=== PATIENT | female | born 1950 | race Caucasian/White ===

== ENCOUNTER 2022-02-01 03:10 | Inpatient (IN) | payer MEDICARE, MEDICAID, SELFPAY ==
[2022-02-01] VITALS (89 sets, daily range): BP systolic 65–174; BP diastolic 29–86; PULSE 77–185; RESP 16–41; TEMP 33.6–37.1; O2SAT 68–100; BMI 16.7
--- NOTE | ~2022-02-01 | XR_ITS ---
EXAMINATION: XR abdomen NG/feed tube insert DATE: 02/01/2022 08:38 INDICATION: Nasogastric tube placement. TECHNIQUE: A semiupright view of the abdomen was obtained. COMPARISON: None. FINDINGS: The lower abdomen is excluded. There are no dilated loops of bowel. The nasogastric tube ti p is in the stomach. IMPRESSION: 1. Nasogastric tube tip in the stomach. Reviewed, dictated and finalized at location A.
--- NOTE | ~2022-02-01 | CT_ITS ---
EXAMINATION: CT brain wo con DATE: 02/20/2022 10:25 INDICATION: Anisocoria with relatively dilated left pupil TECHNIQUE: Computed tomography (CT) of the head was performed without intravenous contrast. Sagittal and coronal reconstructions were performed. The mA was adjusted according to patient size. Iterative reconstruction technique was employed. The dose-length product was 605.33 mGy-cm. COMPARISON: None FINDINGS: No acute intracranial hemorrhage, acute infarction or abnormal extra axial fluid collection. There is mild scattered white matter hypoattenuation consistent with chronic small vessel ischemic disease. V entricles are normal and symmetric. Suprasellar cistern in the remaining basal cisterns appear patent . No mass/mass effect. The orbits, paranasal sinuses and mastoid air cells are normal. IMPRESSION: 1. Mild scattered white matter hypoattenuation consistent with chronic small vessel ischemic disease. Otherwise normal head CT. Reviewed, dictated and finalized at location A. IMPRESSION: 1. Mild scattered white matter hypoattenuation consistent with chronic small ve ssel ischemic disease. Otherwise normal head CT.
--- NOTE | ~2022-02-01 | US_ITS ---
US renal BI DATE: 02/17/2022 17:42 INDICATION: Hematuria TECHNIQUE: Real-time imaging of kidneys and urinary bladder COMPARISON: None FINDINGS: No renal mass lesion or hydronephrosis is evident. The right kidney measures approximately 10.9 cm length, the left 10.5 cm. No significant abnormality of the bowel is evident. IMPRESSION: No significant abnormalities demonstrated Reviewed, dictated and finalized at [facility]. Reviewed, dictated and finalized at location A.
--- NOTE | ~2022-02-01 | XR_ITS ---
XR chest 1V portable 02/11/2022 05:36 Indication: Respiratory failure Procedure: AP portable chest Comparison: Comparison to multiple prior studies sequentially, with oldest reviewed study dated 02/07. Findings: There is improving bilateral airspace disease with superimposed emphysema and chronic bilat eral scarring of the upper and lower lungs. There is chronic apical pleural thickening/scarring. No p neumothorax. Endotracheal tube tip 3.6 cm above the tate. NG tube in the stomach. Right IJ central line tip in the SVC. Impression: 1: Improving bilateral airspace disease which may represent resolving pneumonia or edema. Reviewed, dictated and finalized at location A. Impression: 1: Improving bilateral airspace disease which may represent resolving pneumonia or edema.
--- NOTE | ~2022-02-01 | US_ITS ---
EXAMINATION: US transvaginal DATE: 02/19/2022 14:50 INDICATION: Endometrial thickening suspicious for endometrial cancer. TECHNIQUE: Multiple transvaginal sonographic images of the pelvis were obtained. COMPARISON: CT cervical spine 02/18/2022. FINDINGS: TRANSABDOMINAL ULTRASOUND: The uterus measures 5.1 x 4.7 x 3.1 cm. There is no free fluid in the pelvis. TRANSVAGINAL ULTRASOUND: There is fluid in the endometrial complex with maximum thickness of 1.6 cm. The soft tissue of the en dometrial complex demonstrates a thickness of 4 mm. The ovaries are not visualized. IMPRESSION: 1. Fluid in the endometrial complex, which may be seen with cervical stenosis or cervical cancer. Reviewed, dictated and finalized at location A. IMPRESSION: 1. Fluid in the endometrial complex, which may be seen with cervical stenosis o r cervical cancer.
--- NOTE | ~2022-02-01 | US_ITS ---
EXAMINATION: US venous doppler [facility] DATE: 02/03/2022 10:11 INDICATION: Lower limb edema. TECHNIQUE: Grayscale ultrasound images without and with compression and Doppler ultrasound images of the bilateral lower extremity veins were obtained. COMPARISON: None. FINDINGS: The visualized portions of right common femoral vein, profunda (deep) femoral vein, femoral vein, pop liteal vein, peroneal veins, posterior tibial veins, and greater saphenous vein outflow are patent. The visualized portions of left common femoral vein, profunda femoral vein, femoral vein, popliteal v ein, peroneal veins, posterior tibial veins, and greater saphenous vein outflow are patent. IMPRESSION: 1. No deep venous thrombosis. Reviewed, dictated and finalized at location A.
--- NOTE | ~2022-02-01 | XR_ITS ---
EXAMINATION: XR chest ET placement DATE: 02/01/2022 08:37 INDICATION: Intubation. TECHNIQUE: A single frontal view of the chest was obtained. COMPARISON: Chest single view at 5:56 AM FINDINGS: The lungs are hyperexpanded. There are airspace opacities in all lung zones bilaterally wit h an upper lung predominance, worst in right upper lobe. No pleural effusion or pneumothorax. The hea rt size is normal. The endotracheal tube tip is 2.2 cm above the tate. The nasogastric tube tip is in the stomach. A right internal jugular central venous catheter is seen with tip in the superior castillo a cava. IMPRESSION: 1. Diffuse lung disease, consistent with multifocal pneumonia superimposed on chronic lung disease. T he chronic lung disease is likely a combination of severe emphysema and upper lung predominant diseas e such as tuberculosis, histoplasmosis, or sarcoid. Reviewed, dictated and finalized at location A. IMPRESSION: 1. Diffuse lung disease, consistent with multifocal pneumonia superimposed on c hronic lung disease. The chronic lung disease is likely a combination of severe emphysema and upper lung predominant disease such as tuberculosis, histoplasmo sis, or sarcoid.
--- NOTE | ~2022-02-01 | XR_ITS ---
XR chest 1V portable 02/07/2022 05:53 Indication: Respiratory failure Procedure: AP portable chest Comparison: Comparison to multiple prior studies sequentially, with oldest reviewed study dated 02/03. Findings: Endotracheal tube tip approximately 2 cm above the tate. Right IJ central line tip in the CC. NG tube in the stomach. Extensive mixed interstitial and airspace disease bilaterally. Small rig ht pleural effusion. No pneumothorax. The lungs are hyperinflated which is consistent with, but not d iagnostic of chronic obstructive pulmonary disease. Impression: 1: Extensive bilateral airspace disease, consistent with pneumonia. Reviewed, dictated and finalized at location A. Impression: 1: Extensive bilateral airspace disease, consistent with pneumonia.
--- NOTE | ~2022-02-01 | XR_ITS ---
EXAMINATION: XR chest port-a-cath/central DATE: 02/01/2022 06:00 INDICATION: Central line placement. TECHNIQUE: A single frontal view of the chest was obtained. COMPARISON: Chest single view at 3:43 AM FINDINGS: The lungs are hyperexpanded. There are patchy airspace opacities in all lung zones bilatera lly with architectural distortion with an upper lung predominance, right worse than left. No pleural effusion or pneumothorax. The heart size is normal. A right internal jugular central venous catheter is seen with tip in the superior vena cava. IMPRESSION: 1. Central line tip in superior vena cava. 2. Diffuse lung disease, likely multifocal pneumonia superimposed on chronic lung disease. The chroni c lung disease is likely a combination of severe emphysema and upper lung predominant disease such as tuberculosis, histoplasmosis, or sarcoid. Reviewed, dictated and finalized at location A. IMPRESSION: 1. Central line tip in superior vena cava. 2. Diffuse lung disease, likely multifocal pneumonia superimposed on chronic connor ng disease. The chronic lung disease is likely a combination of severe emphysem a and upper lung predominant disease such as tuberculosis, histoplasmosis, or s arcoid.
--- NOTE | ~2022-02-01 | XR_ITS ---
EXAMINATION: XR chest 1V portable DATE: 02/06/2022 10:06 INDICATION: Respiratory failure. TECHNIQUE: A single frontal view of the chest was obtained. COMPARISON: Chest single view 02/05/2022, chest CT 02/01/2022 FINDINGS: There are lucencies in the lungs, consistent with emphysema. There are airspace opacities i n all lung zones bilaterally with architectural distortion. There is a small right pleural effusion v ersus pleural thickening. No pneumothorax. The heart size is normal. The endotracheal tube tip is 3.3 cm above the tate. The nasogastric tube tip is in the stomach. A right internal jugular central ve nous catheter is seen with tip in the superior vena cava. IMPRESSION: 1. Stable diffuse lung disease, consistent with acute on chronic pneumonia superimposed on emphysema. 2. Stable blunting of right lateral costophrenic angle, consistent with small pleural effusion versus pleural thickening. Reviewed, dictated and finalized at location A. IMPRESSION: 1. Stable diffuse lung disease, consistent with acute on chronic pneumonia supe rimposed on emphysema. 2. Stable blunting of right lateral costophrenic angle, consistent with small p leural effusion versus pleural thickening.
--- NOTE | ~2022-02-01 | CT_ITS ---
EXAMINATION: CT abdomen pelvis wo/w con EXAM DATE: 02/18/2022 14:47 INDICATION: Gross hematuria. TECHNIQUE: Spiral CT of the abdomen and pelvis was performed without contrast. The patient was then injected with small bolus intravenous Omnipaque 350, followed by delay of approximately 10 minutes to allow collecting system to opacify. A post contrast scan abdomen and pelvis was performed during inj ection of remaining contrast. A total of 130 cc intravenous contrast was administered. The dose-jenny th product (DLP) for this examination was 466.80 mGy-cm. The exposure was tailored according to adán ent size (auto mA exposure control), and iterative reconstruction (ASIR) was used as additional dose reduction technique. There is no prior study for comparison. FINDINGS: There are 2 small foci of right epicardial gas of uncertain source. Frond-like nodular mass along the superior wall of the bladder measuring 1.2 cm in maximal thickness, most likely transition al cell cancer. There is no hydroureter or suspicious renal mass. Punctate left nephrolithiasis. Ther e is endometrial thickening up to 1.6 cm which may endometrial carcinoma. The liver, spleen, adrenal glands and pancreas are unremarkable. Gallbladder is unremarkable. No bi liary obstruction. There is no retroperitoneal or pelvic lymphadenopathy. The appendix is normal. The stomach and small bowel are unremarkable. There is expected amount of c olonic stool. No free intraperitoneal gas. The heart is normal in size. There are no pericardial or pleural effusions. Moderate amount of bilateral posterior dependent airspace disease consistent with pneumonia. Hyperinflation and severe emphysema. There are no osteoblastic or osteolytic lesions identified. IMPRESSION: 1. Superior bladder wall mass, probably transitional cell cancer. 2. Endometrial thickening suspicious for endometrial cancer. 3. Subsegmental bibasilar pneumonia. 4. Emphysema and hyperinflation. 5. Punctate left nephrolithiasis. 6. Several tiny foci of right epicardial gas of uncertain origin. No free intraperitoneal gas. Reviewed, dictated and finalized at location B. IMPRESSION: 1. Superior bladder wall mass, probably transitional cell cancer. 2. Endometrial thickening suspicious for endometrial cancer. 3. Subsegmental bibasilar pneumonia. 4. Emphysema and hyperinflation. 5. Punctate left nephrolithiasis. 6. Several tiny foci of right epicardial gas of uncertain origin. No free intr aperitoneal gas.
--- NOTE | ~2022-02-01 | XR_ITS ---
EXAMINATION: XR chest 1V portable DATE: 02/04/2022 05:52 INDICATION: Intubated TECHNIQUE: frontal view of the chest was obtained. COMPARISON: Chest radiograph dated 02/03/2022 FINDINGS: Endotracheal tube tip 1.2 cm above the tate. Right internal jugular central venous catheter with di stal tip at the midsuperior vena cava. Nasogastric tube in the stomach. No significant change in diffuse airspace opacities throughout both lungs. No pneumothorax or definit iris pleural effusion. Heart size is normal. IMPRESSION: 1. No significant change in diffuse bilateral lung disease consistent with likely acute on chronic pn eumonia superimposed over emphysema. Reviewed, dictated and finalized at location A. IMPRESSION: 1. No significant change in diffuse bilateral lung disease consistent with like ly acute on chronic pneumonia superimposed over emphysema.
--- NOTE | ~2022-02-01 | XR_ITS ---
EXAMINATION: XR abdomen obstructive series DATE: 02/11/2022 08:15 INDICATION: Abdominal pain and diarrhea TECHNIQUE: Upright and supine views of the abdomen were obtained. COMPARISON: 02/01/2022 FINDINGS: The nasogastric tube is in the stomach. No free intraperitoneal gas is identified. There ar e no definitely dilated loops of bowel. IMPRESSION: 1. Nonobstructive bowel gas pattern. Reviewed, dictated and finalized at location B.
--- NOTE | ~2022-02-01 | XR_ITS ---
EXAMINATION: XR chest 1V portable DATE: 02/01/2022 03:52 INDICATION: Cough. TECHNIQUE: A single frontal view of the chest was obtained. COMPARISON: Chest CT 02/01/2022, chest 2 views 01/31/2019 FINDINGS: The lungs are hyperexpanded. There are patchy airspace opacities in all lung zones bilatera lly with architectural distortion with an upper lung predominance, worst in right upper lobe. No pleu ral effusion or pneumothorax. The heart size is normal. IMPRESSION: 1. Diffuse lung disease, likely multifocal pneumonia superimposed on chronic lung disease. The chroni c lung disease is likely a combination of severe emphysema and upper lung predominant disease such as tuberculosis, histoplasmosis, or sarcoid. Reviewed, dictated and finalized at location A. IMPRESSION: 1. Diffuse lung disease, likely multifocal pneumonia superimposed on chronic connor ng disease. The chronic lung disease is likely a combination of severe emphysem a and upper lung predominant disease such as tuberculosis, histoplasmosis, or s arcoid.
--- NOTE | ~2022-02-01 | CT_ITS ---
EXAMINATION:CT diagnostic chest wo con DATE: 02/01/2022 04:56 INDICATION: Right lung mass. Shortness of breath. TECHNIQUE: Computed tomography (CT) of the chest was performed without intravenous contrast. Automate d exposure control and iterative reconstruction technique were employed. The dose-length product (DLP ) was 121.11 mGy-cm. COMPARISON: Chest single view 01/31/2019 FINDINGS: There is severe emphysema. There are patchy airspace opacities and septal thickening in all lobes with architectural distortion and upper lung volume loss. There are airspace opacities with ca vitation in superior segment right lower lobe and left upper and lower lobes. There are scattered sma ll nodules in the lungs. No pleural effusion. The heart size is normal. There are coronary artery josé miguel cifications. No pericardial effusion. There are no pathologically enlarged lymph nodes. There is mild thoracic spondylosis. IMPRESSION: 1. Multifocal pneumonia superimposed on chronic lung disease. The chronic lung disease in a combinati on of severe emphysema and upper lung predominant disease such as tuberculosis or histoplasmosis or s arcoid. Reviewed, dictated and finalized at location A. IMPRESSION: 1. Multifocal pneumonia superimposed on chronic lung disease. The chronic lung disease in a combination of severe emphysema and upper lung predominant disease such as tuberculosis or histoplasmosis or sarcoid.
--- NOTE | ~2022-02-01 | XR_ITS ---
EXAMINATION: XR chest 1V portable DATE: 02/03/2022 05:48 INDICATION: Pneumonia. Acute respiratory failure. TECHNIQUE: frontal view of the chest was obtained. COMPARISON: Chest radiograph dated 02/02/2022 FINDINGS: Endotracheal tube tip 2.4 cm above the tate. Nasogastric tube extends below the left hemidiaphragm with distal tip collimated off the study. Right internal jugular central venous catheter with distal tip at the midsuperior vena cava. Upper expansion of lungs suggesting emphysema better appreciated on prior CT . Airspace opacities thr oughout both lungs. This remains greatest in the right upper lobe but whether this appeared to be bright e interval improvement. No pneumothorax or definitive pleural effusion. Heart size is normal. Enlarge ment of the central pulmonary arteries consistent with pulmonary arterial hypertension. IMPRESSION: 1. Diffuse bilateral lung disease which is most severe but where there has also been interval improve ment in the right upper lung zone consistent with multifocal likely acute on chronic pneumonia superi mposed over emphysema. 2. Enlargement of the central pulmonary arteries consistent with pulmonary arterial hypertension. Reviewed, dictated and finalized at location A. IMPRESSION: 1. Diffuse bilateral lung disease which is most severe but where there has also been interval improvement in the right upper lung zone consistent with multifo josé miguel likely acute on chronic pneumonia superimposed over emphysema. 2. Enlargement of the central pulmonary arteries consistent with pulmonary sarah rial hypertension.
--- NOTE | ~2022-02-01 | XR_ITS ---
EXAMINATION: XR chest 1V portable DATE: 02/02/2022 05:25 INDICATION: Acute respiratory failure and pneumonia TECHNIQUE: frontal and lateral views of the chest were obtained. COMPARISON: Chest radiograph dated 02/01/2022 FINDINGS: Endotracheal tube tip 2.1 cm above the tate. Nasogastric tube extends below the left hemidiaphragm with distal tip collimated off the study. Right internal jugular central venous catheter with distal tip at the midsuperior vena cava. Hyperexpansion of lungs with flattening of the diaphragm consistent with severe emphysema better appr eciated on prior CT. No significant change in opacities with associated architectural distortion and pleural parenchymal scarring scattered throughout both lungs most prominent in the right upper lung z one. The cardiomediastinal silhouette is normal. Visualized bones and soft tissues are unremarkable. IMPRESSION: 1. Stable appearance of diffuse bilateral lung disease consistent with multifocal likely acute on chr onic pneumonia superimposed on emphysema. Reviewed, dictated and finalized at location A. IMPRESSION: 1. Stable appearance of diffuse bilateral lung disease consistent with multifoc al likely acute on chronic pneumonia superimposed on emphysema.
--- NOTE | ~2022-02-01 | XR_ITS ---
XR chest 1V portable 02/10/2022 05:46 Indication: Respiratory failure Procedure: AP portable chest Comparison: Comparison to multiple prior studies sequentially, with oldest reviewed study dated 02/06. Findings: Tubes and lines are stable. There is improving bilateral patchy airspace disease. There is emphysema. No pneumothorax identified. No acute osseous abnormality. Impression: 1: Improving patchy bilateral airspace disease, consistent with pneumonia. Reviewed, dictated and finalized at location A. Impression: 1: Improving patchy bilateral airspace disease, consistent with pneumonia.
--- NOTE | ~2022-02-01 | XR_ITS ---
EXAMINATION: XR chest 1V portable DATE: 02/05/2022 05:26 INDICATION: Intubation TECHNIQUE: frontal view of the chest was obtained. COMPARISON: Chest radiograph dated 02/04/2022 FINDINGS: Endotracheal tube tip 2.2 cm above the tate. Right internal jugular central venous catheter tip at the midsuperior vena cava. Nasogastric tube extends below the left hemidiaphragm with distal tip col limated off the study. No significant change in diffuse airspace opacities throughout both lungs. No pneumothorax or definit iris pleural effusion. Heart size within normal limits for AP technique. Enlargement of the central pu lmonary arteries consistent with pulmonary hypertension. IMPRESSION: 1. No significant change in diffuse bilateral lung disease consistent with acute on chronic pneumonia superimposed over emphysema. Reviewed, dictated and finalized at location A. IMPRESSION: 1. No significant change in diffuse bilateral lung disease consistent with acut e on chronic pneumonia superimposed over emphysema.
--- NOTE | ~2022-02-01 | XR_ITS ---
XR chest 1V portable 02/09/2022 05:30 Indication: Respiratory failure Procedure: AP portable chest Comparison: Comparison to multiple prior studies sequentially, with oldest reviewed study dated 02/05. Findings: Endotracheal tube tip 3.4 cm above the tate. NG tube in the stomach. Stable extensive demetrius ateral airspace disease, compatible with pneumonia. No significant effusion or pneumothorax. No acute osseous abnormality. Impression: 1: Stable extensive bilateral airspace disease, compatible with pneumonia. Reviewed, dictated and finalized at location A. Impression: 1: Stable extensive bilateral airspace disease, compatible with pneumonia.
--- NOTE | ~2022-02-01 | XR_ITS ---
XR chest 1V portable 02/08/2022 05:14 Indication: AP portable chest Procedure: Comparison to multiple prior studies sequentially, with oldest reviewed study dated 2021. Comparison: Comparison to multiple prior studies sequentially, with oldest reviewed study dated 02/04. Findings: Endotracheal tube tip 3.8 cm above the tate. NG tube in the stomach. There is extensive p atchy bilateral airspace disease, compatible with pneumonia. Small right pleural effusion. No pneumot horax identified. No acute osseous abnormality. Impression: 1: No significant change to extensive bilateral airspace disease, compatible with pneumonia. Reviewed, dictated and finalized at location A. Impression: 1: No significant change to extensive bilateral airspace disease, compatible wi th pneumonia.
--- NOTE | ~2022-02-01 | XR_ITS ---
EXAMINATION: XR abdomen/kub 1V DATE: 02/18/2022 13:08 INDICATION: Gross hematuria TECHNIQUE: A supine view of the abdomen on 2 radiographs was obtained. COMPARISON: None. FINDINGS: Multiple 2 mm or smaller calcifications in the left upper quadrant projecting over the left kidney bu t also the pancreas amount the majority representing a combination of atherosclerotic calcification a long the splenic artery or in parenchyma calcific a cyst at the tail the pancreas likely related to c hronic pancreatitis. One of the calcifications appear to represent a 2 mm stone seen on subsequent CT . Unchanged 7 mm likely phlebolith in the right hemipelvis. No evident right sided urolithiasis. Sma ll amount of high attenuation retained barium at the rectum from a modified swallow study performed 6 days prior. Mild opacities at the bilateral lung bases consistent with very small bilateral pleural effusions and associated bibasilar atelectasis and/or pneumonia. Mild lumbar levocurvature with moder ate spondylosis. IMPRESSION: 1. Multiple small ossifications in the left upper quadrant 1 representing a 2 mm left renal stone and remainder represent atherosclerotic splenic artery calcifications and pancreatic parenchymal calcifi cation related to chronic pancreatitis. Reviewed, dictated and finalized at location A. IMPRESSION: 1. Multiple small ossifications in the left upper quadrant 1 representing a 2 m m left renal stone and remainder represent atherosclerotic splenic artery calci fications and pancreatic parenchymal calcification related to chronic pancreati tis.
--- NOTE | ~2022-02-01 | XR_ITS ---
MODIFIED ESOPHAGRAM HISTORY: Recent extubation. Dysphagia. TECHNIQUE: Modified barium esophagram was performed by speech pathologist under radiologist fluorosco pic guidance. This was recorded on tape. The exam was reviewed on 02/12/2022 12:29 CDT. The DAP for this procedure was XXXXDAP#.#[id number] Gycm2. Fluoroscopy time is 1.9 minutes. One fluoroscopic image. FINDINGS: Lateral projection of the cervical spine demonstrates degenerative anterolisthesis at C4- 5.. There is normal swallowing function without evidence for penetration or aspiration. Note is made of follicular residue.. IMPRESSION: 1: Normal swallowing function without penetration or aspiration. 2: Please refer to speech pathologist report for additional detail. Reviewed, dictated and finalized at location A.
--- NOTE | 2022-02-01 03:13 | ECG_ITS ---
Measurements Intervals [place] Rate: 191 P: VT: 0 QRS: 83 QRSD: 110 T: -12 QT: 225 QTc: 402 Interpretive Statements ATRIAL FIBRILLATION WITH RAPID VENTRICULAR RESPONSE INCOMPLETE RIGHT BUNDLE BRANCH BLOCK [90+ ms QRS DURATION, TERMINAL R IN V1/V2, 40+ ms S IN I/aVL/V4/V5/V6] NONSPECIFIC ST AND T-WAVE CHANGES NO PREVIOUS ECG AVAILABLE FOR COMPARISON Electronically Signed On 02-01-2022 16:43:37 CDT by Cortney Baeza M.D.
--- NOTE | 2022-02-01 03:20 | ED.GENADULT ---
HPI - General Adult General Chief complaint: Shortness of Breath/Dyspnea Stated complaint: respiratory distress Source: RN notes reviewed History of Present Illness HPI narrative: Patient presents emergency department from home via EMS for shortness of breath. Patient states she has a history of COPD and atrial fibrillation she is normally on 2 to 3 L at home and all time states she has had progressively worsening shortness of breath over the past 1 week states is worse with any exertion patient states that several people at home have been sick with bronchitis she states she has had a cough this been nonproductive. Patient states she had a fever 2 days ago but none since she denies any chest pain abdominal pain nausea or vomiting. The patient states he was on amiodarone and a blood thinner at one point for her atrial fibrillation she is no longer on the is according to her her PCP Dr. Kirk had a left and she was not able to get these refilled however she states that she did see inspector automatic typewriter last week at [place] but cannot tell me his name who told her that she did not need the medications any longer Related Data Allergies Allergy/AdvReac Type Severity Reaction Status Date / Time No Known Allergies Allergy Verified 02/19/21 15:07 Review of Systems Review of Systems: Gen.: Reports fever ENT: Denies congestion Respir reports heart racing GI: Denies abdominal pain nausea, emesis or diarrhea Musculoskeletal: Denies back pain or muscle pain Neuro: Denies numbness, tingling, weakness or focal weakness Skin: Denies rash Except as documented, all other systems reviewed and negative [facility] Past Medical History Medical History (Updated 02/01/22 @ 06:35 by Irma Delgado MD) Anemia of chronic disease Chronic atrial fibrillation Diastolic CHF Emphysema/COPD History of atrial fibrillation History of pneumothorax Mass of lower lobe of left lung 2019 Pulmonary hypertension PVD (peripheral vascular disease) Severe protein-calorie malnutrition Surgical History Surgical History (Updated 02/01/22 @ 05:24 by Irma Delgado MD) H/O chest tube placement Family History Family History (Updated 02/01/22 @ 05:25 by Irma Delgado MD) Other Asthma Family history of chronic obstructive pulmonary disease Lung cancer Social History Social History Smoking status: Former smoker Exam Narrative: APPEARANCE: No acute distress, nontoxic, resting in bed EYES: EOMI HEENT: Normocephalic, atraumatic, OMM RESPIRATORY: Mild respiratory distress sitting upright wheezing throughout the bilateral lung skinner no rhonchi CARDIOVASCULAR: Tachycardic and irregular without murmurs rubs or gallops. ABDOMINAL: Soft, nontender, nondistended, no rebound or guarding MUSCULOSKELETAl: Moves all extremities. No clubbing, cyanosis 2+ edema the bilateral lower extremities NEURO: Awake and alert x 3. Following commands, speech normal, no focal deficits SKIN:: Warm, dry. No rashes lesions or abrasions PSYCHIATRIC: Normal affect/mood, Course Course Emergency Course: Once patient was registered I was able to review her pharmacy list. Patient had a 90-day supply of Xarelto filled in December I discussed with the patient now she does states that she is on Xarelto Discussed with Dr. Delgado accepts admission request patient started on cefepime and vancomycin as well as Tamiflu Called and discussed with Dr. Light agrees with admit to ICU he request patient started on phenylephrine secondary to heart rate agrees with current antibiotic choice of cefepime and vancomycin Discussed with Dr. Baeza agrees with consult agrees with plan for continued amiodarone Discussed with patient and family results of workup and diagnosis. Discussed need for admission. Patient and family understand and agree to current treatment plan Vital Signs Vital signs: Vital Signs Pulse Rate 185 H 02/01/22 03
[2022-02-01 03:27] LABS: Alveolar/Arterial O2 Gradient 131.2 mmHg; Fractional Inspired Oxygen 36 %; HCO3 ABG 17.5 mEq/l (22.0-26.0); Oxygen Content ABG 15.2 %vol (16.0-22.0); Oxygen Saturation ABG 94.1 % (95.0-100.0); Oxyhemoglobin 91.4 % THb (90.0-100.0); PCO2 ABG 39.7 mmHg (35.0-45.0); PO2 ABG 79.4 mmHg (80.0-100.0); PO2 FiO2 Ratio Arterial Blood 2.21 %; Total Hemoglobin 11.8 g/dL (12.0-18.0)
[2022-02-01 03:29] LABS: Device NASAL CANNULA; Modified Allen's Test Pass; Site Drawn RIGHT RADIAL; pH ABG 7.261 (7.350-7.450)
[2022-02-01] MEDS: methylPREDNISolone SOD SUCC 125 MG VIAL IV PUSH (03:44)
[2022-02-01] MEDS: AMIODARONE 150 MG/D5W 100 ML 150 MG/100 ML BAG 600 MG IV CONT ×2 (03:44→07:44)
[2022-02-01 03:51] LABS: Basophils Percent Auto 0.1 % (0.2-1.2); Hematocrit 40.6 % (37.0-47.0); Hemoglobin 11.9 g/dL (12.0-15.0); Immature Granulocyte Absolute 0.28 K/mm3 (0.00-0.031); Lymphocytes Absolute Auto 1.29 K/mm3 (0.9-3.2); Lymphocytes Percent Auto 4.4 % (18.3-44.2); Mean Corpuscular HGB Conc 29.3 g/dl (32-36); Mean Corpuscular Hemoglobin 26.3 pg (26-34); Mean Corpuscular Volume 89.8 fl (80-100); Mean Platelet Volume 10.6 fl (7.4-10.4); Monocytes Percent Auto 6.8 % (2.6-8.5); Neutrophils Absolute Auto 25.6 K/mm3 (1.3-6.7); Neutrophils Percent Auto 87.7 % (45.5-73.1); Nucleated Red Blood Cells Perc 0.1 % (0.0-0.2); Platelet Count Result 606 k/mm3 (150-375); Red Blood Count 4.52 M/mm3 (4.2-5.4); Red Cell Distribution Width 16.3 % (11.5-14.5); White Blood Count 29.2 K/mm3 (4.5-10.0)
[2022-02-01] MEDS: AMIODARONE 360 MG/D5W 200 ML 360 MG/200 ML BAG 33.33 MG IV CONT (03:59)
[2022-02-01 04:01] LABS: Prothrombin Time 21.7 Seconds (11.1-14.7)
[2022-02-01] MEDS: SODIUM CHLORIDE 0.9% IV 500 ML 999 ML IV CONT (04:05)
[2022-02-01 04:24] LABS: Influenza A QL RT-PCR Positive (Negative); Influenza B QL RT-PCR Negative (Negative); SARS-CoV-2 RNA PCR Negative
[2022-02-01 04:34] LABS: Alanine Aminotransferase 24 U/L (4-35); Albumin Level 3.2 g/dL (3.5-5.1); Alkaline Phosphatase 186 U/L (38-126); Anion Gap 14 mmol/L (8-16); Aspartate Amino Transferase 48 U/L (14-36); Bilirubin,Total 0.6 mg/dL (0.2-1.3); Blood Urea Nitrogen 43 mg/dL (7-17); Calcium 8.4 mg/dL (8.4-10.2); Carbon Dioxide 19 mmol/L (22-30); Chloride 103 mmol/L (98-107); Estimated CRCL calculation 27 ml/min; Estimated Glomerular Filt Rate 40; Glucose 149 mg/dL (65-110); Potassium 4.3 mmol/L (3.4-5.0); Sodium 136 mmol/L (137-145)
[2022-02-01] MEDS: SODIUM CHLORIDE 0.9% IV 1,000 ML 999 ML IV CONT ×2 (04:38→07:44)
[2022-02-01 04:55] LABS: Lactic Acid Reflex 4.3 mmol/L (0.7-2.1)
[2022-02-01 05:05] LABS: Thyroid Stimulating Hormone 0.079 uIU/mL (0.465-4.680)
[2022-02-01 05:05] LABS: NT Pro B Type Natriuretic Pept 27200 pg/mL (5-100); Troponin I 0.756 ng/mL (0.000-0.034)
--- NOTE | 2022-02-01 05:15 | PM.IMHP ---
H&P: HPI History of Present Illness Date/Time: 02/01/22 05:15 71 yo F hyperthyroidism, PVD, Diastolic CHF, h/o tobacco abuse quit in 2019, COPD, PVD, afib on xarelto, hyperthyroidism, h/o noncompliance, and recently stopped taking one of her medications because she felt it was making her feel worse. (presumed to be xarelto or amiodarone) , brought to the hospital by EMS for worsening shortness of breath over the last week. Her granddaughter states that Meme lives with her and her son was sick at the same time but he got better and her grandmother did not. Fever. SOB. Patient found to be influenza A positive with acute on chronic respiratory failure home O2 (3 L) dependent in septic shock w Afib RVR. She is admitted to the ICU for further care and intubated emergently. History is obtaied from chart and her granddaughter. Chief Complaint: shortness of breath Review of Systems Review of Systems: ROS unobtainable: Yes unobtainable due to endotracheal tube, unobtainable due to medical condition and unobtainable due to mental status PMFSH Past Medical History Medical History Anemia of chronic disease Chronic atrial fibrillation Chronic hypoxemic respiratory failure Diastolic CHF Emphysema/COPD History of atrial fibrillation History of pneumothorax Hyperthyroidism Mass of lower lobe of left lung 2019 Noncompliance Paroxysmal atrial fibrillation Pulmonary hypertension PVD (peripheral vascular disease) Severe protein-calorie malnutrition Surgical History Surgical History H/O chest tube placement Family History Family History Mother Cancer Some type of your nose and throat cancer Other Asthma Family history of chronic obstructive pulmonary disease Lung cancer Social History Social History Social History: Patient lives with her granddaughter Smoking packs per day: 1 Smoking cigarettes per day: 20.0 Smoking status: Former smoker Substance use: never Spiritual care concerns: No Meds Home Medications and Allergies Home Medications Medication Instructions Recorded Confirmed Type albuterol sulfate 2.5 mg INHALATION Q4-6H PRN 30 03/27/21 02/01/22 Rx Days #180 ml metoprolol succinate 50 mg 50 mg PO QPM 30 Days #30 tablet 03/27/21 02/01/22 Rx tablet,extended release 24 hr budesonide-formoterol [Symbicort] 2 puff INHALATION DAILY 02/01/22 02/01/22 History cholecalciferol (vitamin D3) 25 mcg PO DAILY 02/01/22 02/01/22 History rosuvastatin 10 mg PO DAILY 02/01/22 02/01/22 History tiotropium bromide [Spiriva with 18 mcg INHALATION DAILY 02/01/22 02/01/22 History HandiHaler] Allergies Allergy/AdvReac Type Severity Reaction Status Date / Time No Known Allergies Allergy Verified 02/19/21 15:07 Vital Signs Vital Signs - 24 hr 02/01/22 03:13 02/01/22 03:15 02/01/22 03:17 Pulse Rate 185 H 185 H 174 H Respiratory Rate 36 H 23 H Blood Pressure Pulse Oximetry 90 90 02/01/22 03:30 02/01/22 03:45 02/01/22 03:54 Pulse Rate 174 H 179 H Respiratory Rate 35 H 34 H Blood Pressure 75/62 L Pulse Oximetry 02/01/22 03:55 02/01/22 03:59 02/01/22 04:00 Pulse Rate 168 H 146 H 146 H Respiratory Rate 41 H 37 H Blood Pressure 75/62 L 75/62 L 68/56 L Pulse Oximetry 93 90 02/01/22 04:01 02/01/22 04:05 02/01/22 04:15 Pulse Rate 149 H 137 H 142 H Respiratory Rate 35 H 39 H 37 H Blood Pressure 65/48 L Pulse Oximetry 92 02/01/22 04:17 02/01/22 04:18 02/01/22 04:30 Pulse Rate 153 H 148 H 144 H Respiratory Rate 37 H 17 33 H Blood Pressure 72/51 L 76/36 L Pulse Oximetry 85 L 02/01/22 04:31 02/01/22 04:58 Pulse Rate 156 H 147 H Respiratory Rate 36 H 36 H Blood Pressure 81/60 L Pulse Oximetry 93 Exam Const: General: no acute distre
[2022-02-01 05:28] LABS: Add Urine Microscopic? YES; Appearance Urine Cloudy (Clear); Bacteria Urine Trace /hpf; Bilirubin Urine Negative (Negative); Blood Urine Negative (Negative); Color Urine Yellow (Yellow); Glucose Urine UA Negative (Negative); Hyaline Casts Urine 50+ /lpf; Ketones Urine Trace mg/dL (Negative); Leukocyte Esterase Ur Negative LEU/UL (Negative); Mucus Urine Few /lpf; Nitrate Urine Negative (Negative); Protein Urine 2+ mg/dL (Negative); Specific Grav Ur 1.018 (1.001-1.035); Squamous Epithelial Cell Urine Rare /hpf (Few); Urobilinogen Urine Negative mg/dL (<2.0)
[2022-02-01] MEDS: OSELTAMIVIR PHOSPHATE 75 MG CAPSULE PO (05:29)
--- NOTE | 2022-02-01 06:40 | ADMGEN ---
This patient, Meme Almanzar, was admitted to Intensive Care Unit-3. Patient/family oriented to hospital policies and general routines including ID bracelet, bed and alarms, visiting hours, pain management, procedures, bathroom and other care routines, personal items, smoking policy, room service/diet, and visiting hours. Information on how to activate the Rapid Response Team has been discussed. Patient/Family are encouraged to report perceived risks to care and to ask questions if they do not understand what they are told or what they should do.
[2022-02-01 06:49] LABS: Reflex Lactic Acid Yes or No Add Lactic
[2022-02-01] MEDS: CENTRAL LINE FLUSH 10 ML IV PUSH ×3 (06:55→20:29)
[2022-02-01] MEDS: SODIUM CHLORIDE 0.9% IV 1,000 ML 70 ML IV CONT (06:55)
[2022-02-01 07:25] LABS: Lactic Acid 9.6 mmol/L (0.7-2.1)
[2022-02-01 07:31] LABS: Troponin I 0.663 ng/mL (0.000-0.034)
[2022-02-01] MEDS: MIDAZOLAM 100MG/NS 100ML(*CRX) 100 MG/100 ML BAG IV CONT (08:45)
[2022-02-01] MEDS: FENTANYL 2,500MCG/NS250ML(*CRX 2,500 MCG/250 ML BAG IV CONT (08:45)
[2022-02-01] MEDS: IPRATROPIUM BR 0.02% INH SOLN 0.5 MG/2.5 ML VIAL INHALATION ×3 (09:01→20:54)
[2022-02-01] MEDS: LEVALBUTEROL NEB 1.25 MG/3 ML 0.63 MG INHALATION ×3 (09:03→20:54)
[2022-02-01] MEDS: AMIODARONE 360 MG/D5W 200 ML 360 MG/200 ML BAG 16.67 MG IV CONT ×2 (09:06→20:58)
[2022-02-01 09:13] LABS: Glucose Point of Care 107 mg/dl (65-105)
--- NOTE | 2022-02-01 09:28 | WPDCNINT ---
Assessment and Plan Assessment and plan (1) Acute and chronic respiratory failure ([id number]): Code(s): J96.20 - Acute and chronic respiratory failure, unspecified whether with hypoxia or hypercapnia Status: Acute Assessment and Plan: Acute respiratory failure likely related to pneumonia, COPD exacerbation -patient with severe lactic acidosis, mottling noted from the feet to the chest, hypoxia, AFib RVR. Decision was made to intubate the patient. -patient was intubated successfully on 02/01/2021 -currently on CMV mode of ventilation, peep of 5, 100% FiO2 -sedated with fentanyl and Versed infusion -started on bronchodilators and Pulmicort -chest x-ray: ETT in place, There are airspace opacities with cavitation in superior segment right lower lobe and left upper and lower lobes. -will obtain ABGs post intubation Chest CT 02/01/2022: Multifocal pneumonia superimposed on chronic lung disease. The chronic lung disease in a combination of severe emphysema and upper lung predominant disease such as tuberculosis or histoplasmosis or sarcoid. (2) Septic shock: Code(s): A41.9 - Sepsis, unspecified organism; R65.21 - Severe sepsis with septic shock Status: Acute Assessment and Plan: Patient in septic shock likely related to pneumonia, hypovolemia. Presented with worsening shortness breath which has been ongoing for 1 week along with fevers -patient here is hypothermic -lactic levels of 9.6 (initial lactic acid was 4.3) -patient was given 1.5 L of IV fluid bolus in the ER -I gave her 1 L of IV fluid bolus and 500 cc of Hespan -patient on Levophed and Chauncey-Synephrine, will maintain MAP > 70 mmHg for adequate end organ perfusion -blood and urine cultures have been ordered, will order sputum culture -continue cefepime and vancomycin (initiated on 02/01) -started on stress dose steroids -continue trend lactic level (3) PNA (pneumonia): Code(s): J18.9 - Pneumonia, unspecified organism Status: Acute Assessment and Plan: Treatment is above (4) Emphysema/COPD: Code(s): J43.9 - Emphysema, unspecified Status: Acute Assessment and Plan: Continue mechanical ventilation, steroids and bronchodilators (5) LUCINDA (acute kidney injury): Code(s): N17.9 - Acute kidney failure, unspecified Status: Acute Assessment and Plan: Patient with acute kidney injury likely related to hypoxia and hypotension/hypovolemia. Patient in septic shock. -will obtain urine lytes, CK levels and urine eosinophils -she has received adequate amount of IV fluids, continue vasopressors and maintain mean arterial pressures greater than 70 for adequate renal perfusion (6) Atrial fibrillation with rapid ventricular response: Code(s): I48.91 - Unspecified atrial fibrillation Status: Acute Assessment and Plan: Patient has a history of chronic atrial fibrillation but presented to the ED with atrial fibrillation RVR with heart rates been in the 120s to 160s. This could be related to septic shock, hypoxia, hypovolemia -with patient was intubated and her oxygen levels improved, patient converted to sinus rhythm, rate controlled -has received an amiodarone bolus in the ER and currently on an amiodarone infusion, -continue to monitor -patient has been on Xarelto at home, according to the granddaughter she may have not taken it for a while as it was probably making as sick -patient has been started on therapeutic Lovenox q.day which was renally dosed (7) Elevated troponin: Code(s): R77.8 - Other specified abnormalities of plasma proteins Status: Acute Assessment and Plan: Elevated troponins, trending down, likely secondary to ischemic demand due to hypoxia, metabolic acidosis and septic shock -cardiology was consulted and appreciate the evaluation and recommendations -patient has been started (8) DVT prophylaxis: Code(s): Z29.9 - Encounter for prophylactic measure
[2022-02-01] MEDS: SODIUM BICARBONATE 8.4% 50 MEQ/50 ML SYRINGE 100 MEQ IV PUSH ×2 (09:33→12:16)
[2022-02-01] MEDS: methylPREDNISolone SOD SUCC 40 MG VIAL IV PUSH (09:37)
[2022-02-01] MEDS: PANTOPRAZOLE SODIUM IV 40 MG VIAL IV PUSH ×2 (09:37→20:29)
[2022-02-01 09:56] LABS: Basophils Absolute Auto 0.2 K/mm3 (0.0-0.1); Basophils Percent Auto 0.6 % (0.2-1.2); Hematocrit 31.1 % (37.0-47.0); Hemoglobin 8.8 g/dL (12.0-15.0); Immature Granulocyte Absolute 0.47 K/mm3 (0.00-0.031); Lymphocytes Absolute Auto 0.49 K/mm3 (0.9-3.2); Mean Corpuscular HGB Conc 28.3 g/dl (32-36); Mean Corpuscular Hemoglobin 26.7 pg (26-34); Mean Corpuscular Volume 94.5 fl (80-100); Mean Platelet Volume 10.4 fl (7.4-10.4); Monocytes Absolute Auto 1.2 K/mm3 (0.1-0.6); Monocytes Percent Auto 4.8 % (2.6-8.5); Neutrophils Absolute Auto 21.8 K/mm3 (1.3-6.7); Neutrophils Percent Auto 90.6 % (45.5-73.1); Nucleated Red Blood Cells Absolute Auto 0.1 K/mm3 (0.0-0.012); Nucleated Red Blood Cells Perc 0.3 % (0.0-0.2); Platelet Count Result 486 k/mm3 (150-375); Red Blood Count 3.29 M/mm3 (4.2-5.4); Red Cell Distribution Width 16.5 % (11.5-14.5); White Blood Count 24.1 K/mm3 (4.5-10.0)
--- NOTE | 2022-02-01 09:58 | PM.CNCAR ---
Assessment and Plan Assessment and plan (1) Paroxysmal atrial fibrillation: Code(s): I48.0 - Paroxysmal atrial fibrillation Status: Acute Assessment and Plan: Apparent history of paroxysmal atrial fibrillation, previously on amiodarone, previously on some type of anticoagulant. AFib RVR on admission, converted to sinus rhythm after intubation. Continue amiodarone drip Currently anticoagulated with Lovenox (2) Influenza A: Code(s): J10.1 - Influenza due to other identified influenza virus with other respiratory manifestations Status: Acute Assessment and Plan: Admitted with influenza A pneumonia, hypoxia and respiratory failure requiring intubation. (3) Septic shock: Code(s): A41.9 - Sepsis, unspecified organism; R65.21 - Severe sepsis with septic shock Status: Acute Assessment and Plan: Has septic shock, on Chauncey-Synephrine and Levophed. Remains very ill, mottled, very sick lady. Continue supportive care, vent, pressors etc. per product lister Some degree of renal failure present; will be followed. (4) Elevated troponin: Code(s): R77.8 - Other specified abnormalities of plasma proteins Status: Acute Assessment and Plan: Elevated troponin, secondary to AFib RVR and critical illness. Doubt ACS. Will check at follow-up EKG for a baseline, in NSR. History of Present Illness History of Present Illness Consult date/time: 02/01/22 09:58 Requesting physician: Tenzin Acosta DO Consult reason: atrial fibrillation Reason For Visit: Influenza A, Afib with RVR, Severe Sepsis- comm aq Narrative: Meme Almanzar is a 71-year-old female who was admitted with respiratory failure and septic shock due to influenza A. I was asked to see her at the request of Dr. Acosta for my advice and opinion regarding her AFib RVR. The patient is followed by [facility] in [place] for her paroxysmal? Atrial fibrillation. There is no history of any heart attacks or heart failure. She saw her shot core drill operator recently and had an echo; apparently it was normal. She does have COPD and is on 3 L of O2 at home. She started getting sick with cough and increased shortness of breath 1 week ago and developed fevers. She came to the emergency room last night with hypoxia, AFib RVR, and hypotension. She was given some IV amiodarone, 2 L of IV fluids, started on Chauncey-Synephrine (currently at 48 mics per kilos), and later Levophed (currently at 26 mics per kilo). She was intubated when she was brought to the ICU. She is on 100% O2. After intubation she converted to sinus rhythm. Review of Systems Review of Systems: Review of systems and history was obtained from the [facility], speaking with Dr. Light and the patient's granddaughter who is at the bedside. ROS unobtainable: Yes unobtainable due to endotracheal tube, unobtainable due to medical condition and unobtainable due to mental status Constitutional: Constitutional: Reports weakness Comments: Weight loss, fevers ENT: Denies epistaxis Cardiovascular: Cardiovascular: Denies chest pain, Denies pedal edema and Denies leg edema Respiratory: Respiratory: Reports chest congestion, Reports cough, Reports dyspnea and Reports dyspnea on exertion Gastrointestinal: Gastrointestinal: Denies abdominal pain and Denies hematochezia Genitourinary: Genitourinary: Denies hematuria Musculoskeletal: Musculoskeletal: Reports no additional musculoskeletal complaints Comments: Often use a walker or wheelchair at home Integumentary/Breasts: Skin/Breast: Denies rash Neurologic: Denies confusion Comments: No history of any stroke Psychiatric: Psychiatric: Reports no additional psychiatric complaints [facility] Past Medical History Medical History (Updated 02/01/22 @ 10:27 by Cortney Baeza MD) Anemia of chronic disease Chronic atrial fibrillation Chronic hypoxemic respiratory failure Diastolic CHF Emphysema/COPD Histo
[2022-02-01 10:08] LABS: INR 4.9; Partial Thromboplastin Time 47.1 SECONDS (22.3-36.8); Prothrombin Time 44.3 Seconds (11.1-14.7)
[2022-02-01 10:30] LABS: Platelet Estimate Adequate (Adequate); Troponin I 0.798 ng/mL (0.000-0.034)
[2022-02-01 10:31] LABS: Anisocytosis 2+ (NORMAL)
--- NOTE | 2022-02-01 10:32 | ECG_ITS ---
Measurements Intervals [place] Rate: 97 P: 42 NH: 211 QRS: 129 QRSD: 117 T: 34 QT: 399 QTc: 509 Interpretive Statements PROBABLE SINUS RHYTHM WITH BORDERLINE FIRST DEGREE AV BLOCK RIGHT AXIS DEVIATION [QRS AXIS > 100] LOW QRS VOLTAGE IN PRECORDIAL LEADS INCOMPLETE RIGHT BUNDLE-BRANCH BLOCK BASELINE ARTIFACT PRESENT SINUS RHYTHM NOW PRESENT Electronically Signed On 02-01-2022 16:53:52 CDT by Cortney Baeza M.D.
[2022-02-01 10:36] LABS: Ovalocytes 1+ (NORMAL)
[2022-02-01 10:48] LABS: Creatine Kinase 123 U/L (30-135)
[2022-02-01] MEDS: hetaSTARCH 6%/NACL 500 ML 250 ML IV CONT (10:58)
[2022-02-01] MEDS: NOREPINEPHRINE 8 MG/D5W 250 ML 8 MG/250 ML BAG 18.75 MG IV CONT (11:01)
[2022-02-01] MEDS: SODIUM BICARBONATE 8.4% 150 MEQ in WATER, STERILE FOR INJECTION 950 ML 100 MEQ IV CONT (11:03)
[2022-02-01 11:46] LABS: Alveolar/Arterial O2 Gradient 330.5 mmHg; Fractional Inspired Oxygen 100 %; HCO3 ABG 9.4 mEq/l (22.0-26.0); Oxygen Content ABG 14.5 %vol (16.0-22.0); Oxygen Saturation ABG 99.5 % (95.0-100.0); Oxyhemoglobin 98.5 % THb (90.0-100.0); PCO2 ABG 39.8 mmHg (35.0-45.0); PO2 ABG 342.7 mmHg (80.0-100.0); PO2 FiO2 Ratio Arterial Blood 3.43 %; Total Hemoglobin 9.8 g/dL (12.0-18.0)
[2022-02-01 11:49] LABS: pH ABG 6.989 (7.350-7.450)
[2022-02-01 11:50] LABS: Arterial Blood Gas PEEP 5 cmH2O; Arterial Blood Gas Tidal Volume 350 ml; Arterial Blood Gas Vent Mode CMV; Arterial Blood Gas Ventilator rate 22 /MIN; Device VENTILATOR; Site Drawn ARTLINE
[2022-02-01] MEDS: BUDESONIDE RESPULE NEB 0.5 MG/2 ML AMP INHALATION ×2 (12:00→20:54)
[2022-02-01 12:09] LABS: Lactic Acid Reflex 13.9 mmol/L (0.7-2.1)
[2022-02-01 13:17] LABS: Glucose Point of Care 98 mg/dl (65-105)
[2022-02-01] MEDS: ENOXAPARIN 60 MG/0.6 ML SYRINGE 45 MG SUB-Q (13:32)
[2022-02-01] MEDS: HYDROCORTISONE SODIUM SUCCINATE 100 MG/2 ML VIAL IV PUSH ×2 (13:34→20:35)
[2022-02-01 13:36] LABS: Base Excess ABG -12.6 mEq/l (+/-2.0); Carboxyhemoglobin 0.3 % THb (0-2.0); Fractional Inspired Oxygen 70 %; Methemoglobin ABG 0.2 %THb (0-1.5); Oxygen Content ABG 12.5 %vol (16.0-22.0); Oxygen Saturation ABG 99.2 % (95.0-100.0); Oxyhemoglobin 98.4 % THb (90.0-100.0); PCO2 ABG 28.9 mmHg (35.0-45.0); PO2 FiO2 Ratio Arterial Blood 2.84 %; Reduced Hemoglobin 1.1 %THb (0-5.0); Total Hemoglobin 8.7 g/dL (12.0-18.0)
[2022-02-01 13:37] LABS: pH ABG 7.271 (7.350-7.450)
[2022-02-01 13:38] LABS: Arterial Blood Gas Vent Mode CMV; Arterial Blood Gas Ventilator rate 26 /MIN; Device VENTILATOR; Site Drawn ARTLINE
[2022-02-01 13:39] LABS: Arterial Blood Gas PEEP 5 cmH2O; Arterial Blood Gas Tidal Volume 400 ml
[2022-02-01] MEDS: MINERAL OIL/WHITE PETROLATUM OINTMENT 1 APPLIC EACH EYE ×2 (14:29→20:53)
--- NOTE | 2022-02-01 14:38 | WPDPROCEDUR ---
Procedures Intubation Intubation Date: 02/01/22 Intubation Time: 08:07 A pre-procedural Time-Out was completed immediately before starting the procedure and confirmed: Patient Identification, Site, Procedure, Patient Position and the Availability of Requisite Equipment: Yes Sedative: etomidate Paralytic: rocuronium Laryngoscope: fiber optic video scope Assist device used: fiber optic device ET tube size: 7.5 Tube secured depth (cm): 23 Tube placement confirmation: visualized tube passing through cords, equal breath sounds bilaterally, no breath sounds over epigastrium and confirmation by capnometry Patient tolerated procedure: well and no complications Intubation complications: none
--- NOTE | 2022-02-01 14:39 | WPDPROCEDUR ---
Procedures Arterial Line Arterial Line Date: 02/01/22 Arterial Line Time: 10:40 Discussed with the patient/family/POA, the placement of an arterial catheter, including its clinical necessity/indication and associated potential risks, benefits and alternatives.: Yes Patient/family/POA and/or understands and acknowledges the need to proceed with the arterial catheter insertion as an important element of the patient's clinical management.: Yes Time Out Performed: Yes Patient Position: supine Tribunal Member Prep: sterile gown, sterile gloves, mask and hat Site: right and femoral Site Prep: chlorhexidine and sterile drape Technique used: ultrasound-guided Size (Gauge): 14 Length: 12 cm Closure/Dressing: suture, transparent dressing, hemostatic product, antimicrobial product and securement product Patient tolerated procedure: well and no complications Complications: none
--- NOTE | 2022-02-01 14:46 | PM.CNGS ---
Assessment and Plan Assessment and plan (1) Septic shock: Code(s): A41.9 - Sepsis, unspecified organism; R65.21 - Severe sepsis with septic shock Status: Acute Assessment and Plan: patient is severely ill with septic shock requiring mechanical ventilation and high-dose vasopressor support. Etiology could well be due to pneumonia or to embolic infarction. Extremities do not appear to have acute arterial occlusion but mesenteric ischemia is certainly possible. I discussed this with Dr. Light, broodmare foreman. Patient is currently too unstable be considered a viable surgical candidate. If she does have bowel infarction, she would not survive the surgery making that a futile option. We discussed a CT scan of the abdomen pelvis but since surgery is really not an option, we will forego that at the present time. It is questionable whether she is even stable enough for a CT scan. Recommend continued antibiotic therapy with critical care support. Agree with starting anticoagulation. Patient has been made do not resuscitate status. if she would improve with medical therapy, could consider exploration if suspicion of bowel ischemia persists. I would need to discuss with the family, the outcome of surgical resection should we operate and bowel infarction be found. Often the lifestyle changes involved with bowel resection for ischemia are not compatible with patient wishes, especially as patient is already DNR status. (2) Lactic acidosis: Code(s): E87.2 - Acidosis Status: Acute Assessment and Plan: Rising lactic acid levels as noted above. Bowel infarction is a possibility although exam is unimpressive. Too unstable for surgery as discussed above. (3) PNA (pneumonia): Code(s): J18.9 - Pneumonia, unspecified organism Status: Acute (4) Acute and chronic respiratory failure ([id number]): Code(s): J96.20 - Acute and chronic respiratory failure, unspecified whether with hypoxia or hypercapnia Status: Acute (5) Paroxysmal atrial fibrillation: Code(s): I48.0 - Paroxysmal atrial fibrillation Status: Acute Assessment and Plan: Agree with anticoagulation. If surgery should become necessary, we will either stop the anticoagulation or proceed while anticoagulated to some degree. (6) Emphysema/COPD: Code(s): J43.9 - Emphysema, unspecified Status: Acute (7) Influenza A: Code(s): J10.1 - Influenza due to other identified influenza virus with other respiratory manifestations Status: Acute History of Present Illness Consult details Consult date: 02/01/22 Reason for consult: other ( Septic shock, severe lactic acidosis, possible bowel) Requesting physician: Terrence Light MD Narrative: the patient is a 71-year-old woman who with COPD on home oxygen who also has a history of atrial fibrillation and is on Xarelto. She came to the emergency room early this morning with increasing shortness of breath. In the emergency room she was found to have atrial fibrillation with rapid ventricular response and was hypotensive. Chest imaging showed multifocal pneumonia superimposed on chronic upper lobe lung disease right worse than left. She was started on phenylephrine vasopressor support in the emergency room and transferred to the intensive care unit. Almost on arrival to the intensive care unit, her respiratory status deteriorated and she developed acute respiratory failure. She was intubated by Dr. Light, broodmare foreman. Her rapid ventricular response improved and she became in sinus rhythm. While records show she did get Xarelto back in December, it is unclear if she was compliant with taking it. The patient's initial lactate was 4.3. However, her septic shock has worsened. She is now on high doses of Levophed and phenylephrine. Her white blood cell count was [id number] initially at 3:00 a.m.. It was [id number] six hours later. Lactate has risen stead
[2022-02-01 17:14] LABS: Creatinine Urine 82.2 mg/dL; Potassium Urine Random 57.6 meq/L; Sodium Urine Random 25 meq/L
[2022-02-01 17:22] LABS: Eosinophil Urine None Seen % (None Seen)
[2022-02-01 17:33] LABS: Lactic Acid Reflex 13.3 mmol/L (0.7-2.1)
[2022-02-01] MEDS: NOREPINEPHRINE 8 MG/D5W 250 ML 8 MG/250 ML BAG 28.13 MG IV CONT (17:35)
[2022-02-01 17:49] LABS: Free T4 Free Thyroxine 4.12 ng/mL (0.78-2.19)
[2022-02-01 18:18] LABS: Glucose Point of Care 180 mg/dl (65-105)
[2022-02-01 19:59] LABS: Reflex Lactic Acid Yes or No Add Lactic
[2022-02-01 21:32] LABS: Lactic Acid 4.9 mmol/L (0.7-2.1)
[2022-02-02] VITALS (53 sets, daily range): BP systolic 88–152; BP diastolic 47–72; PULSE 72–108; RESP 22–26; TEMP 36.4–37.2; O2SAT 96–100
--- NOTE | 2022-02-02 | ECHO_ITS ---
Patient Info Name: Meme Almanzar Age: 71 years : 1950 Gender: Female Ht: 64 in Wt: 104 lbs BSA: 1.45 m2 HR: 77 bpm BP: 118 / 58 mmHg Heart Rhythm: Sinus Rhythm Technical Quality: Fair Exam Date: 02/02/2022 6:39 AM Exam Location: [facility] Patient Status: Inpatient Admit Date: 02/01/2022 Staff Ordering Physician: Irma Delgado MD Relay Motorman: Zulma Sarmiento RDCS Attending Provider: Irma Delgado MD Referring Physician: Sandy CLEMENS; Exam Type: CA echo doppler color flow Study Info Indications - CHF Complete two-dimensional, color flow and Doppler transthoracic echocardiogram is performed. Summary 1. Complete two-dimensional, color flow and Doppler transthoracic echocardiogram is performed. 2. Mild left ventricular hypertrophy with mild global systolic dysfunction. 3. Right ventricular enlargement with relatively severe systolic dysfunction. 4. Mild left atrial enlargement. 5. Mild lynn valvular regurgitation. Left Ventricle Left ventricular chamber dimension is mildly enlarged. Left ventricular systolic function is mildly reduced, estimated at 40-45%. The left ventricular diastolic function is grade I diastolic dysfunction. Right Ventricle Right ventricular chamber dimension is moderately enlarged. Right ventricular systolic function is reduced. Left Atria Left atrial chamber dimension is mildly enlarged. Right Atria Right atrial chamber dimension is normal. Aortic Valve The aortic valve is trileaflet. There is mild aortic valve sclerosis. There is mild aortic valve regurgitation. Pulmonic Valve The pulmonic valve is not well visualized. There is mild pulmonic regurgitation. Mitral Valve The mitral valve has normal leaflets. There is mild mitral valve regurgitation. Tricuspid Valve The tricuspid valve leaflets are not well visualized. There is mild tricuspid valve regurgitation. Pericardium/Pleural The pericardium appears normal. Aorta The aortic root size at the sinus of Valsalva is normal. Left Ventricular Outflow Tract Name Value Normal LVOT 2D LVOT Diameter 2.0 cm LVOT Doppler LVOT Peak Gradient 2 mmHg LVOT Mean Gradient 1 mmHg LVOT VTI 12 cm LVOT Stroke Volume 38 ml LVOT CO 2.8 l/min LVOT CI 2.0 l/min/m2 Pulmonic Valve Name Value Normal RVOT Doppler RVOT Peak Gradient 1 mmHg PV Doppler PV Peak Gradient 3 mmHg Mitral Valve Name Value Normal
[2022-02-02] MEDS: INSULIN ASPART (*BKC) 100 UNITS/ML SUB-Q (00:20)
[2022-02-02] MEDS: SODIUM BICARBONATE 8.4% 150 MEQ in WATER, STERILE FOR INJECTION 950 ML 75 MEQ IV CONT (00:25)
[2022-02-02 00:48] LABS: Glucose Point of Care 232 mg/dl (65-105)
[2022-02-02] MEDS: IPRATROPIUM BR 0.02% INH SOLN 0.5 MG/2.5 ML VIAL INHALATION ×4 (02:47→20:10)
[2022-02-02] MEDS: NOREPINEPHRINE 8 MG/D5W 250 ML 8 MG/250 ML BAG 16.88 MG IV CONT ×2 (03:46→18:05)
[2022-02-02 04:46] LABS: Basophils Absolute Auto 0.1 K/mm3 (0.0-0.1); Basophils Percent Auto 0.4 % (0.2-1.2); Hematocrit 27.4 % (37.0-47.0); Hemoglobin 8.7 g/dL (12.0-15.0); Immature Granulocyte Absolute 0.23 K/mm3 (0.00-0.031); Immature Granulocyte Percent A 1.2 % (0-0.5); Lymphocytes Absolute Auto 0.34 K/mm3 (0.9-3.2); Lymphocytes Percent Auto 1.8 % (18.3-44.2); Mean Corpuscular HGB Conc 31.8 g/dl (32-36); Mean Corpuscular Hemoglobin 26.4 pg (26-34); Mean Platelet Volume 10.1 fl (7.4-10.4); Monocytes Absolute Auto 0.5 K/mm3 (0.1-0.6); Monocytes Percent Auto 2.7 % (2.6-8.5); Neutrophils Absolute Auto 17.9 K/mm3 (1.3-6.7); Neutrophils Percent Auto 93.9 % (45.5-73.1); Nucleated Red Blood Cells Perc 0.2 % (0.0-0.2); Platelet Count Result 433 k/mm3 (150-375); Red Cell Distribution Width 16.1 % (11.5-14.5); White Blood Count 19.1 K/mm3 (4.5-10.0)
[2022-02-02] MEDS: CENTRAL LINE FLUSH 10 ML IV PUSH ×3 (04:47→20:54)
[2022-02-02] MEDS: HYDROCORTISONE SODIUM SUCCINATE 100 MG/2 ML VIAL IV PUSH ×3 (04:47→20:53)
[2022-02-02 04:56] LABS: Chloride 96 mmol/L (98-107)
[2022-02-02 04:58] LABS: INR 3.4; Prothrombin Time 33.4 Seconds (11.1-14.7)
[2022-02-02 04:59] LABS: Lactic Acid Reflex 1.7 mmol/L (0.7-2.1)
[2022-02-02 05:04] LABS: Alanine Aminotransferase 230 U/L (4-35); Albumin Level 2.2 g/dL (3.5-5.1); Alkaline Phosphatase 197 U/L (38-126); Anion Gap 3 mmol/L (8-16); Bilirubin,Total 0.6 mg/dL (0.2-1.3); Blood Urea Nitrogen 40 mg/dL (7-17); Calcium 6.4 mg/dL (8.4-10.2); Carbon Dioxide 38 mmol/L (22-30); Estimated CRCL calculation 43 ml/min; Estimated Glomerular Filt Rate > 60; Glucose 180 mg/dL (65-110); Magnesium 2.1 mg/dL (1.6-2.3); Potassium 2.5 mmol/L (3.4-5.0); Sodium 137 mmol/L (137-145)
[2022-02-02 05:13] LABS: Hypochromasia 1+ (NORMAL); Ovalocytes 1+ (NORMAL); Platelet Estimate Increased (Adequate)
[2022-02-02 05:47] LABS: Aspartate Amino Transferase 808 U/L (14-36)
[2022-02-02] MEDS: POTASSIUM CHLORIDE 20 MEQ PACKET (FOR LIQUID) 40 MEQ FEED TUBE (05:55)
[2022-02-02] MEDS: KCL 40 MEQ/WATER 100 ML 100 ML 25 ML IVPB (05:55)
[2022-02-02 05:56] LABS: Alveolar/Arterial O2 Gradient 169.7 mmHg; Base Excess ABG 12.1 mEq/l (+/-2.0); Carboxyhemoglobin 0.3 % THb (0-2.0); Fractional Inspired Oxygen 50 %; HCO3 ABG 35.6 mEq/l (22.0-26.0); Methemoglobin ABG 0.1 %THb (0-1.5); Oxygen Content ABG 15.8 %vol (16.0-22.0); Oxygen Saturation ABG 99.1 % (95.0-100.0); Oxyhemoglobin 97.9 % THb (90.0-100.0); PCO2 ABG 41.4 mmHg (35.0-45.0); PO2 ABG 140.2 mmHg (80.0-100.0); Reduced Hemoglobin 1.7 %THb (0-5.0); Total Hemoglobin 11.3 g/dL (12.0-18.0)
[2022-02-02 06:01] LABS: pH ABG 7.552 (7.350-7.450)
[2022-02-02 06:02] LABS: Arterial Blood Gas PEEP 5 cmH2O; Arterial Blood Gas Tidal Volume 400 ml; Arterial Blood Gas Vent Mode CMV; Arterial Blood Gas Ventilator rate 26 /MIN; Device VENTILATOR; Modified Allen's Test Pass; Site Drawn RIGHT RADIAL
[2022-02-02] MEDS: AMIODARONE 360 MG/D5W 200 ML 360 MG/200 ML BAG 16.67 MG IV CONT ×2 (06:03→18:04)
--- NOTE | 2022-02-02 08:01 | PM.IMPN ---
Progress Note: A&P Assessment and Plan (1) PNA (pneumonia): Code(s): J18.9 - Pneumonia, unspecified organism Status: Acute (2) Sepsis: Code(s): A41.9 - Sepsis, unspecified organism Status: Acute (3) Septic shock: Code(s): A41.9 - Sepsis, unspecified organism; R65.21 - Severe sepsis with septic shock Status: Acute (4) Acute and chronic respiratory failure ([id number]-[id number]): Code(s): J96.20 - Acute and chronic respiratory failure, unspecified whether with hypoxia or hypercapnia Status: Acute (5) Emphysema/COPD: Code(s): J43.9 - Emphysema, unspecified Status: Acute (6) Influenza A: Code(s): J10.1 - Influenza due to other identified influenza virus with other respiratory manifestations Status: Acute (7) LUCINDA (acute kidney injury): Code(s): N17.9 - Acute kidney failure, unspecified Status: Acute (8) Atrial fibrillation with rapid ventricular response: Code(s): I48.91 - Unspecified atrial fibrillation Status: Acute (9) Hyperthyroidism: Code(s): E05.90 - Thyrotoxicosis, unspecified without thyrotoxic crisis or storm Status: Acute (10) Low TSH level: Code(s): R79.89 - Other specified abnormal findings of blood chemistry Status: Acute (11) Lactic acidosis: Code(s): E87.2 - Acidosis Status: Acute (12) Metabolic acidosis: Code(s): E87.2 - Acidosis Status: Acute (13) Elevated troponin: Code(s): R77.8 - Other specified abnormalities of plasma proteins Status: Acute (14) Elevated brain natriuretic peptide (BNP) level: Code(s): R79.89 - Other specified abnormal findings of blood chemistry Status: Acute (15) Pulmonary hypertension: Code(s): I27.20 - Pulmonary hypertension, unspecified Status: Acute (16) Diastolic CHF: Code(s): I50.30 - Unspecified diastolic (congestive) heart failure Status: Acute (17) Multiple lung nodules on CT: Code(s): R91.8 - Other nonspecific abnormal finding of lung field Status: Acute Additional Plan Patient critically ill Admit to the ICU Emergent intubation per plant sciences professor Vaso Pressor per plant sciences professor Consult cardiology AFib RVR Amiodarone drip Stress dose steroid Vanc cefepime DuoNebs IV steroids Continue Tamiflu Consul general surgery possible ischemic bowel T3-T4 ordered patient with known history of hyperthyroidism Severe metabolic lactic acidosis Patient on bicarb drip Prognosis guarded patient emergently intubated plant sciences professor spoke with family and they now request Meme to be DNR 02/02/22 pt down to one pressor labs normalizing renal function improving vent management per plant sciences professor pt is critically ill and requires ongoing care in ICU Subjective Date/time seen: 02/02/22 08:01 intubated and sedated case reviewed w plant sciences professor, pt is doing better , optimistic for extubation soon Exam Const: General: no acute distress Other: sedated HENMT: General nose exam: Normal nares present Mouth: Yes moist mucous membranes Neck: Neck: no JVD Resp: Auscultation: crackles and diminished lung sounds Other: intubated connected to Vent Cardio: Rate: regular rate Rhythm: regular rhythm GI: Inspection: non-distended Urinary Catheter: Urinary Catheter: urine clear and urine dark Skin: General skin exam: normal color and no erythema Lesions: no lesions noted Rashes: no rashes noted Extrem: General: normal exam except as noted (above ) Psych: Other: unable to evaluate Objective Data Vital Signs Vital Signs: Vital Signs - 24 hr 02/01/22 08:15 02/01/22 08:30 02/01/22 08:43 Temperature 92.4 F L 93.7 F L Pulse Rate 87 79 80 Respiratory Rate Blood Pressure 79/58 L 66/44 L Pulse Oximetry 98 02/01/22 08:45 02/01/22 09:00 02/01/22 09:03 Temperature 93.9 F L 93.6 F L Pulse Rate 77 80 Respiratory Rate 22 H 22 H Blood Pressure 134/52
[2022-02-02] MEDS: LACTATED RINGERS 1,000 ML 75 ML IV CONT ×2 (08:21→23:24)
[2022-02-02] MEDS: MINERAL OIL/WHITE PETROLATUM OINTMENT 1 APPLIC EACH EYE ×2 (08:22→20:55)
[2022-02-02] MEDS: OSELTAMIVIR PHOSPHATE ORAL SUSP 30 MG/5 ML SYRINGE FEED TUBE ×2 (08:25→21:32)
[2022-02-02] MEDS: ENOXAPARIN 60 MG/0.6 ML SYRINGE 45 MG SUB-Q ×2 (08:25→20:53)
[2022-02-02] MEDS: PANTOPRAZOLE SODIUM IV 40 MG VIAL IV PUSH ×2 (08:27→20:54)
--- NOTE | 2022-02-02 08:37 | WPDINTPN ---
Progress Note: A&P Assessment and Plan (1) Acute and chronic respiratory failure ([id number]-[id number]-pdwhpno): Code(s): J96.20 - Acute and chronic respiratory failure, unspecified whether with hypoxia or hypercapnia Status: Acute Assessment and Plan: Acute respiratory failure likely related to pneumonia, COPD exacerbation -patient with severe lactic acidosis, mottling noted from the feet to the chest, hypoxia, AFib RVR. Decision was made to intubate the patient. -patient was intubated successfully on 02/01/2021 -currently on CMV mode of ventilation, peep of 5, 50% FiO2 -chest x-ray and ABGs reviewed, ventilator adjusted, decreased respiratory rate and FiO2 -sedated with fentanyl and Versed infusion, have asked the bedside RN to come down on her sedation to evaluate patient's mental status -continue bronchodilators and Pulmicort -chest x-ray 02/02: Stable appearance of diffuse bilateral lung disease consistent with multifocal likely acute on chronic pneumonia superimposed on emphysema. Chest CT 02/01/2022: Multifocal pneumonia superimposed on chronic lung disease. The chronic lung disease in a combination of severe emphysema and upper lung predominant disease such as tuberculosis or histoplasmosis or sarcoid. (2) Septic shock: Code(s): A41.9 - Sepsis, unspecified organism; R65.21 - Severe sepsis with septic shock Status: Acute Assessment and Plan: Patient in septic shock likely related to pneumonia, hypovolemia. Presented with worsening shortness breath which has been ongoing for 1 week along with fevers -patient here is hypothermic -lactic levels have normalized to 1.7 ( peaked at 13.9) -patient was adequately fluid-resuscitated in the ER and ICU -OFF Chauncey-Synephrine -Levophed also being weaned, will maintain MAP > 70 mmHg for adequate end organ perfusion -02/01: blood cultures are negative so far blood -02/01: Urine and sputum cultures have been obtained and pending -continue cefepime and vancomycin (initiated on 02/01), now that her creatinine clearance has improved, will increase cefepime does -continue stress dose steroids (3) PNA (pneumonia): Code(s): J18.9 - Pneumonia, unspecified organism Status: Acute Assessment and Plan: Could be related to bacterial and/or superimposed bacterial infection secondary to influenza A -continue antibiotics as above -continue oseltamivir (4) Emphysema/COPD: Code(s): J43.9 - Emphysema, unspecified Status: Acute Assessment and Plan: Continue mechanical ventilation, steroids and bronchodilators (5) LUCINDA (acute kidney injury): Code(s): N17.9 - Acute kidney failure, unspecified Status: Acute Assessment and Plan: Patient with acute kidney injury likely related to hypoxia and hypotension/hypovolemia. Patient in septic shock. -she has received adequate amount of IV fluids, continue vasopressors and maintain mean arterial pressures greater than 70 for adequate renal perfusion -urine output has improved and so has the renal function, creatinine is 0.8 this morning (1.3 on admission -continue to monitor renal function, electrolytes and urine output -will switch bicarb infusion to lactated Ringer's, once patient's tube feedings at goal will discontinue IV fluids (6) Atrial fibrillation with rapid ventricular response: Code(s): I48.91 - Unspecified atrial fibrillation Status: Acute Assessment and Plan: Patient has a history of chronic atrial fibrillation but presented to the ED with atrial fibrillation RVR with heart rates been in the 120s to 160s. This could be related to septic shock, hypoxia, hypovolemia -with patient was intubated and her oxygen levels improved, patient converted to sinus rhythm, rate controlled -has received an amiodarone bolus in the ER and currently on an amiodarone infusion, -continue to monitor -patient has been on Xarelto at home, according to the granddaughter she may have not taken it f
[2022-02-02] MEDS: BUDESONIDE RESPULE NEB 0.5 MG/2 ML AMP INHALATION ×2 (08:49→20:10)
[2022-02-02] MEDS: LEVALBUTEROL NEB 1.25 MG/3 ML 0.63 MG INHALATION ×3 (08:49→20:09)
[2022-02-02 08:52] LABS: Glucose Point of Care 173 mg/dl (65-105)
--- NOTE | 2022-02-02 09:47 | PM.PNCARD ---
Progress Note: A&P Assessment and Plan (1) Paroxysmal atrial fibrillation: Code(s): I48.0 - Paroxysmal atrial fibrillation Status: Acute Assessment and Plan: Apparent history of paroxysmal atrial fibrillation, previously on amiodarone, previously on some type of anticoagulant. AFib RVR on admission, converted to sinus rhythm after intubation. Remains in sinus rhythm with frequent PAC's Continue amiodarone drip Currently anticoagulated with Lovenox (2) Influenza A: Code(s): J10.1 - Influenza due to other identified influenza virus with other respiratory manifestations Status: Acute Assessment and Plan: Admitted with influenza A pneumonia, hypoxia and respiratory failure requiring intubation. (3) Septic shock: Code(s): A41.9 - Sepsis, unspecified organism; R65.21 - Severe sepsis with septic shock Status: Acute Assessment and Plan: Has septic shock, on Chauncey-Synephrine and Levophed. Remains very ill, mottled, very sick lady. Continue supportive care, vent, pressors etc. per painter and decorator apprentice Some degree of renal failure present; will be followed. (4) Elevated troponin: Code(s): R77.8 - Other specified abnormalities of plasma proteins Status: Acute Assessment and Plan: Elevated troponin, secondary to AFib RVR and critical illness. Doubt ACS. Subjective Date/time seen: 02/02/22 09:47 Cardiology follow up for Afib Patient remains critically ill. Intubated and sedated. Requiring less pressor support today, only on levo. Lactate has normalized. She remains in sinus rhythm on amiodarone. Review of Systems Review of Systems: ROS unobtainable: Yes unobtainable due to endotracheal tube, unobtainable due to medical condition and unobtainable due to mental status Exam Narrative: Older lady of slight build intubated and sedated Const: General: comfortable and no acute distress; No confusion Orientation/consciousness: No confusion HENMT: General nose exam: no epistaxis Mouth: Yes dry mucous membranes Eyes: Pupils: Equal, round and reactive pupils present Neck: Neck: supple and no JVD Thyroid: thyroid normal Resp: Auscultation: crackles, rhonchi and wheezes Cardio: Rate: regular rate Rhythm: regular rhythm Heart sounds: Murmur heart sound present Other: 1/6 SUSIE midsternal border. Femoral pulses are intact. pedal pulses not palpable GI: Inspection: non-distended Skin: General skin exam: No normal color Other: Feet are mottled Neuro: General: No confusion Cranial nerves: Yes Equal, round and reactive pupils present Cognition (Neuro): abnormal cognition Other: Sedated Extrem: General: no edema and no pedal edema Psych: Mental Status: mental status grossly abnormal Objective Data Vital Signs Vital Signs: Vital Signs - 24 hr 02/01/22 10:00 02/01/22 10:30 02/01/22 11:00 Temperature 34.6 C L 34.6 C L 35.4 C L Pulse Rate 91 88 Respiratory Rate 22 H Blood Pressure 110/34 L 157/48 H Pulse Oximetry 91 02/01/22 11:01 02/01/22 11:15 02/01/22 11:30 Temperature 35.8 C L Pulse Rate 96 Respiratory Rate Blood Pressure 105/44 L 118/45 L 114/49 L Pulse Oximetry 02/01/22 11:49 02/01/22 12:00 02/01/22 14:00 Temperature 36.6 C 36.2 C L Pulse Rate 99 93 Respiratory Rate 26 H 26 H Blood Pressure 152/48 H 135/48 L Pulse Oximetry 100 94 02/01/22 14:37 02/01/22 14:42 02/01/22 14:45 Temperature Pulse Rate 90 90 93 Respiratory Rate 26 H 26 H Blood Pressure 113/46 L Pulse Oximetry 94 02/01/22 16:00 02/01/22 17:10 02/01/22 17:14 Temperature 36.8 C Pulse Rate 87 85 90 Respiratory Rate 26 H Blood Pressure 145/55 H 139/58 L Pulse Oximetry 95 95 02/01/22 17:30 02/01/22 18:00 02/01/22 18:32 Temperature Pulse Rate 88 83 Respiratory Rate 26 H Blood Pressure 150/63 H 139/86 157/66 H Pulse Oximetry 95 02/01/22 18:56 02/01/22 19:34 02/01/22 19:36 Temperature Pu
--- NOTE | 2022-02-02 10:35 | PCFNICU ---
ICU Rounding Note: Pt current nutrition is Vital AF 1.2 at 20 ml/hr over 22 hours. Last recorded weight is 48.7 kg, up from 44.4 kg on admit. Bowel Motility:No BM reported Labs Reviewed:Glu 180, BUN 40, K 2.5,Hct 27.4,Hgb 8.7 Meds Noted:Vancomycin, Protonix, Levophed, Versed, LR, Nexterone,Lovenox, Fentanyl, Solu Cortef, Atrovent. Skin: WNL Additional Notes: Patient remains on mechanical vent. Tube feedings started today of Vital AF 1.2 at 20 ml/hr over 22 hours advancing by 10 ml q 4hours to goal rate of 50 ml/hr. Free water flush 30 ml q 4 hours. Following daily in ICU rounds. Will reassess every Wednesday and Wednesday.
[2022-02-02 12:13] LABS: Glucose Point of Care 178 mg/dl (65-105)
[2022-02-02 12:23] LABS: Potassium 3.5 mmol/L (3.4-5.0)
--- NOTE | 2022-02-02 12:43 | PM.PNGS ---
Progress Note: A&P Assessment and Plan (1) Septic shock: Code(s): A41.9 - Sepsis, unspecified organism; R65.21 - Severe sepsis with septic shock Status: Acute Assessment and Plan: Patient responding well to current treatment. Lactic acidosis resolving. Vasopressors weaning down and now only requiring Levophed. Abdominal exam benign. Tube feedings started today. No indication for surgical intervention at this time. Will sign off and please let us know if there are any surgical needs in the future. (2) Lactic acidosis: Code(s): E87.2 - Acidosis Status: Acute Assessment and Plan: Lactic acidosis resolving, 1.7 this morning. Continue medical management. See plan above. (3) PNA (pneumonia): Code(s): J18.9 - Pneumonia, unspecified organism Status: Acute Assessment and Plan: Continue IV abx and management per primary service/Reel Slitter. (4) Acute and chronic respiratory failure ([id number]-wg-jvonavb): Code(s): J96.20 - Acute and chronic respiratory failure, unspecified whether with hypoxia or hypercapnia Status: Acute Assessment and Plan: Wean vent as tolerated per Reel Slitter. (5) Paroxysmal atrial fibrillation: Code(s): I48.0 - Paroxysmal atrial fibrillation Status: Acute Assessment and Plan: On therapeutic-dosed Lovenox. Cardiology following. (6) Emphysema/COPD: Code(s): J43.9 - Emphysema, unspecified Status: Acute (7) Influenza A: Code(s): J10.1 - Influenza due to other identified influenza virus with other respiratory manifestations Status: Acute Additional Plan I have discussed the patient's case and plan of care with Dr. Pond. Subjective Subjective Date/Time Seen: 02/02/22 12:43 Interval history: This is a 71 yo F with multiple medical problems, who presented with septic shock, pneumonia, lactic acidosis, and afib RVR. She was intubated and remains in the ICU on the mechanical ventilator sedated. Chart reviewed. She is now seen in the ICU with her daughter at the bedside. Vasopressors continue to be weaned down and was able to be weaned off one of the two vasopressors. Tube feedings have also been started today at 20 cc an hour. Review of Systems Review of Systems: ROS unobtainable: Yes unobtainable due to endotracheal tube Exam Const: General: patient obtunded Nutritional Appearance: thin Resp: Effort & Inspection: respiratory distress ( on mechanical ventilator) Auscultation: rhonchi ( coarse breath sounds throughout) Cardio: Rate: regular rate Rhythm: regular rhythm GI: Inspection: other (mildly distended) GI Palp: Yes Soft to palpation, No Tenderness to palpation present (GI) (no fascial cues or signs of tenderness with palpation, limited d/t sedation) and No Rigid due to palpation Auscultation: Hypoactive bowel sounds present Other: exam limited due to sedation Urinary Catheter: Urinary Catheter: patent and draining Objective Data Vital Signs Vital Signs: Vital Signs - 24 hr 02/01/22 14:00 02/01/22 14:37 02/01/22 14:42 Temperature Pulse Rate 93 90 90 Respiratory Rate 26 H 26 H Blood Pressure 135/48 L Pulse Oximetry 94 94 02/01/22 14:45 02/01/22 16:00 02/01/22 17:10 Temperature 98.3 F Pulse Rate 93 87 85 Respiratory Rate 26 H 26 H Blood Pressure 113/46 L 145/55 H Pulse Oximetry 95 95 02/01/22 17:14 02/01/22 17:30 02/01/22 18:00 Temperature Pulse Rate 90 88 83 Respiratory Rate 26 H Blood Pressure 139/58 L 150/63 H 139/86 Pulse Oximetry 95 02/01/22 18:32 02/01/22 18:56 02/01/22 19:34 Temperature Pulse Rate 86 88 Respiratory Rate Blood Pressure 157/66 H 155/64 H 165/74 H Pulse Oximetry 02/01/22 19:36 02/01/22 19:39 02/01/22 19:40 Temperature Pulse Rate 104 H 92 Respiratory Rate 26 H 26 H Blood Pressure 174/76 H Pulse Oximetry 02/01/22 19:58 02/01/22 20:00 02/01/22 20:26 Temperature 98.8 F Pulse Rate 98 80
[2022-02-02] MEDS: DORNASE ALFA INH SOLN 1 MG/ML 2.5 ML AMP 2.5 MG INHALATION ×2 (14:27→20:10)
[2022-02-02 18:19] LABS: Glucose Point of Care 168 mg/dl (65-105)
[2022-02-03] VITALS (43 sets, daily range): BP systolic 97–119; BP diastolic 49–62; PULSE 67–85; RESP 16–26; TEMP 36.6–37.1; O2SAT 93–96
[2022-02-03] LABS: Glucose Point of Care 175 mg/dl (65-105)
[2022-02-03] MEDS: IPRATROPIUM BR 0.02% INH SOLN 0.5 MG/2.5 ML VIAL INHALATION ×4 (01:52→20:25)
[2022-02-03] MEDS: LEVALBUTEROL NEB 1.25 MG/3 ML 0.63 MG INHALATION ×4 (01:53→20:25)
[2022-02-03] MEDS: MIDAZOLAM 100MG/NS 100ML(*CRX) 100 MG/100 ML BAG IV CONT (03:11)
[2022-02-03 04:39] LABS: Alveolar/Arterial O2 Gradient 114.9 mmHg; Base Excess ABG 7.8 mEq/l (+/-2.0); Carboxyhemoglobin 0.3 % THb (0-2.0); Fractional Inspired Oxygen 35 %; HCO3 ABG 31.5 mEq/l (22.0-26.0); Methemoglobin ABG 0.3 %THb (0-1.5); Oxygen Content ABG 13.2 %vol (16.0-22.0); Oxygen Saturation ABG 97.3 % (95.0-100.0); Oxyhemoglobin 95.1 % THb (90.0-100.0); PCO2 ABG 40.7 mmHg (35.0-45.0); PO2 ABG 87.3 mmHg (80.0-100.0); PO2 FiO2 Ratio Arterial Blood 2.49 %; Reduced Hemoglobin 4.3 %THb (0-5.0); Total Hemoglobin 9.8 g/dL (12.0-18.0)
[2022-02-03 04:41] LABS: Site Drawn ARTLINE; pH ABG 7.507 (7.350-7.450)
[2022-02-03 04:42] LABS: Arterial Blood Gas PEEP 5 cmH2O; Arterial Blood Gas Vent Mode CMV; Arterial Blood Gas Ventilator rate 22 /MIN; Device VENTILATOR
[2022-02-03 04:43] LABS: Arterial Blood Gas Tidal Volume 400 ml
[2022-02-03] MEDS: CENTRAL LINE FLUSH 10 ML IV PUSH ×3 (05:22→21:53)
[2022-02-03] MEDS: HYDROCORTISONE SODIUM SUCCINATE 100 MG/2 ML VIAL IV PUSH ×3 (05:22→21:53)
[2022-02-03 05:35] LABS: Basophils Absolute Auto 0.1 K/mm3 (0.0-0.1); Basophils Percent Auto 0.4 % (0.2-1.2); Hematocrit 27.2 % (37.0-47.0); Hemoglobin 8.5 g/dL (12.0-15.0); Immature Granulocyte Absolute 0.83 K/mm3 (0.00-0.031); Lymphocytes Absolute Auto 0.54 K/mm3 (0.9-3.2); Mean Corpuscular HGB Conc 31.3 g/dl (32-36); Mean Corpuscular Hemoglobin 26.4 pg (26-34); Mean Corpuscular Volume 84.5 fl (80-100); Mean Platelet Volume 10.9 fl (7.4-10.4); Monocytes Absolute Auto 1.1 K/mm3 (0.1-0.6); Monocytes Percent Auto 4.1 % (2.6-8.5); Neutrophils Absolute Auto 24.9 K/mm3 (1.3-6.7); Neutrophils Percent Auto 90.5 % (45.5-73.1); Nucleated Red Blood Cells Absolute Auto 0.1 K/mm3 (0.0-0.012); Nucleated Red Blood Cells Perc 0.3 % (0.0-0.2); Platelet Count Result 410 k/mm3 (150-375); Red Blood Count 3.22 M/mm3 (4.2-5.4); Red Cell Distribution Width 16.4 % (11.5-14.5); White Blood Count 27.5 K/mm3 (4.5-10.0)
[2022-02-03 05:49] LABS: Lactic Acid Reflex 2.1 mmol/L (0.7-2.1)
[2022-02-03 05:50] LABS: Alanine Aminotransferase 191 U/L (4-35); Albumin Level 2.1 g/dL (3.5-5.1); Alkaline Phosphatase 211 U/L (38-126); Anion Gap 1 mmol/L (8-16); Aspartate Amino Transferase 312 U/L (14-36); Bilirubin,Total 0.3 mg/dL (0.2-1.3); Blood Urea Nitrogen 29 mg/dL (7-17); Calcium 6.9 mg/dL (8.4-10.2); Carbon Dioxide 34 mmol/L (22-30); Chloride 98 mmol/L (98-107); Estimated CRCL calculation 66 ml/min; Estimated Glomerular Filt Rate > 60; Glucose 162 mg/dL (65-110); Magnesium 2.2 mg/dL (1.6-2.3); Phosphorus 2.1 mg/dL (2.5-4.5); Potassium 3.2 mmol/L (3.4-5.0); Sodium 133 mmol/L (137-145)
[2022-02-03 06:05] LABS: Glucose Point of Care 168 mg/dl (65-105)
[2022-02-03] MEDS: AMIODARONE 360 MG/D5W 200 ML 360 MG/200 ML BAG 16.67 MG IV CONT (06:08)
[2022-02-03] MEDS: BUDESONIDE RESPULE NEB 0.5 MG/2 ML AMP INHALATION ×2 (08:00→20:25)
[2022-02-03] MEDS: DORNASE ALFA INH SOLN 1 MG/ML 2.5 ML AMP 2.5 MG INHALATION ×2 (08:15→20:25)
[2022-02-03] MEDS: ALBUMIN HUMAN 25% 25 GM/100 ML 100 ML IVPB ×4 (08:23→23:49)
--- NOTE | 2022-02-03 08:26 | WPDINTPN ---
Progress Note: A&P Assessment and Plan (1) Acute and chronic respiratory failure (gjapg-bs-bqopcic): Code(s): J96.20 - Acute and chronic respiratory failure, unspecified whether with hypoxia or hypercapnia Status: Acute Assessment and Plan: Acute respiratory failure likely related to bacterial pneumonia, COPD exacerbation, influenza -patient with severe lactic acidosis, mottling noted from the feet to the chest, hypoxia, AFib RVR. Decision was made to intubate the patient. -patient was intubated successfully on 02/01/2021 -currently on CMV mode of ventilation, peep of 5, 50% FiO2 -chest x-ray reviewed-ETT in acceptable position - ABGs reviewed-decrease respiratory rate to 18 and tidal volume 350. Repeat ABG ordered -sedated with fentanyl and Versed infusion. Daily sedation holiday -continue bronchodilators and Pulmicort Chest CT 02/01/2022: Multifocal pneumonia superimposed on chronic lung disease. The chronic lung disease in a combination of severe emphysema and upper lung predominant disease such as tuberculosis or histoplasmosis or sarcoid. (2) Septic shock: Code(s): A41.9 - Sepsis, unspecified organism; R65.21 - Severe sepsis with septic shock Status: Acute Assessment and Plan: Patient in septic shock likely related to pneumonia, hypovolemia. Presented with worsening shortness breath which has been ongoing for 1 week along with fevers Improved -lactic levels have normalized to 1.7 ( peaked at 13.9) -patient was adequately fluid-resuscitated in the ER and ICU -OFF Chauncey-Synephrine -continue Levophed al titration to maintain organ perfusion -02/01: blood cultures are negative so far blood -02/01: Urine and sputum cultures have been obtained and pending -continue cefepime and vancomycin (initiated on 02/01) -continue stress dose steroids -add 25% albumin (3) PNA (pneumonia): Code(s): J18.9 - Pneumonia, unspecified organism Status: Acute Assessment and Plan: Could be related to bacterial and/or superimposed bacterial infection secondary to influenza A -continue antibiotics as above -continue oseltamivir (4) Emphysema/COPD: Code(s): J43.9 - Emphysema, unspecified Status: Acute Assessment and Plan: Continue mechanical ventilation, steroids and bronchodilators (5) LUCINDA (acute kidney injury): Code(s): N17.9 - Acute kidney failure, unspecified Status: Acute Assessment and Plan: Patient with acute kidney injury likely related to hypoxia and hypotension/hypovolemia. Patient in septic shock. -she has received adequate amount of IV fluids, continue vasopressors and maintain mean arterial pressures greater than 70 for adequate renal perfusion -urine output has improved and so has the renal function -continue to monitor renal function, electrolytes and urine output -continue LR at current rate (6) Atrial fibrillation with rapid ventricular response: Code(s): I48.91 - Unspecified atrial fibrillation Status: Acute Assessment and Plan: Patient has a history of chronic atrial fibrillation but presented to the ED with atrial fibrillation RVR with heart rates been in the 120s to 160s. This could be related to septic shock, hypoxia, hypovolemia -with patient was intubated and her oxygen levels improved, patient converted to sinus rhythm, rate controlled -currently on amiodarone infusion, -will discuss with cardiology regarding transition to p.o. amiodarone -patient has been on Xarelto at home, according to the granddaughter she may have not taken it for a while as it was probably making as sick -patient has been started on therapeutic Lovenox -appreciate cardiology evaluation and recommendations -echocardiogram shows severe right-sided heart failure (7) Elevated troponin: Code(s): R77.8 - Other specified abnormalities of plasma proteins Status: Acute Assessment and Plan: Elevated troponins, trending down, likely second
[2022-02-03 08:33] LABS: Reflex Lactic Acid Yes or No Add Lactic
[2022-02-03] MEDS: POTASSIUM CHLORIDE 20 MEQ PACKET (FOR LIQUID) 40 MEQ FEED TUBE (08:33)
[2022-02-03] MEDS: OSELTAMIVIR PHOSPHATE ORAL SUSP 30 MG/5 ML SYRINGE FEED TUBE ×2 (08:36→19:36)
[2022-02-03] MEDS: ENOXAPARIN 60 MG/0.6 ML SYRINGE 45 MG SUB-Q ×2 (08:37→19:36)
[2022-02-03] MEDS: PANTOPRAZOLE SODIUM IV 40 MG VIAL IV PUSH ×2 (08:37→19:37)
[2022-02-03] MEDS: MINERAL OIL/WHITE PETROLATUM OINTMENT 1 APPLIC EACH EYE ×2 (08:37→19:36)
[2022-02-03 09:16] LABS: Lactic Acid 1.5 mmol/L (0.7-2.1)
--- NOTE | 2022-02-03 09:47 | PM.PNCARD ---
Progress Note: A&P Assessment and Plan (1) Paroxysmal atrial fibrillation: Code(s): I48.0 - Paroxysmal atrial fibrillation Status: Acute Assessment and Plan: Apparent history of paroxysmal atrial fibrillation, previously on amiodarone, previously on some type of anticoagulant. AFib RVR on admission, converted to sinus rhythm after intubation. Remains in sinus rhythm Discontinue amiodarone drip, shift to oral amio 400mg daily Currently anticoagulated with Lovenox (2) Influenza A: Code(s): J10.1 - Influenza due to other identified influenza virus with other respiratory manifestations Status: Acute Assessment and Plan: Admitted with influenza A pneumonia, hypoxia and respiratory failure requiring intubation. (3) Septic shock: Code(s): A41.9 - Sepsis, unspecified organism; R65.21 - Severe sepsis with septic shock Status: Acute Assessment and Plan: Has septic shock, on Chauncey-Synephrine and Levophed. Remains very ill, mottled, very sick lady. Continue supportive care, vent, pressors etc. per medical billing and coding specialist (4) Elevated troponin: Code(s): R77.8 - Other specified abnormalities of plasma proteins Status: Acute Assessment and Plan: Elevated troponin, secondary to AFib RVR and critical illness. Doubt ACS. Subjective Date/time seen: 02/03/22 09:47 Cardiology follow up for Afib Remains critically ill, intubated and sedated. Her mottling has improved. Still on norepinephrine. Review of Systems Review of Systems: ROS unobtainable: Yes unobtainable due to endotracheal tube, unobtainable due to medical condition and unobtainable due to mental status Constitutional: Constitutional: Reports weakness ENT: Denies epistaxis Cardiovascular: Cardiovascular: Denies chest pain, Denies pedal edema, Denies leg edema, Reports dyspnea and Reports dyspnea on exertion Respiratory: Respiratory: Reports chest congestion, Reports cough, Reports dyspnea and Reports dyspnea on exertion Gastrointestinal: Gastrointestinal: Denies abdominal pain and Denies hematochezia Genitourinary: Genitourinary: Denies hematuria Musculoskeletal: Musculoskeletal: Reports no additional musculoskeletal complaints Integumentary/Breasts: Skin/Breast: Denies rash Neurologic: Denies confusion and Reports weakness Psychiatric: Psychiatric: Reports no additional psychiatric complaints and Denies confusion Exam Const: General: comfortable and no acute distress; No confusion Orientation/consciousness: No confusion HENMT: General nose exam: no epistaxis Mouth: Yes dry mucous membranes Eyes: Pupils: Equal, round and reactive pupils present Neck: Neck: supple and no JVD Thyroid: thyroid normal Resp: Auscultation: crackles, rhonchi and wheezes Cardio: Rate: regular rate Rhythm: regular rhythm Heart sounds: Murmur heart sound present Other: Femoral pulses are intact. pedal pulses not palpable GI: Inspection: non-distended Skin: General skin exam: No normal color Other: Feet are mildly mottled Neuro: General: No confusion Cranial nerves: Yes Equal, round and reactive pupils present Cognition (Neuro): abnormal cognition Other: Sedated Extrem: General: no edema and no pedal edema Psych: Mental Status: mental status grossly abnormal Objective Data Vital Signs Vital Signs: Vital Signs - 24 hr 02/02/22 10:00 02/02/22 11:35 02/02/22 12:00 Temperature 36.9 C Pulse Rate 89 86 86 Respiratory Rate 22 H 22 H Blood Pressure 120/63 130/61 Pulse Oximetry 100 98 99 02/02/22 12:09 02/02/22 14:00 02/02/22 14:25 Temperature Pulse Rate 86 85 84 Respiratory Rate 22 H Blood Pressure 107/52 L 126/66 Pulse Oximetry 98 97 02/02/22 14:27 02/02/22 14:52 02/02/22 16:00 Temperature 36.9 C Pulse Rate 84 88 85 Respiratory Rate 22 H 22 H 22 H Blood Pressure 136/68 Pulse Oximetry 97 02/02/22 17:32 02/02/22 18:00 02/02/22 18:03 Temperature P
[2022-02-03] MEDS: POTASSIUM PHOS,M-BASIC-D-BASIC 20 MMOL in SODIUM CHLORIDE 0.9% IV 250 ML 64.17 MMOL IVPB (10:01)
[2022-02-03 10:12] LABS: Base Excess ABG 5.5 mEq/l (+/-2.0); Carboxyhemoglobin 0.3 % THb (0-2.0); Device VENTILATOR; Fractional Inspired Oxygen 35 %; HCO3 ABG 30.2 mEq/l (22.0-26.0); Modified Allen's Test Pass; Oxygen Content ABG 11.4 %vol (16.0-22.0); Oxygen Saturation ABG 97.1 % (95.0-100.0); PO2 ABG 89.2 mmHg (80.0-100.0); PO2 FiO2 Ratio Arterial Blood 2.55 %; Reduced Hemoglobin 4.7 %THb (0-5.0); Site Drawn ARTLINE; Total Hemoglobin 8.4 g/dL (12.0-18.0); pH ABG 7.444 (7.350-7.450)
[2022-02-03 10:13] LABS: Arterial Blood Gas PEEP 5 cmH2O; Arterial Blood Gas Tidal Volume 350 ml; Arterial Blood Gas Vent Mode CMV; Arterial Blood Gas Ventilator rate 18 /MIN
[2022-02-03] MEDS: AMIODARONE HCL 200 MG TABLET 400 MG PO (10:26)
[2022-02-03 12:43] LABS: Glucose Point of Care 149 mg/dl (65-105)
--- NOTE | 2022-02-03 15:08 | PCNFU ---
Nutrition Follow-Up Complete: Inadequate Oral Intake as related to mechanical ventilation as evidenced by NPO. Goal: Meet estimanted nutritional needs Pt is progressing towards goal Pt current nutrition is Tube feeding diet of Vital 1.2 @50mL/hr over 22 hours Last recorded weight is 53.8 kg, up 5.1kg from last reported weight on 02/03/22. Bowel Motility: No new BM reported Labs Reviewed: Hgb 8.5, Hct 27.2, Alb 2.1, Na 133, K 3.2, CO2 34, BUN 29, Cr 0.50, Glu 149, Ca 6.9, PO4 2.1, ALP 211, AST 312, ALT 191 Meds Noted: Albutein, Pacerone, Budesonide, Cefepime Hcl, Pulmozyme, Lovenox, Fentanyl, Solu-Cortef, Atrovent, Xopenex, Versed, Levophed, Protonix, Vancomycin Skin: No new skin breakdown at this time, WNL Additional Notes: Patient remains on mechanical vent. Tube feedings of Vital AF 1.2 running at goal rate of 50mL/hr over 22 hours providing 1320kcal, 83g of protein, and 892mL of water, meeting 73% of estimated kcal needs and 96% of estimated protein needs. Free water flush 30mL Q 4 hours. Pt is tolerating tube feeding diet and rate. Agree with diet order at this time. Will continue to follow. Following daily in ICU rounds. Will reassess every Wednesday and Wednesday.
--- NOTE | 2022-02-03 16:33 | P.PNIM_ITS ---
Progress Note: A&P Assessment and Plan (1) Acute and chronic respiratory failure ([id number]): Code(s): J96.20 - Acute and chronic respiratory failure, unspecified whether with hypoxia or hypercapnia Status: Acute Assessment and Plan: Acute respiratory failure likely related to bacterial pneumonia, COPD exacerbation, influenza -patient with severe lactic acidosis, mottling noted from the feet to the chest, hypoxia, AFib RVR. Decision was made to intubate the patient. -patient was intubated successfully on 02/01/2021 -currently on CMV mode of ventilation, peep of 5, 50% FiO2 -chest x-ray reviewed-ETT in acceptable position - ABGs reviewed-decrease respiratory rate to 18 and tidal volume 350. Repeat ABG ordered -sedated with fentanyl and Versed infusion. Daily sedation holiday -continue bronchodilators and Pulmicort Chest CT 02/01/2022: Multifocal pneumonia superimposed on chronic lung disease. The chronic lung disease in a combination of severe emphysema and upper lung predominant disease such as tuberculosis or histoplasmosis or sarcoid. (2) Septic shock: Code(s): A41.9 - Sepsis, unspecified organism; R65.21 - Severe sepsis with septic shock Status: Acute Assessment and Plan: Patient in septic shock likely related to pneumonia, hypovolemia. Presented with worsening shortness breath which has been ongoing for 1 week along with fevers Improved -lactic levels have normalized to 1.7 ( peaked at 13.9) -patient was adequately fluid-resuscitated in the ER and ICU -OFF Chauncey-Synephrine -continue Levophed al titration to maintain organ perfusion -02/01: blood cultures are negative so far blood -02/01: Urine and sputum cultures have been obtained and pending -continue cefepime and vancomycin (initiated on 02/01) -continue stress dose steroids -add 25% albumin (3) PNA (pneumonia): Code(s): J18.9 - Pneumonia, unspecified organism Status: Acute Assessment and Plan: Could be related to bacterial and/or superimposed bacterial infection secondary to influenza A -continue antibiotics as above -continue oseltamivir (4) Emphysema/COPD: Code(s): J43.9 - Emphysema, unspecified Status: Acute Assessment and Plan: Continue mechanical ventilation, steroids and bronchodilators (5) LUCINDA (acute kidney injury): Code(s): N17.9 - Acute kidney failure, unspecified Status: Acute Assessment and Plan: Patient with acute kidney injury likely related to hypoxia and hypotension/hypovolemia. Patient in septic shock. -she has received adequate amount of IV fluids, continue vasopressors and maintain mean arterial pressures greater than 70 for adequate renal perfusion -urine output has improved and so has the renal function -continue to monitor renal function, electrolytes and urine output -continue LR at current rate (6) Atrial fibrillation with rapid ventricular response: Code(s): I48.91 - Unspecified atrial fibrillation Status: Acute Assessment and Plan: Patient has a history of chronic atrial fibrillation but presented to the ED with atrial fibrillation RVR with heart rates been in the 120s to 160s. This could be related to septic shock, hypoxia, hypovolemia -with patient was intubated and her oxygen levels improved, patient converted to sinus rhythm, rate controlled -currently on amiodarone infusion, -will discuss with cardiology regarding transition to p.o. amiodarone -patient has been on Xarelto at home, according to the granddaughter she may have not taken it for a while as it was probably making as sick -patient has been started on
[2022-02-03 17:47] LABS: Glucose Point of Care 167 mg/dl (65-105)
[2022-02-03] MEDS: LACTATED RINGERS 1,000 ML 75 ML IV CONT (17:57)
[2022-02-03 23:58] LABS: Glucose Point of Care 136 mg/dl (65-105)
[2022-02-04] VITALS (35 sets, daily range): BP systolic 105–167; BP diastolic 48–76; PULSE 71–97; RESP 16–34; TEMP 36.2–37.3; O2SAT 91–97
[2022-02-04] MEDS: IPRATROPIUM BR 0.02% INH SOLN 0.5 MG/2.5 ML VIAL INHALATION ×4 (02:46→20:34)
[2022-02-04] MEDS: LEVALBUTEROL NEB 1.25 MG/3 ML 0.63 MG INHALATION ×4 (02:46→20:34)
[2022-02-04] MEDS: ALBUMIN HUMAN 25% 25 GM/100 ML 100 ML IVPB ×3 (04:43→17:43)
[2022-02-04] MEDS: CENTRAL LINE FLUSH 10 ML IV PUSH ×3 (04:45→21:03)
[2022-02-04 04:47] LABS: Hematocrit 23.6 % (37.0-47.0); Mean Corpuscular HGB Conc 29.2 g/dl (32-36); Mean Corpuscular Hemoglobin 26.3 pg (26-34); Mean Corpuscular Volume 90.1 fl (80-100); Mean Platelet Volume 10.4 fl (7.4-10.4); Platelet Count Result 249 k/mm3 (150-375); Red Blood Count 2.62 M/mm3 (4.2-5.4); Red Cell Distribution Width 16.7 % (11.5-14.5); White Blood Count 17.6 K/mm3 (4.5-10.0)
[2022-02-04 04:52] LABS: Hemoglobin 6.9 g/dL (12.0-15.0)
[2022-02-04] MEDS: HYDROCORTISONE SODIUM SUCCINATE 100 MG/2 ML VIAL IV PUSH ×3 (04:58→21:03)
[2022-02-04 05:02] LABS: Alanine Aminotransferase 95 U/L (4-35); Alkaline Phosphatase 136 U/L (38-126); Anion Gap 2 mmol/L (8-16); Aspartate Amino Transferase 79 U/L (14-36); Bilirubin,Total 0.4 mg/dL (0.2-1.3); Blood Urea Nitrogen 28 mg/dL (7-17); Calcium 7.5 mg/dL (8.4-10.2); Carbon Dioxide 35 mmol/L (22-30); Chloride 100 mmol/L (98-107); Estimated CRCL calculation 73 ml/min; Estimated Glomerular Filt Rate > 60; Glucose 155 mg/dL (65-110); Magnesium 2.3 mg/dL (1.6-2.3); Potassium 4.1 mmol/L (3.4-5.0); Sodium 137 mmol/L (137-145)
[2022-02-04 05:41] LABS: Alveolar/Arterial O2 Gradient 89.4 mmHg; Base Excess ABG 4.8 mEq/l (+/-2.0); Carboxyhemoglobin 0.3 % THb (0-2.0); Fractional Inspired Oxygen 35 %; HCO3 ABG 30.7 mEq/l (22.0-26.0); Methemoglobin ABG 0.1 %THb (0-1.5); Oxygen Content ABG 10.7 %vol (16.0-22.0); Oxygen Saturation ABG 97.1 % (95.0-100.0); Oxyhemoglobin 95.5 % THb (90.0-100.0); PO2 ABG 97.4 mmHg (80.0-100.0); PO2 FiO2 Ratio Arterial Blood 2.78 %; Reduced Hemoglobin 4.1 %THb (0-5.0); pH ABG 7.373 (7.350-7.450)
[2022-02-04 05:43] LABS: Device VENTILATOR; Site Drawn ARTLINE; Total Hemoglobin 7.8 g/dL (12.0-18.0)
[2022-02-04 05:44] LABS: Arterial Blood Gas PEEP 5 cmH2O; Arterial Blood Gas Tidal Volume 350 ml; Arterial Blood Gas Vent Mode CMV; Arterial Blood Gas Ventilator rate 16 /MIN
[2022-02-04 06:19] LABS: Hematocrit 22.6 % (37.0-47.0); Mean Corpuscular HGB Conc 30.1 g/dl (32-36); Mean Corpuscular Volume 89.7 fl (80-100); Mean Platelet Volume 10.8 fl (7.4-10.4); Platelet Count Result 237 k/mm3 (150-375); Red Blood Count 2.52 M/mm3 (4.2-5.4); Red Cell Distribution Width 16.6 % (11.5-14.5); White Blood Count 16.8 K/mm3 (4.5-10.0)
[2022-02-04 06:32] LABS: Hemoglobin 6.8 g/dL (12.0-15.0)
--- NOTE | 2022-02-04 07:23 | WPDINTPN ---
Progress Note: A&P Assessment and Plan (1) Acute and chronic respiratory failure ([id number]): Code(s): J96.20 - Acute and chronic respiratory failure, unspecified whether with hypoxia or hypercapnia Status: Acute Assessment and Plan: Acute respiratory failure likely related to bacterial pneumonia, COPD exacerbation, influenza -patient with severe lactic acidosis, mottling noted from the feet to the chest, hypoxia, AFib RVR. Decision was made to intubate the patient. -patient was intubated successfully on 02/01/2021 -currently on CMV mode of ventilation, peep of 5, 50% FiO2 -chest x-ray reviewed-withdraw ET tube by 1 cm - ABGs reviewed-decrease respiratory rate to 18 and tidal volume 350. -sedated with fentanyl and Versed infusion. Daily sedation holiday in will evaluate for weaning trial today -continue bronchodilators and Pulmicort -Lasix IV today was transfusion Chest CT 02/01/2022: Multifocal pneumonia superimposed on chronic lung disease. The chronic lung disease in a combination of severe emphysema and upper lung predominant disease such as tuberculosis or histoplasmosis or sarcoid. (2) Septic shock: Code(s): A41.9 - Sepsis, unspecified organism; R65.21 - Severe sepsis with septic shock Status: Acute Assessment and Plan: Patient in septic shock likely related to pneumonia, hypovolemia. Presented with worsening shortness breath which has been ongoing for 1 week along with fevers Improved -lactic levels have normalized to 1.7 ( peaked at 13.9) -patient was adequately fluid-resuscitated in the ER and ICU -OFF Chauncey-Synephrine and Levophed now -02/01: blood cultures are negative so far blood -02/01: Urine and sputum cultures have been obtained and pending -continue cefepime and vancomycin (initiated on 02/01) -continue stress dose steroids -continue 25% albumin (3) PNA (pneumonia): Code(s): J18.9 - Pneumonia, unspecified organism Status: Acute Assessment and Plan: Could be related to bacterial and/or superimposed bacterial infection secondary to influenza A -continue antibiotics as above -continue oseltamivir (4) Emphysema/COPD: Code(s): J43.9 - Emphysema, unspecified Status: Acute Assessment and Plan: Continue mechanical ventilation, steroids and bronchodilators (5) Influenza A: Code(s): J10.1 - Influenza due to other identified influenza virus with other respiratory manifestations Status: Acute Assessment and Plan: Patient was positive for influenza A in the ER, and is on oseltamivir (02/01) -SARS-CoV-2 PCR was negative (6) Anemia: Code(s): D64.9 - Anemia, unspecified Status: Acute Assessment and Plan: Patient had a drop in her hemoglobin from 8.5 to 6.9 this morning. Patient had bowel movements with no blood in it and her residuals also did not show any evidence of blood. No hematoma seen on exam. Transfuse 1 unit PRBC Hold Lovenox Continue PPI IV q.12 hours Check hemoglobin every 6 hours post transfusion Check coag panel and fibrinogen level (7) LUCINDA (acute kidney injury): Code(s): N17.9 - Acute kidney failure, unspecified Status: Acute Assessment and Plan: Patient with acute kidney injury likely related to hypoxia and hypotension/hypovolemia. Patient in septic shock. -she has received adequate amount of IV fluids, continue vasopressors and maintain mean arterial pressures greater than 70 for adequate renal perfusion -urine output has improved and so has the renal function -continue to monitor renal function, electrolytes and urine output -hold further IV fluids (8) Atrial fibrillation with rapid ventricular response: Code(s): I48.91 - Unspecified atrial fibrillation Status: Acute Assessment and Plan: Patient has a history of chronic atrial fibrillation but presented to the ED with atrial fibrillation RVR with heart rates been in the 120s to 160s. This could be relat
[2022-02-04] MEDS: BUDESONIDE RESPULE NEB 0.5 MG/2 ML AMP INHALATION ×2 (07:35→20:40)
[2022-02-04] MEDS: DORNASE ALFA INH SOLN 1 MG/ML 2.5 ML AMP 2.5 MG INHALATION (07:36)
[2022-02-04 07:48] LABS: INR 1.3; Prothrombin Time 15.5 Seconds (11.1-14.7)
[2022-02-04 07:49] LABS: Fibrinogen 285 mg/dl (215-510); Partial Thromboplastin Time 30.9 SECONDS (22.3-36.8)
[2022-02-04 08:39] LABS: Vancomycin Trough < 5.0 ug/mL (10.0-20.0)
--- NOTE | 2022-02-04 08:52 | PCFNICU ---
ICU Rounding Note: Pt current nutrition is Vital AF 1.2 @ 50mL/hr over 22 hours Last recorded weight is 57.2 kg, up 3.4kg from last reported weight on 02/03/22. Bowel Motility: +BM reported 02/04/22 Labs Reviewed: Hgb 6.8, Hct 22.6, Alb 3.0, CO2 32, ALP 136, BUN 28, Cr 0.50, Glu 155, Ca 7.5, AST 79, ALT 95 Meds Noted: Albutein, Budesonide, Cefepime Hcl, Pulmozyme, Fentanyl, Solu-Cortef, Atrovent, Xopenex, Versed Skin: No new skin break down at this time. WNL Additional Notes: Current nutrition is a tube feeding diet of vital AF 1.2 running at a goal rate of 50mL/hr over 22 hours. Pt is tolerating tube feeding diet and rate. 30mL free water flushes Q 4 hours. Pt remains sedated. Per physician notes, pt to be evaluated for weaning trial today (02/04/22). Agree with diet orders at this time. Will continue to follow. Following daily in ICU rounds. Will reassess every T/F.
[2022-02-04] MEDS: PANTOPRAZOLE SODIUM IV 40 MG VIAL IV PUSH ×2 (09:26→20:04)
[2022-02-04] MEDS: AMIODARONE HCL 200 MG TABLET 400 MG PO (09:26)
[2022-02-04] MEDS: MINERAL OIL/WHITE PETROLATUM OINTMENT 1 APPLIC EACH EYE ×2 (09:27→20:05)
[2022-02-04] MEDS: CALCIUM GLUC 2,000 MG/NS 100ML 2,000 MG/100 ML BAG 100 MG IVPB (09:27)
[2022-02-04] MEDS: SODIUM CHLORIDE 0.9% IV 250 ML 30 ML IV CONT (09:30)
[2022-02-04] MEDS: OSELTAMIVIR PHOSPHATE ORAL SUSP 75 MG/12.5 ML SYRINGE FEED TUBE ×2 (10:12→20:04)
[2022-02-04] MEDS: FUROSEMIDE INJ 40 MG/4 ML VIAL IV PUSH (10:25)
[2022-02-04] MEDS: dexmedeTOMIDine 400 MCG/100 ML 400 MCG/100 ML BAG IV CONT (10:56)
[2022-02-04 12:13] LABS: Glucose Point of Care 161 mg/dl (65-105)
[2022-02-04 12:25] LABS: Hematocrit 28.9 % (37.0-47.0); Hemoglobin 8.8 g/dL (12.0-15.0); Mean Corpuscular HGB Conc 30.4 g/dl (32-36); Mean Corpuscular Hemoglobin 27.2 pg (26-34); Mean Corpuscular Volume 89.2 fl (80-100); Platelet Count Result 273 k/mm3 (150-375); Red Blood Count 3.24 M/mm3 (4.2-5.4); Red Cell Distribution Width 16.1 % (11.5-14.5); White Blood Count 17.5 K/mm3 (4.5-10.0)
--- NOTE | 2022-02-04 14:28 | P.PNIM_ITS ---
Progress Note: A&P Assessment and Plan (1) Acute and chronic respiratory failure ([id number]): Code(s): J96.20 - Acute and chronic respiratory failure, unspecified whether with hypoxia or hypercapnia Status: Acute Assessment and Plan: Acute respiratory failure likely related to bacterial pneumonia, COPD exacerbation, influenza -patient with severe lactic acidosis, mottling noted from the feet to the chest, hypoxia, AFib RVR. Decision was made to intubate the patient. -patient was intubated successfully on 02/01/2021 -currently on CMV mode of ventilation, peep of 5, 50% FiO2 -chest x-ray reviewed-withdraw ET tube by 1 cm - ABGs reviewed-decrease respiratory rate to 18 and tidal volume 350. -sedated with fentanyl and Versed infusion. Daily sedation holiday in will jerry byrne for weaning trial today -continue bronchodilators and Pulmicort -Lasix IV today was transfusion Chest CT 02/01/2022: Multifocal pneumonia superimposed on chronic lung disease. The chronic lung disease in a combination of severe emphysema and upper lung predominant disease such as tuberculosis or histoplasmosis or sarcoid. (2) Septic shock: Code(s): A41.9 - Sepsis, unspecified organism; R65.21 - Severe sepsis with septic shock Status: Acute Assessment and Plan: Patient in septic shock likely related to pneumonia, hypovolemia. Presented with worsening shortness breath which has been ongoing for 1 week along with fevers Improved -lactic levels have normalized to 1.7 ( peaked at 13.9) -patient was adequately fluid-resuscitated in the ER and ICU -OFF Chauncey-Synephrine and Levophed now -02/01: blood cultures are negative so far blood -02/01: Urine and sputum cultures have been obtained and pending -continue cefepime and vancomycin (initiated on 02/01) -continue stress dose steroids -continue 25% albumin (3) PNA (pneumonia): Code(s): J18.9 - Pneumonia, unspecified organism Status: Acute Assessment and Plan: Could be related to bacterial and/or superimposed bacterial infection secondary to influenza A -continue antibiotics as above -continue oseltamivir (4) Emphysema/COPD: Code(s): J43.9 - Emphysema, unspecified Status: Acute Assessment and Plan: Continue mechanical ventilation, steroids and bronchodilators (5) Influenza A: Code(s): J10.1 - Influenza due to other identified influenza virus with other respiratory manifestations Status: Acute Assessment and Plan: Patient was positive for influenza A in the ER, and is on oseltamivir (02/01) -SARS-CoV-2 PCR was negative (6) Anemia: Code(s): D64.9 - Anemia, unspecified Status: Acute Assessment and Plan: Patient had a drop in her hemoglobin from 8.5 to 6.9 this morning. Patient had bowel movements with no blood in it and her residuals also did not show any evidence of blood. No hematoma seen on exam. Transfuse 1 unit PRBC Hold Lovenox Continue PPI IV q.12 hours Check hemoglobin every 6 hours post transfusion Check coag panel and fibrinogen level (7) LUCINDA (acute kidney injury): Code(s): N17.9 - Acute kidney failure, unspecified Status: Acute Assessment and Plan: Patient with acute kidney injury likely related to hypoxia and hypotension/hypovolemia. Patient in septic shock. -she has received adequate amount of IV fluids, continue vasopressors and maintain mean arterial pressures greater than 70 for adequate renal perfusion -urine output has improved and so has the renal function -continue to monitor renal function, electrolytes and urine output -hol
[2022-02-04 18:13] LABS: Hematocrit 27.2 % (37.0-47.0); Hemoglobin 8.2 g/dL (12.0-15.0); Mean Corpuscular HGB Conc 30.1 g/dl (32-36); Mean Corpuscular Volume 89.5 fl (80-100); Mean Platelet Volume 10.7 fl (7.4-10.4); Platelet Count Result 258 k/mm3 (150-375); Red Blood Count 3.04 M/mm3 (4.2-5.4); Red Cell Distribution Width 16.3 % (11.5-14.5); White Blood Count 15.7 K/mm3 (4.5-10.0)
[2022-02-04 18:16] LABS: Glucose Point of Care 156 mg/dl (65-105)
[2022-02-05] VITALS (35 sets, daily range): BP systolic 115–158; BP diastolic 47–62; PULSE 68–97; RESP 16–39; TEMP 36.6–37.2; O2SAT 93–98
[2022-02-05] MEDS: ALBUMIN HUMAN 25% 25 GM/100 ML 100 ML IVPB (00:22)
[2022-02-05 00:47] LABS: Glucose Point of Care 143 mg/dl (65-105)
[2022-02-05] MEDS: IPRATROPIUM BR 0.02% INH SOLN 0.5 MG/2.5 ML VIAL INHALATION ×4 (02:47→20:32)
[2022-02-05] MEDS: LEVALBUTEROL NEB 1.25 MG/3 ML 0.63 MG INHALATION ×4 (02:47→20:32)
[2022-02-05 04:48] LABS: Hematocrit 27.2 % (37.0-47.0); Hemoglobin 8.4 g/dL (12.0-15.0); Mean Corpuscular HGB Conc 30.9 g/dl (32-36); Mean Corpuscular Hemoglobin 26.7 pg (26-34); Mean Corpuscular Volume 86.3 fl (80-100); Mean Platelet Volume 11.2 fl (7.4-10.4); Platelet Count Result 249 k/mm3 (150-375); Red Blood Count 3.15 M/mm3 (4.2-5.4); Red Cell Distribution Width 16.3 % (11.5-14.5); White Blood Count 14.6 K/mm3 (4.5-10.0)
[2022-02-05 04:57] LABS: Alanine Aminotransferase 63 U/L (4-35); Albumin Level 3.9 g/dL (3.5-5.1); Alkaline Phosphatase 120 U/L (38-126); Anion Gap 7 mmol/L (8-16); Aspartate Amino Transferase 43 U/L (14-36); Bilirubin,Total 0.5 mg/dL (0.2-1.3); Blood Urea Nitrogen 33 mg/dL (7-17); Calcium 8.2 mg/dL (8.4-10.2); Carbon Dioxide 37 mmol/L (22-30); Chloride 98 mmol/L (98-107); Estimated CRCL calculation 74 ml/min; Estimated Glomerular Filt Rate > 60; Glucose 174 mg/dL (65-110); Magnesium 2.2 mg/dL (1.6-2.3); Potassium 3.4 mmol/L (3.4-5.0); Sodium 142 mmol/L (137-145)
[2022-02-05] MEDS: HYDROCORTISONE SODIUM SUCCINATE 100 MG/2 ML VIAL IV PUSH (05:36)
[2022-02-05] MEDS: CENTRAL LINE FLUSH 10 ML IV PUSH ×3 (05:36→21:31)
[2022-02-05 05:46] LABS: Alveolar/Arterial O2 Gradient 82.5 mmHg; Base Excess ABG 8.1 mEq/l (+/-2.0); Carboxyhemoglobin 0.4 % THb (0-2.0); Fractional Inspired Oxygen 35 %; HCO3 ABG 33.7 mEq/l (22.0-26.0); Methemoglobin ABG 0.1 %THb (0-1.5); Oxygen Content ABG 12.4 %vol (16.0-22.0); Oxygen Saturation ABG 97.8 % (95.0-100.0); Oxyhemoglobin 96.6 % THb (90.0-100.0); PCO2 ABG 53.8 mmHg (35.0-45.0); PO2 ABG 104.5 mmHg (80.0-100.0); PO2 FiO2 Ratio Arterial Blood 2.99 %; Reduced Hemoglobin 2.9 %THb (0-5.0); pH ABG 7.415 (7.350-7.450)
[2022-02-05 05:46] LABS: Triiodothyronine T3 Free 2.3 pg/mL (2.3-4.2)
[2022-02-05 05:47] LABS: Device VENTILATOR; Site Drawn ARTLINE
[2022-02-05 05:49] LABS: Arterial Blood Gas PEEP 5 cmH2O; Arterial Blood Gas Tidal Volume 350 ml; Arterial Blood Gas Vent Mode CMV; Arterial Blood Gas Ventilator rate 16 /MIN
[2022-02-05] MEDS: POTASSIUM CHLORIDE 20 MEQ PACKET (FOR LIQUID) 40 MEQ FEED TUBE (08:00)
[2022-02-05] MEDS: OSELTAMIVIR PHOSPHATE ORAL SUSP 75 MG/12.5 ML SYRINGE FEED TUBE ×2 (08:00→21:31)
[2022-02-05] MEDS: FUROSEMIDE INJ 40 MG/4 ML VIAL IV PUSH (08:00)
[2022-02-05] MEDS: AMIODARONE HCL 200 MG TABLET 400 MG PO (08:01)
[2022-02-05] MEDS: PANTOPRAZOLE SODIUM IV 40 MG VIAL IV PUSH ×2 (08:01→21:31)
[2022-02-05] MEDS: MINERAL OIL/WHITE PETROLATUM OINTMENT 1 APPLIC EACH EYE ×2 (08:01→21:31)
[2022-02-05] MEDS: dexmedeTOMIDine 400 MCG/100 ML 400 MCG/100 ML BAG IV CONT (08:04)
[2022-02-05] MEDS: BUDESONIDE RESPULE NEB 0.5 MG/2 ML AMP INHALATION ×2 (08:44→20:33)
--- NOTE | 2022-02-05 09:23 | WPDINTPN ---
Progress Note: A&P Assessment and Plan (1) Acute and chronic respiratory failure ([id number]): Code(s): J96.20 - Acute and chronic respiratory failure, unspecified whether with hypoxia or hypercapnia Status: Acute Assessment and Plan: Acute respiratory failure likely related to bacterial pneumonia, COPD exacerbation, influenza -patient with severe lactic acidosis, mottling noted from the feet to the chest, hypoxia, AFib RVR. Decision was made to intubate the patient. -patient was intubated successfully on 02/01/2021 -currently on CMV mode of ventilation, peep of 5, 35% FiO2 -chest x-ray reviewed - ABGs reviewed -patient failed a PSV trial yesterday with administered to high RSBI. I will try again today. Currently she is on Precedex infusion which will be continued Discontinued fentanyl and Versed infusion 02/04. Daily sedation holiday in will evaluate for weaning trial today -continue bronchodilators and Pulmicort -continue Lasix Chest CT 02/01/2022: Multifocal pneumonia superimposed on chronic lung disease. The chronic lung disease in a combination of severe emphysema and upper lung predominant disease such as tuberculosis or histoplasmosis or sarcoid. (2) Septic shock: Code(s): A41.9 - Sepsis, unspecified organism; R65.21 - Severe sepsis with septic shock Status: Acute Assessment and Plan: Patient in septic shock likely related to pneumonia, hypovolemia. Presented with worsening shortness breath which has been ongoing for 1 week along with fevers Improved -lactic levels have normalized to 1.7 ( peaked at 13.9) -patient was adequately fluid-resuscitated in the ER and ICU -OFF Chauncey-Synephrine and Levophed now -02/01: blood cultures are negative so far blood -02/01: Urine culture negative - 02/01: Sputum cultures are growing Moraxella catarrhalis and strep pneumonia - cefepime and vancomycin (initiated on 02/01) -> 02/05 switched to daily Rocephin -wean stress dose steroids -off 25% albumin (3) PNA (pneumonia): Code(s): J18.9 - Pneumonia, unspecified organism Status: Acute Assessment and Plan: Could be related to bacterial and/or superimposed bacterial infection secondary to influenza A -continue antibiotics as above -continue oseltamivir (4) Emphysema/COPD: Code(s): J43.9 - Emphysema, unspecified Status: Acute Assessment and Plan: Continue mechanical ventilation, steroids and bronchodilators (5) Influenza A: Code(s): J10.1 - Influenza due to other identified influenza virus with other respiratory manifestations Status: Acute Assessment and Plan: Patient was positive for influenza A in the ER, and is on oseltamivir (02/01) -SARS-CoV-2 PCR was negative (6) Anemia: Code(s): D64.9 - Anemia, unspecified Status: Acute Assessment and Plan: Patient had a drop in her hemoglobin from 8.5 to 6.9 this morning. Patient had bowel movements with no blood in it and her residuals also did not show any evidence of blood. No hematoma seen on exam. Lovenox was held and patient was transfused 1 unit PRBC Hemoglobin has been stable since transfusion Will continue to hold Lovenox for another 24 hours Continue PPI IV q.12 hours Coag panel reviewed (7) LUCINDA (acute kidney injury): Code(s): N17.9 - Acute kidney failure, unspecified Status: Acute Assessment and Plan: Patient with acute kidney injury likely related to hypoxia and hypotension/hypovolemia. Patient in septic shock. -she has received adequate amount of IV fluids, continue vasopressors and maintain mean arterial pressures greater than 70 for adequate renal perfusion -urine output has improved and so has the renal function -continue to monitor renal function, electrolytes and urine output -off IV fluids now (8) Atrial fibrillation with rapid ventricular response: Code(s): I48.91 - Unspecified atrial fibrillation Status: Acute Assessment and
[2022-02-05] MEDS: cefTRIAXone 2 GM in SODIUM CHLORIDE 0.9% IV 100 ML 200 ML IVPB (09:54)
[2022-02-05 12:03] LABS: Glucose Point of Care 121 mg/dl (65-105)
--- NOTE | 2022-02-05 14:11 | P.PNIM_ITS ---
Progress Note: A&P Assessment and Plan (1) Acute and chronic respiratory failure ([id number]): Code(s): J96.20 - Acute and chronic respiratory failure, unspecified whether with hypoxia or hypercapnia Status: Acute Assessment and Plan: Acute respiratory failure likely related to bacterial pneumonia, COPD exacerbation, influenza -patient with severe lactic acidosis, mottling noted from the feet to the chest, hypoxia, AFib RVR. Decision was made to intubate the patient. -patient was intubated successfully on 02/01/2021 -currently on CMV mode of ventilation, peep of 5, 35% FiO2 -chest x-ray reviewed - ABGs reviewed -patient failed a PSV trial yesterday with administered to high RSBI. I will try again today. Currently she is on Precedex infusion which will be continued Discontinued fentanyl and Versed infusion 02/04. Daily sedation holiday in will evaluate for weaning trial today -continue bronchodilators and Pulmicort -continue Lasix Chest CT 02/01/2022: Multifocal pneumonia superimposed on chronic lung disease. The chronic lung disease in a combination of severe emphysema and upper lung predominant disease such as tuberculosis or histoplasmosis or sarcoid. (2) Septic shock: Code(s): A41.9 - Sepsis, unspecified organism; R65.21 - Severe sepsis with septic shock Status: Acute Assessment and Plan: Patient in septic shock likely related to pneumonia, hypovolemia. Presented with worsening shortness breath which has been ongoing for 1 week along with fevers Improved -lactic levels have normalized to 1.7 ( peaked at 13.9) -patient was adequately fluid-resuscitated in the ER and ICU -OFF Chauncey-Synephrine and Levophed now -02/01: blood cultures are negative so far blood -02/01: Urine culture negative - 02/01: Sputum cultures are growing Moraxella catarrhalis and strep pneumonia - cefepime and vancomycin (initiated on 02/01) -> 02/05 switched to daily Rocephin -wean stress dose steroids -off 25% albumin (3) PNA (pneumonia): Code(s): J18.9 - Pneumonia, unspecified organism Status: Acute Assessment and Plan: Could be related to bacterial and/or superimposed bacterial infection secondary to influenza A -continue antibiotics as above -continue oseltamivir (4) Emphysema/COPD: Code(s): J43.9 - Emphysema, unspecified Status: Acute Assessment and Plan: Continue mechanical ventilation, steroids and bronchodilators (5) Influenza A: Code(s): J10.1 - Influenza due to other identified influenza virus with other respiratory manifestations Status: Acute Assessment and Plan: Patient was positive for influenza A in the ER, and is on oseltamivir (02/01) -SARS-CoV-2 PCR was negative (6) Anemia: Code(s): D64.9 - Anemia, unspecified Status: Acute Assessment and Plan: Patient had a drop in her hemoglobin from 8.5 to 6.9 this morning. Patient had bowel movements with no blood in it and her residuals also did not show any evidence of blood. No hematoma seen on exam. Lovenox was held and patient was transfused 1 unit PRBC Hemoglobin has been stable since transfusion Will continue to hold Lovenox for another 24 hours Continue PPI IV q.12 hours Coag panel reviewed (7) LUCINDA (acute kidney injury): Code(s): N17.9 - Acute kidney failure, unspecified Status: Acute Assessment and Plan: Patient with acute kidney injury likely related to hypoxia and hypotension/hypovolemia. Patient in septic shock. -she has received adequate amount of IV fluids, continue vasopressors and maintain mean arterial
--- NOTE | 2022-02-05 14:48 | PCFNICU ---
ICU Rounding Note: Pt current nutrition is Vital 1.2 running at 50mL/hr over 22 hours Last recorded weight is 57.5 kg, up 0.3kg from last reported weight on 02/04/22. Bowel Motility: LBM reported 02/04/22 Labs Reviewed: Hgb 8.4, Hct 27.2, CO2 37, AST 43, ALT 63, BUN 33, Cr 0.50, Glu 174, Ca 8.1 Meds Noted: Pacerone, Budeosnide, Ceftriaxone Sodium, Precedex, Atrovent Neb, Xopenex, Tamiflu, Protonix Skin: No new skin breakdown, WNL Additional Notes: Pt failed PSV trail yesterday (02/04/22). Fentanyl and Versed infusion discontinued yesterday (02/04/22). Tube feeding held today (02/05/22) for possible extubation. Tube feeding has since been resumed and running at goal rate of 50mL/hr over 22 hours. Agree with diet orders at this time. Will continue to follow. Following daily in ICU rounds. Will reassess every T/F.
[2022-02-05 15:56] LABS: Chloride Rand Ur <20 mmol/L (32-290); Creatinine Random Urine 70 mg/dL (20-275)
[2022-02-05 17:52] LABS: Glucose Point of Care 142 mg/dl (65-105)
[2022-02-06] VITALS (38 sets, daily range): BP systolic 115–177; BP diastolic 47–72; PULSE 66–95; RESP 18–33; TEMP 36.9–38.2; O2SAT 90–100
[2022-02-06 00:24] LABS: Glucose Point of Care 123 mg/dl (65-105)
[2022-02-06] MEDS: IPRATROPIUM BR 0.02% INH SOLN 0.5 MG/2.5 ML VIAL INHALATION ×4 (02:30→20:25)
[2022-02-06] MEDS: LEVALBUTEROL NEB 1.25 MG/3 ML 0.63 MG INHALATION ×4 (02:30→20:25)
[2022-02-06 05:19] LABS: Glucose Point of Care 126 mg/dl (65-105)
[2022-02-06 05:33] LABS: Hematocrit 31.3 % (37.0-47.0); Hemoglobin 9.4 g/dL (12.0-15.0); Mean Corpuscular Hemoglobin 26.8 pg (26-34); Mean Corpuscular Volume 89.2 fl (80-100); Mean Platelet Volume 10.9 fl (7.4-10.4); Platelet Count Result 331 k/mm3 (150-375); Red Blood Count 3.51 M/mm3 (4.2-5.4); Red Cell Distribution Width 16.4 % (11.5-14.5); White Blood Count 18.6 K/mm3 (4.5-10.0)
[2022-02-06 05:40] LABS: Alanine Aminotransferase 53 U/L (4-35); Albumin Level 3.5 g/dL (3.5-5.1); Alkaline Phosphatase 134 U/L (38-126); Aspartate Amino Transferase 41 U/L (14-36); Bilirubin,Total 0.4 mg/dL (0.2-1.3); Blood Urea Nitrogen 38 mg/dL (7-17); Calcium 8.6 mg/dL (8.4-10.2); Carbon Dioxide > 40 mmol/L (22-30); Chloride 98 mmol/L (98-107); Estimated CRCL calculation 90 ml/min; Estimated Glomerular Filt Rate > 60; Glucose 106 mg/dL (65-110); Magnesium 2.2 mg/dL (1.6-2.3); Potassium 2.9 mmol/L (3.4-5.0); Sodium 144 mmol/L (137-145)
[2022-02-06] MEDS: CENTRAL LINE FLUSH 10 ML IV PUSH ×3 (06:12→20:39)
--- NOTE | 2022-02-06 06:23 | PCRCNOTE ---
Addendum entered by Judith Machado RRT 02/06/22 06:55: [employer] problem resolved and ABG results entered manually at approximately 06:55. Lay Streeter RN notified. Original Note: Morning ABG was not crossing over from [employer] to [employer]. Also unable to print a label from [employer]. The problems are believed to be a result of the [employer] outage earlier this AM. ABG was obtained and run. Also likely due to earlier [employer] outage, unable to manually enter ABG results in pt's [employer] chart. Paper copy of results provided to Lay Streeter RN. IT contacted by Neisha Paige RRT. Problem will be reported to [facility]. ABG results are as follows: pH = 7.495 pCO2 = 40.2 pO2 = 68.7 HCO3 = 30.3 BE = 6.5 tHb = 10.5 FO2Hb = 92.2 FCOHb = 0.2 FMetHb = 0.1 FHHb = 7.5 O2SAT(est) = 95.0 pO2/FiO2 = 2.29 ctO2(a) = 13.7 pO2(A-a) = 13.7
[2022-02-06 06:48] LABS: HCO3 ABG 30.3 mEq/l (22.0-26.0); PCO2 ABG 40.2 mmHg (35.0-45.0); PO2 ABG 68.7 mmHg (80.0-100.0); pH ABG 7.495 (7.350-7.450)
[2022-02-06 06:49] LABS: Base Excess ABG 6.5 mEq/l (+/-2.0); Total Hemoglobin 10.5 g/dL (12.0-18.0)
[2022-02-06 06:50] LABS: Carboxyhemoglobin 0.2 % THb (0-2.0); Oxygen Content ABG 13.7 %vol (16.0-22.0); Oxyhemoglobin 92.2 % THb (90.0-100.0)
[2022-02-06 06:51] LABS: Methemoglobin ABG 0.1 %THb (0-1.5); Reduced Hemoglobin 7.5 %THb (0-5.0)
[2022-02-06 06:52] LABS: Fractional Inspired Oxygen 30 %; PO2 FiO2 Ratio Arterial Blood 2.29 %; Site Drawn ARTLINE
[2022-02-06 06:53] LABS: Device VENTILATOR
[2022-02-06 06:55] LABS: Arterial Blood Gas PEEP 5 cmH2O; Arterial Blood Gas Tidal Volume 350 ml; Arterial Blood Gas Vent Mode CMV; Arterial Blood Gas Ventilator rate 16 /MIN
[2022-02-06] MEDS: POTASSIUM CHLORIDE 20 MEQ PACKET (FOR LIQUID) 40 MEQ FEED TUBE (08:04)
[2022-02-06] MEDS: KCL 40 MEQ/WATER 100 ML 100 ML 25 ML IVPB (08:04)
[2022-02-06] MEDS: ENOXAPARIN 40 MG/0.4 ML SYRINGE SUB-Q (08:04)
[2022-02-06] MEDS: predniSONE 20 MG TABLET 60 MG FEED TUBE (08:05)
[2022-02-06] MEDS: PANTOPRAZOLE SODIUM IV 40 MG VIAL IV PUSH ×2 (08:05→20:38)
[2022-02-06] MEDS: AMIODARONE HCL 200 MG TABLET 400 MG PO (08:05)
[2022-02-06] MEDS: MINERAL OIL/WHITE PETROLATUM OINTMENT 1 APPLIC EACH EYE ×2 (08:05→20:39)
[2022-02-06] MEDS: OSELTAMIVIR PHOSPHATE ORAL SUSP 75 MG/12.5 ML SYRINGE FEED TUBE (08:08)
[2022-02-06] MEDS: cefTRIAXone 2 GM in SODIUM CHLORIDE 0.9% IV 100 ML 200 ML IVPB (08:08)
[2022-02-06] MEDS: BUDESONIDE RESPULE NEB 0.5 MG/2 ML AMP INHALATION ×2 (08:13→20:25)
--- NOTE | 2022-02-06 08:22 | WPDINTPN ---
Progress Note: A&P Assessment and Plan (1) Acute and chronic respiratory failure ([id number]): Code(s): J96.20 - Acute and chronic respiratory failure, unspecified whether with hypoxia or hypercapnia Status: Acute Assessment and Plan: Acute respiratory failure likely related to bacterial pneumonia, COPD exacerbation, influenza -patient with severe lactic acidosis, mottling noted from the feet to the chest, hypoxia, AFib RVR. Decision was made to intubate the patient. -patient was intubated successfully on 02/01/2021 -currently on CMV mode of ventilation, peep of 5, 35% FiO2 -chest x-ray pending - ABGs reviewed -02/06 patient failed a PSV trial due to high RSBI. I will try again today. Currently she is on Precedex infusion which will be continued Discontinued fentanyl and Versed infusion 02/04. -continue bronchodilators and Pulmicort -will review chest x-ray it and need more Lasix Chest CT 02/01/2022: Multifocal pneumonia superimposed on chronic lung disease. The chronic lung disease in a combination of severe emphysema and upper lung predominant disease such as tuberculosis or histoplasmosis or sarcoid. (2) Septic shock: Code(s): A41.9 - Sepsis, unspecified organism; R65.21 - Severe sepsis with septic shock Status: Acute Assessment and Plan: Patient in septic shock likely related to pneumonia, hypovolemia. Presented with worsening shortness breath which has been ongoing for 1 week along with fevers Improved -lactic levels have normalized to 1.7 ( peaked at 13.9) -patient was adequately fluid-resuscitated in the ER and ICU -OFF Chauncey-Synephrine and Levophed now -02/01: blood cultures are negative so far blood -02/01: Urine culture negative - 02/01: Sputum cultures are growing Moraxella catarrhalis and strep pneumonia - cefepime and vancomycin (initiated on 02/01) -> 02/05 switched to daily Rocephin -stress dose steroids weaned off -off 25% albumin (3) PNA (pneumonia): Code(s): J18.9 - Pneumonia, unspecified organism Status: Acute Assessment and Plan: Could be related to bacterial and/or superimposed bacterial infection secondary to influenza A -continue antibiotics as above -continue oseltamivir (4) Emphysema/COPD: Code(s): J43.9 - Emphysema, unspecified Status: Acute Assessment and Plan: Continue mechanical ventilation, steroids and bronchodilators -change hydrocortisone to prednisone and continue through 02/10 (5) Influenza A: Code(s): J10.1 - Influenza due to other identified influenza virus with other respiratory manifestations Status: Acute Assessment and Plan: Patient was positive for influenza A in the ER, and is on oseltamivir (02/01) -SARS-CoV-2 PCR was negative (6) Anemia: Code(s): D64.9 - Anemia, unspecified Status: Acute Assessment and Plan: Patient had a drop in her hemoglobin from 8.5 to 6.9 this morning. Patient had bowel movements with no blood in it and her residuals also did not show any evidence of blood. No hematoma seen on exam. Lovenox was held and patient was transfused 1 unit PRBC Hemoglobin has been stable since transfusion Start Lovenox DVT prophylaxis dose and monitor Continue PPI IV q.12 hours Coag panel reviewed (7) LUCINDA (acute kidney injury): Code(s): N17.9 - Acute kidney failure, unspecified Status: Acute Assessment and Plan: Patient with acute kidney injury likely related to hypoxia and hypotension/hypovolemia. Patient in septic shock. -she has received adequate amount of IV fluids, continue vasopressors and maintain mean arterial pressures greater than 70 for adequate renal perfusion -urine output has improved and so has the renal function -continue to monitor renal function, electrolytes and urine output -off IV fluids now (8) Atrial fibrillation with rapid ventricular response: Code(s): I48.91 - Unspecified atrial fibrillation Status: Acute
[2022-02-06] MEDS: LORazepam INJ (*CRX) 2 MG/ML VIAL IV PUSH (09:22)
[2022-02-06] MEDS: dexmedeTOMIDine 400 MCG/100 ML 400 MCG/100 ML BAG 8.58 MCG IV CONT (11:12)
[2022-02-06 12:17] LABS: Glucose Point of Care 141 mg/dl (65-105)
--- NOTE | 2022-02-06 15:40 | PCNFU ---
Nutrition Follow-Up Complete: Inadequate Oral Intake as related to mechanical ventilation as evidenced by NPO. Goal: Meet estimanted nutritional needs Pt is progressing towards goal. Continue with current goal. Pt current nutrition is Vital 1.2 running at 50mL/hr over 22 hours Last recorded weight is 57.4 kg, stable. Recommend re-weighing prior to discharge. Bowel Motility: LBM reported 02/04/22 Labs Reviewed: Hgb 9.3, Hct 31.3, CO2 >40, K 2.9, BUN 38, Cr 0.40, ALP 134, AST 41, ALT 53 Meds Noted: Pacerone, Budesonide, Precedex, Lovenox, Atrovent, Xopenex, Ativan, Protonix, Prednisone, Sodium Chloride Skin: No new skin break down at this time. WNL Additional Notes: Tube feeding diet help for PSV trail today (02/06/22), pt failed. Pt remains on mechanical vent. Tube feeding of Vital 1.2 has been resumed and running at a rate of 50mL/hr over 22 hours providing 1320kcal, 83g of protein, and 892mL of water, meeting 73% of estimated kcal needs and 96% of estimated protein needs. Free water flush 30mL Q 4 hours. Pt is tolerating tube feeding diet and rate. Agree with diet orders at this time. Will continue to follow. Following daily in ICU rounds. Will reassess every T/F.
[2022-02-06 17:45] LABS: Glucose Point of Care 139 mg/dl (65-105)
[2022-02-07] VITALS (35 sets, daily range): BP systolic 103–188; BP diastolic 44–81; PULSE 54–94; RESP 17–33; TEMP 36.5–37.2; O2SAT 93–100
[2022-02-07 00:34] LABS: Glucose Point of Care 135 mg/dl (65-105)
[2022-02-07] MEDS: LEVALBUTEROL NEB 1.25 MG/3 ML 0.63 MG INHALATION ×4 (02:44→19:35)
[2022-02-07] MEDS: IPRATROPIUM BR 0.02% INH SOLN 0.5 MG/2.5 ML VIAL INHALATION ×4 (02:44→19:35)
[2022-02-07] MEDS: dexmedeTOMIDine 400 MCG/100 ML 400 MCG/100 ML BAG 5.72 MCG IV CONT (04:33)
[2022-02-07] MEDS: CENTRAL LINE FLUSH 10 ML IV PUSH ×3 (04:52→20:12)
[2022-02-07 05:11] LABS: Hematocrit 28.4 % (37.0-47.0); Hemoglobin 8.6 g/dL (12.0-15.0); Mean Corpuscular HGB Conc 30.3 g/dl (32-36); Mean Corpuscular Hemoglobin 26.5 pg (26-34); Mean Corpuscular Volume 87.4 fl (80-100); Mean Platelet Volume 10.6 fl (7.4-10.4); Platelet Count Result 273 k/mm3 (150-375); Red Blood Count 3.25 M/mm3 (4.2-5.4); Red Cell Distribution Width 16.7 % (11.5-14.5); White Blood Count 15.2 K/mm3 (4.5-10.0)
[2022-02-07 05:31] LABS: Alanine Aminotransferase 42 U/L (4-35); Alkaline Phosphatase 119 U/L (38-126); Anion Gap 2 mmol/L (8-16); Aspartate Amino Transferase 26 U/L (14-36); Bilirubin,Total 0.4 mg/dL (0.2-1.3); Blood Urea Nitrogen 34 mg/dL (7-17); Calcium 8.3 mg/dL (8.4-10.2); Carbon Dioxide 38 mmol/L (22-30); Chloride 105 mmol/L (98-107); Estimated CRCL calculation 90 ml/min; Estimated Glomerular Filt Rate > 60; Glucose 141 mg/dL (65-110); Magnesium 2.1 mg/dL (1.6-2.3); Potassium 3.6 mmol/L (3.4-5.0); Sodium 145 mmol/L (137-145)
[2022-02-07 05:33] LABS: Alveolar/Arterial O2 Gradient 84.2 mmHg; Carboxyhemoglobin 0.1 % THb (0-2.0); Device VENTILATOR; Fractional Inspired Oxygen 30 %; HCO3 ABG 34.8 mEq/l (22.0-26.0); Oxygen Content ABG 12.9 %vol (16.0-22.0); Oxygen Saturation ABG 95.4 % (95.0-100.0); Oxyhemoglobin 93.2 % THb (90.0-100.0); PCO2 ABG 48.4 mmHg (35.0-45.0); PO2 ABG 72.8 mmHg (80.0-100.0); PO2 FiO2 Ratio Arterial Blood 2.43 %; Reduced Hemoglobin 6.7 %THb (0-5.0); Site Drawn ARTLINE; Total Hemoglobin 9.8 g/dL (12.0-18.0); pH ABG 7.474 (7.350-7.450)
[2022-02-07 05:34] LABS: Arterial Blood Gas PEEP 5 cmH2O; Arterial Blood Gas Tidal Volume 350 ml; Arterial Blood Gas Vent Mode CMV; Arterial Blood Gas Ventilator rate 16 /MIN
[2022-02-07] MEDS: POTASSIUM CHLORIDE 20 MEQ PACKET (FOR LIQUID) 40 MEQ FEED TUBE ×2 (07:47→15:37)
[2022-02-07] MEDS: FUROSEMIDE INJ 40 MG/4 ML VIAL IV PUSH (07:48)
--- NOTE | 2022-02-07 07:52 | WPDINTPN ---
Progress Note: A&P Assessment and Plan (1) Acute and chronic respiratory failure ([id number]): Code(s): J96.20 - Acute and chronic respiratory failure, unspecified whether with hypoxia or hypercapnia Status: Acute Assessment and Plan: Acute respiratory failure likely related to bacterial pneumonia, COPD exacerbation, influenza -patient with severe lactic acidosis, mottling noted from the feet to the chest, hypoxia, AFib RVR. Decision was made to intubate the patient. -patient was intubated successfully on 02/01/2021 -currently on CMV mode of ventilation, peep of 5, 35% FiO2 -chest x-ray reviewed - withdraw ET tube by 2 cm - ABGs reviewed -02/06 patient failed a PSV trial due to high RSBI. I will try again today. Currently she is on Precedex infusion which will be continued and does slightly increase to rule out any anxiety component Discontinued fentanyl and Versed infusion 02/04. -continue bronchodilators and Pulmicort - repeat Lasix dose today Chest CT 02/01/2022: Multifocal pneumonia superimposed on chronic lung disease. The chronic lung disease in a combination of severe emphysema and upper lung predominant disease such as tuberculosis or histoplasmosis or sarcoid. (2) Septic shock: Code(s): A41.9 - Sepsis, unspecified organism; R65.21 - Severe sepsis with septic shock Status: Acute Assessment and Plan: Patient in septic shock secondary to bacterial pneumonia, hypovolemia. - shock has resolved -lactic levels have normalized to 1.7 ( peaked at 13.9) -patient was adequately fluid-resuscitated in the ER and ICU -OFF Chauncey-Synephrine and Levophed now -02/01: blood cultures are negative so far blood -02/01: Urine culture negative - 02/01: Sputum cultures are growing Moraxella catarrhalis and strep pneumonia - cefepime and vancomycin (initiated on 02/01) -> 02/05 switched to daily Rocephin -stress dose steroids have been weaned off -off 25% albumin (3) PNA (pneumonia): Code(s): J18.9 - Pneumonia, unspecified organism Status: Acute Assessment and Plan: Could be related to bacterial and/or superimposed bacterial infection secondary to influenza A -continue antibiotics as above -continue oseltamivir (4) Emphysema/COPD: Code(s): J43.9 - Emphysema, unspecified Status: Acute Assessment and Plan: Continue mechanical ventilation, steroids and bronchodilators -change hydrocortisone to prednisone and continue through 02/10 (5) Influenza A: Code(s): J10.1 - Influenza due to other identified influenza virus with other respiratory manifestations Status: Acute Assessment and Plan: Patient was positive for influenza A in the ER, and is on oseltamivir (02/01) -SARS-CoV-2 PCR was negative (6) Anemia: Code(s): D64.9 - Anemia, unspecified Status: Acute Assessment and Plan: Patient had a drop in her hemoglobin from 8.5 to 6.9 this morning. Patient had bowel movements with no blood in it and her residuals also did not show any evidence of blood. No hematoma seen on exam. Lovenox was held and patient was transfused 1 unit PRBC Hemoglobin has been stable since transfusion 02/06 started Lovenox DVT prophylaxis dose and monitor Continue PPI IV q.12 hours Coag panel reviewed (7) LUCINDA (acute kidney injury): Code(s): N17.9 - Acute kidney failure, unspecified Status: Acute Assessment and Plan: Patient with acute kidney injury likely related to hypoxia and hypotension/hypovolemia. Patient in septic shock. -she has received adequate amount of IV fluids, continue vasopressors and maintain mean arterial pressures greater than 70 for adequate renal perfusion -urine output has improved and so has the renal function -continue to monitor renal function, electrolytes and urine output -off IV fluids now (8) Atrial fibrillation with rapid ventricular response: Code(s): I48.91 - Unspecified atrial fibrillation Status:
[2022-02-07] MEDS: AMIODARONE HCL 200 MG TABLET 400 MG PO (08:11)
[2022-02-07] MEDS: predniSONE 20 MG TABLET 60 MG FEED TUBE (08:12)
[2022-02-07] MEDS: ENOXAPARIN 40 MG/0.4 ML SYRINGE SUB-Q (08:12)
[2022-02-07] MEDS: PANTOPRAZOLE SODIUM IV 40 MG VIAL IV PUSH ×2 (08:14→20:00)
[2022-02-07] MEDS: MINERAL OIL/WHITE PETROLATUM OINTMENT 1 APPLIC EACH EYE ×2 (08:14→20:01)
[2022-02-07] MEDS: cefTRIAXone 2 GM in SODIUM CHLORIDE 0.9% IV 100 ML 200 ML IVPB (08:27)
[2022-02-07] MEDS: BUDESONIDE RESPULE NEB 0.5 MG/2 ML AMP INHALATION ×2 (08:30→19:35)
[2022-02-07 13:04] LABS: Glucose Point of Care 155 mg/dl (65-105)
[2022-02-07] MEDS: dexmedeTOMIDine 400 MCG/100 ML 400 MCG/100 ML BAG 11.44 MCG IV CONT (15:35)
[2022-02-07] MEDS: LORazepam INJ (*CRX) 2 MG/ML VIAL IV PUSH (16:08)
[2022-02-07 18:21] LABS: Glucose Point of Care 159 mg/dl (65-105)
[2022-02-08] VITALS (33 sets, daily range): BP systolic 103–185; BP diastolic 49–67; PULSE 52–87; RESP 11–32; TEMP 36.6–37.3; O2SAT 90–100
[2022-02-08] MEDS: dexmedeTOMIDine 400 MCG/100 ML 400 MCG/100 ML BAG 11.44 MCG IV CONT ×2 (00:30→09:02)
[2022-02-08 00:46] LABS: Glucose Point of Care 109 mg/dl (65-105)
[2022-02-08] MEDS: IPRATROPIUM BR 0.02% INH SOLN 0.5 MG/2.5 ML VIAL INHALATION ×4 (01:51→20:03)
[2022-02-08] MEDS: LEVALBUTEROL NEB 1.25 MG/3 ML 0.63 MG INHALATION ×4 (01:51→20:03)
[2022-02-08 04:32] LABS: Alveolar/Arterial O2 Gradient 72.3 mmHg; Base Excess ABG 9.5 mEq/l (+/-2.0); Carboxyhemoglobin 0.3 % THb (0-2.0); Fractional Inspired Oxygen 28 %; Oxygen Content ABG 12.8 %vol (16.0-22.0); Oxygen Saturation ABG 95.4 % (95.0-100.0); Oxyhemoglobin 93.1 % THb (90.0-100.0); PCO2 ABG 46.5 mmHg (35.0-45.0); PO2 ABG 72.5 mmHg (80.0-100.0); PO2 FiO2 Ratio Arterial Blood 2.59 %; Reduced Hemoglobin 6.6 %THb (0-5.0); Total Hemoglobin 9.7 g/dL (12.0-18.0); pH ABG 7.482 (7.350-7.450)
[2022-02-08 04:34] LABS: Arterial Blood Gas PEEP 5 cmH2O; Arterial Blood Gas Vent Mode CMV; Arterial Blood Gas Ventilator rate 16 /MIN; Device VENTILATOR; Site Drawn ARTLINE
[2022-02-08 04:35] LABS: Arterial Blood Gas Tidal Volume 350 ml
[2022-02-08] MEDS: CENTRAL LINE FLUSH 10 ML IV PUSH ×3 (04:57→20:28)
[2022-02-08 05:08] LABS: Hematocrit 30.4 % (37.0-47.0); Hemoglobin 8.9 g/dL (12.0-15.0); Mean Corpuscular HGB Conc 29.3 g/dl (32-36); Mean Corpuscular Hemoglobin 26.7 pg (26-34); Mean Corpuscular Volume 91.3 fl (80-100); Mean Platelet Volume 11.1 fl (7.4-10.4); Platelet Count Result 310 k/mm3 (150-375); Red Blood Count 3.33 M/mm3 (4.2-5.4); Red Cell Distribution Width 16.6 % (11.5-14.5); White Blood Count 13.7 K/mm3 (4.5-10.0)
[2022-02-08 05:26] LABS: Alanine Aminotransferase 36 U/L (4-35); Albumin Level 3.1 g/dL (3.5-5.1); Alkaline Phosphatase 118 U/L (38-126); Anion Gap 2 mmol/L (8-16); Aspartate Amino Transferase 29 U/L (14-36); Bilirubin,Total 0.2 mg/dL (0.2-1.3); Blood Urea Nitrogen 36 mg/dL (7-17); Calcium 8.6 mg/dL (8.4-10.2); Carbon Dioxide 38 mmol/L (22-30); Chloride 105 mmol/L (98-107); Estimated CRCL calculation 112 ml/min; Estimated Glomerular Filt Rate > 60; Glucose 147 mg/dL (65-110); Magnesium 2.1 mg/dL (1.6-2.3); Potassium 4.1 mmol/L (3.4-5.0); Sodium 145 mmol/L (137-145)
--- NOTE | 2022-02-08 07:43 | P.PNINT_ITS ---
Progress Note: A&P Assessment and Plan (1) Acute and chronic respiratory failure ([id number]): Code(s): J96.20 - Acute and chronic respiratory failure, unspecified whether with hypoxia or hypercapnia Status: Acute Assessment and Plan: Acute respiratory failure likely related to bacterial pneumonia, COPD exacerbation, influenza -patient with severe lactic acidosis, mottling noted from the feet to the chest, hypoxia, AFib RVR. Decision was made to intubate the patient. -patient was intubated successfully on 02/01/2021 -currently on CMV mode of ventilation, peep of 5, 35% FiO2 -chest x-ray reviewed - advance ET tube by 2 cm - ABGs reviewed -02/06, 02/07 patient failed a PSV trial within minutes due to high RSBI. I will try again today. Currently she is on Precedex infusion which will be continued and does slightly increase to rule out any anxiety component - Discontinued fentanyl and Versed infusion 02/04. -continue bronchodilators and Pulmicort - good response to Lasix Chest CT 02/01/2022: Multifocal pneumonia superimposed on chronic lung disease. The chronic lung disease in a combination of severe emphysema and upper lung predominant disease such as tuberculosis or histoplasmosis or sarcoid. (2) Septic shock: Code(s): A41.9 - Sepsis, unspecified organism; R65.21 - Severe sepsis with septic shock Status: Acute Assessment and Plan: Patient in septic shock secondary to bacterial pneumonia, hypovolemia. - shock has resolved -lactic levels have normalized to 1.7 ( peaked at 13.9) -patient was adequately fluid-resuscitated in the ER and ICU -OFF Chauncey-Synephrine and Levophed now -02/01: blood cultures are negative so far blood -02/01: Urine culture negative - 02/01: Sputum cultures are growing Moraxella catarrhalis and strep pneumonia - cefepime and vancomycin (initiated on 02/01) -> 02/05 switched to daily Rocephin -stress dose steroids have been weaned off -off 25% albumin (3) PNA (pneumonia): Code(s): J18.9 - Pneumonia, unspecified organism Status: Acute Assessment and Plan: Could be related to bacterial and/or superimposed bacterial infection secondary to influenza A -continue antibiotics as above -continue oseltamivir (4) Emphysema/COPD: Code(s): J43.9 - Emphysema, unspecified Status: Acute Assessment and Plan: Continue mechanical ventilation, steroids and bronchodilators -change hydrocortisone to prednisone and continue through 02/10 (5) Influenza A: Code(s): J10.1 - Influenza due to other identified influenza virus with other respiratory manifestations Status: Acute Assessment and Plan: Patient was positive for influenza A in the ER, and is on oseltamivir (02/01) -SARS-CoV-2 PCR was negative (6) Anemia: Code(s): D64.9 - Anemia, unspecified Status: Acute Assessment and Plan: Patient had a drop in her hemoglobin from 8.5 to 6.9 this morning. Patient had bowel movements with no blood in it and her residuals also did not show any evidence of blood. No hematoma seen on exam. Lovenox was held and patient was transfused 1 unit PRBC Hemoglobin has been stable since transfusion 02/06 started Lovenox DVT prophylaxis dose and monitor 02/08 increased to therapeutic dose Continue PPI IV q.12 hours Coag panel reviewed (7) LUCINDA (acute kidney injury): Code(s): N17.9 - Acute kidney failure, unspecified Status: Acute Assessment and Plan: Patient with acute kidney injury likely related to hypoxia and hypotension/hypovolemia. Patient in septic shock. -she has recei
[2022-02-08] MEDS: predniSONE 20 MG TABLET 60 MG FEED TUBE (08:12)
[2022-02-08] MEDS: AMIODARONE HCL 200 MG TABLET 400 MG PO (08:13)
[2022-02-08] MEDS: MINERAL OIL/WHITE PETROLATUM OINTMENT 1 APPLIC EACH EYE ×2 (08:14→20:27)
[2022-02-08] MEDS: PANTOPRAZOLE SODIUM IV 40 MG VIAL IV PUSH ×2 (08:14→20:27)
[2022-02-08] MEDS: ENOXAPARIN 60 MG/0.6 ML SYRINGE SUB-Q ×2 (08:14→20:27)
[2022-02-08] MEDS: BUDESONIDE RESPULE NEB 0.5 MG/2 ML AMP INHALATION ×2 (08:49→20:03)
[2022-02-08] MEDS: cefTRIAXone 2 GM in SODIUM CHLORIDE 0.9% IV 100 ML 200 ML IVPB (09:23)
[2022-02-08] MEDS: LORazepam INJ (*CRX) 2 MG/ML VIAL IV PUSH (11:45)
[2022-02-08 11:53] LABS: Glucose Point of Care 130 mg/dl (65-105)
[2022-02-08] MEDS: dexmedeTOMIDine 400 MCG/100 ML 400 MCG/100 ML BAG 8.58 MCG IV CONT (18:30)
[2022-02-08 18:49] LABS: Glucose Point of Care 138 mg/dl (65-105)
[2022-02-08 23:54] LABS: Glucose Point of Care 110 mg/dl (65-105)
[2022-02-09] VITALS (41 sets, daily range): BP systolic 101–166; BP diastolic 45–74; PULSE 56–106; RESP 12–41; TEMP 36.7–38.3; O2SAT 88–100
[2022-02-09] MEDS: LORazepam INJ (*CRX) 2 MG/ML VIAL IV PUSH ×2 (00:01→11:01)
[2022-02-09] MEDS: LEVALBUTEROL NEB 1.25 MG/3 ML 0.63 MG INHALATION ×4 (02:18→20:54)
[2022-02-09] MEDS: IPRATROPIUM BR 0.02% INH SOLN 0.5 MG/2.5 ML VIAL INHALATION ×4 (02:19→20:54)
[2022-02-09] MEDS: dexmedeTOMIDine 400 MCG/100 ML 400 MCG/100 ML BAG 8.58 MCG IV CONT (03:53)
[2022-02-09 04:45] LABS: PCO2 ABG 42.9 mmHg (35.0-45.0); PO2 ABG 66.9 mmHg (80.0-100.0); pH ABG 7.458 (7.350-7.450)
[2022-02-09 04:46] LABS: Alveolar/Arterial O2 Gradient 96.6 mmHg; Base Excess ABG 5.3 mEq/l (+/-2.0); HCO3 ABG 29.7 mEq/l (22.0-26.0); Methemoglobin ABG 0.1 %THb (0-1.5); Oxygen Content ABG 13.4 %vol (16.0-22.0); Oxygen Saturation ABG 94.1 % (95.0-100.0); Oxyhemoglobin 91.3 % THb (90.0-100.0); Reduced Hemoglobin 8.6 %THb (0-5.0); Total Hemoglobin 10.4 g/dL (12.0-18.0)
[2022-02-09 04:47] LABS: Arterial Blood Gas Vent Mode ASV; Device VENTILATOR; Fractional Inspired Oxygen 30 %; Modified Allen's Test Pass; PO2 FiO2 Ratio Arterial Blood 2.23 %; Site Drawn LEFT RADIAL
[2022-02-09 04:48] LABS: Arterial Blood Gas PEEP 5 cmH2O
[2022-02-09 05:02] LABS: Hematocrit 28.9 % (37.0-47.0); Hemoglobin 8.5 g/dL (12.0-15.0); Mean Corpuscular HGB Conc 29.4 g/dl (32-36); Mean Corpuscular Hemoglobin 26.8 pg (26-34); Mean Corpuscular Volume 91.2 fl (80-100); Mean Platelet Volume 10.9 fl (7.4-10.4); Platelet Count Result 324 k/mm3 (150-375); Red Blood Count 3.17 M/mm3 (4.2-5.4); Red Cell Distribution Width 16.4 % (11.5-14.5); White Blood Count 12.3 K/mm3 (4.5-10.0)
[2022-02-09 05:14] LABS: Alanine Aminotransferase 31 U/L (4-35); Alkaline Phosphatase 107 U/L (38-126); Anion Gap 1 mmol/L (8-16); Aspartate Amino Transferase 23 U/L (14-36); Bilirubin,Total 0.4 mg/dL (0.2-1.3); Blood Urea Nitrogen 33 mg/dL (7-17); Calcium 8.5 mg/dL (8.4-10.2); Carbon Dioxide 36 mmol/L (22-30); Chloride 104 mmol/L (98-107); Estimated CRCL calculation 115 ml/min; Estimated Glomerular Filt Rate > 60; Glucose 114 mg/dL (65-110); Potassium 3.6 mmol/L (3.4-5.0); Sodium 141 mmol/L (137-145)
[2022-02-09] MEDS: CENTRAL LINE FLUSH 10 ML IV PUSH ×3 (05:24→19:58)
--- NOTE | 2022-02-09 07:59 | WPDINTPN ---
Progress Note: A&P Assessment and Plan (1) Acute and chronic respiratory failure ([id number]): Code(s): J96.20 - Acute and chronic respiratory failure, unspecified whether with hypoxia or hypercapnia Status: Acute Assessment and Plan: Acute respiratory failure likely related to bacterial pneumonia, COPD exacerbation, influenza -patient with severe lactic acidosis, mottling noted from the feet to the chest, hypoxia, AFib RVR. Decision was made to intubate the patient. -patient was intubated successfully on 02/01/2021 -currently on ASV mode of ventilation, peep of 5 and 30% FiO2 -chest x-ray this morning shows stable extensive bilateral airspace disease, compatible with pneumonia - ABGs reviewed -02/06, 02/07 patient failed a PSV trial within minutes due to high RSBI. -02/09: Patient placed on pressure support ventilation this morning, patient was tachypneic, I increase the pressure support ventilation all the way up to 08/04, patient remained tachypneic, with decreased tidal volumes and tachycardia, switched her back to ASV mode. Will discuss with family regarding possibility of a tracheostomy if patient is not extubated soon -patient currently on Precedex infusion -continue bronchodilators and Pulmicort -patient is positive 9 L since admission, will give albumin followed by a dose of Bumex Chest CT 02/01/2022: Multifocal pneumonia superimposed on chronic lung disease. The chronic lung disease in a combination of severe emphysema and upper lung predominant disease such as tuberculosis or histoplasmosis or sarcoid. (2) Septic shock: Code(s): A41.9 - Sepsis, unspecified organism; R65.21 - Severe sepsis with septic shock Status: Acute Assessment and Plan: RESOLVED Patient septic shock ON ADMISSION secondary to bacterial pneumonia, hypovolemia. -lactic levels have normalized to 1.7 ( peaked at 13.9 on admission) -OFF Chauncey-Synephrine and Levophed now -02/01: blood cultures are negative so far blood -02/01: Urine culture negative - 02/01: Sputum cultures are growing Moraxella catarrhalis and strep pneumonia - cefepime and vancomycin (initiated on 02/01) -> 02/05 switched to daily Rocephin -stress dose steroids have been weaned off -off 25% albumin (3) PNA (pneumonia): Code(s): J18.9 - Pneumonia, unspecified organism Status: Acute Assessment and Plan: Could be related to bacterial and/or superimposed bacterial infection secondary to influenza A -sputum cultures as above, -continue antibiotics as above -patient received a full course of oseltamivir (4) Emphysema/COPD: Code(s): J43.9 - Emphysema, unspecified Status: Acute Assessment and Plan: Continue mechanical ventilation, steroids and bronchodilators -change hydrocortisone to prednisone and continue through 02/10 (5) Influenza A: Code(s): J10.1 - Influenza due to other identified influenza virus with other respiratory manifestations Status: Acute Assessment and Plan: Patient was positive for influenza A in the ER on 02/01, status post oseltamivir -SARS-CoV-2 PCR was negative (6) Anemia: Code(s): D64.9 - Anemia, unspecified Status: Acute Assessment and Plan: Patient had a drop in her hemoglobin from 8.5 to 6.9 on 02/04. Patient had bowel movements with no blood in it and her residuals also did not show any evidence of blood. No hematoma seen on exam. Lovenox was held and patient was transfused 1 unit PRBC on 02/04 Hemoglobin has been stable since transfusion 02/06 started Lovenox DVT prophylaxis dose and monitor 02/08 increased to therapeutic dose for history of AFib Continue PPI IV q.12 hours Coag panel reviewed (7) LUCINDA (acute kidney injury): Code(s): N17.9 - Acute kidney failure, unspecified Status: Acute Assessment and Plan: Patient with acute kidney injury likely related to hypoxia and hypotension/hypovolemia. Patient in septic shock. -she has rece
[2022-02-09] MEDS: ALBUMIN HUMAN 25% 25 GM/100 ML 100 ML IVPB (08:18)
[2022-02-09] MEDS: predniSONE 20 MG TABLET 60 MG FEED TUBE (08:19)
[2022-02-09] MEDS: AMIODARONE HCL 200 MG TABLET 400 MG PO (08:19)
[2022-02-09] MEDS: ENOXAPARIN 60 MG/0.6 ML SYRINGE SUB-Q ×2 (08:20→19:58)
[2022-02-09] MEDS: cefTRIAXone 2 GM in SODIUM CHLORIDE 0.9% IV 100 ML 200 ML IVPB (08:20)
[2022-02-09] MEDS: PANTOPRAZOLE SODIUM IV 40 MG VIAL IV PUSH ×2 (08:21→19:58)
[2022-02-09] MEDS: MINERAL OIL/WHITE PETROLATUM OINTMENT 1 APPLIC EACH EYE ×2 (08:21→19:58)
[2022-02-09] MEDS: BUDESONIDE RESPULE NEB 0.5 MG/2 ML AMP INHALATION ×2 (08:23→20:55)
[2022-02-09] MEDS: POTASSIUM CHLORIDE 20 MEQ PACKET (FOR LIQUID) 40 MEQ FEED TUBE (08:51)
[2022-02-09] MEDS: BUMETANIDE INJ 1 MG/4 ML VIAL IV PUSH (10:18)
--- NOTE | 2022-02-09 11:15 | PCFNICU ---
ICU Rounding Note: Pt current nutrition is Vital AF 1.2 at 50 ml/hr over 22 hours. Last recorded weight is 55.5 kg, up from 447.4 kg on admit. Bowel Motility:+BM reported Labs Reviewed:Glu 114, Cr 0.3,BUN 33, Alb 3.0 Meds Noted:Precedex, Ativan, Prednisone, Protonix, Atrovent, Lovenox Skin:WNL Additional Notes: Patient remains on mechanical vent. Tube feedings remain of Vital AF 1.2 at 50 ml/hr over 22 hours and tolerating per nursing. Free water flush 100 ml q 4 hours. Agree with diet orders. Following daily in ICU rounds and reassessing every Wednesday and Wednesday.
[2022-02-09] MEDS: ACETAMINOPHEN 325 MG TABLET 650 MG PO (11:23)
[2022-02-09 12:32] LABS: Glucose Point of Care 136 mg/dl (65-105)
[2022-02-09] MEDS: dexmedeTOMIDine 400 MCG/100 ML 400 MCG/100 ML BAG 7.15 MCG IV CONT (15:39)
[2022-02-09 18:03] LABS: Glucose Point of Care 161 mg/dl (65-105)
[2022-02-09 23:54] LABS: Glucose Point of Care 102 mg/dl (65-105)
[2022-02-10] VITALS (35 sets, daily range): BP systolic 99–146; BP diastolic 42–65; PULSE 57–92; RESP 11–25; TEMP 36.9–37.4; O2SAT 94–98
[2022-02-10] MEDS: LEVALBUTEROL NEB 1.25 MG/3 ML 0.63 MG INHALATION ×4 (02:41→20:12)
[2022-02-10] MEDS: IPRATROPIUM BR 0.02% INH SOLN 0.5 MG/2.5 ML VIAL INHALATION ×4 (02:41→20:12)
[2022-02-10 04:56] LABS: Basophils Percent Auto 0.1 % (0.2-1.2); Eosinophils Absolute Auto 0.1 K/mm3 (0-0.3); Eosinophils Percent Auto 0.6 % (0-4.4); Hematocrit 27.3 % (37.0-47.0); Immature Granulocyte Absolute 0.42 K/mm3 (0.00-0.031); Immature Granulocyte Percent A 3.9 % (0-0.5); Lymphocytes Absolute Auto 0.75 K/mm3 (0.9-3.2); Lymphocytes Percent Auto 6.9 % (18.3-44.2); Mean Corpuscular HGB Conc 29.3 g/dl (32-36); Mean Corpuscular Hemoglobin 26.6 pg (26-34); Mean Corpuscular Volume 90.7 fl (80-100); Mean Platelet Volume 10.6 fl (7.4-10.4); Monocytes Percent Auto 8.8 % (2.6-8.5); Neutrophils Absolute Auto 8.7 K/mm3 (1.3-6.7); Neutrophils Percent Auto 79.7 % (45.5-73.1); Platelet Count Result 342 k/mm3 (150-375); Red Blood Count 3.01 M/mm3 (4.2-5.4); Red Cell Distribution Width 16.4 % (11.5-14.5); White Blood Count 10.9 K/mm3 (4.5-10.0)
[2022-02-10 05:01] LABS: Alveolar/Arterial O2 Gradient 87.7 mmHg; Fractional Inspired Oxygen 30 %; HCO3 ABG 32.3 mEq/l (22.0-26.0); Methemoglobin ABG 0.2 %THb (0-1.5); Oxygen Content ABG 12.1 %vol (16.0-22.0); Oxygen Saturation ABG 95.8 % (95.0-100.0); Oxyhemoglobin 93.6 % THb (90.0-100.0); PO2 ABG 74.5 mmHg (80.0-100.0); PO2 FiO2 Ratio Arterial Blood 2.48 %; Reduced Hemoglobin 6.2 %THb (0-5.0); Total Hemoglobin 9.1 g/dL (12.0-18.0); pH ABG 7.483 (7.350-7.450)
[2022-02-10] MEDS: dexmedeTOMIDine 400 MCG/100 ML 400 MCG/100 ML BAG 5.72 MCG IV CONT ×2 (05:01→22:07)
[2022-02-10 05:02] LABS: Device VENTILATOR; Modified Allen's Test Pass; Site Drawn RIGHT RADIAL
[2022-02-10] MEDS: CENTRAL LINE FLUSH 10 ML IV PUSH ×3 (05:02→22:18)
[2022-02-10 05:03] LABS: Arterial Blood Gas PEEP 5 cmH2O; Arterial Blood Gas Vent Mode ASV
[2022-02-10 05:16] LABS: INR 1.3; Prothrombin Time 15.5 Seconds (11.1-14.7)
[2022-02-10 05:17] LABS: Partial Thromboplastin Time 33.1 SECONDS (22.3-36.8)
[2022-02-10 05:21] LABS: Alanine Aminotransferase 26 U/L (4-35); Albumin Level 3.2 g/dL (3.5-5.1); Alkaline Phosphatase 93 U/L (38-126); Anion Gap 3 mmol/L (8-16); Aspartate Amino Transferase 27 U/L (14-36); Bilirubin,Total 0.4 mg/dL (0.2-1.3); Blood Urea Nitrogen 31 mg/dL (7-17); Calcium 8.4 mg/dL (8.4-10.2); Carbon Dioxide 35 mmol/L (22-30); Chloride 102 mmol/L (98-107); Estimated CRCL calculation 90 ml/min; Estimated Glomerular Filt Rate > 60; Glucose 105 mg/dL (65-110); Magnesium 1.9 mg/dL (1.6-2.3); Phosphorus 2.9 mg/dL (2.5-4.5); Potassium 3.5 mmol/L (3.4-5.0); Sodium 140 mmol/L (137-145)
--- NOTE | 2022-02-10 08:00 | WPDINTPN ---
Progress Note: A&P Assessment and Plan (1) Acute and chronic respiratory failure ([id number]): Code(s): J96.20 - Acute and chronic respiratory failure, unspecified whether with hypoxia or hypercapnia Status: Acute Assessment and Plan: Acute respiratory failure likely related to bacterial pneumonia, COPD exacerbation, influenza -on admission she had severe lactic acidosis, mottling noted from the feet to the chest, hypoxia, AFib RVR. Decision was made to intubate the patient. -patient was intubated successfully on 02/01/2021 -currently on ASV mode of ventilation, peep of 5 and 30% FiO2 -chest x-ray this morning: Improving patchy bilateral airspace disease, consistent with pneumonia. - ABGs reviewed -02/06, 02/07 patient failed a PSV trial within minutes due to high RSBI. -02/09: Patient placed on PSV, , last about 35-40 minutes and then was tachypneic with low tidal volume so patient was placed back on ASV mode. -will try again today on pressure support ventilation since the chest x-ray looks better. Will also discuss with family regarding possibility of a tracheostomy if patient is not extubated soon -patient currently on Precedex infusion -continue bronchodilators and Pulmicort -patient responded well to Bumex on 02/09. Blood pressures are borderline, will hold diuretics for now and of blood pressures permit later today we will gently diurese Chest CT 02/01/2022: Multifocal pneumonia superimposed on chronic lung disease. The chronic lung disease in a combination of severe emphysema and upper lung predominant disease such as tuberculosis or histoplasmosis or sarcoid. (2) Septic shock: Code(s): A41.9 - Sepsis, unspecified organism; R65.21 - Severe sepsis with septic shock Status: Acute Assessment and Plan: RESOLVED Patient septic shock ON ADMISSION secondary to bacterial pneumonia, hypovolemia. -lactic levels have normalized to 1.7 ( peaked at 13.9 on admission) -OFF Chauncey-Synephrine and Levophed now -02/01: blood cultures are negative so far blood -02/01: Urine culture negative - 02/01: Sputum cultures are growing Moraxella catarrhalis and strep pneumonia - cefepime and vancomycin (initiated on 02/01) -> 02/05 switched to daily Rocephin - OFF stress dose steroids -off 25% albumin (3) PNA (pneumonia): Code(s): J18.9 - Pneumonia, unspecified organism Status: Acute Assessment and Plan: Could be related to bacterial and/or superimposed bacterial infection secondary to influenza A -sputum cultures as above, -continue antibiotics as above -patient received a full course of oseltamivir (4) Emphysema/COPD: Code(s): J43.9 - Emphysema, unspecified Status: Acute Assessment and Plan: Continue mechanical ventilation, steroids and bronchodilators - continue prednisone (5) Influenza A: Code(s): J10.1 - Influenza due to other identified influenza virus with other respiratory manifestations Status: Acute Assessment and Plan: Patient was positive for influenza A in the ER on 02/01, status post oseltamivir -SARS-CoV-2 PCR was negative (6) Anemia: Code(s): D64.9 - Anemia, unspecified Status: Acute Assessment and Plan: Patient had a drop in her hemoglobin from 8.5 to 6.9 on 02/04. Patient had bowel movements with no blood in it and her residuals also did not show any evidence of blood. No hematoma seen on exam. Lovenox was held and patient was transfused 1 unit PRBC on 02/04 02/06 started Lovenox DVT prophylaxis dose and monitor 02/08 increased to therapeutic dose for history of AFib Continue PPI IV q.12 hours Coag panel reviewed Continue to monitor Hb (7) LUCINDA (acute kidney injury): Code(s): N17.9 - Acute kidney failure, unspecified Status: Acute Assessment and Plan: Patient with acute kidney injury likely related to hypoxia and hypotension/hypovolemia. Patient in septic shock. -she has received adequate cathleen
[2022-02-10] MEDS: BUDESONIDE RESPULE NEB 0.5 MG/2 ML AMP INHALATION ×2 (08:01→20:12)
[2022-02-10] MEDS: ENOXAPARIN 60 MG/0.6 ML SYRINGE SUB-Q ×2 (08:06→21:45)
[2022-02-10] MEDS: PANTOPRAZOLE SODIUM IV 40 MG VIAL IV PUSH ×2 (08:06→21:46)
[2022-02-10] MEDS: AMIODARONE HCL 200 MG TABLET 400 MG PO (08:07)
[2022-02-10] MEDS: predniSONE 20 MG TABLET 60 MG FEED TUBE (08:07)
[2022-02-10] MEDS: cefTRIAXone 2 GM in SODIUM CHLORIDE 0.9% IV 100 ML 200 ML IVPB (08:07)
[2022-02-10] MEDS: MINERAL OIL/WHITE PETROLATUM OINTMENT 1 APPLIC EACH EYE ×2 (08:08→21:45)
[2022-02-10 09:19] LABS: Add Urine Microscopic? YES; Appearance Urine Cloudy (Clear); Bilirubin Urine Negative (Negative); Color Urine Yellow (Yellow); Glucose Urine UA Negative (Negative); Ketones Urine Negative (Negative); Leukocyte Esterase Ur Negative LEU/UL (Negative); Mucus Urine Rare /lpf; Nitrate Urine Negative (Negative); Protein Urine Negative (Negative); Specific Grav Ur 1.019 (1.001-1.035); Urobilinogen Urine Negative mg/dL (<2.0)
[2022-02-10 09:44] LABS: IFOB Positive Control Positive; Immunochemical Fecal Occult Bl Negative (N)
[2022-02-10 09:48] LABS: Blood Urine Negative (Negative)
[2022-02-10] MEDS: BUMETANIDE INJ 1 MG/4 ML VIAL 0.5 MG IV PUSH ×2 (11:13→22:16)
--- NOTE | 2022-02-10 11:40 | PCNFU ---
Nutrition Follow-Up Complete: Inadequate Oral Intake as related to mechanical ventilation as evidenced by NPO. Goal: Meet estimated nutritional needs Patient is progressing towards goal. We will continue current goal. Pt current nutrition is Vital AF 1.2 at 50 ml/hr over 22 hours. Last recorded weight is 55 kg-stable Bowel Motility:+BM reported 02/09-liquid stools. Labs Reviewed: Hgb 8.0, Hct 27.3,BUN 31, Cr 0.4 Meds Noted:Precedex, Vancomycin,Bumex, Pacerone, Lovenox, Atrovent, Protonix,Prednisone Skin: WNL Additional Notes: Patient remains mechanical vent, currently on Cpap settings. Tube feedings remain of Vital AF 1.2 at 50 ml/hr over 22 hours. Current tube feeding is providing 1320 kcals/83 gms protein/892 ml water. Meeting 98% of caloric needs based on mechanical vent needs and 100% of protein needs. Free water flush 100 ml q 4 hours. Spoke with MD today in regards to liquid stools. MD orders for Banatrol Plus q 6 hours for stool bulking. Agree with diet orders. Monitoring: Following daily in ICU rounds and reassess every Wednesday and Wednesday.
[2022-02-10 12:09] LABS: Glucose Point of Care 118 mg/dl (65-105)
--- NOTE | 2022-02-10 12:11 | PM.IMPN ---
Progress Note: A&P Assessment and Plan (1) Acute and chronic respiratory failure ([id number]): Code(s): J96.20 - Acute and chronic respiratory failure, unspecified whether with hypoxia or hypercapnia Status: Acute Assessment and Plan: Acute respiratory failure likely related to bacterial pneumonia, COPD exacerbation, influenza -patient with severe lactic acidosis, mottling noted from the feet to the chest, hypoxia, AFib RVR. Decision was made to intubate the patient. -patient was intubated successfully on 02/01/2021 -currently on CMV mode of ventilation, peep of 5, 35% FiO2 -chest x-ray reviewed - advance ET tube by 2 cm - ABGs reviewed -02/06, 02/07 patient failed a PSV trial within minutes due to high RSBI. I will try again today. Currently she is on Precedex infusion which will be continued and does slightly increase to rule out any anxiety component - Discontinued fentanyl and Versed infusion 02/04. -continue bronchodilators and Pulmicort - good response to Lasix : Multifocal pneumonia superimposed on chronic lung disease. The chronic lung disease in a combination of severe emphysema and upper lung predominant disease such as tuberculosis or histoplasmosis or sarcoid. (2) Septic shock: Code(s): A41.9 - Sepsis, unspecified organism; R65.21 - Severe sepsis with septic shock Status: Acute Assessment and Plan: Patient in septic shock secondary to bacterial pneumonia, hypovolemia. - shock has resolved -lactic levels have normalized to 1.7 ( peaked at 13.9) -patient was adequately fluid-resuscitated in the ER and ICU -OFF Chauncey-Synephrine and Levophed now -02/01: blood cultures are negative so far blood -02/01: Urine culture negative - 02/01: Sputum cultures are growing Moraxella catarrhalis and strep pneumonia - cefepime and vancomycin (initiated on 02/01) -> 02/05 switched to daily Rocephin -stress dose steroids have been weaned off -off 25% albumin (3) PNA (pneumonia): Code(s): J18.9 - Pneumonia, unspecified organism Status: Acute Assessment and Plan: Could be related to bacterial and/or superimposed bacterial infection secondary to influenza A -continue antibiotics as above -continue oseltamivir (4) Emphysema/COPD: Code(s): J43.9 - Emphysema, unspecified Status: Acute Assessment and Plan: Continue mechanical ventilation, steroids and bronchodilators -change hydrocortisone to prednisone and continue through 02/10 (5) Influenza A: Code(s): J10.1 - Influenza due to other identified influenza virus with other respiratory manifestations Status: Acute Assessment and Plan: Patient was positive for influenza A in the ER, and is on oseltamivir (02/01) -SARS-CoV-2 PCR was negative (6) Anemia: Code(s): D64.9 - Anemia, unspecified Status: Acute Assessment and Plan: Patient had a drop in her hemoglobin from 8.5 to 6.9 this morning. Patient had bowel movements with no blood in it and her residuals also did not show any evidence of blood. No hematoma seen on exam. Lovenox was held and patient was transfused 1 unit PRBC Hemoglobin has been stable since transfusion 02/06 started Lovenox DVT prophylaxis dose and monitor 02/08 increased to therapeutic dose Continue PPI IV q.12 hours Coag panel reviewed (7) LUCINDA (acute kidney injury): Code(s): N17.9 - Acute kidney failure, unspecified Status: Acute Assessment and Plan: Patient with acute kidney injury likely related to hypoxia and hypotension/hypovolemia. Patient in septic shock. -she has received adequate amount of IV fluids, continue vasopressors and maintain mean arterial pressures greater than 70 for adequate renal perfusion -urine output has improved and so has the renal function -continue to monitor renal function, electrolytes and urine output -off IV fluids now (8) Atrial fibrillation with rapid ventricular response: Code(s): I48.91 - Unspecifi
[2022-02-10] MEDS: POTASSIUM CHLORIDE 20 MEQ PACKET (FOR LIQUID) 40 MEQ FEED TUBE (15:19)
[2022-02-10 18:16] LABS: Glucose Point of Care 121 mg/dl (65-105)
[2022-02-10] MEDS: TOLNAFTATE 1% POWDER 45 GM BTL 1 APPLIC TOPICAL (21:47)
[2022-02-11] VITALS (28 sets, daily range): BP systolic 72–150; BP diastolic 39–77; PULSE 61–85; RESP 15–24; TEMP 36.9–37.5; O2SAT 94–98
[2022-02-11 00:11] LABS: Glucose Point of Care 121 mg/dl (65-105)
[2022-02-11] MEDS: LEVALBUTEROL NEB 1.25 MG/3 ML 0.63 MG INHALATION ×4 (01:44→20:46)
[2022-02-11] MEDS: IPRATROPIUM BR 0.02% INH SOLN 0.5 MG/2.5 ML VIAL INHALATION ×4 (01:45→20:46)
[2022-02-11 04:58] LABS: Alveolar/Arterial O2 Gradient 69.5 mmHg; Base Excess ABG 4.2 mEq/l (+/-2.0); Carboxyhemoglobin 0.4 % THb (0-2.0); Fractional Inspired Oxygen 25 %; HCO3 ABG 27.8 mEq/l (22.0-26.0); Oxygen Content ABG 12.1 %vol (16.0-22.0); Oxyhemoglobin 90.8 % THb (90.0-100.0); PCO2 ABG 37.6 mmHg (35.0-45.0); PO2 ABG 64.1 mmHg (80.0-100.0); PO2 FiO2 Ratio Arterial Blood 2.56 %; Reduced Hemoglobin 8.8 %THb (0-5.0); Total Hemoglobin 9.4 g/dL (12.0-18.0); pH ABG 7.487 (7.350-7.450)
[2022-02-11 04:59] LABS: Arterial Blood Gas PEEP 5 cmH2O; Arterial Blood Gas Vent Mode ASV; Device VENTILATOR; Site Drawn RIGHT BRACHIAL
[2022-02-11] MEDS: CENTRAL LINE FLUSH 10 ML IV PUSH ×3 (05:13→21:41)
[2022-02-11 05:28] LABS: Hematocrit 29.2 % (37.0-47.0); Hemoglobin 8.7 g/dL (12.0-15.0); Mean Corpuscular HGB Conc 29.8 g/dl (32-36); Mean Corpuscular Hemoglobin 26.9 pg (26-34); Mean Corpuscular Volume 90.1 fl (80-100); Mean Platelet Volume 10.3 fl (7.4-10.4); Platelet Count Result 429 k/mm3 (150-375); Red Blood Count 3.24 M/mm3 (4.2-5.4); Red Cell Distribution Width 16.6 % (11.5-14.5); White Blood Count 14.2 K/mm3 (4.5-10.0)
[2022-02-11 05:38] LABS: Alanine Aminotransferase 38 U/L (4-35); Albumin Level 3.3 g/dL (3.5-5.1); Alkaline Phosphatase 112 U/L (38-126); Anion Gap 4 mmol/L (8-16); Aspartate Amino Transferase 36 U/L (14-36); Bilirubin,Total 0.3 mg/dL (0.2-1.3); Blood Urea Nitrogen 28 mg/dL (7-17); Calcium 8.5 mg/dL (8.4-10.2); Carbon Dioxide 33 mmol/L (22-30); Chloride 100 mmol/L (98-107); Estimated CRCL calculation 90 ml/min; Estimated Glomerular Filt Rate > 60; Glucose 96 mg/dL (65-110); Magnesium 1.8 mg/dL (1.6-2.3); Potassium 3.8 mmol/L (3.4-5.0); Sodium 137 mmol/L (137-145)
--- NOTE | 2022-02-11 07:27 | WPDINTPN ---
Progress Note: A&P Assessment and Plan (1) Acute and chronic respiratory failure ([id number]): Code(s): J96.20 - Acute and chronic respiratory failure, unspecified whether with hypoxia or hypercapnia Status: Acute Assessment and Plan: Acute respiratory failure likely related to bacterial pneumonia, COPD exacerbation, influenza -on admission she had severe lactic acidosis, mottling noted from the feet to the chest, hypoxia, AFib RVR. Decision was made to intubate the patient. -patient was intubated successfully on 02/01/2021 -currently on ASV mode of ventilation, peep of 5 and 30% FiO2 -chest x-ray this morning: Improving patchy bilateral airspace disease, consistent with pneumonia. - ABGs reviewed -02/06, 02/07, 02/09 patient failed a PSV trial within minutes due to high RSBI. -02/10: Patient placed on PSV, 07/07, almost all day long -will place patient again on PSV mode with less support -patient currently on Precedex infusion -continue bronchodilators and Pulmicort -patient responded well to Bumex on 02/09 and 02/10. Patient is in negative fluid balance -will gently diurese today Chest CT 02/01/2022: Multifocal pneumonia superimposed on chronic lung disease. The chronic lung disease in a combination of severe emphysema and upper lung predominant disease such as tuberculosis or histoplasmosis or sarcoid. (2) Septic shock: Code(s): A41.9 - Sepsis, unspecified organism; R65.21 - Severe sepsis with septic shock Status: Acute Assessment and Plan: RESOLVED Patient septic shock ON ADMISSION secondary to bacterial pneumonia, hypovolemia. -lactic levels have normalized to 1.7 ( peaked at 13.9 on admission) -OFF Chauncey-Synephrine and Levophed now -02/01: blood cultures are negative so far blood -02/01: Urine culture negative - 02/01: Sputum cultures are growing Moraxella catarrhalis and strep pneumonia - cefepime and vancomycin (initiated on 02/01) -> 02/05 switched to daily Rocephin for a total of 10 days - OFF stress dose steroids -off 25% albumin (3) PNA (pneumonia): Code(s): J18.9 - Pneumonia, unspecified organism Status: Acute Assessment and Plan: Could be related to bacterial and/or superimposed bacterial infection secondary to influenza A -sputum cultures as above, -continue antibiotics as above -patient received a full course of oseltamivir (4) Emphysema/COPD: Code(s): J43.9 - Emphysema, unspecified Status: Acute Assessment and Plan: Continue mechanical ventilation, steroids and bronchodilators - continue prednisone (5) Influenza A: Code(s): J10.1 - Influenza due to other identified influenza virus with other respiratory manifestations Status: Acute Assessment and Plan: Patient was positive for influenza A in the ER on 02/01, status post oseltamivir -SARS-CoV-2 PCR was negative (6) Anemia: Code(s): D64.9 - Anemia, unspecified Status: Acute Assessment and Plan: Patient had a drop in her hemoglobin from 8.5 to 6.9 on 02/04. Patient had bowel movements with no blood in it and her residuals also did not show any evidence of blood. No hematoma seen on exam. Lovenox was held and patient was transfused 1 unit PRBC on 02/04 02/06 started Lovenox DVT prophylaxis dose and monitor 02/08 increased to therapeutic dose for history of AFib Continue PPI IV q.12 hours Coag panel reviewed Continue to monitor Hb (7) LUCINDA (acute kidney injury): Code(s): N17.9 - Acute kidney failure, unspecified Status: Acute Assessment and Plan: Patient with acute kidney injury likely related to hypoxia and hypotension/hypovolemia. Patient in septic shock. -she has received adequate amount of IV fluids, continue vasopressors and maintain mean arterial pressures greater than 70 for adequate renal perfusion -urine output has improved and so has the renal function -continue to monitor renal function, electrolytes and urine output -o
[2022-02-11] MEDS: POTASSIUM CHLORIDE 20 MEQ PACKET (FOR LIQUID) 40 MEQ FEED TUBE (07:53)
[2022-02-11] MEDS: BUMETANIDE INJ 1 MG/4 ML VIAL 0.5 MG IV PUSH (07:53)
[2022-02-11] MEDS: MAGNESIUM SULF 2 GM/WATER 50ML 2 GM/50 ML BAG IVPB (07:54)
[2022-02-11] MEDS: MINERAL OIL/WHITE PETROLATUM OINTMENT 1 APPLIC EACH EYE (07:55)
[2022-02-11] MEDS: ENOXAPARIN 60 MG/0.6 ML SYRINGE SUB-Q ×2 (07:55→21:40)
[2022-02-11] MEDS: AMIODARONE HCL 200 MG TABLET 400 MG PO (07:56)
[2022-02-11] MEDS: PANTOPRAZOLE SODIUM IV 40 MG VIAL IV PUSH ×2 (07:56→21:40)
[2022-02-11] MEDS: cefTRIAXone 2 GM in SODIUM CHLORIDE 0.9% IV 100 ML 200 ML IVPB (07:56)
[2022-02-11] MEDS: ALPRAZolam (*CRX) 0.5 MG TABLET PO (07:56)
[2022-02-11] MEDS: TOLNAFTATE 1% POWDER 45 GM BTL 1 APPLIC TOPICAL ×2 (08:21→21:41)
[2022-02-11] MEDS: predniSONE 20 MG TABLET 40 MG PO (08:21)
[2022-02-11] MEDS: BUDESONIDE RESPULE NEB 0.5 MG/2 ML AMP INHALATION ×2 (08:33→20:47)
[2022-02-11] MEDS: hetaSTARCH 6%/NACL 500 ML 250 ML IV CONT (09:17)
--- NOTE | 2022-02-11 11:41 | PCFNICU ---
ICU Rounding Note: Pt current nutrition is Vital AF 1.2 at 50 ml/hr over 22 hours. Last recorded weight is 50.2 kg, up from 44.4 kg on admit. Bowel Motility:+BM reported 02/11-reporting loose stools. Labs Reviewed:Cr 0.4, BUN 28, Hct 29.2, Hgb 8.7 Meds Noted: Precedex, Pacerone, Xanax, Atrovent, Lovenox Skin: WNL Additional Notes: Patient remains on mechanical vent, Cpap settings. Tube feedings of Vital AF 1.2 at 50 ml/hr over 22 hours-tolerating per nursing. Free water flush decreased from 100 ml to 50 ml q 4 hours. Banatrol Plus administered q 6 hours for stool bulking. Agree with diet orders. Following daily in ICU rounds. Will reassess every Wednesday and Wednesday.
[2022-02-11 11:57] LABS: Glucose Point of Care 170 mg/dl (65-105)
[2022-02-11 12:45] LABS: Alveolar/Arterial O2 Gradient 82.6 mmHg; Base Excess ABG 2.2 mEq/l (+/-2.0); Fractional Inspired Oxygen 30 %; HCO3 ABG 27.1 mEq/l (22.0-26.0); Oxygen Content ABG 12.5 %vol (16.0-22.0); Oxygen Saturation ABG 95.8 % (95.0-100.0); Oxyhemoglobin 93.6 % THb (90.0-100.0); PO2 ABG 79.6 mmHg (80.0-100.0); PO2 FiO2 Ratio Arterial Blood 2.65 %; Total Hemoglobin 9.4 g/dL (12.0-18.0); pH ABG 7.408 (7.350-7.450)
[2022-02-11 12:46] LABS: Arterial Blood Gas PEEP 5 cmH2O; Arterial Blood Gas Vent Mode SPONTANEOUS; Device VENTILATOR; Modified Allen's Test Pass; Site Drawn RIGHT RADIAL
[2022-02-11 12:47] LABS: Arterial Blood Gas Pressure Support 8 cmH2O
[2022-02-11] MEDS: dexmedeTOMIDine 400 MCG/100 ML 400 MCG/100 ML BAG IV CONT (15:39)
--- NOTE | 2022-02-11 16:46 | PM.IMPN ---
Progress Note: A&P Additional Plan 71 yo F hyperthyroidism, PVD, Diastolic CHF, h/o tobacco abuse quit in 2019, COPD, PVD, afib on xarelto, recently stopped taking one of her medications because she felt it was making her feel worse. (presumed to be xarelto or amiodarone) , brought to the hospital by EMS for worsening shortness of breath over the last week. (1) Acute and chronic respiratory failure ([id number]): Acute respiratory failure likely related to bacterial pneumonia, COPD exacerbation, influenza -on admission she had severe lactic acidosis, mottling noted from the feet to the chest, hypoxia, AFib RVR. Decision was made to intubate the patient. -patient was intubated successfully on 02/01/2021 -currently on ASV mode of ventilation, peep of 5 and 30% FiO2 -chest x-ray this morning: Improving patchy bilateral airspace disease, consistent with pneumonia. - ABGs reviewed -02/06, 02/07, 02/09 patient failed a PSV trial within minutes due to high RSBI. -02/10: Patient placed on PSV, 07/07, almost all day long -patient currently on Precedex infusion -continue bronchodilators and Pulmicort -patient responded well to Bumex on 02/09 and 02/10. Patient is in negative fluid balance -c/w gently diurese today (2) Septic shock: RESOLVED Patient septic shock ON ADMISSION secondary to bacterial pneumonia, hypovolemia. -lactic levels have normalized to 1.7 ( peaked at 13.9 on admission) -OFF pressor support blood cultures are negative so far blood Urine culture negative Sputum cultures are growing Moraxella catarrhalis and strep pneumonia -cefepime and vancomycin (initiated on 02/01) -> 02/05 switched to daily Rocephin for a total of 10 days s/p full course of Tamiflu for influenza A negative for COVID 19 (3) Anemia: Patient had a drop in her hemoglobin from 8.5 to 6.9 on 02/04. Patient had bowel movements with no blood in it and her residuals also did not show any evidence of blood. No hematoma seen on exam. Lovenox was held and patient was transfused 1 unit PRBC on 02/04 02/06 started Lovenox DVT prophylaxis dose and monitor 02/08 increased to therapeutic dose for history of AFib Continue PPI IV q.12 hours Coag panel reviewed Continue to monitor Hb 4) LUCINDA (acute kidney injury): resolved (5) Atrial fibrillation with rapid ventricular response: Patient has a history of chronic atrial fibrillation but presented to the ED with atrial fibrillation RVR with heart rates been in the 120s to 160s. -with patient was intubated and her oxygen levels improved, patient converted to sinus rhythm, rate controlled -patient was treated started on amiodarone infusion 02/01, 02/03 transitioned to PO amiodarone, -patient has been on Xarelto at home, according to the granddaughter she may have not taken it for a while as it was probably making her sick -patient has been started on therapeutic Lovenox which was held 02/04 due to drop in hemoglobin. Resumed at DVT prophylactic dose on 02/06. -therapeutic Lovenox was re-started on 02/08 -appreciate cardiology evaluation and recommendations -echocardiogram shows severe right-sided heart failure (6) Elevated troponin: Elevated troponins, trending down, likely secondary to ischemic demand due to hypoxia, metabolic acidosis and septic shock -cardiology was consulted and appreciate the evaluation and recommendations -currently on therapeutic Lovenox for atrial fibrillation (7) Cor pulmonale: Echocardiogram shows right heart failure likely secondary to pulmonary hypertension from chronic COPD (8) DVT prophylaxis:lovenox 9)Code status: DNR 10)Dispo:continues to be in ICU Time Spent With Patient Time with patient: 25 - 35 minutes Subjective Date/time seen: 02/11/22 16:46 patient was seen in ICU/intubated Review of Systems Review of Systems: ROS unobtainable: Yes unobtainable due to endotracheal tube Exam Const: General: uncomfortable HENMT: Other: unable to visualize oral mucosa clearly Eyes:
[2022-02-11 18:30] LABS: Glucose Point of Care 91 mg/dl (65-105)
[2022-02-12] VITALS (20 sets, daily range): BP systolic 114–154; BP diastolic 56–80; PULSE 71–87; RESP 16–28; TEMP 36.8–37.7; O2SAT 91–99
[2022-02-12 00:14] LABS: Glucose Point of Care 77 mg/dl (65-105)
[2022-02-12] MEDS: LEVALBUTEROL NEB 1.25 MG/3 ML 0.63 MG INHALATION ×4 (02:57→20:07)
[2022-02-12] MEDS: IPRATROPIUM BR 0.02% INH SOLN 0.5 MG/2.5 ML VIAL INHALATION ×4 (02:57→20:07)
[2022-02-12 05:05] LABS: Basophils Percent Auto 0.2 % (0.2-1.2); Eosinophils Percent Auto 0.2 % (0-4.4); Hematocrit 31.2 % (37.0-47.0); Hemoglobin 9.2 g/dL (12.0-15.0); Immature Granulocyte Absolute 0.48 K/mm3 (0.00-0.031); Lymphocytes Absolute Auto 0.82 K/mm3 (0.9-3.2); Mean Corpuscular HGB Conc 29.5 g/dl (32-36); Mean Corpuscular Hemoglobin 26.7 pg (26-34); Mean Corpuscular Volume 90.4 fl (80-100); Mean Platelet Volume 9.8 fl (7.4-10.4); Monocytes Absolute Auto 1.3 K/mm3 (0.1-0.6); Monocytes Percent Auto 8.1 % (2.6-8.5); Neutrophils Absolute Auto 13.6 K/mm3 (1.3-6.7); Neutrophils Percent Auto 83.5 % (45.5-73.1); Platelet Count Result 528 k/mm3 (150-375); Red Blood Count 3.45 M/mm3 (4.2-5.4); Red Cell Distribution Width 16.5 % (11.5-14.5); White Blood Count 16.2 K/mm3 (4.5-10.0)
[2022-02-12 05:16] LABS: Alanine Aminotransferase 38 U/L (4-35); Albumin Level 3.2 g/dL (3.5-5.1); Alkaline Phosphatase 99 U/L (38-126); Anion Gap 2 mmol/L (8-16); Aspartate Amino Transferase 37 U/L (14-36); Bilirubin,Total 0.6 mg/dL (0.2-1.3); Blood Urea Nitrogen 23 mg/dL (7-17); Calcium 8.1 mg/dL (8.4-10.2); Carbon Dioxide 33 mmol/L (22-30); Chloride 104 mmol/L (98-107); Estimated CRCL calculation 106 ml/min; Estimated Glomerular Filt Rate > 60; Glucose 71 mg/dL (65-110); Potassium 3.7 mmol/L (3.4-5.0); Sodium 139 mmol/L (137-145)
--- NOTE | 2022-02-12 05:46 | PC.NURSE ---
00:20 Patient's blood sugar in 70s. Given juice. Will continue to monitor. 05:45 Patient's blood sugar in 70s. Given juice. Will continue to monitor.
[2022-02-12] MEDS: CENTRAL LINE FLUSH 10 ML IV PUSH ×2 (07:57→13:15)
[2022-02-12] MEDS: ENOXAPARIN 60 MG/0.6 ML SYRINGE SUB-Q ×2 (08:02→21:19)
[2022-02-12] MEDS: cefTRIAXone 2 GM in SODIUM CHLORIDE 0.9% IV 100 ML 200 ML IVPB (08:03)
[2022-02-12] MEDS: PANTOPRAZOLE SODIUM IV 40 MG VIAL IV PUSH ×2 (08:03→21:19)
[2022-02-12] MEDS: TOLNAFTATE 1% POWDER 45 GM BTL 1 APPLIC TOPICAL (08:11)
[2022-02-12] MEDS: BUDESONIDE RESPULE NEB 0.5 MG/2 ML AMP INHALATION ×2 (08:20→20:08)
--- NOTE | 2022-02-12 08:26 | WPDINTPN ---
Progress Note: A&P Assessment and Plan (1) Acute and chronic respiratory failure ([id number]): Code(s): J96.20 - Acute and chronic respiratory failure, unspecified whether with hypoxia or hypercapnia Status: Acute Assessment and Plan: Acute respiratory failure likely related to bacterial pneumonia, COPD exacerbation, influenza -on admission she had severe lactic acidosis, mottling noted from the feet to the chest, hypoxia, AFib RVR. Decision was made to intubate the patient. -patient was intubated on 02/01/2021 -extubated on 02/11/2021 -currently on 2 L nasal cannula with adequate O2 sats -continue bronchodilators and Pulmicort -patient has decreasing well in response to diuretics -speech sedated P to evaluate for bedside swallow test -have ordered PT/OT, increase activity, up in chair -encourage incentive spirometry Chest CT 02/01/2022: Multifocal pneumonia superimposed on chronic lung disease. The chronic lung disease in a combination of severe emphysema and upper lung predominant disease such as tuberculosis or histoplasmosis or sarcoid. (2) Septic shock: Code(s): A41.9 - Sepsis, unspecified organism; R65.21 - Severe sepsis with septic shock Status: Acute Assessment and Plan: RESOLVED Patient septic shock ON ADMISSION secondary to bacterial pneumonia, hypovolemia. -lactic levels have normalized to 1.7 ( peaked at 13.9 on admission) -OFF Chauncey-Synephrine and Levophed now -02/01: blood cultures are negative so far blood -02/01: Urine culture negative - 02/01: Sputum cultures are growing Moraxella catarrhalis and strep pneumonia - cefepime and vancomycin (initiated on 02/01) -> 02/05 switched to daily Rocephin for a total of 10 days - OFF stress dose steroids -off 25% albumin (3) PNA (pneumonia): Code(s): J18.9 - Pneumonia, unspecified organism Status: Acute Assessment and Plan: Could be related to bacterial and/or superimposed bacterial infection secondary to influenza A -sputum cultures as above, -continue antibiotics as above -patient received a full course of oseltamivir (4) Emphysema/COPD: Code(s): J43.9 - Emphysema, unspecified Status: Acute Assessment and Plan: Weaning prednisone, continue bronchodilators and supplemental oxygen (patient uses 2-3 L of oxygen via nasal cannula at home) (5) Influenza A: Code(s): J10.1 - Influenza due to other identified influenza virus with other respiratory manifestations Status: Acute Assessment and Plan: Patient was positive for influenza A in the ER on 02/01, status post oseltamivir -SARS-CoV-2 PCR was negative (6) Anemia: Code(s): D64.9 - Anemia, unspecified Status: Acute Assessment and Plan: Patient had a drop in her hemoglobin from 8.5 to 6.9 on 02/04. Patient had bowel movements with no blood in it and her residuals also did not show any evidence of blood. No hematoma seen on exam. Lovenox was held and patient was transfused 1 unit PRBC on 02/04 02/06 started Lovenox DVT prophylaxis dose and monitor 02/08 increased to therapeutic dose for history of AFib Continue PPI IV q.12 hours Coag panel reviewed Continue to monitor Hb (7) LUCINDA (acute kidney injury): Code(s): N17.9 - Acute kidney failure, unspecified Status: Acute Assessment and Plan: Patient with acute kidney injury likely related to hypoxia and hypotension/hypovolemia. Patient in septic shock. -she has received adequate amount of IV fluids, continue vasopressors and maintain mean arterial pressures greater than 70 for adequate renal perfusion -urine output has improved and so has the renal function -continue to monitor renal function, electrolytes and urine output -off IV fluids now (8) Atrial fibrillation with rapid ventricular response: Code(s): I48.91 - Unspecified atrial fibrillation Status: Acute Assessment and Plan: Patient has a history of chronic atrial fibr
--- NOTE | 2022-02-12 11:03 | PCSTNOTE ---
Please refer to the Bedside Swallow Evaluation in the EMR. Please note, silent aspiration cannot be ruled out at bedside.
--- NOTE | 2022-02-12 12:12 | PCSTNOTE ---
Please refer to the Modified Barium Swallow Evaluation in the EMR.
[2022-02-12] MEDS: AMIODARONE HCL 200 MG TABLET 400 MG PO (12:51)
[2022-02-12] MEDS: predniSONE 20 MG TABLET PO (12:52)
[2022-02-12] MEDS: guaiFENesin/DEXTROMETHORPHAN 10 ML UDC PO ×2 (13:11→17:54)
--- NOTE | 2022-02-12 13:22 | PCNFU ---
Nutrition Follow-Up Complete: Inadequate Oral Intake as related to mechanical ventilation as evidenced by NPO. Goal: Meet estimated nutritional needs Patient is progressing towards goal. We will continue current goal. Pt current nutrition is Regular with Ensure compact BID. Last recorded weight is 49.9 kg up from 44.4 kg on admit. Bowel Motility: + BM reported 02/12 Labs Reviewed:Cr 0.3,BUN 23, Hgb 9.2,Hct 31.2,Alb 3.2 Meds Noted:Rocephin,Pacerone,Atrovent, Protonix, Prednisone Skin: WNL Additional Notes: Patient extubated on 02/11. MBS today recommending a regular diet. MD orders for Ensure Compact BID and Frozen Nutritional Treat BID for additional kcal needs. Agree with diet orders. Will monitor, weight, BM, meds, skin and oral intake every 3 days.
--- NOTE | 2022-02-12 14:55 | PM.IMPN ---
Progress Note: A&P Assessment and Plan (1) Acute and chronic respiratory failure ([id number]): Code(s): J96.20 - Acute and chronic respiratory failure, unspecified whether with hypoxia or hypercapnia Status: Acute Assessment and Plan: Acute respiratory failure likely related to bacterial pneumonia, COPD exacerbation, influenza a -on admission she had severe lactic acidosis, mottling noted from the feet to the chest, hypoxia, AFib RVR. Decision was made to intubate the patient. -patient was intubated on 02/01/2021 -extubated on 02/11/2021 -currently on 2 L nasal cannula with adequate O2 sats -continue bronchodilators and Pulmicort -patient has diuresing well in response to diuretics -speech sedated P to evaluate for bedside swallow test -have ordered PT/OT, increase activity, up in chair -encourage incentive spirometry Chest CT 02/01/2022: Multifocal pneumonia superimposed on chronic lung disease. The chronic lung disease in a combination of severe emphysema and upper lung predominant disease such as tuberculosis or histoplasmosis or sarcoid. (2) Septic shock: Code(s): A41.9 - Sepsis, unspecified organism; R65.21 - Severe sepsis with septic shock Status: Acute Assessment and Plan: RESOLVED Patient septic shock ON ADMISSION secondary to bacterial pneumonia, hypovolemia. -lactic levels have normalized to 1.7 ( peaked at 13.9 on admission) -OFF Chauncey-Synephrine and Levophed now -02/01: blood cultures are negative so far blood -02/01: Urine culture negative - 02/01: Sputum cultures are growing Moraxella catarrhalis and strep pneumonia - cefepime and vancomycin (initiated on 02/01) -> 02/05 switched to daily Rocephin for a total of 10 days - OFF stress dose steroids -off 25% albumin (3) PNA (pneumonia): Code(s): J18.9 - Pneumonia, unspecified organism Status: Acute Assessment and Plan: Could be related to bacterial and/or superimposed bacterial infection secondary to influenza A -sputum cultures as above, -continue antibiotics as above -patient received a full course of oseltamivir (4) Emphysema/COPD: Code(s): J43.9 - Emphysema, unspecified Status: Acute Assessment and Plan: Weaning prednisone, continue bronchodilators and supplemental oxygen (patient uses 2-3 L of oxygen via nasal cannula at home) (5) Influenza A: Code(s): J10.1 - Influenza due to other identified influenza virus with other respiratory manifestations Status: Acute Assessment and Plan: Patient was positive for influenza A in the ER on 02/01, status post oseltamivir -SARS-CoV-2 PCR was negative (6) Anemia: Code(s): D64.9 - Anemia, unspecified Status: Acute Assessment and Plan: Patient had a drop in her hemoglobin from 8.5 to 6.9 on 02/04. Patient had bowel movements with no blood in it and her residuals also did not show any evidence of blood. No hematoma seen on exam. Lovenox was held and patient was transfused 1 unit PRBC on 02/04 02/06 started Lovenox DVT prophylaxis dose and monitor 02/08 increased to therapeutic dose for history of AFib Continue PPI IV q.12 hours Coag panel reviewed Continue to monitor Hb (7) LUCINDA (acute kidney injury): Code(s): N17.9 - Acute kidney failure, unspecified Status: Acute Assessment and Plan: Patient with acute kidney injury likely related to hypoxia and hypotension/hypovolemia. Patient in septic shock. -she has received adequate amount of IV fluids, continue vasopressors and maintain mean arterial pressures greater than 70 for adequate renal perfusion -urine output has improved and so has the renal function -continue to monitor renal function, electrolytes and urine output -off IV fluids now (8) Atrial fibrillation with rapid ventricular response: Code(s): I48.91 - Unspecified atrial fibrillation Status: Acute Assessment and Plan: Patient has a history of chronic atrial fib
--- NOTE | 2022-02-12 15:14 | PCOTNOTE ---
Attempted to see pt. for occupational therapy. Pt. refused evaluation for today d/t excessive fatigue with agreement from nurse.
--- NOTE | 2022-02-12 15:16 | PCPTNOTE ---
Attempt physical therapy evaluation, patient feeling too weak/tired to participate in therapy at this date. RN aware. Will continue to follow.
[2022-02-12] MEDS: ACETAMINOPHEN 325 MG TABLET 650 MG PO (17:55)
[2022-02-13] VITALS (12 sets, daily range): BP systolic 106–140; BP diastolic 38–59; PULSE 68–91; RESP 16–24; TEMP 36.1–36.7; O2SAT 90–98
[2022-02-13] MEDS: LEVALBUTEROL NEB 1.25 MG/3 ML 0.63 MG INHALATION ×4 (02:26→20:01)
[2022-02-13] MEDS: IPRATROPIUM BR 0.02% INH SOLN 0.5 MG/2.5 ML VIAL INHALATION ×4 (02:26→20:01)
[2022-02-13 04:40] LABS: Basophils Percent Auto 0.3 % (0.2-1.2); Hematocrit 34.9 % (37.0-47.0); Hemoglobin 10.1 g/dL (12.0-15.0); Immature Granulocyte Absolute 0.22 K/mm3 (0.00-0.031); Lymphocytes Absolute Auto 0.59 K/mm3 (0.9-3.2); Lymphocytes Percent Auto 5.5 % (18.3-44.2); Mean Corpuscular HGB Conc 28.9 g/dl (32-36); Mean Corpuscular Hemoglobin 26.9 pg (26-34); Mean Corpuscular Volume 92.8 fl (80-100); Mean Platelet Volume 9.8 fl (7.4-10.4); Monocytes Absolute Auto 0.8 K/mm3 (0.1-0.6); Monocytes Percent Auto 7.5 % (2.6-8.5); Neutrophils Absolute Auto 9.1 K/mm3 (1.3-6.7); Neutrophils Percent Auto 84.7 % (45.5-73.1); Platelet Count Result 499 k/mm3 (150-375); Red Blood Count 3.76 M/mm3 (4.2-5.4); Red Cell Distribution Width 16.2 % (11.5-14.5); White Blood Count 10.8 K/mm3 (4.5-10.0)
[2022-02-13 04:55] LABS: Alanine Aminotransferase 34 U/L (4-35); Albumin Level 3.2 g/dL (3.5-5.1); Alkaline Phosphatase 94 U/L (38-126); Anion Gap 4 mmol/L (8-16); Aspartate Amino Transferase 24 U/L (14-36); Bilirubin,Total 0.5 mg/dL (0.2-1.3); Blood Urea Nitrogen 20 mg/dL (7-17); Calcium 8.4 mg/dL (8.4-10.2); Carbon Dioxide 33 mmol/L (22-30); Chloride 103 mmol/L (98-107); Estimated CRCL calculation 82 ml/min; Estimated Glomerular Filt Rate > 60; Glucose 77 mg/dL (65-110); Magnesium 1.9 mg/dL (1.6-2.3); Potassium 3.6 mmol/L (3.4-5.0); Sodium 140 mmol/L (137-145)
[2022-02-13 05:09] LABS: Hypochromasia 1+ (NORMAL)
[2022-02-13 05:10] LABS: Anisocytosis 1+ (NORMAL)
[2022-02-13] MEDS: BUDESONIDE RESPULE NEB 0.5 MG/2 ML AMP INHALATION ×2 (07:46→20:01)
[2022-02-13] MEDS: ONDANSETRON INJ 4 MG/2 ML VIAL IV PUSH (08:58)
[2022-02-13] MEDS: cefTRIAXone 2 GM in SODIUM CHLORIDE 0.9% IV 100 ML 200 ML IVPB (08:58)
[2022-02-13] MEDS: AMIODARONE HCL 200 MG TABLET 400 MG PO (09:11)
[2022-02-13] MEDS: ENOXAPARIN 60 MG/0.6 ML SYRINGE SUB-Q ×2 (09:11→19:56)
[2022-02-13] MEDS: predniSONE 20 MG TABLET PO (09:12)
[2022-02-13] MEDS: PANTOPRAZOLE SODIUM IV 40 MG VIAL IV PUSH ×2 (09:12→19:56)
--- NOTE | 2022-02-13 11:35 | PCNFU ---
Nutrition Follow-Up Complete: Inadequate Oral Intake as related to mechanical ventilation as evidenced by NPO. goal: Meet estimated nutritional needs Patient is progressing towards goal. We will continue current goal. Pt current nutrition is Regular with Ensure compact BID and Frozen Nutritional Treat BID Last recorded weight is 45.3 kg, up from 44.4 kg on admit. Bowel Motility: +BM reported 02/12 Labs Reviewed:Cr 0.4, BUN 20, Alb 3.2,Hct 34.9,Hgb 10.1 Meds Noted:Nexterone, Versed, Levophed, Protonix, Vancomycin, Atrovent, Fentanyl, Solu Medrol, Pacerone, Xanax, LR Skin: WNL Additional Notes: Patient seen today for nutrition follow up. Oral Intake about 25% on a regular diet. She is eating the ice cream providing an additional 300 kcals and 9 gms protein. Prefers vanilla or chocolate ensure, diet office notified of the preference. PO intake is encouraged. Agree with diet orders. Monitoring: Will reassess every 3 days.
--- NOTE | 2022-02-13 16:08 | P.PNIM_ITS ---
Progress Note: A&P Assessment and Plan (1) Acute and chronic respiratory failure (pwlpa-gq-[id number]): Code(s): J96.20 - Acute and chronic respiratory failure, unspecified whether with hypoxia or hypercapnia Status: Acute Assessment and Plan: Acute respiratory failure likely related to bacterial pneumonia, COPD exacerbation, influenza a -on admission she had severe lactic acidosis, mottling noted from the feet to the chest, hypoxia, AFib RVR. Decision was made to intubate the patient. -patient was intubated on 02/01/2021 -extubated on 02/11/2021 -currently on 2 L nasal cannula with adequate O2 sats -continue bronchodilators and Pulmicort -patient has diuresing well in response to diuretics -speech sedated P to evaluate for bedside swallow test -have ordered PT/OT, increase activity, up in chair -encourage incentive spirometry Chest CT 02/01/2022: Multifocal pneumonia superimposed on chronic lung disease. The chronic lung disease in a combination of severe emphysema and upper lung predominant disease such as tuberculosis or histoplasmosis or sarcoid. (2) Septic shock: Code(s): A41.9 - Sepsis, unspecified organism; R65.21 - Severe sepsis with septic shock Status: Acute Assessment and Plan: RESOLVED Patient septic shock ON ADMISSION secondary to bacterial pneumonia, hypovolemia. -lactic levels have normalized to 1.7 ( peaked at 13.9 on admission) -OFF Chauncey-Synephrine and Levophed now -02/01: blood cultures are negative so far blood -02/01: Urine culture negative - 02/01: Sputum cultures are growing Moraxella catarrhalis and strep pneumonia - cefepime and vancomycin (initiated on 02/01) -> 02/05 switched to daily Rocephin for a total of 10 days - OFF stress dose steroids -off 25% albumin (3) PNA (pneumonia): Code(s): J18.9 - Pneumonia, unspecified organism Status: Acute Assessment and Plan: Could be related to bacterial and/or superimposed bacterial infection secondary to influenza A -sputum cultures as above, -continue antibiotics as above -patient received a full course of oseltamivir (4) Emphysema/COPD: Code(s): J43.9 - Emphysema, unspecified Status: Acute Assessment and Plan: Weaning prednisone, continue bronchodilators and supplemental oxygen (patient uses 2-3 L of oxygen via nasal cannula at home) (5) Influenza A: Code(s): J10.1 - Influenza due to other identified influenza virus with other respiratory manifestations Status: Acute Assessment and Plan: Patient was positive for influenza A in the ER on 02/01, status post oseltamivir -SARS-CoV-2 PCR was negative (6) Anemia: Code(s): D64.9 - Anemia, unspecified Status: Acute Assessment and Plan: Patient had a drop in her hemoglobin from 8.5 to 6.9 on 02/04. Patient had bowel movements with no blood in it and her residuals also did not show any evidence of blood. No hematoma seen on exam. Lovenox was held and patient was transfused 1 unit PRBC on 02/04 02/06 started Lovenox DVT prophylaxis dose and monitor 02/08 increased to therapeutic dose for history of AFib Continue PPI IV q.12 hours Coag panel reviewed Continue to monitor Hb (7) LUCINDA (acute kidney injury): Code(s): N17.9 - Acute kidney failure, unspecified Status: Acute Assessment and Plan: Patient with acute kidney injury likely related to hypoxia and hypotension/hypovolemia. Patient in septic shock. -she has received adequate amount of IV fluids, continue vasopressors and maintain mean arterial pressures greater than 70 for adequate renal perfu
[2022-02-14] VITALS (12 sets, daily range): BP systolic 104–114; BP diastolic 37–46; PULSE 67–93; RESP 18–20; TEMP 36.1–36.9; O2SAT 90–100
[2022-02-14] MEDS: IPRATROPIUM BR 0.02% INH SOLN 0.5 MG/2.5 ML VIAL INHALATION ×4 (02:04→19:53)
[2022-02-14] MEDS: LEVALBUTEROL NEB 1.25 MG/3 ML 0.63 MG INHALATION ×4 (02:05→19:52)
[2022-02-14 07:16] LABS: Basophils Percent Auto 0.2 % (0.2-1.2); Eosinophils Percent Auto 0.1 % (0-4.4); Hematocrit 34.5 % (37.0-47.0); Hemoglobin 9.7 g/dL (12.0-15.0); Immature Granulocyte Absolute 0.15 K/mm3 (0.00-0.031); Lymphocytes Absolute Auto 0.54 K/mm3 (0.9-3.2); Lymphocytes Percent Auto 3.7 % (18.3-44.2); Mean Corpuscular HGB Conc 28.1 g/dl (32-36); Mean Corpuscular Hemoglobin 26.6 pg (26-34); Mean Corpuscular Volume 94.8 fl (80-100); Mean Platelet Volume 11.1 fl (7.4-10.4); Monocytes Absolute Auto 1.1 K/mm3 (0.1-0.6); Monocytes Percent Auto 7.2 % (2.6-8.5); Neutrophils Percent Auto 87.8 % (45.5-73.1); Platelet Count Result 510 k/mm3 (150-375); Red Blood Count 3.64 M/mm3 (4.2-5.4); Red Cell Distribution Width 16.2 % (11.5-14.5); White Blood Count 14.8 K/mm3 (4.5-10.0)
[2022-02-14 07:32] LABS: Alanine Aminotransferase 36 U/L (4-35); Albumin Level 3.5 g/dL (3.5-5.1); Alkaline Phosphatase 95 U/L (38-126); Anion Gap 5 mmol/L (8-16); Aspartate Amino Transferase 27 U/L (14-36); Bilirubin,Total 0.4 mg/dL (0.2-1.3); Blood Urea Nitrogen 22 mg/dL (7-17); Calcium 8.6 mg/dL (8.4-10.2); Carbon Dioxide 36 mmol/L (22-30); Chloride 102 mmol/L (98-107); Estimated CRCL calculation 75 ml/min; Estimated Glomerular Filt Rate > 60; Glucose 80 mg/dL (65-110); Magnesium 1.8 mg/dL (1.6-2.3); Potassium 3.4 mmol/L (3.4-5.0); Sodium 143 mmol/L (137-145)
[2022-02-14] MEDS: BUDESONIDE RESPULE NEB 0.5 MG/2 ML AMP INHALATION ×2 (08:47→19:53)
[2022-02-14] MEDS: ENOXAPARIN 60 MG/0.6 ML SYRINGE SUB-Q (08:51)
[2022-02-14] MEDS: PANTOPRAZOLE SODIUM IV 40 MG VIAL IV PUSH (08:51)
[2022-02-14] MEDS: AMIODARONE HCL 200 MG TABLET 400 MG PO (08:52)
[2022-02-14] MEDS: cefTRIAXone 2 GM in SODIUM CHLORIDE 0.9% IV 100 ML 200 ML IVPB (09:34)
[2022-02-14 09:48] LABS: Hypochromasia 1+ (NORMAL); Platelet Estimate Increased (Adequate)
[2022-02-14] MEDS: TOLNAFTATE 1% POWDER 45 GM BTL 1 APPLIC TOPICAL ×2 (17:31→20:16)
[2022-02-14] MEDS: RIVAROXABAN 20 MG TABLET PO (17:31)
[2022-02-15] VITALS (14 sets, daily range): BP systolic 123–139; BP diastolic 41–56; PULSE 50–89; RESP 18–26; TEMP 36.3–36.4; O2SAT 90–95
[2022-02-15] MEDS: LEVALBUTEROL NEB 1.25 MG/3 ML 0.63 MG INHALATION ×4 (02:26→20:14)
[2022-02-15] MEDS: IPRATROPIUM BR 0.02% INH SOLN 0.5 MG/2.5 ML VIAL INHALATION ×4 (02:27→20:14)
[2022-02-15 06:30] LABS: Basophils Percent Auto 0.1 % (0.2-1.2); Eosinophils Percent Auto 0.3 % (0-4.4); Hematocrit 34.2 % (37.0-47.0); Immature Granulocyte Absolute 0.12 K/mm3 (0.00-0.031); Immature Granulocyte Percent A 0.9 % (0-0.5); Mean Corpuscular HGB Conc 29.2 g/dl (32-36); Mean Corpuscular Hemoglobin 26.5 pg (26-34); Mean Corpuscular Volume 90.5 fl (80-100); Mean Platelet Volume 9.8 fl (7.4-10.4); Monocytes Absolute Auto 0.9 K/mm3 (0.1-0.6); Monocytes Percent Auto 6.6 % (2.6-8.5); Neutrophils Percent Auto 89.1 % (45.5-73.1); Platelet Count Result 545 k/mm3 (150-375); Red Blood Count 3.78 M/mm3 (4.2-5.4); Red Cell Distribution Width 15.9 % (11.5-14.5); White Blood Count 13.5 K/mm3 (4.5-10.0)
[2022-02-15 06:48] LABS: Alanine Aminotransferase 34 U/L (4-35); Albumin Level 3.5 g/dL (3.5-5.1); Alkaline Phosphatase 91 U/L (38-126); Aspartate Amino Transferase 25 U/L (14-36); Bilirubin,Total 0.6 mg/dL (0.2-1.3); Blood Urea Nitrogen 18 mg/dL (7-17); Calcium 8.5 mg/dL (8.4-10.2); Carbon Dioxide > 40 mmol/L (22-30); Chloride 96 mmol/L (98-107); Estimated CRCL calculation 75 ml/min; Estimated Glomerular Filt Rate > 60; Glucose 102 mg/dL (65-110); Magnesium 1.6 mg/dL (1.6-2.3); Potassium 2.8 mmol/L (3.4-5.0); Sodium 141 mmol/L (137-145)
[2022-02-15 07:26] LABS: Hypochromasia 1+ (NORMAL); Platelet Estimate Increased (Adequate)
[2022-02-15] MEDS: BUDESONIDE RESPULE NEB 0.5 MG/2 ML AMP INHALATION ×2 (07:32→20:13)
[2022-02-15] MEDS: POTASSIUM CHLORIDE INJ 40 MEQ in SODIUM CHLORIDE 0.9% IV 500 ML 130 MEQ IVPB (07:49)
[2022-02-15] MEDS: AMIODARONE HCL 200 MG TABLET 400 MG PO (07:50)
[2022-02-15] MEDS: POTASSIUM CHLORIDE 20 MEQ TABLET 40 MEQ PO (07:51)
[2022-02-15] MEDS: predniSONE 10 MG TABLET PO (07:51)
[2022-02-15] MEDS: TOLNAFTATE 1% POWDER 45 GM BTL 1 APPLIC TOPICAL ×2 (08:03→21:00)
[2022-02-15] MEDS: PANTOPRAZOLE 40 MG TABLET PO (08:03)
--- NOTE | 2022-02-15 13:35 | P.PNIM_ITS ---
Progress Note: A&P Assessment and Plan (1) Acute and chronic respiratory failure ([id number]): Code(s): J96.20 - Acute and chronic respiratory failure, unspecified whether with hypoxia or hypercapnia Status: Acute Assessment and Plan: Acute respiratory failure likely related to bacterial pneumonia, COPD exacerbation, influenza a -on admission she had severe lactic acidosis, mottling noted from the feet to the chest, hypoxia, AFib RVR. Decision was made to intubate the patient. -patient was intubated on 02/01/2021 -extubated on 02/11/2021 -currently on 2 L nasal cannula with adequate O2 sats -continue bronchodilators and Pulmicort -patient has diuresing well in response to diuretics -speech sedated P to evaluate for bedside swallow test -have ordered PT/OT, increase activity, up in chair -encourage incentive spirometry Chest CT 02/01/2022: Multifocal pneumonia superimposed on chronic lung disease. The chronic lung disease in a combination of severe emphysema and upper lung predominant disease such as tuberculosis or histoplasmosis or sarcoid. (2) Septic shock: Code(s): A41.9 - Sepsis, unspecified organism; R65.21 - Severe sepsis with septic shock Status: Acute Assessment and Plan: RESOLVED Patient septic shock ON ADMISSION secondary to bacterial pneumonia, hypovolemia. -lactic levels have normalized to 1.7 ( peaked at 13.9 on admission) -OFF Chauncey-Synephrine and Levophed now -02/01: blood cultures are negative so far blood -02/01: Urine culture negative - 02/01: Sputum cultures are growing Moraxella catarrhalis and strep pneumonia - cefepime and vancomycin (initiated on 02/01) -> 02/05 switched to daily Rocephin for a total of 10 days. Finish the course of Rocephin 02/15/2022 - OFF stress dose steroids -off 25% albumin (3) PNA (pneumonia): Code(s): J18.9 - Pneumonia, unspecified organism Status: Acute Assessment and Plan: Could be related to bacterial and/or superimposed bacterial infection secondary to influenza A -sputum cultures as above, -continue antibiotics as above -patient received a full course of oseltamivir (4) Emphysema/COPD: Code(s): J43.9 - Emphysema, unspecified Status: Acute Assessment and Plan: Weaning prednisone, continue bronchodilators and supplemental oxygen (patient uses 2-3 L of oxygen via nasal cannula at home) Needs home oxygen evaluation at discharge (5) Influenza A: Code(s): J10.1 - Influenza due to other identified influenza virus with other respiratory manifestations Status: Acute Assessment and Plan: Patient was positive for influenza A in the ER on 02/01, status post oseltamivir -SARS-CoV-2 PCR was negative (6) Anemia: Code(s): D64.9 - Anemia, unspecified Status: Acute Assessment and Plan: Patient had a drop in her hemoglobin from 8.5 to 6.9 on 02/04. Patient had bowel movements with no blood in it and her residuals also did not show any evidence of blood. No hematoma seen on exam. Lovenox was held and patient was transfused 1 unit PRBC on 02/04 02/06 started Lovenox DVT prophylaxis dose and monitor 02/08 increased to therapeutic dose for history of AFib Continue PPI IV q.12 hours Coag panel reviewed Continue to monitor Hb (7) LUCINDA (acute kidney injury): Code(s): N17.9 - Acute kidney failure, unspecified Status: Acute Assessment and Plan: Patient with acute kidney injury likely related to hypoxia and hypotension/hypovolemia. Patient in septic shock. -she has received adequate amount of IV fluids, continue vaso
[2022-02-15] MEDS: ACETAMINOPHEN 325 MG TABLET 650 MG PO (14:28)
[2022-02-15] MEDS: MAGNESIUM SULF 2 GM/WATER 50ML 2 GM/50 ML BAG IVPB (15:51)
[2022-02-15] MEDS: RIVAROXABAN 20 MG TABLET PO (16:32)
[2022-02-16] VITALS (14 sets, daily range): BP systolic 128–133; BP diastolic 52–60; PULSE 57–87; RESP 18–26; TEMP 36.1–36.8; O2SAT 91–99
[2022-02-16] MEDS: LEVALBUTEROL NEB 1.25 MG/3 ML 0.63 MG INHALATION ×4 (02:52→20:00)
[2022-02-16] MEDS: IPRATROPIUM BR 0.02% INH SOLN 0.5 MG/2.5 ML VIAL INHALATION ×4 (02:52→20:00)
[2022-02-16 06:37] LABS: Basophils Percent Auto 0.2 % (0.2-1.2); Eosinophils Absolute Auto 0.1 K/mm3 (0-0.3); Eosinophils Percent Auto 0.6 % (0-4.4); Hematocrit 34.8 % (37.0-47.0); Hemoglobin 10.3 g/dL (12.0-15.0); Immature Granulocyte Absolute 0.06 K/mm3 (0.00-0.031); Immature Granulocyte Percent A 0.6 % (0-0.5); Lymphocytes Absolute Auto 0.54 K/mm3 (0.9-3.2); Lymphocytes Percent Auto 5.7 % (18.3-44.2); Mean Corpuscular HGB Conc 29.6 g/dl (32-36); Mean Corpuscular Hemoglobin 27.2 pg (26-34); Mean Corpuscular Volume 91.8 fl (80-100); Mean Platelet Volume 9.7 fl (7.4-10.4); Monocytes Absolute Auto 0.6 K/mm3 (0.1-0.6); Monocytes Percent Auto 6.7 % (2.6-8.5); Neutrophils Absolute Auto 8.1 K/mm3 (1.3-6.7); Neutrophils Percent Auto 86.2 % (45.5-73.1); Platelet Count Result 454 k/mm3 (150-375); Red Blood Count 3.79 M/mm3 (4.2-5.4); White Blood Count 9.4 K/mm3 (4.5-10.0)
[2022-02-16 06:50] LABS: Alanine Aminotransferase 31 U/L (4-35); Albumin Level 3.4 g/dL (3.5-5.1); Alkaline Phosphatase 86 U/L (38-126); Anion Gap 3 mmol/L (8-16); Aspartate Amino Transferase 26 U/L (14-36); Bilirubin,Total 0.7 mg/dL (0.2-1.3); Blood Urea Nitrogen 17 mg/dL (7-17); Calcium 8.2 mg/dL (8.4-10.2); Carbon Dioxide 34 mmol/L (22-30); Chloride 102 mmol/L (98-107); Estimated CRCL calculation 97 ml/min; Estimated Glomerular Filt Rate > 60; Glucose 80 mg/dL (65-110); Sodium 139 mmol/L (137-145)
[2022-02-16] MEDS: BUDESONIDE RESPULE NEB 0.5 MG/2 ML AMP INHALATION ×2 (08:29→20:00)
[2022-02-16] MEDS: AMIODARONE HCL 200 MG TABLET 400 MG PO (08:50)
[2022-02-16] MEDS: TOLNAFTATE 1% POWDER 45 GM BTL 1 APPLIC TOPICAL ×2 (08:51→20:44)
[2022-02-16] MEDS: predniSONE 10 MG TABLET PO (08:51)
[2022-02-16] MEDS: PANTOPRAZOLE 40 MG TABLET PO (08:51)
--- NOTE | 2022-02-16 12:24 | PCNFU ---
Nutrition Follow-Up Complete: Inadequate Oral Intake as related to mechanical ventilation as evidenced by NPO. goal: Meet estimated nutritional needs Patient is progressing towards goal. We will continue current goal. Pt current nutrition is Regular with Ensure Compact BID and Frozen Nutritional Treat BID. Last recorded weight is 45.8 kg, up from 44.4 kg on admit. Bowel Motility: +BM reported 02/16 Labs Reviewed:Cr 0.3, Alb 3.4,Hct 34.8,Hgb 10.3 Meds Noted:Prednisone,Pacerone,Xopenex, Protonix, Atrovent Skin: WNL Additional Notes: Patient remains on a regular diet with fair intake, 20-75% of meals. Diet supplements of Ensure compact BID providing an additional 220 kcals and 9 gms protein and Frozen Nutritional Treat providing 300 kcals an 9 gms protein. Agree with diet orders. Monitoring: Will reassess every 5 days.
--- NOTE | 2022-02-16 12:41 | PM.IMPN ---
Progress Note: A&P Assessment and Plan (1) Acute and chronic respiratory failure ([id number]): Code(s): J96.20 - Acute and chronic respiratory failure, unspecified whether with hypoxia or hypercapnia Status: Acute Assessment and Plan: Acute respiratory failure likely related to bacterial pneumonia, COPD exacerbation, influenza a -on admission she had severe lactic acidosis, mottling noted from the feet to the chest, hypoxia, AFib RVR. Decision was made to intubate the patient. -patient was intubated on 02/01/2021 -extubated on 02/11/2021 -currently on 2 L nasal cannula with adequate O2 sats -continue bronchodilators and Pulmicort -patient has diuresing well in response to diuretics -speech sedated P to evaluate for bedside swallow test -have ordered PT/OT, increase activity, up in chair -encourage incentive spirometry Chest CT 02/01/2022: Multifocal pneumonia superimposed on chronic lung disease. The chronic lung disease in a combination of severe emphysema and upper lung predominant disease such as tuberculosis or histoplasmosis or sarcoid. (2) Septic shock: Code(s): A41.9 - Sepsis, unspecified organism; R65.21 - Severe sepsis with septic shock Status: Acute Assessment and Plan: RESOLVED Patient septic shock ON ADMISSION secondary to bacterial pneumonia, hypovolemia. -lactic levels have normalized to 1.7 ( peaked at 13.9 on admission) -OFF Chauncey-Synephrine and Levophed now -02/01: blood cultures are negative so far blood -02/01: Urine culture negative - 02/01: Sputum cultures are growing Moraxella catarrhalis and strep pneumonia - cefepime and vancomycin (initiated on 02/01) -> 02/05 switched to daily Rocephin for a total of 10 days. Finish the course of Rocephin 02/15/2022 - OFF stress dose steroids -off 25% albumin (3) PNA (pneumonia): Code(s): J18.9 - Pneumonia, unspecified organism Status: Acute Assessment and Plan: Could be related to bacterial and/or superimposed bacterial infection secondary to influenza A -sputum cultures as above, She has completed antibiotics course -patient received a full course of oseltamivir (4) Emphysema/COPD: Code(s): J43.9 - Emphysema, unspecified Status: Acute Assessment and Plan: Weaning prednisone, continue bronchodilators and supplemental oxygen (patient uses 2-3 L of oxygen via nasal cannula at home) Needs home oxygen evaluation at discharge (5) Influenza A: Code(s): J10.1 - Influenza due to other identified influenza virus with other respiratory manifestations Status: Acute Assessment and Plan: Patient was positive for influenza A in the ER on 02/01, status post oseltamivir -SARS-CoV-2 PCR was negative (6) Anemia: Code(s): D64.9 - Anemia, unspecified Status: Acute Assessment and Plan: Patient had a drop in her hemoglobin from 8.5 to 6.9 on 02/04. Patient had bowel movements with no blood in it and her residuals also did not show any evidence of blood. No hematoma seen on exam. Lovenox was held and patient was transfused 1 unit PRBC on 02/04 02/06 started Lovenox DVT prophylaxis dose and monitor 02/08 increased to therapeutic dose for history of AFib Continue PPI IV q.12 hours Coag panel reviewed Continue to monitor Hb (7) LUCINDA (acute kidney injury): Code(s): N17.9 - Acute kidney failure, unspecified Status: Acute Assessment and Plan: Patient with acute kidney injury likely related to hypoxia and hypotension/hypovolemia. Patient in septic shock. -she has received adequate amount of IV fluids, continue vasopressors and maintain mean arterial pressures greater than 70 for adequate renal perfusion -urine output has improved and so has the renal function -continue to monitor renal function, electrolytes and urine output -off IV fluids now (8) Atrial fibrillation with rapid ventricular response: Code(s): I48.91 - Unspecified atrial fibrillation
[2022-02-16] MEDS: RIVAROXABAN 20 MG TABLET PO (17:08)
[2022-02-16] MEDS: SALINE 0.65% NAS SOLN 44 ML BTL 1 SPRAY NASAL (20:44)
[2022-02-17] VITALS (14 sets, daily range): BP systolic 109–128; BP diastolic 49–52; PULSE 70–80; RESP 19–24; TEMP 36.3–36.5; O2SAT 95–100
[2022-02-17] MEDS: IPRATROPIUM BR 0.02% INH SOLN 0.5 MG/2.5 ML VIAL INHALATION ×4 (01:58→21:11)
[2022-02-17] MEDS: LEVALBUTEROL NEB 1.25 MG/3 ML 0.63 MG INHALATION ×4 (01:58→21:11)
[2022-02-17 06:31] LABS: Basophils Percent Auto 0.3 % (0.2-1.2); Eosinophils Absolute Auto 0.1 K/mm3 (0-0.3); Eosinophils Percent Auto 1.2 % (0-4.4); Hematocrit 31.2 % (37.0-47.0); Hemoglobin 9.2 g/dL (12.0-15.0); Immature Granulocyte Absolute 0.07 K/mm3 (0.00-0.031); Immature Granulocyte Percent A 0.6 % (0-0.5); Lymphocytes Absolute Auto 0.61 K/mm3 (0.9-3.2); Lymphocytes Percent Auto 5.5 % (18.3-44.2); Mean Corpuscular HGB Conc 29.5 g/dl (32-36); Mean Corpuscular Hemoglobin 26.4 pg (26-34); Mean Corpuscular Volume 89.7 fl (80-100); Mean Platelet Volume 9.6 fl (7.4-10.4); Monocytes Absolute Auto 0.8 K/mm3 (0.1-0.6); Monocytes Percent Auto 7.3 % (2.6-8.5); Neutrophils Absolute Auto 9.4 K/mm3 (1.3-6.7); Neutrophils Percent Auto 85.1 % (45.5-73.1); Platelet Count Result 436 k/mm3 (150-375); Red Blood Count 3.48 M/mm3 (4.2-5.4); Red Cell Distribution Width 15.9 % (11.5-14.5)
[2022-02-17 07:04] LABS: Anion Gap 4 mmol/L (8-16); Blood Urea Nitrogen 17 mg/dL (7-17); Calcium 8.2 mg/dL (8.4-10.2); Carbon Dioxide 34 mmol/L (22-30); Chloride 100 mmol/L (98-107); Estimated CRCL calculation 76 ml/min; Estimated Glomerular Filt Rate > 60; Glucose 95 mg/dL (65-110); Magnesium 1.8 mg/dL (1.6-2.3); Potassium 3.5 mmol/L (3.4-5.0); Sodium 138 mmol/L (137-145)
[2022-02-17 07:25] LABS: Platelet Estimate Adequate (Adequate)
[2022-02-17 07:26] LABS: Anisocytosis 1+ (NORMAL)
[2022-02-17 07:27] LABS: Ovalocytes 1+ (NORMAL)
[2022-02-17 07:28] LABS: Tear Drop Cells 1+ (NORMAL)
[2022-02-17 08:17] LABS: Toxigenic C. Diff NEGATIVE (NEGATIVE)
[2022-02-17] MEDS: AMIODARONE HCL 200 MG TABLET 400 MG PO (08:31)
[2022-02-17] MEDS: predniSONE 10 MG TABLET PO (08:32)
[2022-02-17] MEDS: PANTOPRAZOLE 40 MG TABLET PO (08:32)
[2022-02-17] MEDS: TOLNAFTATE 1% POWDER 45 GM BTL 1 APPLIC TOPICAL ×2 (08:33→21:09)
[2022-02-17] MEDS: BUDESONIDE RESPULE NEB 0.5 MG/2 ML AMP INHALATION ×2 (08:52→21:11)
[2022-02-17] MEDS: ACETAMINOPHEN 325 MG TABLET 650 MG PO (11:00)
[2022-02-17 12:16] LABS: IFOB Positive Control Positive; Immunochemical Fecal Occult Bl Positive (N)
--- NOTE | 2022-02-17 14:45 | PM.IMPN ---
Progress Note: A&P Assessment and Plan (1) Acute and chronic respiratory failure (jqpzz-ln-[id number]): Code(s): J96.20 - Acute and chronic respiratory failure, unspecified whether with hypoxia or hypercapnia Status: Acute Assessment and Plan: Acute respiratory failure likely related to bacterial pneumonia, COPD exacerbation, influenza a -on admission she had severe lactic acidosis, mottling noted from the feet to the chest, hypoxia, AFib RVR. Decision was made to intubate the patient. -patient was intubated on 02/01/2021 -extubated on 02/11/2021 -currently on 2 L nasal cannula with adequate O2 sats -continue bronchodilators and Pulmicort -patient has diuresing well in response to diuretics -speech sedated P to evaluate for bedside swallow test -have ordered PT/OT, increase activity, up in chair -encourage incentive spirometry Chest CT 02/01/2022: Multifocal pneumonia superimposed on chronic lung disease. The chronic lung disease in a combination of severe emphysema and upper lung predominant disease such as tuberculosis or histoplasmosis or sarcoid. (2) Septic shock: Code(s): A41.9 - Sepsis, unspecified organism; R65.21 - Severe sepsis with septic shock Status: Acute Assessment and Plan: RESOLVED Patient septic shock ON ADMISSION secondary to bacterial pneumonia, hypovolemia. -lactic levels have normalized to 1.7 ( peaked at 13.9 on admission) -OFF Chauncey-Synephrine and Levophed now -02/01: blood cultures are negative so far blood -02/01: Urine culture negative - 02/01: Sputum cultures are growing Moraxella catarrhalis and strep pneumonia - cefepime and vancomycin (initiated on 02/01) -> 02/05 switched to daily Rocephin for a total of 10 days. Finish the course of Rocephin 02/15/2022 - OFF stress dose steroids -off 25% albumin (3) PNA (pneumonia): Code(s): J18.9 - Pneumonia, unspecified organism Status: Acute Assessment and Plan: Could be related to bacterial and/or superimposed bacterial infection secondary to influenza A -sputum cultures as above, She has completed antibiotics course -patient received a full course of oseltamivir (4) Emphysema/COPD: Code(s): J43.9 - Emphysema, unspecified Status: Acute Assessment and Plan: Weaning prednisone, continue bronchodilators and supplemental oxygen (patient uses 2-3 L of oxygen via nasal cannula at home) Needs home oxygen evaluation at discharge (5) Influenza A: Code(s): J10.1 - Influenza due to other identified influenza virus with other respiratory manifestations Status: Acute Assessment and Plan: Patient was positive for influenza A in the ER on 02/01, status post oseltamivir -SARS-CoV-2 PCR was negative (6) Anemia: Code(s): D64.9 - Anemia, unspecified Status: Acute Assessment and Plan: Patient had a drop in her hemoglobin from 8.5 to 6.9 on 02/04. Patient had bowel movements with no blood in it and her residuals also did not show any evidence of blood. No hematoma seen on exam. Lovenox was held and patient was transfused 1 unit PRBC on 02/04 02/06 started Lovenox DVT prophylaxis dose and monitor 02/08 increased to therapeutic dose for history of AFib Continue PPI IV q.12 hours Coag panel reviewed Continue to monitor Hb Blood in stool noted 02/17/2022 will hold off Xarelto now. H&H is stable will continue to monitor. Suspect sinus rhythm but does have a history of atrial fibrillation in the past intermittently. Will help to evaluate with gastroenterology for risk stratification for ongoing need for anticoagulation. Will consult GI and continue PPI. (7) LUCINDA (acute kidney injury): Code(s): N17.9 - Acute kidney failure, unspecified Status: Acute Assessment and Plan: Patient with acute kidney injury likely related to hypoxia and hypotension/hypovolemia. Patient in septic shock. -she has received adequate amount of IV fluids, continue vasopressors and m
[2022-02-17 16:33] LABS: Add Urine Microscopic? YES; Appearance Urine Turbid (Clear); Bilirubin Urine Negative (Negative); Blood Urine 3+ (Negative); Color Urine Red (Yellow); Glucose Urine UA Negative (Negative); Ketones Urine Trace mg/dL (Negative); Leukocyte Esterase Ur 1+ LEU/UL (Negative); Nitrate Urine Negative (Negative); Protein Urine 3+ mg/dL (Negative); Specific Grav Ur 1.025 (1.001-1.035); Urobilinogen Urine 0.2 mg/dL (<2.0); pH Urine 8.5 (5.0-9.0)
--- NOTE | 2022-02-17 16:46 | PC.NURSE ---
Notified Dr. Warner about patients positive urine cultures for blood, protein, and leukocytes. Left message on his phone updating him of the lab values at 1645. Will continue to monitor.
[2022-02-17 17:34] LABS: RBC Urine >75 /hpf (0-2)
[2022-02-17 17:36] LABS: Bacteria Urine 1+ /hpf
[2022-02-18] VITALS (16 sets, daily range): BP systolic 102–115; BP diastolic 32–46; PULSE 66–93; RESP 16–30; TEMP 36.3–36.6; O2SAT 95–100
[2022-02-18] MEDS: IPRATROPIUM BR 0.02% INH SOLN 0.5 MG/2.5 ML VIAL INHALATION ×4 (01:15→20:57)
[2022-02-18] MEDS: LEVALBUTEROL NEB 1.25 MG/3 ML 0.63 MG INHALATION ×4 (01:15→20:57)
[2022-02-18 06:35] LABS: Basophils Percent Auto 0.4 % (0.2-1.2); Eosinophils Absolute Auto 0.1 K/mm3 (0-0.3); Eosinophils Percent Auto 1.1 % (0-4.4); Hematocrit 30.8 % (37.0-47.0); Hemoglobin 8.8 g/dL (12.0-15.0); Immature Granulocyte Absolute 0.06 K/mm3 (0.00-0.031); Immature Granulocyte Percent A 0.6 % (0-0.5); Lymphocytes Absolute Auto 0.42 K/mm3 (0.9-3.2); Lymphocytes Percent Auto 4.1 % (18.3-44.2); Mean Corpuscular HGB Conc 28.6 g/dl (32-36); Mean Corpuscular Hemoglobin 26.3 pg (26-34); Mean Corpuscular Volume 91.9 fl (80-100); Mean Platelet Volume 9.6 fl (7.4-10.4); Monocytes Absolute Auto 0.7 K/mm3 (0.1-0.6); Neutrophils Absolute Auto 8.9 K/mm3 (1.3-6.7); Neutrophils Percent Auto 86.8 % (45.5-73.1); Platelet Count Result 345 k/mm3 (150-375); Red Blood Count 3.35 M/mm3 (4.2-5.4); Red Cell Distribution Width 15.7 % (11.5-14.5); White Blood Count 10.3 K/mm3 (4.5-10.0)
[2022-02-18 06:51] LABS: Alanine Aminotransferase 26 U/L (4-35); Albumin Level 3.2 g/dL (3.5-5.1); Alkaline Phosphatase 80 U/L (38-126); Anion Gap 4 mmol/L (8-16); Aspartate Amino Transferase 16 U/L (14-36); Bilirubin,Total 0.4 mg/dL (0.2-1.3); Blood Urea Nitrogen 16 mg/dL (7-17); Calcium 8.1 mg/dL (8.4-10.2); Carbon Dioxide 32 mmol/L (22-30); Chloride 100 mmol/L (98-107); Estimated CRCL calculation 75 ml/min; Estimated Glomerular Filt Rate > 60; Glucose 85 mg/dL (65-110); Magnesium 1.6 mg/dL (1.6-2.3); Potassium 3.5 mmol/L (3.4-5.0); Sodium 136 mmol/L (137-145)
--- NOTE | 2022-02-18 07:31 | WPDGICN ---
Assessment and Plan Assessment and plan (1) Rectal bleeding: Code(s): K62.5 - Hemorrhage of anus and rectum Status: Acute Assessment and Plan: Patient with episode of rectal bleeding yesterday while anticoagulated. Her hemoglobin has not declined significantly suggesting small to modest amount of bleeding. Hemorrhoids potentially could contribute to bleeding such as this. Also need to consider that this may have been bleeding in the urine as she urinated the same time is having bowel movement. Because of her significant respiratory difficulties invasive investigation is not feasible at this time would recommend conservative therapy. Anticoagulation should be held. Hemoglobin should be monitored closely and transfuse if necessary. Elective colonoscopy when her pulmonary status is more stable can be considered at a date. (2) Paroxysmal atrial fibrillation: Code(s): I48.0 - Paroxysmal atrial fibrillation Status: Acute (3) Anticoagulation adequate: Code(s): Z79.01 - termite renewal inspector (current) use of anticoagulants Status: Acute Assessment and Plan: Given patient's bleeding an unknown origin would hold anticoagulation because of risk of additional bleeding at this time. (4) Emphysema/COPD: Code(s): J43.9 - Emphysema, unspecified Status: Acute (5) PNA (pneumonia): Code(s): J18.9 - Pneumonia, unspecified organism Status: Acute GI Consult Note Consult date/time: 02/18/22 07:31 HPI: Meme Almanzar is a 71 year old female I am asked to see because blood was noted in bowel movement. Patient admitted the hospital on 02/01/2022. Suffered respiratory failure and was require ventilation in the ICU. She was felt to have pneumonia. Additionally identified as having atrial fibrillation she was maintained on Xarelto felt to be septic as well. She was extubated on 02/11/2022 but remains quite short of breath and supplemental oxygen. She has limited reserves in his quite short of breath even on talking with me giving her history at bedrest this morning. Yesterday patient for the 1st time notice some blood outside of her stool after a bowel movement yesterday. She also had some urination at this time. She denies any abdominal pain. She has had no significant bleeding prior to this. Patient has been maintained on Xarelto and this was held after bleeding episode was identified. Review of Systems Review of Systems: All systems reviewed & are unremarkable except as noted in HPI and below PMFSH Past Medical History Medical History Anemia of chronic disease Chronic atrial fibrillation Chronic hypoxemic respiratory failure Diastolic CHF Emphysema/COPD History of atrial fibrillation History of pneumothorax Hyperthyroidism Mass of lower lobe of left lung 2019 Noncompliance Paroxysmal atrial fibrillation Pulmonary hypertension PVD (peripheral vascular disease) Severe protein-calorie malnutrition Surgical History Surgical History H/O chest tube placement Family History Family History Mother Cancer Some type of your nose and throat cancer Other Asthma Family history of chronic obstructive pulmonary disease Lung cancer Social History Social History Social History: Patient lives with her granddaughter Smoking packs per day: 1 Smoking cigarettes per day: 20.0 Smoking status: Former smoker Substance use: never Spiritual care concerns: No Meds Home Medications and Allergies Home Medications Medication Instructions Recorded Confirmed Type albuterol sulfate 2.5 mg INHALATION Q4-6H PRN 30 03/27/21 02/01/22 Rx Days #180 ml metoprolol succinate 50 mg 50 mg PO QPM 30 Days #30 tablet 03/27/21 02/01/22 Rx tablet,extended
[2022-02-18] MEDS: TOLNAFTATE 1% POWDER 45 GM BTL 1 APPLIC TOPICAL ×2 (08:23→20:19)
[2022-02-18] MEDS: AMIODARONE HCL 200 MG TABLET 400 MG PO (08:23)
[2022-02-18] MEDS: PANTOPRAZOLE 40 MG TABLET PO (08:23)
[2022-02-18] MEDS: BUDESONIDE RESPULE NEB 0.5 MG/2 ML AMP INHALATION ×2 (08:42→20:57)
--- NOTE | 2022-02-18 12:49 | WPDURCON ---
Assessment and Plan Assessment and plan (1) Gross hematuria: Code(s): R31.0 - Gross hematuria Status: Acute Assessment and Plan: We will get a CT with and without contrast to further evaluate. I suggest that she f/u outpatient to have a cystoscope. Culture is pending, continue IV antibiotics. Tailor antibiotics to culture results. Urology Consult Note HPI Date Seen: 02/18/22 Requesting Physician: Truman Warner MD Primary Care Provider: Ruddy Reynoso, PA Consult Narrative Narrative: Meme Almanzar is a 71 year old female who presented to the ER initially on 02/01/22 for SOB. She is on home O2 normally. She was initially in the ICU for treatment of pneumonia and sepsis. She had a rader catheter at that time to monitor I&Os. It was removed when she was transferred to the floor. The patient states she has had urgency, frequency and dysuria since the catheter was removed and then gross hematuria developed yesterday. She is afebrile and denies a history of retention, hematuria, chronic UTI's or OAB. She feels that she is emptying her bladder well and has no history of kidney stones. Her WBC is 10.3, creatinine of 0.40, urine culture on 02/10/22 was negative. A new urine culture was sent yesterday and Rocephin was started. A KRYSTAL was negative from yesterday as well. She was on Lovenox for prevention of DVT's, but it is being held currently d/t a simultaneous GI bleed. Review of Systems Cardiovascular: Cardiovascular: Denies chest pain Respiratory: Respiratory: Reports no additional respiratory complaints Gastrointestinal: Gastrointestinal: Denies abdominal pain, Denies nausea and Denies vomiting Genitourinary: Genitourinary: Reports hematuria, Reports nocturia, Reports dysuria, Denies pelvic pain, Denies flank pain and Reports urinary urgency PMFSH Past Medical History Medical History Anemia of chronic disease Chronic atrial fibrillation Chronic hypoxemic respiratory failure Diastolic CHF Emphysema/COPD History of atrial fibrillation History of pneumothorax Hyperthyroidism Mass of lower lobe of left lung 2019 Noncompliance Paroxysmal atrial fibrillation Pulmonary hypertension PVD (peripheral vascular disease) Severe protein-calorie malnutrition Surgical History Surgical History H/O chest tube placement Family History Family History Mother Cancer Some type of your nose and throat cancer Other Asthma Family history of chronic obstructive pulmonary disease Lung cancer Social History Social History Social History: Patient lives with her granddaughter Smoking packs per day: 1 Smoking cigarettes per day: 20.0 Smoking status: Former smoker Substance use: never Spiritual care concerns: No Meds Home Medications and Allergies Home Medications Medication Instructions Recorded Confirmed Type albuterol sulfate 2.5 mg INHALATION Q4-6H PRN 30 03/27/21 02/01/22 Rx Days #180 ml metoprolol succinate 50 mg 50 mg PO QPM 30 Days #30 tablet 03/27/21 02/01/22 Rx tablet,extended release 24 hr budesonide-formoterol [Symbicort] 2 puff INHALATION DAILY 02/01/22 02/01/22 History cholecalciferol (vitamin D3) 25 mcg PO DAILY 02/01/22 02/01/22 History rosuvastatin 10 mg PO DAILY 02/01/22 02/01/22 History tiotropium bromide [Spiriva with 18 mcg INHALATION DAILY 02/01/22 02/01/22 History HandiHaler] Allergies Allergy/AdvReac Type Severity Reaction Status Date / Time No Known Allergies Allergy Verified 02/19/21 15:07 Vital Signs Vital Signs - 24 hr 02/17/22 13:57 02/17/22 14:27 02/17/22 21:10 Temperature 97.4 F L Pulse Rate 73 75 70 Respiratory Rate 20 20 19 Blood Pressure 109/51 L Pulse Oximetry 99 02/17/22 21:16 03
[2022-02-18] MEDS: POTASSIUM CHLORIDE 20 MEQ TABLET 40 MEQ PO (16:03)
--- NOTE | 2022-02-18 17:18 | P.PNIM_ITS ---
Progress Note: A&P Assessment and Plan (1) Acute and chronic respiratory failure ([id number]): Code(s): J96.20 - Acute and chronic respiratory failure, unspecified whether with hypoxia or hypercapnia Status: Acute Assessment and Plan: Acute respiratory failure likely related to bacterial pneumonia, COPD exacerbation, influenza a -on admission she had severe lactic acidosis, mottling noted from the feet to the chest, hypoxia, AFib RVR. Decision was made to intubate the patient. -patient was intubated on 02/01/2021 -extubated on 02/11/2021 -currently on 2 L nasal cannula with adequate O2 sats -continue bronchodilators and Pulmicort -patient has diuresing well in response to diuretics -speech sedated P to evaluate for bedside swallow test -have ordered PT/OT, increase activity, up in chair -encourage incentive spirometry Chest CT 02/01/2022: Multifocal pneumonia superimposed on chronic lung disease. The chronic lung disease in a combination of severe emphysema and upper lung predominant disease such as tuberculosis or histoplasmosis or sarcoid. (2) Septic shock: Code(s): A41.9 - Sepsis, unspecified organism; R65.21 - Severe sepsis with septic shock Status: Acute Assessment and Plan: RESOLVED Patient septic shock ON ADMISSION secondary to bacterial pneumonia, hypovolemia. -lactic levels have normalized to 1.7 ( peaked at 13.9 on admission) -OFF Chauncey-Synephrine and Levophed now -02/01: blood cultures are negative so far blood -02/01: Urine culture negative - 02/01: Sputum cultures are growing Moraxella catarrhalis and strep pneumonia - cefepime and vancomycin (initiated on 02/01) -> 02/05 switched to daily Rocephin for a total of 10 days. Finish the course of Rocephin 02/15/2022 - OFF stress dose steroids -off 25% albumin (3) PNA (pneumonia): Code(s): J18.9 - Pneumonia, unspecified organism Status: Acute Assessment and Plan: Could be related to bacterial and/or superimposed bacterial infection secondary to influenza A -sputum cultures as above, She has completed antibiotics course -patient received a full course of oseltamivir (4) Emphysema/COPD: Code(s): J43.9 - Emphysema, unspecified Status: Acute Assessment and Plan: Weaning prednisone, continue bronchodilators and supplemental oxygen (patient uses 2-3 L of oxygen via nasal cannula at home) Needs home oxygen evaluation at discharge (5) Influenza A: Code(s): J10.1 - Influenza due to other identified influenza virus with other respiratory manifestations Status: Acute Assessment and Plan: Patient was positive for influenza A in the ER on 02/01, status post oseltamivir -SARS-CoV-2 PCR was negative (6) Anemia: Code(s): D64.9 - Anemia, unspecified Status: Acute Assessment and Plan: Patient had a drop in her hemoglobin from 8.5 to 6.9 on 02/04. Patient had bowel movements with no blood in it and her residuals also did not show any evidence of blood. No hematoma seen on exam. Lovenox was held and patient was transfused 1 unit PRBC on 02/04 02/06 started Lovenox DVT prophylaxis dose and monitor 02/08 increased to therapeutic dose for history of AFib Continue PPI IV q.12 hours Coag panel reviewed Continue to monitor Hb Blood in stool noted 02/17/2022 will hold off Xarelto now. H&H is stable will continue to monitor. Suspect sinus rhythm but does have a history of atrial fibrillation in the past intermittently. Will help to evaluate with gastroenterology for risk stratification for ongoing need for anticoagulation. Will consult GI and
[2022-02-19] VITALS (15 sets, daily range): BP systolic 96–112; BP diastolic 32–48; PULSE 71–86; RESP 16–26; TEMP 36.3–37.4; O2SAT 96–100
[2022-02-19] MEDS: IPRATROPIUM BR 0.02% INH SOLN 0.5 MG/2.5 ML VIAL INHALATION ×4 (02:07→21:10)
[2022-02-19] MEDS: LEVALBUTEROL NEB 1.25 MG/3 ML 0.63 MG INHALATION ×4 (02:07→21:10)
[2022-02-19 06:09] LABS: Hematocrit 30.1 % (37.0-47.0); Hemoglobin 8.7 g/dL (12.0-15.0); Mean Corpuscular HGB Conc 28.9 g/dl (32-36); Mean Corpuscular Hemoglobin 26.7 pg (26-34); Mean Corpuscular Volume 92.3 fl (80-100); Mean Platelet Volume 9.7 fl (7.4-10.4); Platelet Count Result 271 k/mm3 (150-375); Red Blood Count 3.26 M/mm3 (4.2-5.4); Red Cell Distribution Width 15.6 % (11.5-14.5); White Blood Count 7.6 K/mm3 (4.5-10.0)
[2022-02-19 06:21] LABS: Anion Gap 3 mmol/L (8-16); Blood Urea Nitrogen 12 mg/dL (7-17); Calcium 7.9 mg/dL (8.4-10.2); Carbon Dioxide 34 mmol/L (22-30); Chloride 99 mmol/L (98-107); Estimated CRCL calculation 75 ml/min; Estimated Glomerular Filt Rate > 60; Glucose 94 mg/dL (65-110); Potassium 3.8 mmol/L (3.4-5.0); Sodium 136 mmol/L (137-145)
[2022-02-19] MEDS: BUDESONIDE RESPULE NEB 0.5 MG/2 ML AMP INHALATION ×2 (09:18→21:10)
[2022-02-19] MEDS: AMIODARONE HCL 200 MG TABLET 400 MG PO (09:44)
[2022-02-19] MEDS: PANTOPRAZOLE 40 MG TABLET PO (09:45)
[2022-02-19] MEDS: TOLNAFTATE 1% POWDER 45 GM BTL 1 APPLIC TOPICAL ×2 (09:45→20:08)
--- NOTE | 2022-02-19 11:49 | PCNFU ---
Nutrition Follow-Up Complete: Suboptimal po intake related to appetite as evidenced by pt report, low body weight, and charted intake - noted was previously ventilated, NPO, then Tube feed. Goal:Meet estimated nutritional needs Pt is progressing towards goal, via PO intake Pt current nutrition is Regular. Supplemented with Ensure compact BID and frozen nutritional treat BID Nutrition recommendation: Continue with current plan of care Last recorded weight is 41.1 kg - noted a 3kg loss Bowel Motility:+BM 02/18 Labs Reviewed: Meds Noted: Skin: bruising noted Additional Notes: Pt reports improved appetite the past 2 days with increased intake of meals. Meal intake charted at 40,80,20,80%. Pt stated she did drink the Ensure compact yesterday, encouraged her to continue to consume, plus to try the nutritional frozen treat. RD to monitor and follow up in 5 days. Monitor intake, wt, labs.
--- NOTE | 2022-02-19 12:21 | WPDGIPROGNO ---
Progress Note: A&P Assessment and Plan (1) Rectal bleeding: Code(s): K62.5 - Hemorrhage of anus and rectum Status: Acute Assessment and Plan: Rectal bleeding does not appear to persists. Is possible the bleeding potentially could have been from urine admixed with stool. Given stable hemoglobin would monitor conservatively at this point. Patient is not stable enough for any invasive procedures. Continue to monitor hemoglobin. Will follow with you. (2) Gross hematuria: Code(s): R31.0 - Gross hematuria Status: Acute (3) Anticoagulation adequate: Code(s): Z79.01 - long-term (current) use of anticoagulants Status: Acute Assessment and Plan: Given recent bleeding. Anticoagulation should be held. (4) Paroxysmal atrial fibrillation: Code(s): I48.0 - Paroxysmal atrial fibrillation Status: Acute (5) Emphysema/COPD: Code(s): J43.9 - Emphysema, unspecified Status: Acute (6) Acute and chronic respiratory failure ([id number]): Code(s): J96.20 - Acute and chronic respiratory failure, unspecified whether with hypoxia or hypercapnia Status: Acute Subjective Date/time seen: 02/19/22 12:22 Patient alert. Remain short of breath at rest. Denies any significant additional bleeding. Denies abdominal pain. Also noted to have blood in urine recently. Review of Systems Review of Systems: All systems reviewed & are unremarkable except as noted in HPI and below Exam Narrative: Physical exam reveals patient to be stable. Vital signs stable. HEENT exam patient remains on supplemental oxygen. Short of breath at rest. Lungs reveal bilateral rhonchi. Heart without murmur. Abdomen bowel sounds present soft and nontender. No organomegaly evident. Objective Data Vital Signs Vital Signs: Vital Signs - 24 hr 02/18/22 13:26 02/18/22 13:34 02/18/22 14:00 Temperature 97.7 F Pulse Rate 66 69 93 Respiratory Rate 18 18 18 Blood Pressure 115/46 L Pulse Oximetry 95 02/18/22 20:00 02/18/22 21:01 02/18/22 21:02 Temperature Pulse Rate 79 Respiratory Rate 16 Blood Pressure Pulse Oximetry 95 100 02/18/22 21:10 02/18/22 22:00 02/19/22 02:09 Temperature 97.8 F Pulse Rate 81 74 77 Respiratory Rate 16 30 H 16 Blood Pressure 102/32 L Pulse Oximetry 100 02/19/22 02:16 02/19/22 06:00 02/19/22 08:45 Temperature 97.6 F Pulse Rate 75 78 80 Respiratory Rate 16 26 H Blood Pressure 103/32 L 112/41 L Pulse Oximetry 97 99 02/19/22 09:18 02/19/22 09:22 02/19/22 09:26 Temperature Pulse Rate 80 79 Respiratory Rate 16 16 Blood Pressure Pulse Oximetry 96 02/19/22 09:44 Temperature Pulse Rate 80 Respiratory Rate Blood Pressure Pulse Oximetry Intake/Output Intake/Output: Intake & Output 02/16/22 02/17/22 02/18/22 02/19/22 23:59 23:59 23:59 23:59 Intake Total 766 999 0223 236 Output Total 1 Balance 069 383 2069 236 Meds/Results Medications: Active Medications Generic Name Dose Route Start Last Admin Trade Name Freq PRN Reason Stop Dose Admin Acetaminophen 650 mg 02/09/22 10:07 02/17/22 11:00 Acetaminophen 325 Mg Tablet PO 650 mg Q6H PRN Administration Mild Pain (1-3) or Fever Alprazolam 0.5 mg 02/12/22 08:29 Alprazolam (*Crx) 0.5 Mg Tablet PO TID PRN Anxiety Amiodarone HCl 400 mg 02/03/22 10:00 02/19/22 09:44 Amiodarone Hcl 200 Mg Tablet PO 400 mg DAILY@0800 DAREK Administration Budesonide 0.5 mg 02/01/22 10:05 02/19/22 09:18 Budesonide Respule Neb 0.5 Mg/2 Ml Amp INHALATION 0.5 mg Q12HRT DAREK Administration Dextrose 12.5 gm 02/01/22 08:54 Dextrose 50% 25 Gm/50 Ml Syringe IV PUSH PRN PRN Hypoglycemia Protocol Glucagon 1 mg 02/01/22 08:54 Glucagon For Inj 1 Mg Vial IM PRN PRN Hypoglycemia Protocol Glucose 15 gm 02/01/22 08:54 Glucose Oral Gel 15 Gm Of Glucse
[2022-02-19] MEDS: PHENAZOPYRIDINE HCL 100 MG TABLET 200 MG PO (21:28)
[2022-02-20] VITALS (15 sets, daily range): BP systolic 94–110; BP diastolic 36–46; PULSE 71–87; RESP 14–26; TEMP 36.5–37.5; O2SAT 94–100
[2022-02-20] MEDS: LEVALBUTEROL NEB 1.25 MG/3 ML 0.63 MG INHALATION ×4 (02:28→20:05)
[2022-02-20] MEDS: IPRATROPIUM BR 0.02% INH SOLN 0.5 MG/2.5 ML VIAL INHALATION ×4 (02:29→20:05)
[2022-02-20 06:02] LABS: Hematocrit 29.6 % (37.0-47.0); Hemoglobin 8.5 g/dL (12.0-15.0); Mean Corpuscular HGB Conc 28.7 g/dl (32-36); Mean Corpuscular Hemoglobin 26.4 pg (26-34); Mean Corpuscular Volume 91.9 fl (80-100); Platelet Count Result 228 k/mm3 (150-375); Red Blood Count 3.22 M/mm3 (4.2-5.4); Red Cell Distribution Width 15.3 % (11.5-14.5); White Blood Count 8.4 K/mm3 (4.5-10.0)
[2022-02-20 06:16] LABS: Anion Gap 1 mmol/L (8-16); Blood Urea Nitrogen 11 mg/dL (7-17); Calcium 7.9 mg/dL (8.4-10.2); Carbon Dioxide 37 mmol/L (22-30); Chloride 97 mmol/L (98-107); Estimated CRCL calculation 87 ml/min; Estimated Glomerular Filt Rate > 60; Glucose 100 mg/dL (65-110); Potassium 3.9 mmol/L (3.4-5.0); Sodium 135 mmol/L (137-145)
[2022-02-20] MEDS: BUDESONIDE RESPULE NEB 0.5 MG/2 ML AMP INHALATION ×2 (07:47→20:05)
--- NOTE | 2022-02-20 07:52 | WPDCN ---
Assessment and Plan Assessment and plan (1) Abnormal endometrial ultrasound: Code(s): R93.5 - Abnormal findings on diagnostic imaging of other abdominal regions, including retroperitoneum Status: Acute Assessment and Plan: Have discussed with patient that findings on the CT scan were concerning for an endometrial cancer or other hyperplastic problem. Further delineation of the endometrial cavity by ultrasound reveals a much less concerning picture as the tissue is normal and she does have endometrial fluid. Endometrial fluid is frequently seen in patients with stenotic cervix and in of itself is not a significant concern regarding any type of endometrial abnormality. I have discussed with the patient that she should have follow-up certainly in light of the fact that she has not had any significant gynecologic evaluation in years. But currently in the absence of any significant bleeding endometrial thickness of 4mm very unlikely any significant tissue abnormality is present. HPI Data of Consult Date/Time: 02/20/22 07:52 71-year-old female admitted with multiple medical problems. As part of her workup CT scan was performed of the abdomen and pelvis which showed thickened endometrial cavity concerning for endometrial cancer. Follow-up ultrasound revealed more specifically that she has a normal amount of tissue endometrial cavity with a small amount of endometrial fluid. Patient is not a great historian but does not relate any significant vaginal bleeding or pelvic pain related specifically to a gynecologic source. Also no history of any significant gynecologic problems and she has had 5 normal term vaginal deliveries. Requesting Physician: Truman Warner MD Primary Care Provider: Ruddy Reynoso, PA Consult Narrative Narrative: Meme Almanzar is a 71 year old female [facility] Past Medical History Medical History Anemia of chronic disease Chronic atrial fibrillation Chronic hypoxemic respiratory failure Diastolic CHF Emphysema/COPD History of atrial fibrillation History of pneumothorax Hyperthyroidism Mass of lower lobe of left lung 2019 Noncompliance Paroxysmal atrial fibrillation Pulmonary hypertension PVD (peripheral vascular disease) Severe protein-calorie malnutrition Surgical History Surgical History H/O chest tube placement Family History Family History Mother Cancer Some type of your nose and throat cancer Other Asthma Family history of chronic obstructive pulmonary disease Lung cancer Social History Social History Social History: Patient lives with her granddaughter Smoking packs per day: 1 Smoking cigarettes per day: 20.0 Smoking status: Former smoker Substance use: never Spiritual care concerns: No Meds Home Medications and Allergies Home Medications Medication Instructions Recorded Confirmed Type albuterol sulfate 2.5 mg INHALATION Q4-6H PRN 30 03/27/21 02/01/22 Rx Days #180 ml metoprolol succinate 50 mg 50 mg PO QPM 30 Days #30 tablet 03/27/21 02/01/22 Rx tablet,extended release 24 hr budesonide-formoterol [Symbicort] 2 puff INHALATION DAILY 02/01/22 02/01/22 History cholecalciferol (vitamin D3) 25 mcg PO DAILY 02/01/22 02/01/22 History rosuvastatin 10 mg PO DAILY 02/01/22 02/01/22 History tiotropium bromide [Spiriva with 18 mcg INHALATION DAILY 02/01/22 02/01/22 History HandiHaler] Allergies Allergy/AdvReac Type Severity Reaction Status Date / Time No Known Allergies Allergy Verified 02/19/21 15:07 Vital Signs Vital Signs - 24 hr 02/19/22 08:45 02/19/22 09:18 02/19/22 09:22 Temperature Pulse Rate 80 80 Respiratory Rate 16 Blood Pressure 112/41 L Pulse Oximetry 99 96
[2022-02-20] MEDS: AMIODARONE HCL 200 MG TABLET 400 MG PO (08:12)
[2022-02-20] MEDS: PANTOPRAZOLE 40 MG TABLET PO (08:12)
[2022-02-20] MEDS: TOLNAFTATE 1% POWDER 45 GM BTL 1 APPLIC TOPICAL ×2 (08:13→20:10)
--- NOTE | 2022-02-20 10:16 | PCOTNOTE ---
Attempted to see patient at this time, however patient gone for testing.
--- NOTE | 2022-02-20 12:03 | WPDGIPROGNO ---
Progress Note: A&P Assessment and Plan (1) Rectal bleeding: Code(s): K62.5 - Hemorrhage of anus and rectum Status: Acute Assessment and Plan: Rectal bleeding noted while on anticoagulation has diminished. Hemoglobin has remained stable at this point. Given her profound respiratory difficulties further investigation with endoscopy is not indicated at this time. History is consistent with possible hemorrhoids although other lesions cannot be excluded. Would recommend conservative therapy at this point. Consider colonoscopy only if respiratory status improves in the future this can be performed electively as outpatient. (2) Anemia: Code(s): D64.9 - Anemia, unspecified Status: Acute (3) Paroxysmal atrial fibrillation: Code(s): I48.0 - Paroxysmal atrial fibrillation Status: Acute Assessment and Plan: Given patient's hematuria as well as rectal bleeding anticoagulation should be reconsidered in held if at all possible. (4) Emphysema/COPD: Code(s): J43.9 - Emphysema, unspecified Status: Acute Subjective Date/time seen: 02/20/22 12:03 Patient remains somewhat short of breath. She denies any significant additional rectal bleeding. Tolerating diet. Exam Narrative: Physical exam patient is alert somewhat short of breath at rest. Supplemental oxygen in place. HEENT exam reveals no icterus. Lungs reveal scattered rhonchi. Heart without murmur. Abdomen soft nontender with no organomegaly. Objective Data Vital Signs Vital Signs: Vital Signs - 24 hr 02/19/22 13:26 02/19/22 13:36 02/19/22 14:02 Temperature 97.4 F L Pulse Rate 71 78 78 Respiratory Rate 16 16 16 Blood Pressure 96/37 L Pulse Oximetry 96 02/19/22 19:56 02/19/22 20:59 02/19/22 21:11 Temperature 99.3 F Pulse Rate 81 84 Respiratory Rate 16 18 Blood Pressure 100/48 L Pulse Oximetry 96 96 100 02/19/22 21:23 02/20/22 02:25 02/20/22 02:35 Temperature Pulse Rate 86 82 81 Respiratory Rate 16 16 16 Blood Pressure Pulse Oximetry 02/20/22 05:29 02/20/22 07:45 02/20/22 07:50 Temperature 99.5 F Pulse Rate 87 75 Respiratory Rate 14 17 Blood Pressure 98/45 L Pulse Oximetry 94 99 02/20/22 07:53 02/20/22 08:05 02/20/22 08:12 Temperature Pulse Rate 78 80 Respiratory Rate 16 Blood Pressure Pulse Oximetry 98 Intake/Output Intake/Output: Intake & Output 02/17/22 02/18/22 02/19/22 02/20/22 23:59 23:59 23:59 23:59 Intake Total 950 1468 556 120 Output Total 1 200 Balance 950 1467 556 -80 Meds/Results Medications: Active Medications Generic Name Dose Route Start Last Admin Trade Name Freq PRN Reason Stop Dose Admin Acetaminophen 650 mg 02/09/22 10:07 02/17/22 11:00 Acetaminophen 325 Mg Tablet PO 650 mg Q6H PRN Administration Mild Pain (1-3) or Fever Alprazolam 0.5 mg 02/12/22 08:29 Alprazolam (*Crx) 0.5 Mg Tablet PO TID PRN Anxiety Amiodarone HCl 400 mg 02/03/22 10:00 02/20/22 08:12 Amiodarone Hcl 200 Mg Tablet PO 400 mg DAILY@0800 DAREK Administration Budesonide 0.5 mg 02/01/22 10:05 02/20/22 07:47 Budesonide Respule Neb 0.5 Mg/2 Ml Amp INHALATION 0.5 mg Q12HRT DAREK Administration Dextrose 12.5 gm 02/01/22 08:54 Dextrose 50% 25 Gm/50 Ml Syringe IV PUSH PRN PRN Hypoglycemia Protocol Glucagon 1 mg 02/01/22 08:54 Glucagon For Inj 1 Mg Vial IM PRN PRN Hypoglycemia Protocol Glucose 15 gm 02/01/22 08:54 Glucose Oral Gel 15 Gm Of Glucse In 37.5 Gm Tube PO PRN PRN Hypoglycemia Protocol Guaifenesin/Dextromethorphan 10 ml 02/12/22 13:04 02/12/22 17:54 Guaifenesin/Dextromethorphan 10 Ml Udc PO 10 ml Q4H PRN Administration Cough Hydralazine HCl 20 mg 02/08/22 07:39 Hydralazine Hcl 20 Mg/Ml Vial IV PUSH Q4H PRN SBP > 160 Dextrose 1,000 mls @ 100 mls/hr 02/01/22 08:54 Dextrose 5% 1,000 M
[2022-02-21] VITALS (16 sets, daily range): BP systolic 99–106; BP diastolic 37–39; PULSE 73–91; RESP 16–24; TEMP 36.3–37.9; O2SAT 94–100
[2022-02-21] MEDS: IPRATROPIUM BR 0.02% INH SOLN 0.5 MG/2.5 ML VIAL INHALATION ×4 (02:19→20:02)
[2022-02-21] MEDS: LEVALBUTEROL NEB 1.25 MG/3 ML 0.63 MG INHALATION ×4 (02:19→20:02)
[2022-02-21 06:51] LABS: Hematocrit 29.3 % (37.0-47.0); Hemoglobin 8.4 g/dL (12.0-15.0); Mean Corpuscular HGB Conc 28.7 g/dl (32-36); Mean Corpuscular Hemoglobin 26.3 pg (26-34); Mean Corpuscular Volume 91.6 fl (80-100); Mean Platelet Volume 9.9 fl (7.4-10.4); Platelet Count Result 193 k/mm3 (150-375); Red Cell Distribution Width 15.2 % (11.5-14.5); White Blood Count 7.8 K/mm3 (4.5-10.0)
[2022-02-21 07:08] LABS: Anion Gap 3 mmol/L (8-16); Blood Urea Nitrogen 10 mg/dL (7-17); Calcium 7.8 mg/dL (8.4-10.2); Carbon Dioxide 32 mmol/L (22-30); Chloride 97 mmol/L (98-107); Estimated CRCL calculation 85 ml/min; Estimated Glomerular Filt Rate > 60; Glucose 88 mg/dL (65-110); Potassium 3.6 mmol/L (3.4-5.0); Sodium 132 mmol/L (137-145)
[2022-02-21] MEDS: PANTOPRAZOLE 40 MG TABLET PO (08:24)
[2022-02-21] MEDS: AMIODARONE HCL 200 MG TABLET 400 MG PO (08:24)
[2022-02-21] MEDS: TOLNAFTATE 1% POWDER 45 GM BTL 1 APPLIC TOPICAL ×2 (08:25→20:09)
[2022-02-21] MEDS: BUDESONIDE RESPULE NEB 0.5 MG/2 ML AMP INHALATION ×2 (08:47→20:02)
--- NOTE | 2022-02-21 14:42 | WPDUROPN2 ---
Progress Note: A&P Assessment and Plan (1) Gross hematuria: Code(s): R31.0 - Gross hematuria Status: Acute Assessment and Plan: I spoke to patient that hematuria and bladder mass workups are outpatient, and with her being on blood thinners, taking her this weekend for cystoscopy possible TURBT would not be feasible. She is also very deconditioned, and would adequate pre-operative clearance and evaluation for an elective case. I explained to the patient the importance of Urologic follow up. I explained that without following up, she may have a malignancy that progresses and affects her life quality and quantity. To ensure adequate understanding, I had her repeat back to me why follow up was important, and she appears to have a good grasp on the need to keep outpatient urologic follow up. No further inpatient urologic interventions planned at this time -- outpatient follow up already in motion by our CROZER who performed the initial consultation, but patient also understands the need to ensure this follow up happens. (2) Bladder mass: Code(s): N32.89 - Other specified disorders of bladder Status: Acute Assessment and Plan: See 'R31.0' Hematuria plan Subjective Subjective Date/Time Seen: 02/21/22 14:42 Patient already seen by Urology team for her hematuria. Urology called to assist with dispo planning. Her 02/18/[address] AP shows some anterior bladder thickening, concerning for potential malignancy -- also with some concerning endometrial thickening. Urology asked to assist with dispo planning given the CT findings. Review of Systems Review of Systems: All systems reviewed & are unremarkable except as noted in HPI and below Exam Const: General: cooperative Nutritional Appearance: malnourished Orientation/consciousness: oriented to person, oriented to place and oriented to time HENMT: Head: normal to inspection Eyes: General: appearance normal, both eyes and all related structures Resp: Effort & Inspection: labored Neuro: General: oriented to person, oriented to place and oriented to time Objective Data Vital Signs Vital Signs: Vital Signs - 24 hr 02/20/22 20:00 02/20/22 20:07 02/20/22 20:25 Temperature Pulse Rate 78 76 Respiratory Rate 16 16 Blood Pressure Pulse Oximetry 98 98 02/20/22 22:00 02/21/22 02:18 02/21/22 06:00 Temperature 36.6 C 36.3 C L Pulse Rate 77 73 73 Respiratory Rate 26 H 16 18 Blood Pressure 94/36 L 99/39 L Pulse Oximetry 100 97 02/21/22 08:00 02/21/22 08:24 02/21/22 08:48 Temperature Pulse Rate 79 78 83 Respiratory Rate 16 16 Blood Pressure Pulse Oximetry 94 02/21/22 08:50 02/21/22 08:59 02/21/22 13:59 Temperature Pulse Rate 79 80 Respiratory Rate 16 16 Blood Pressure Pulse Oximetry 94 02/21/22 14:00 02/21/22 14:10 Temperature 36.4 C Pulse Rate 91 82 Respiratory Rate 22 H 16 Blood Pressure 103/39 L Pulse Oximetry 99 Intake/Output Intake/Output: Intake & Output 02/18/22 02/19/22 02/20/22 02/21/22 23:59 23:59 23:59 23:59 Intake Total 2117 909 6153 760 Output Total 1 200 300 Balance 1467 556 910 460 Meds/Results Medications: Active Medications Generic Name Dose Route Start Last Admin Trade Name Freq PRN Reason Stop Dose Admin Acetaminophen 650 mg 02/09/22 10:07 02/17/22 11:00 Acetaminophen 325 Mg Tablet PO 650 mg Q6H PRN Administration Mild Pain (1-3) or Fever Alprazolam 0.5 mg 02/12/22 08:29 Alprazolam (*Crx) 0.5 Mg Tablet PO TID PRN Anxiety Amiodarone HCl 400 mg 02/03/22 10:00 02/21/22 08:24 Amiodarone Hcl 200 Mg Tablet PO 400 mg DAILY@0800 DAREK Administration Budesonide 0.5 mg 02/01/22 10:05 02/21/22 08:47 Budesonide Respule Neb 0.5 Mg/2 Ml Amp INHALATION 0.5 mg Q12HRT DAREK Administration Dextrose 12.5 gm 02/01/22 08:54 Dextrose 50% 25 Gm/50 Ml Syringe IV PUSH PRN PRN Hypoglycemia Prot
[2022-02-21] MEDS: ACETAMINOPHEN 325 MG TABLET 650 MG PO (21:14)
[2022-02-22] VITALS (13 sets, daily range): BP systolic 83–103; BP diastolic 33–41; PULSE 72–100; RESP 16–24; TEMP 36.4–36.6; O2SAT 94–100
[2022-02-22] MEDS: IPRATROPIUM BR 0.02% INH SOLN 0.5 MG/2.5 ML VIAL INHALATION ×4 (02:05→20:07)
[2022-02-22] MEDS: LEVALBUTEROL NEB 1.25 MG/3 ML 0.63 MG INHALATION ×4 (02:05→20:07)
[2022-02-22 05:34] LABS: Hematocrit 26.7 % (37.0-47.0); Hemoglobin 7.9 g/dL (12.0-15.0); Mean Corpuscular HGB Conc 29.6 g/dl (32-36); Mean Corpuscular Hemoglobin 26.4 pg (26-34); Mean Corpuscular Volume 89.3 fl (80-100); Mean Platelet Volume 10.3 fl (7.4-10.4); Platelet Count Result 216 k/mm3 (150-375); Red Blood Count 2.99 M/mm3 (4.2-5.4); Red Cell Distribution Width 15.2 % (11.5-14.5); White Blood Count 7.1 K/mm3 (4.5-10.0)
[2022-02-22 05:46] LABS: Anion Gap 1 mmol/L (8-16); Blood Urea Nitrogen 14 mg/dL (7-17); Carbon Dioxide 35 mmol/L (22-30); Chloride 98 mmol/L (98-107); Estimated CRCL calculation 66 ml/min; Estimated Glomerular Filt Rate > 60; Glucose 96 mg/dL (65-110); Potassium 3.5 mmol/L (3.4-5.0); Sodium 134 mmol/L (137-145)
[2022-02-22] MEDS: BUDESONIDE RESPULE NEB 0.5 MG/2 ML AMP INHALATION ×2 (08:10→20:06)
--- NOTE | 2022-02-22 08:30 | PCPTNOTE ---
Attempted therapy session, Pt eating breakfast. She requested therapy come back in a little bit. Will attempt again.
[2022-02-22] MEDS: TOLNAFTATE 1% POWDER 45 GM BTL 1 APPLIC TOPICAL ×2 (08:50→23:33)
[2022-02-22] MEDS: POTASSIUM CHLORIDE 20 MEQ TABLET 40 MEQ PO (08:50)
[2022-02-22] MEDS: AMIODARONE HCL 200 MG TABLET 400 MG PO (08:50)
[2022-02-22] MEDS: PANTOPRAZOLE 40 MG TABLET PO (08:50)
[2022-02-22] MEDS: NEOMYCIN/POLYMYXIN/BACITRACIN OINTMENT PACKET 1 PACKET (08:51)
[2022-02-22] MEDS: ACETAMINOPHEN 325 MG TABLET 650 MG PO (17:33)
[2022-02-23] VITALS (8 sets, daily range): BP systolic 101–110; BP diastolic 35–44; PULSE 75–90; RESP 16–30; TEMP 36.6–36.7; O2SAT 96–100
[2022-02-23] MEDS: LEVALBUTEROL NEB 1.25 MG/3 ML 0.63 MG INHALATION ×2 (02:00→13:55)
[2022-02-23] MEDS: IPRATROPIUM BR 0.02% INH SOLN 0.5 MG/2.5 ML VIAL INHALATION ×2 (02:00→13:55)
[2022-02-23 06:07] LABS: Anion Gap 2 mmol/L (8-16); Blood Urea Nitrogen 13 mg/dL (7-17); Carbon Dioxide 34 mmol/L (22-30); Chloride 99 mmol/L (98-107); Estimated CRCL calculation 85 ml/min; Estimated Glomerular Filt Rate > 60; Glucose 87 mg/dL (65-110); Magnesium 1.7 mg/dL (1.6-2.3); Potassium 4.4 mmol/L (3.4-5.0); Sodium 135 mmol/L (137-145)
[2022-02-23 06:08] LABS: Hemoglobin 7.8 g/dL (12.0-15.0); Mean Corpuscular Hemoglobin 26.5 pg (26-34); Mean Corpuscular Volume 88.4 fl (80-100); Mean Platelet Volume 10.2 fl (7.4-10.4); Platelet Count Result 246 k/mm3 (150-375); Red Blood Count 2.94 M/mm3 (4.2-5.4); White Blood Count 8.9 K/mm3 (4.5-10.0)
[2022-02-23] MEDS: PANTOPRAZOLE 40 MG TABLET PO (08:15)
[2022-02-23] MEDS: AMIODARONE HCL 200 MG TABLET 400 MG PO (08:15)
[2022-02-23] MEDS: TOLNAFTATE 1% POWDER 45 GM BTL 1 APPLIC TOPICAL (08:16)
--- NOTE | 2022-02-23 15:03 | PM.DS ---
DS: Admitting Diagnosis Discharge Date 02/23/2022 Admitting Diagnosis shortness of breath DS: Discharge Diagnosis Discharge Diagnosis (1) Acute and chronic respiratory failure ([id number]): Code(s): J96.20 - Acute and chronic respiratory failure, unspecified whether with hypoxia or hypercapnia Status: Acute Assessment and Plan: Acute respiratory failure likely related to bacterial pneumonia, COPD exacerbation, influenza a -on admission she had severe lactic acidosis, mottling noted from the feet to the chest, hypoxia, AFib RVR. Decision was made to intubate the patient. -patient was intubated on 02/01/2021 -extubated on 02/11/2021 -currently on 2 L nasal cannula with adequate O2 sats -continue bronchodilators and Pulmicort -patient has diuresing well in response to diuretics -speech sedated P to evaluate for bedside swallow test -have ordered PT/OT, increase activity, up in chair -encourage incentive spirometry Chest CT 02/01/2022: Multifocal pneumonia superimposed on chronic lung disease. The chronic lung disease in a combination of severe emphysema and upper lung predominant disease such as tuberculosis or histoplasmosis or sarcoid. (2) Septic shock: Code(s): A41.9 - Sepsis, unspecified organism; R65.21 - Severe sepsis with septic shock Status: Acute Assessment and Plan: RESOLVED Patient septic shock ON ADMISSION secondary to bacterial pneumonia, hypovolemia. -lactic levels have normalized to 1.7 ( peaked at 13.9 on admission) -OFF Chauncey-Synephrine and Levophed now -02/01: blood cultures are negative so far blood -02/01: Urine culture negative - 02/01: Sputum cultures are growing Moraxella catarrhalis and strep pneumonia - cefepime and vancomycin (initiated on 02/01) -> 02/05 switched to daily Rocephin for a total of 10 days. Finish the course of Rocephin 02/15/2022 - OFF stress dose steroids -off 25% albumin (3) PNA (pneumonia): Code(s): J18.9 - Pneumonia, unspecified organism Status: Acute Assessment and Plan: Could be related to bacterial and/or superimposed bacterial infection secondary to influenza A -sputum cultures as above, She has completed antibiotics course -patient received a full course of oseltamivir (4) Emphysema/COPD: Code(s): J43.9 - Emphysema, unspecified Status: Acute Assessment and Plan: Weaning prednisone, continue bronchodilators and supplemental oxygen (patient uses 2-3 L of oxygen via nasal cannula at home) Needs home oxygen evaluation at discharge (5) Influenza A: Code(s): J10.1 - Influenza due to other identified influenza virus with other respiratory manifestations Status: Acute Assessment and Plan: Patient was positive for influenza A in the ER on 02/01, status post oseltamivir -SARS-CoV-2 PCR was negative (6) Anemia: Code(s): D64.9 - Anemia, unspecified Status: Acute Assessment and Plan: Patient had a drop in her hemoglobin from 8.5 to 6.9 on 02/04. Patient had bowel movements with no blood in it and her residuals also did not show any evidence of blood. No hematoma seen on exam. Lovenox was held and patient was transfused 1 unit PRBC on 02/04 02/06 started Lovenox DVT prophylaxis dose and monitor 02/08 increased to therapeutic dose for history of AFib Continue PPI IV q.12 hours Coag panel reviewed Continue to monitor Hb Blood in stool noted 02/17/2022 will hold off Xarelto now. H&H is stable will continue to monitor. Suspect sinus rhythm but does have a history of atrial fibrillation in the past intermittently. Will help to evaluate with gastroenterology for risk stratification for ongoing need for anticoagulation. Will consult GI and continue PPI. (7) LUCINDA (acute kidney injury): Code(s): N17.9 - Acute kidney failure, unspecified Status: Acute Assessment and Plan: Patient with acute kidney injury likely related to hypoxia and hypotension/hypovolemia.
[2022-02-23 16:13] LABS: EDCOVIDSCREEN Negative (Negative)
== END 2022-02-23 16:45 | DRG 870 ==
LOC: ANHED 06:20 → ANHICU 06:26 → ANH3MEDSUR 02-13 15:49
PROVIDERS: Internal Medicine; Admitting Provider Hospitalist; Emergency Provider Emergency Medicine; PCP Physician Assistant; Visit Provider Family Medicine
DX: A41.9 Sepsis, unspecified organism (principal); R65.21 Severe sepsis with septic shock; J96.01 Acute respiratory failure with hypoxia; E43 Unspecified severe protein-calorie malnutrition; J10.08 Influenza due to other identified influenza virus with other specified pneumonia; J15.9 Unspecified bacterial pneumonia; I48.20 Chronic atrial fibrillation, unspecified; I50.32 Chronic diastolic (congestive) heart failure; J96.10 Chronic respiratory failure, unspecified whether with hypoxia or hypercapnia; Z68.1 Body mass index [BMI] 19.9 or less, adult; E87.2 Acidosis; N17.9 Acute kidney failure, unspecified; I24.8 Other forms of acute ischemic heart disease; K62.5 Hemorrhage of anus and rectum; Z20.822 Contact with and (suspected) exposure to COVID-19; I48.91 Unspecified atrial fibrillation; Z99.81 Dependence on supplemental oxygen; D63.8 Anemia in other chronic diseases classified elsewhere; J43.9 Emphysema, unspecified; I27.20 Pulmonary hypertension, unspecified; Z87.891 Personal history of nicotine dependence; R77.8 Other specified abnormalities of plasma proteins; E05.90 Thyrotoxicosis, unspecified without thyrotoxic crisis or storm; I73.9 Peripheral vascular disease, unspecified; Z79.01 Long term (current) use of anticoagulants; Z91.14 Patient's other noncompliance with medication regimen; Z66 Do not resuscitate; E86.1 Hypovolemia; I27.81 Cor pulmonale (chronic); E87.6 Hypokalemia; R19.7 Diarrhea, unspecified; E87.8 Other disorders of electrolyte and fluid balance, not elsewhere classified; I48.0 Paroxysmal atrial fibrillation; R31.0 Gross hematuria; N32.89 Other specified disorders of bladder
CPT/HCPCS: 36415; 36430; 36556; 36600; 51701; 70450; 71045; 71250; 74018; 74019; 74178; 76775; 76830; 80048; 80053; 80202; 81001; 82274; 82375; 82436; 82550; 82570; 82805; 82948; 83050; 83605; 83735; 83880; 84100; 84132; 84133; 84300; 84439; 84443; 84481; 84484; 85025; 85027; 85384; 85610; 85730; 85999; 86140; 86850; 86900; 86901; 86920; 87040; 87070; 87077; 87086; 87088; 87185; 87186; 87205; 87426; 87493; 87502; 92610; 92611; 93005; 93306; 93970; 94002; 94003; 94640; 96361; 96365; 96366; 96367; 96375; 97110; 97162; 97166; 97530; 97535; 99291; A9270; C1751; C9113; C9803; J0282; J0610; J0692; J0696; J1650; J1720; J1815; J1940; J2060; J2250; J2370; J2405; J2920; J2930; J3010; J3370; J3475; J3480; J7030; J7040; J7050; J7060; J7120; J7512; P9016; P9047; Q9967; U0003; U0005

== ENCOUNTER 2022-08-31 21:25 | Inpatient (IN) | payer MEDICARE, MEDICAID, SELFPAY ==
[2022-08-31] VITALS (7 sets, daily range): PULSE 85–114; RESP 16–30; TEMP 36.9; O2SAT 91–100
--- NOTE | ~2022-08-31 | CT_ITS ---
EXAMINATION: CT diagnostic chest wo con DATE: 09/09/2022 20:19 INDICATION: increasing oxygen requirements TECHNIQUE: Computed tomography (CT) of the chest was performed without intravenous contrast. Automate d exposure control and iterative reconstruction technique were employed. The dose-length product was 123.10 mGy-cm. COMPARISON: 09/01/2022. FINDINGS: CHEST: Thoracic aorta: Mild arch calcification and ectasia. Lung parenchyma and airways: Significantly increased right lower lobe consolidation with air bronchog supriya, without significant volume loss. Mildly increased perihilar reticular and groundglass opacities . Unchanged underlying severe chronic emphysematous change with multiple peripheral bullae, septal th ickening, and architectural distortion. Thoracic inlet, axillae and chest wall: No thyroid or soft tissue mass. No axillary lymphadenopathy. Mediastinum: No mass or lymphadenopathy. Dilated central pulmonary arteries as can be seen with pulmo nary arterial hypertension Heart and pericardium: Dilated right heart. No pericardial effusion. Coronary artery calcifications: Mild. Pleura: Trace bilateral pleural fluid. Upper abdomen: No significant finding. Thoracic bones: No acute osseous finding in the chest. IMPRESSION: Worsening consolidation involving the majority of the right lower lobe, concerning for worsening pneu monia. A component of worsening edema is also likely present. Reviewed, dictated and finalized at location K. IMPRESSION: Worsening consolidation involving the majority of the right lower lobe, concern ing for worsening pneumonia. A component of worsening edema is also likely pres ent.
--- NOTE | ~2022-08-31 | US_ITS ---
EXAMINATION: US abdomen limited DATE: 09/01/2022 12:14 INDICATION: Abnormal liver function tests. TECHNIQUE: Multiple grayscale and Doppler ultrasound images of the abdomen were obtained. COMPARISON: CT abdomen and pelvis 02/18/2022, chest CT 09/01/2022 FINDINGS: The visualized portions of the head and body of the pancreas are normal. The liver is maliha l without focal lesion. There is normal flow in main portal vein. The gallbladder is absent. The comm on duct is normal and measures 2 mm. IMPRESSION: 1. Normal right upper quadrant ultrasound status post cholecystectomy. Reviewed, dictated and finalized at location A.
--- NOTE | ~2022-08-31 | XR_ITS ---
XR chest 1V portable 09/04/2022 09:02 Indication: Hypoxia. Procedure: AP portable chest Comparison: Comparison to multiple prior studies sequentially, with oldest reviewed study dated 02/09. Findings: There is severe emphysema. Small right pleural effusion. There is biapical pleural capping. There are airspace opacities of the right lower lung which are not significantly changed from prior examination dated 08/31/2022 For technique. There is bilateral scarring in the upper lobes. There is improved left basilar airspac e disease. Prominent right peritracheal soft tissue, likely fibrosis/scarring. Impression: 1: Improving left basilar and stable right basilar airspace disease which likely represents pneumonia superimposed on chronic emphysema and interstitial fibrosis. Reviewed, dictated and finalized at location A. Impression: 1: Improving left basilar and stable right basilar airspace disease which likel y represents pneumonia superimposed on chronic emphysema and interstitial fibro sis.
--- NOTE | ~2022-08-31 | XR_ITS ---
EXAMINATION: XR chest 1V portable DATE: 09/07/2022 05:44 INDICATION: Pneumonia TECHNIQUE: frontal view of the chest was obtained. COMPARISON: Chest radiograph dated 09/04/[address] dated 09/01/2022 FINDINGS: No significant change in scattered coarse interstitial and patchy airspace opacities and architectura l distortion throughout both lungs superimposed over severe emphysema. Blunting at the costophrenic a nd cardiophrenic angle suggesting small bilateral pleural effusions. No pneumothorax. Heart size is n ormal. Prominent enlargement of the central pulmonary arteries consistent with pulmonary arterial hyp ertension. Peripheral venous catheter along the left upper arm with distal tip projecting over the ax illa. IMPRESSION: 1. Unchanged diffuse bilateral lung disease which could represent pulmonary edema or pneumonia superi mposed over more chronic emphysema and scarring. 2. Small bilateral pleural effusions. 3. Enlargement of the central pulmonary arteries consistent with pulmonary arterial hypertension. Reviewed, dictated and finalized at location A. IMPRESSION: 1. Unchanged diffuse bilateral lung disease which could represent pulmonary gracia ma or pneumonia superimposed over more chronic emphysema and scarring. 2. Small bilateral pleural effusions. 3. Enlargement of the central pulmonary arteries consistent with pulmonary sarah rial hypertension.
--- NOTE | ~2022-08-31 | CT_ITS ---
EXAMINATION: CT abdomen pelvis w con DATE: 09/07/2022 17:25 INDICATION: Abnormal liver function tests. TECHNIQUE: Computed tomography (CT) of the abdomen and pelvis was performed with 85 mL Omnipaque 350 intravenous contrast. Automated exposure control and iterative reconstruction technique were employed . The dose-length product was 204.48 mGy-cm. COMPARISON: CT abdomen and pelvis 02/18/2022, chest CT 09/01/2022 FINDINGS: The visualized portions of the lung bases demonstrate emphysema. There are airspace opaciti es in the lower lobes, right worse than left. There are airspace opacities in lingula. There are smal l pleural effusions. The heart size is normal. No pericardial effusion. There are coronary artery josé miguel cifications. The liver and spleen are normal. There is contrast in the gallbladder. The pancreas, adr enal glands, and kidneys are normal. There are no dilated loops of bowel. There are surgical changes of the stomach. The appendix is not visualized. There are no pathologically enlarged lymph nodes. The re is a small volume of ascites. The bladder is compressed by a Hendricks catheter. There is severe lumba r spondylosis. IMPRESSION: 1. Bilateral pneumonia, worst in right lower lobe. 2. Severe emphysema. 3. Small pleural effusions. 4. Small volume of ascites. Reviewed, dictated and finalized at location B.
--- NOTE | ~2022-08-31 | CT_ITS ---
EXAMINATION: CTA chest PE protocol DATE: 09/01/2022 10:55 INDICATION: Hypoxia. TECHNIQUE: Computed tomography angiography (CTA) of the chest was performed with 100 mL Omnipaque-350 intravenous contrast timed to evaluate the pulmonary arteries. Coronal maximum intensity projection 3D-reconstructions were created by the technologist. Automated exposure control and iterative reconst ruction technique were employed. The dose-length product was 133.83 mGy-cm. COMPARISON: Chest CT 02/01/2022 FINDINGS: There is severe emphysema. There is widespread septal thickening in the lungs with architec tural distortion. There are chronic peripheral airspace opacities in right upper lobe and right middl e lobe with volume loss. There are airspace opacities in right lower lobe with air bronchograms. Ther e are centrilobular nodules and tree-in-bud opacities in the lower lobes. There are peripheral airspa ce opacities in left lower lobe. These findings are consistent with pneumonia. There are trace pleura l effusions. The heart size is normal. There are coronary artery calcifications. No pericardial effus ion. The central pulmonary arteries are enlarged, consistent with pulmonary arterial hypertension. Th ere is no pulmonary embolus. Tracheomegaly is noted. There is mild thoracic spondylosis. IMPRESSION: 1. No pulmonary embolus. 2. Pneumonia involving the lower lobes. 3. Severe emphysema and chronic lung disease. Reviewed, dictated and finalized at location A.
--- NOTE | ~2022-08-31 | XR_ITS ---
EXAMINATION: XR chest 1V portable Exam Date/Time: 08/31/2022 21:50 CDT HISTORY: Dyspnea, eval for pulmonary edema Comparison: 02/11/2022. RESULT: Lines, tubes, and devices: None. Lungs and pleura: Increased diffuse reticular pattern overlying severe scarring and emphysematous an d interstitial change. Cardiomediastinal silhouette: Stable. Other: No acute osseous or upper abdominal finding. IMPRESSION: Pulmonary opacities likely represent interstitial edema overlying severe emphysematous and/or fibroti c change. Reviewed, dictated and finalized at location K. IMPRESSION: Pulmonary opacities likely represent interstitial edema overlying severe emphys ematous and/or fibrotic change.
--- NOTE | ~2022-08-31 | XR_ITS ---
EXAMINATION: XR chest 1V portable DATE: 09/09/2022 05:09 INDICATION: Dyspnea TECHNIQUE: frontal view of the chest was obtained. COMPARISON: Chest radiograph dated 09/07/2022 FINDINGS: Hyperexpansion of the lungs with regions of increased lucency and architectural distortion consistent with emphysema. Diffuse patchy and bandlike opacities with architectural distortion throughout both lungs. Small bilateral pleural effusions. The heart size is within normal limits for AP technique. En largement of the central pulmonary arteries consistent with pulmonary arterial hypertension. IMPRESSION: 1. Interval progression of diffuse bilateral lung disease which could represent pulmonary edema and/o r pneumonia superimposed over chronic emphysema with pleural parenchymal scarring. 2. Small bilateral pleural effusions. 3. Enlargement of the central pulmonary arteries consistent with pulmonary arterial hypertension. Reviewed, dictated and finalized at location A. IMPRESSION: 1. Interval progression of diffuse bilateral lung disease which could represent pulmonary edema and/or pneumonia superimposed over chronic emphysema with pleu ral parenchymal scarring. 2. Small bilateral pleural effusions. 3. Enlargement of the central pulmonary arteries consistent with pulmonary sarah rial hypertension.
--- NOTE | 2022-08-31 21:45 | ECG_ITS ---
Measurements Intervals [place] Rate: 82 P: 92 ID: [id number] QRS: 90 QRSD: 111 T: 50 QT: 349 QTc: 409 Interpretive Statements SINUS RHYTHM LEFT ATRIAL ENLARGEMENT [-0.15mV P WAVE IN V1/V2] INCOMPLETE RIGHT BUNDLE BRANCH BLOCK [90+ ms QRS DURATION, TERMINAL R IN V1/V2, 40+ ms S IN I/aVL/V4/V5/V6] NONSPECIFIC T-WAVE CHANGES COMPARED TO ECG 02/01/2022 10:52:31 THE T-WAVE CHANGES ARE MORE PRONOUNCED Electronically Signed On 09-01-2022 13:14:38 CDT by Cortney Baeza M.D.
--- NOTE | 2022-08-31 21:46 | ED.SOB ---
HPI - SOB/Dyspnea General Chief Complaint: Shortness of Breath/Dyspnea Stated Complaint: SOB Time Seen by Provider: 08/31/22 21:39 History of Present Illness HPI Narrative: This is a 72-year-old female past medical history of COPD and recent admission with respiratory failure found to have CHF and A. fib, who is brought in by EMS for cough and shortness of breath. Patient states she has had nonproductive, nonbloody course cough for the past week and her home inhalers are not improving. This is accompanied by bilateral lower extremity swelling. She denies chest pain. She denies known sick contacts, upper respiratory congestion or myalgias. Related Data Home Medications Medication Instructions Recorded Confirmed budesonide-formoterol HFA 160 2 puff inhalation DAILY 02/01/22 09/01/22 mcg-4.5 mcg/actuation aerosol inhaler (Symbicort) cholecalciferol (vitamin D3) 25 25 mcg PO DAILY 02/01/22 09/01/22 mcg (1,000 unit) tablet rosuvastatin 10 mg tablet 10 mg PO DAILY 02/01/22 09/01/22 tiotropium bromide 18 mcg capsule 18 mcg inhalation DAILY 02/01/22 09/01/22 with inhalation device (Spiriva with HandiHaler) Allergies Allergy/AdvReac Type Severity Reaction Status Date / Time No Known Allergies Allergy Verified 02/19/21 15:07 Review of Systems Review of Systems: CONSTITUTIONAL: Denies fever, chills, or sweats. EYES: Denies visual changes, redness, or discharge. ENT: Denies rhinorrhea, congestion, sore throat, or otalgia. CARDIOVASCULAR: Lower extremity edema bilaterally denies chest pain, palpitations RESPIRATORY: cough and dyspnea. GASTROINTESTINAL: Denies abdominal pain, nausea, vomiting, or diarrhea. GENITOURINARY: Denies dysuria or hematuria. SKIN: Denies rash or itching. MUSCULOSKELETAL: Denies back pain, joint pain, or myalgia. NEUROLOGIC: Generalized weakness denies headache, numbness, dizziness PSYCHIATRIC: Denies anxiety or depression. [facility] Past Medical History Medical History Anemia of chronic disease Chronic atrial fibrillation Chronic hypoxemic respiratory failure Diastolic CHF Emphysema/COPD History of atrial fibrillation History of pneumothorax Hyperthyroidism Mass of lower lobe of left lung 2019 Noncompliance Paroxysmal atrial fibrillation Pulmonary hypertension PVD (peripheral vascular disease) Severe protein-calorie malnutrition Surgical History Surgical History H/O chest tube placement Family History Family History Mother Cancer Some type of your nose and throat cancer Other Asthma Family history of chronic obstructive pulmonary disease Lung cancer Social History Social History Social History: Patient lives with her granddaughter Smoking packs per day: 1 Smoking cigarettes per day: 20.0 Smoking status: Former smoker Alcohol intake: never Substance use: never Spiritual care concerns: No Exam Narrative: GENERAL: Well-developed, cachectic in moderate distress due to dyspnea HEAD: Normocephalic, atraumatic. EYES: PERRLA and EOMI. ENT: Nares clear, no rhinorrhea or epistaxis. Mucous membranes moist. Oropharynx without tonsillar hypertrophy exudate or other lesions. NECK: Supple. No adenopathy or masses. No carotid bruits or JVD CHEST: Good aeration with rales noted bilaterally in moderate respiratory distress. No wheezes or rhonchi HEART: Regular rate and rhythm. No murmur heard. Normal peripheral pulses. ABDOMEN: Soft, nontender, nondistended, normal active bowel sounds. EXTREMITIES: Normal range of motion. Bilateral lower extremity edema 2+. SKIN: Warm, dry, no rash. NEURO: No focal deficits. Alert and oriented x3. PSYCH: Normal mood and affect. Course Course Emergency Course: 23:57 - Reviewed EKG (concerning
[2022-08-31 22:13] LABS: Base Excess ABG 6.6 mEq/l (+/-2.0); Fractional Inspired Oxygen 32 %; HCO3 ABG 35.4 mEq/l (22.0-26.0); Oxygen Content ABG 12.8 %vol (16.0-22.0); Oxygen Saturation ABG 95.6 % (95.0-100.0); PO2 ABG 92.7 mmHg (80.0-100.0); Total Hemoglobin 9.6 g/dL (12.0-18.0)
[2022-08-31 22:16] LABS: pH ABG 7.264 (7.350-7.450)
[2022-08-31 22:17] LABS: Device NASAL CANNULA; Modified Allen's Test Pass; PCO2 ABG 79.9 mmHg (35.0-45.0); Site Drawn LEFT RADIAL
[2022-08-31] MEDS: IPRATROPIUM BR 0.02% INH SOLN 0.5 MG/2.5 ML VIAL INHALATION (22:44)
[2022-08-31] MEDS: ALBUTEROL SULFATE NEB 2.5 MG/3 ML INH 5 MG INHALATION (22:44)
[2022-08-31 23:27] LABS: Hematocrit 33.5 % (37.0-47.0); Hemoglobin 8.9 g/dL (12.0-15.0); Mean Corpuscular HGB Conc 26.6 g/dl (32-36); Mean Corpuscular Hemoglobin 21.8 pg (26-34); Mean Corpuscular Volume 81.9 fl (80-100); Mean Platelet Volume 9.4 fl (7.4-10.4); Platelet Count Result 509 k/mm3 (150-375); Red Blood Count 4.09 M/mm3 (4.2-5.4); Red Cell Distribution Width 18.1 % (11.5-14.5); White Blood Count 15.3 K/mm3 (4.5-10.0)
[2022-08-31 23:50] LABS: Anisocytosis 2+ (NORMAL); Lymphocytes Absolute Manual 0.61 K/mm3 (1.1-4.5); Microcytosis 1+ (NORMAL); Monocytes Absolute Manual 0.15 K/mm3 (0.1-0.90); Monocytes Percent Manual 1 % (3-9); Myelocytes Percent 1 %; Neutrophils Percent Manual 94 % (46-73); Poikilocytosis 2+ (NORMAL); Total Cells Counted 100
[2022-08-31 23:51] LABS: Hypersegmented Neutrophils Present; Hypochromasia 2+ (NORMAL); Ovalocytes 2+ (NORMAL); Schistocytes 2+ (NORMAL); Stomatocytes 1+ (NORMAL); Tear Drop Cells 1+ (NORMAL)
[2022-08-31 23:52] LABS: Burr Cells 1+ (NORMAL); Crenated RBC 1+ (NORMAL)
[2022-09-01] VITALS (38 sets, daily range): BP systolic 94–135; BP diastolic 35–57; PULSE 69–92; RESP 16–35; TEMP 35.6–36.6; O2SAT 75–100
[2022-09-01 00:06] LABS: Alanine Aminotransferase 37 U/L (6-35); Albumin Level 3.2 g/dL (3.5-5.1); Alkaline Phosphatase 156 U/L (38-126); Anion Gap 12 mmol/L (8-16); Aspartate Amino Transferase 82 U/L (14-36); Bilirubin,Total 0.5 mg/dL (0.2-1.3); Blood Urea Nitrogen 26 mg/dL (7-17); Calcium 8.5 mg/dL (8.4-10.2); Carbon Dioxide 37 mmol/L (22-30); Chloride 91 mmol/L (98-107); Estimated Glomerular Filt Rate > 60; Glucose 123 mg/dL (65-110); Potassium 4.1 mmol/L (3.4-5.0); Sodium 140 mmol/L (137-145)
[2022-09-01 00:12] LABS: Influenza A QL RT-PCR Negative (Negative); Influenza B QL RT-PCR Negative (Negative); SARS-CoV-2 RNA PCR Negative
[2022-09-01 00:18] LABS: NT Pro B Type Natriuretic Pept 6790 pg/mL (5-100); Troponin I < 0.012 ng/mL (0.000-0.034)
--- NOTE | 2022-09-01 02:56 | PC.NURSE ---
THis RN is waiting for respiratory before transport to the floor
[2022-09-01 04:44] LABS: Troponin I < 0.012 ng/mL (0.000-0.034)
[2022-09-01 07:06] LABS: Troponin I < 0.012 ng/mL (0.000-0.034)
--- NOTE | 2022-09-01 07:22 | PM.IMHP ---
H&P: HPI History of Present Illness Date/Time: 09/01/22 07:22 Chief Complaint: Shortness of breath Narrative: Meme Almanzar is a 72 yo female with history of chronic hyper hypoxic respiratory failure on 3 L home oxygen, emphysema, chronic atrial fibrillation, hyperthyroidism, CHF EF 40-45% (echo 02/02/2022), and pulmonary hypertension. She presented to the emergency department for evaluation of progressively worsening shortness of breath over the past 1-2 weeks. She reports cough with increased sputum production. She reports her sputum has been clear, however, her granddaughter reports it has been dark in color. She has had to increase her O2 to 4L most days due to spO2 in the 80s and a few times has had to use a simple mask. Additionally, the granddaughter reports the patient receives ipratropium bromide and levalbuterol nebulizer solutions, however, her levalbuterol is only prescribed a week at a time and the patient often runs out and uses only ipratropium solution. The patient denies complaints of fever, but does endorse alternating chills and hot episodes. She denies chest pain, dizziness, palpitations, abdominal pain, orthopnea, or paroxysmal nocturnal dyspnea. She does endorse previous swelling to bilateral feet, and at 1 point swelling to bilateral lower extremities and pain to her calf over 1 week ago. Patient is very sedentary at baseline and minimally ambulates to the kitchen to make meals and uses a bedside commode at home. She reports taking Symbicort inhaler with short acting bronchodilators 4 times daily. She denies changes in medications, recent travel, or sick contacts. She does endorse decreased appetite with approximate 40 lb weight loss in the past year. She was last hospitalized at this facility from 02/01/22 to 02/23/22 for influenza pneumonia, acute respiratory failure, sepsis and LUCINDA. In the emergency, vitals were temp 98.7? F, HR 114 beats per minute, respirations 30 beats per minute, BP 97/44, and SpO2 91-95% and BiPAP. Lab work was significant for WBC 15.3 with left shift, hemoglobin 8.9, hematocrit 33.5, platelets 509, T CO2 37, BNP 6790, AST 82, ALT 37, alk-phos 156, normal T bili, troponin less than 0.01 x 2. Chemistry is unremarkable otherwise. ABG showed respiratory acidosis pH 7.26, pCO2 79.9, PO2 92.7, and bicarb 35.4 on 3 L. chest x-ray showed pulmonary opacities concerning for edema and severe emphysema with scarring. COVID PCR was negative and influenza a and B was negative. She was treated short-acting bronchodilators and IV azithromycin 500 mg in the ED. She was placed on BiPAP at 12/6 FiO2 32% and admitted to the IMU. Review of Systems Review of Systems: All systems reviewed & are unremarkable except as noted in HPI and below PMFSH Past Medical History Medical History (Updated 09/01/22 @ 14:41 by Vidhya Singer APRN) Anemia of chronic disease Chronic hypoxemic respiratory failure 3L home O2 Diastolic CHF 02/02/22 Echo- mild global LV systolic dysfunction, EF 40-45%, severe RV enlargement Emphysema/COPD History of pneumothorax Hyperthyroidism Mass of lower lobe of left lung 2019 Noncompliance Paroxysmal atrial fibrillation Pulmonary hypertension PVD (peripheral vascular disease) Severe protein-calorie malnutrition Surgical History Surgical History H/O chest tube placement Family History Family History Mother Cancer Some type of your nose and throat cancer Other Asthma Family history of chronic obstructive pulmonary disease Lung cancer Social History Social History (Updated 09/01/22 @ 14:33 by Vidhya Singer APRN) Social History: Patient lives with her granddaughter Smoking packs per day: 1 Smoking cigarettes per day: 20.0 Smoking status: Former smoker Alcohol intake: never Substance use: never Living arrangements: with family Occupa
[2022-09-01] MEDS: IPRATROPIUM BR 0.02% INH SOLN 0.5 MG/2.5 ML VIAL INHALATION ×3 (07:44→20:22)
[2022-09-01] MEDS: ALBUTEROL SULFATE NEB 2.5 MG/3 ML INH 5 MG INHALATION ×2 (07:44→15:01)
[2022-09-01 07:53] LABS: Alveolar/Arterial O2 Gradient 118.3 mmHg; Base Excess ABG 13.5 mEq/l (+/-2.0); Carboxyhemoglobin 1.2 % THb (0-2.0); Fractional Inspired Oxygen 40 %; HCO3 ABG 41.6 mEq/l (22.0-26.0); Methemoglobin ABG 0.3 %THb (0-1.5); Oxygen Content ABG 11.3 %vol (16.0-22.0); Oxygen Saturation ABG 93.2 % (95.0-100.0); Oxyhemoglobin 91.9 % THb (90.0-100.0); PO2 ABG 74.6 mmHg (80.0-100.0); PO2 FiO2 Ratio Arterial Blood 1.87 %; Reduced Hemoglobin 6.6 %THb (0-5.0); Total Hemoglobin 8.7 g/dL (12.0-18.0); pH ABG 7.332 (7.350-7.450)
[2022-09-01 07:55] LABS: CRP 19.1 mg/dL (<1.0)
[2022-09-01 07:56] LABS: Device NON-INVASIVE VENT; Modified Allen's Test Pass; Non-Invasive Expiratory Pressure 6 CMH2O; Non-Invasive Inspiratory Pressure 12 CMH2O; Non-Invasive Vent Rate 14 /MIN; PCO2 ABG 80.3 mmHg (35.0-45.0); Site Drawn LEFT RADIAL
[2022-09-01 07:58] LABS: Procalcitonin 0.2 ng/mL
[2022-09-01] MEDS: methylPREDNISolone SOD SUCC 125 MG VIAL IV PUSH (10:25)
--- NOTE | 2022-09-01 10:35 | ECG_ITS ---
Measurements Intervals [place] Rate: 73 P: 103 [place]: 161 QRS: 102 QRSD: 116 T: 106 QT: 422 QTc: 466 Interpretive Statements SINUS RHYTHM RIGHT ATRIAL ENLARGEMENT LEFT ATRIAL ENLARGEMENT NONSPECIFIC ST & T-WAVE ABNORMALITY COMPARED TO ECG 08/31/2022 23:27:18 NO SIGNIFICANT CHANGES COMPARED TO PRIOR ECG Electronically Signed On 09-02-2022 14:34:14 CDT by Jonny Faulkner M.D.
[2022-09-01] MEDS: BUDESONIDE RESPULE NEB 0.5 MG/2 ML AMP INHALATION (11:07)
[2022-09-01] MEDS: SODIUM CHLOR 3% 15 ML NEB (RESPIRATORY THERAPY) 6 ML INHALATION (11:07)
[2022-09-01] MEDS: AMIODARONE HCL 200 MG TABLET 400 MG PO (12:59)
[2022-09-01] MEDS: PANTOPRAZOLE 40 MG TABLET PO (12:59)
[2022-09-01] MEDS: SODIUM CHLORIDE 0.9% IV 1,000 ML 70 ML IV CONT (12:59)
[2022-09-01] MEDS: CHOLECALCIFEROL 1,000 UNITS TABLET 1000 UNITS PO (12:59)
[2022-09-01] MEDS: methylPREDNISolone SOD SUCC 40 MG VIAL IV PUSH ×2 (14:24→23:45)
[2022-09-01 15:13] LABS: Alveolar/Arterial O2 Gradient 104.1 mmHg; Base Excess ABG 12.8 mEq/l (+/-2.0); Carboxyhemoglobin 1.2 % THb (0-2.0); Fractional Inspired Oxygen 40 %; HCO3 ABG 41.1 mEq/l (22.0-26.0); Methemoglobin ABG 0.3 %THb (0-1.5); Oxygen Content ABG 11.8 %vol (16.0-22.0); Oxygen Saturation ABG 95.2 % (95.0-100.0); PO2 ABG 86.5 mmHg (80.0-100.0); PO2 FiO2 Ratio Arterial Blood 2.16 %; Reduced Hemoglobin 4.5 %THb (0-5.0); Total Hemoglobin 8.8 g/dL (12.0-18.0); pH ABG 7.316 (7.350-7.450)
[2022-09-01 15:15] LABS: Modified Allen's Test Pass; PCO2 ABG 82.3 mmHg (35.0-45.0); Site Drawn LEFT RADIAL
[2022-09-01 15:16] LABS: Device NON-INVASIVE VENT; Non-Invasive Expiratory Pressure 8 CMH2O; Non-Invasive Inspiratory Pressure 14 CMH2O; Non-Invasive Vent Rate 14 /MIN
--- NOTE | 2022-09-01 16:00 | PCRCNOTE ---
Pt was newly scheduled Q4 txs but RT gave recently scheduled 1400 tx, 1600 tx was omitted.
[2022-09-01 16:41] LABS: Hepatitis B Surface Antigen Negative (Negative)
[2022-09-01 16:50] LABS: HAV RESULT Negative (Negative); Hepatitis B Core IgM Result Negative (Negative)
[2022-09-01 16:58] LABS: Hepatitis C Virus Antibody Negative (Negative)
--- NOTE | 2022-09-01 17:06 | PM.CNPUL ---
Assessment and Plan Assessment and plan (1) PNA (pneumonia): Code(s): J18.9 - Pneumonia, unspecified organism Status: Acute Assessment and Plan: Patient presents with leukocytosis, shortness of breath, and a CT scan with new right lower lobe infiltrate. It appears patient has not been hospitalized recently. COVID RT PCR negative influenza negative. One blood pending. Urine Legionella and pneumococcal antigen studies pending. I agree with cefepime and azithromycin for community-acquired pneumonia (both started 09/01). I will repeat a chest x-ray in the morning. (2) Emphysema/COPD: Code(s): J43.9 - Emphysema, unspecified Status: Acute Assessment and Plan: COPD (chart states former smoker) on 3 L home O2, PFTs 03/13/2019 with pre bronchodilator FVC 1.84 L, 63% predicted. Pre bronchodilator FEV1 1.21 L, 54% predicted. Ratio 66% predicted, says post intubation on 02/01/2021 for influenza a pneumonia, CT angiogram of the chest on 09/01/2022 with severe apical predominant panlobular emphysema. patient presents with 1-2 weeks worsening shortness of breath, cough, increased phlegm production and wheezes were noted by the admitting physician. I will treat patient for COPD exacerbation. Solu-Medrol 40 mg IV q.6, albuterol 2.5 mg nebulized q.4 hours, ipratropium 0.5 mg nebulized q.4 hours. Will discontinue inhaled corticosteroids while the patient is on systemic steroids. (3) Respiratory failure with hypoxia and hypercapnia: Code(s): J96.91 - Respiratory failure, unspecified with hypoxia; J96.92 - Respiratory failure, unspecified with hypercapnia Status: Acute Assessment and Plan: The patient has chronic hypercarbic respiratory failure from COPD and would benefit from noninvasive ventilation to prevent further deterioration and subsequent hospitalizations. patient has an admit blood gas of 7.26/80/93 with a serum bicarb of 37. Patient has had a serum bicarb level greater than 01/2022. The patient could not tolerate BiPAP and her blood gas remained 7.32/82/86. I changed the patient to a noninvasive ventilator with the a VATS mode and tighter to her settings to comfort which resulted in a rate of 20, tidal volume 450, EPAP 4, minimal inspiratory pressure 5, maximal inspiratory pressure 25, inspiratory time 1.2, rise of 5 which is are slow [address] and 32% FiO2. I will order an ABG in the morning prior to removal and an overnight oximetry on these settings. The patient tells me she has improved right now and we will attempt to take her off of the noninvasive ventilator but she should wear this tonight when she goes to sleep. History of Present Illness History of Present Illness Consult date: 09/01/22 Chief complaint: CHF exacerbation Narrative: 09/01/2022: This is a new pulmonary consult for COPD, pneumonia and respiratory failure. patient is currently on BiPAP and has difficulty speaking, history obtained mainly from chart. 72-year-old woman with a history of COPD on 3 L home O2, PFTs 03/13/2019 with pre bronchodilator FVC 1.84 L, 63% predicted. Pre bronchodilator FEV1 1.21 L, 54% predicted. Ratio 66% predicted, says post intubation on 02/01/2021 for influenza a pneumonia, CT angiogram of the chest on 09/01/2022 with severe apical predominant panlobular emphysema, atrial fibrillation. Patient presented to the emergency room on 08/31/2022 with shortness of breath, cough, lower extremity swelling and her saturations were 100% on 3 L nasal cannula. Her white blood cell count was 15.3, creatinine was 0.5, her BNP was 6790, her COVID RT PCR test he was negative, her influenza swab was negative and her blood gas on 3 L was 7.26/80/93. Patient had a CT angiogram of the chest that showed no pulmonary emboli, severe apical predominant panlobular emphysema with air bronchograms in the right lower lobe. Patient was treated for pneumonia, COPD exacerbation, acute on chronic h
[2022-09-01] MEDS: RIVAROXABAN 20 MG TABLET PO (17:48)
--- NOTE | 2022-09-01 17:54 | PC.NURSE ---
Solu-Medrol IVP order changed from q8hr to q6hr by Dr. Shanks. This RN had given 40mg IVP Solu-Medrol at 1424; 1800 dose non-administer d/t to close to previous order.
[2022-09-01] MEDS: ALBUTEROL SULFATE NEB 2.5 MG/3 ML INH INHALATION (20:22)
[2022-09-02] VITALS (32 sets, daily range): BP systolic 127–152; BP diastolic 40–70; PULSE 63–91; RESP 18–27; TEMP 36.3–37.2; O2SAT 89–100; BMI 12.4
[2022-09-02] MEDS: ALBUTEROL SULFATE NEB 2.5 MG/3 ML INH INHALATION ×5 (04:12→21:06)
[2022-09-02] MEDS: IPRATROPIUM BR 0.02% INH SOLN 0.5 MG/2.5 ML VIAL INHALATION ×5 (04:12→21:06)
[2022-09-02 04:20] LABS: Alveolar/Arterial O2 Gradient 87.2 mmHg; Base Excess ABG 14.2 mEq/l (+/-2.0); Fractional Inspired Oxygen 32 %; HCO3 ABG 40.9 mEq/l (22.0-26.0); Oxygen Content ABG 10.1 %vol (16.0-22.0); Oxygen Saturation ABG 90.5 % (95.0-100.0); Oxyhemoglobin 88.7 % THb (90.0-100.0); PO2 ABG 61.4 mmHg (80.0-100.0); PO2 FiO2 Ratio Arterial Blood 1.92 %; pH ABG 7.397 (7.350-7.450)
[2022-09-02 04:23] LABS: Device NON-INVASIVE VENT; Modified Allen's Test Pass; Site Drawn RIGHT RADIAL
[2022-09-02 04:25] LABS: Non-Invasive Expiratory Pressure 4 CMH2O; Non-Invasive Vent Rate 20 /MIN
[2022-09-02] MEDS: SODIUM CHLOR 3% 15 ML NEB (RESPIRATORY THERAPY) 6 ML INHALATION (04:39)
[2022-09-02 04:51] LABS: Hematocrit 26.5 % (37.0-47.0); Hemoglobin 7.2 g/dL (12.0-15.0); Immature Granulocyte Absolute 0.08 K/mm3 (0.00-0.031); Immature Granulocyte Percent A 0.7 % (0-0.5); Lymphocytes Absolute Auto 0.18 K/mm3 (0.9-3.2); Lymphocytes Percent Auto 1.6 % (18.3-44.2); Mean Corpuscular HGB Conc 27.2 g/dl (32-36); Mean Corpuscular Hemoglobin 21.4 pg (26-34); Mean Corpuscular Volume 78.6 fl (80-100); Mean Platelet Volume 9.5 fl (7.4-10.4); Monocytes Absolute Auto 0.6 K/mm3 (0.1-0.6); Monocytes Percent Auto 5.6 % (2.6-8.5); Neutrophils Absolute Auto 10.2 K/mm3 (1.3-6.7); Neutrophils Percent Auto 92.1 % (45.5-73.1); Nucleated Red Blood Cells Perc 0.3 % (0.0-0.2); Platelet Count Result 441 k/mm3 (150-375); Red Blood Count 3.37 M/mm3 (4.2-5.4)
[2022-09-02 05:03] LABS: Alanine Aminotransferase 43 U/L (6-35); Albumin Level 2.5 g/dL (3.5-5.1); Alkaline Phosphatase 141 U/L (38-126); Anion Gap 2 mmol/L (8-16); Aspartate Amino Transferase 82 U/L (14-36); Bilirubin,Total 0.2 mg/dL (0.2-1.3); Blood Urea Nitrogen 21 mg/dL (7-17); Calcium 8.2 mg/dL (8.4-10.2); Carbon Dioxide 38 mmol/L (22-30); Chloride 98 mmol/L (98-107); Estimated CRCL calculation 59 ml/min; Estimated Glomerular Filt Rate > 60; Glucose 116 mg/dL (65-110); Potassium 4.2 mmol/L (3.4-5.0); Sodium 138 mmol/L (137-145)
[2022-09-02] MEDS: methylPREDNISolone SOD SUCC 40 MG VIAL IV PUSH (05:03)
[2022-09-02] MEDS: SODIUM CHLORIDE 0.9% IV 1,000 ML 70 ML IV CONT (05:03)
[2022-09-02 05:19] LABS: Platelet Estimate Increased (Adequate)
[2022-09-02 05:20] LABS: Anisocytosis 1+ (NORMAL); Hypochromasia 2+ (NORMAL); Ovalocytes 1+ (NORMAL); Schistocytes 1+ (NORMAL)
[2022-09-02] MEDS: AMIODARONE HCL 200 MG TABLET 400 MG PO (09:53)
[2022-09-02] MEDS: CHOLECALCIFEROL 1,000 UNITS TABLET 1000 UNITS PO (09:53)
[2022-09-02] MEDS: PANTOPRAZOLE 40 MG TABLET PO (09:53)
--- NOTE | 2022-09-02 11:29 | PM.PNPUL ---
Progress Note: A&P Assessment and Plan (1) PNA (pneumonia): Code(s): J18.9 - Pneumonia, unspecified organism Status: Acute Assessment and Plan: Patient presents with leukocytosis, shortness of breath, and a CT scan with new right lower lobe > left lower lobe infiltrate. It appears patient has not been hospitalized recently. CT scan of the chest 09/01 COVID RT PCR negative influenza negative. One blood pending. Urine Legionella and pneumococcal antigen studies pending. I agree with cefepime and azithromycin for CAP and additional GNB coverage (both started 09/01). 09/02 patient is afebrile, white blood cell count is 11.0, blood cultures negative, continue cefepime and azithromycin, day 2 (2) Emphysema/COPD: Code(s): J43.9 - Emphysema, unspecified Status: Acute Assessment and Plan: COPD (chart states former smoker) on 3 L home O2, PFTs 03/13/2019 with pre bronchodilator FVC 1.84 L, 63% predicted. Pre bronchodilator FEV1 1.21 L, 54% predicted. Ratio 66% predicted, says post intubation on 02/01/2021 for influenza a pneumonia, CT angiogram of the chest on 09/01/2022 with severe apical predominant panlobular emphysema. 09/01 patient presents with 1-2 weeks worsening shortness of breath, cough, increased phlegm production and wheezes were noted by the admitting physician. I will treat patient for COPD exacerbation. Solu-Medrol 40 mg IV q.6, albuterol 2.5 mg nebulized q.4 hours, ipratropium 0.5 mg nebulized q.4 hours. Will discontinue inhaled corticosteroids while the patient is on systemic steroids. 09/02 patient with no wheezing today. Patient has focal infiltrates on her chest x-ray. Will change her to prednisone 40 mg p.o. q.day today (day 2 steroids). Will continue albuterol and ipratropium nebulizers q.4 hours. (3) Respiratory failure with hypoxia and hypercapnia: Code(s): J96.91 - Respiratory failure, unspecified with hypoxia; J96.92 - Respiratory failure, unspecified with hypercapnia Status: Acute Assessment and Plan: The patient has chronic hypercarbic respiratory failure from COPD and would benefit from noninvasive ventilation to prevent further deterioration and subsequent hospitalizations. patient has an admit blood gas of 7.26/80/93 with a serum bicarb of 37. Patient has had a serum bicarb level greater than 01/2022. 09/01 The patient could not tolerate BiPAP and her blood gas remained 7.32/82/86. I changed the patient to a noninvasive ventilator with the AVAPS mode and tighter to her settings to comfort which resulted in a rate of 20, tidal volume 450, EPAP 4, minimal inspiratory pressure 5, maximal inspiratory pressure 25, inspiratory time 1.2, rise of 5 which is are slow ST and 32% FiO2. I will order an ABG in the morning prior to removal and an overnight oximetry on these settings. The patient tells me she has improved right now and we will attempt to take her off of the noninvasive ventilator but she should wear this tonight when she goes to sleep. Patient took the BiPAP off to eat dinner. 09/02 Patient use the noninvasive ventilator with the AVAPS mode last night. She was on AVAPS this morning when I spoke to her. She thought she was breathing better. Patient had an ABG prior to removal of the AVAPS this morning with a pH of 7.40/68/61. Patient had an overnight oximetry on the AVAPS 32% with an average saturation of 89%, lowest saturation 83%. Time with saturation less than or equal to 88% was 127 minutes. The current settings appear to provide adequate minute ventilation. Will increase her FiO2 to 40% tonight and repeat an overnight oximetry. Will talk to digital coordinator about initiating home noninvasive ventilation with an AVAPS-AE mode. Subjective Date/time seen: 09/02/22 11:29 Interval history: 09/01/2022:? This is a new pulmonary consult for COPD, pneumonia and respiratory failure. ?patient is currently on BiPAP and ny
[2022-09-02] MEDS: predniSONE 20 MG TABLET 40 MG PO (12:23)
--- NOTE | 2022-09-02 13:30 | PM.IMPN ---
Progress Note: A&P Assessment and Plan (1) Sepsis: Qualifiers: Sepsis type: sepsis due to unspecified organism Sepsis acute organ dysfunction status: with acute organ dysfunction Severe sepsis acute organ dysfunction type: acute respiratory failure Acute respiratory failure type: with hypercapnia Severe sepsis shock status: without septic shock Qualified Code(s): A41.9 - Sepsis, unspecified organism; R65.20 - Severe sepsis without septic shock; J96.02 - Acute respiratory failure with hypercapnia Code(s): A41.9 - Sepsis, unspecified organism Status: Acute Assessment and Plan: As evidenced by heart rate 114, respiration 30, BP 97/44, WBC 15.[address] shows lower lobe pneumonia. Lactic acid 1.0, procalcitonin 0.2. Antibiotic day 2 Cefepime 2 mg Q8 hours and Azithromycin 500 mg IV q24 hours. BP and HR stable. Stop IV fluids. (2) Acute on chronic respiratory failure with hypoxia and hypercapnia: Code(s): J96.21 - Acute and chronic respiratory failure with hypoxia; J96.22 - Acute and chronic respiratory failure with hypercapnia Status: Acute Assessment and Plan: ABG showing respiratory acidosis with pCO2 79.9; pH 7.2 09/01/22 ABG - pH 7.33, pCO2 80, PO2 74.6, and bicarb 41.6 on bipap, repeat pH 7.316, pCO2 82.3, pO2 86.5, HCO3 41.1 Pulmonology following and appreciate recommendations. AVAPS NIPPV initiated?rate of 20, tidal volume 450, EPAP 4, minimal inspiratory pressure 5, maximal inspiratory pressure 25, inspiratory time 1.2, rise of 5 which is are slow ST and 32% FiO2 09/02/22 pH 7.397, pCO2 68, pO2 61, HCO3 40.9. Continue management for COPD acute exacerbation and empiric antibiotic CTA chest with severe emphysema. Apnea monitor overnight while on NIPPV. Home Trilogy to be arranged. (3) Emphysema/COPD: Qualifiers: Emphysema type: panlobular Qualified Code(s): J43.1 - Panlobular emphysema Code(s): J43.9 - Emphysema, unspecified Status: Acute Assessment and Plan: Chest x-ray and CTA chest noted severe emphysema. Physical exam notes diminished lung sounds throughout with faint end-expiratory wheezing. 09/01/22 Give Solu-Medrol 125 mg IV x1 and start Solu-Medrol 40 mg IV q.8 hours scheduled. Continue ipratropium and albuterol DuoNebs q.4 hours scheduled. Start budesonide nebs b.i.d. 09/02/22 Improving. Minimal wheezing. Changed to prednisone 40 mg PO daily by Pulmonology. continue ipratropium and albuterol nebs Q4 hours. Patient has longstanding history of smoking and quit approximately 3 years ago. She does report smoking approximately 1 pack per day and it is unknown time frame. (4) PNA (pneumonia): Qualifiers: Pneumonia type: due to unspecified organism Code(s): J18.9 - Pneumonia, unspecified organism Status: Acute Assessment and Plan: CTA chest concerning for lower lobe pneumonia, WBC 15 with left shift, and sputum changes with worsening dyspnea. Last hospitalization >3 months ago and patient lives at home. Unlikely MRSA, but will nasal swab to ensure coverage is not necessary. Continue Cefepime and Azithromycin IV as above. (started 09/01/22) pneumococcal and legionella urine pending (5) Diastolic CHF: Code(s): I50.30 - Unspecified diastolic (congestive) heart failure Status: Acute Assessment and Plan: Chronic, not in acute exacerbation, BNP 6790. Chest x-ray showed pulmonary opacities and right radiology suggest pulmonary edema. A physical exam however shows poor turgor, dry flaky skin, SBP 94. CHF exacerbation appears unlikely cause of acute respiratory failure. CTA chest with trace pleural effusions. Hold IV diuretics for now. 09/02/22 appears euvolemic. Stop IV fluids. (6) Elevated LFTs: Code(s): R79.89 - Other specified abnormal findings of blood chemistry Status: Acute Assessment and Plan: Noted on labs upon admission. May be sec
[2022-09-02 14:19] LABS: Hematocrit 30.1 % (37.0-47.0); Hemoglobin 8.1 g/dL (12.0-15.0)
[2022-09-02 14:24] LABS: Lactate Dehydrogenase 221 U/L (120-246)
[2022-09-02 14:25] LABS: Iron 19 ug/dL (37-170)
[2022-09-02 14:31] LABS: Transferrin 161 mg/dL (206-381)
[2022-09-02 14:35] LABS: Percent Iron Saturation 8 % (20-50)
--- NOTE | 2022-09-02 14:36 | PCRCNOTE ---
FAXED TRILOGY INFO TO [facility].
[2022-09-02 14:52] LABS: IFOB Positive Control Positive; Immunochemical Fecal Occult Bl Negative (N)
[2022-09-02] MEDS: RIVAROXABAN 20 MG TABLET PO (17:08)
[2022-09-03] VITALS (19 sets, daily range): BP systolic 119–163; BP diastolic 43–54; PULSE 62–86; RESP 18–35; TEMP 36.2–36.9; O2SAT 90–100
--- NOTE | 2022-09-03 04:40 | PCRCNOTE ---
Patient did not receive her 0000 nor 0400 treatments due to being on an apnea link study. Breathing treatments will resume at 0800.
[2022-09-03 05:03] LABS: Basophils Percent Auto 0.1 % (0.2-1.2); Hematocrit 25.7 % (37.0-47.0); Immature Granulocyte Absolute 0.11 K/mm3 (0.00-0.031); Immature Granulocyte Percent A 0.8 % (0-0.5); Lymphocytes Absolute Auto 0.23 K/mm3 (0.9-3.2); Lymphocytes Percent Auto 1.6 % (18.3-44.2); Mean Corpuscular HGB Conc 27.2 g/dl (32-36); Mean Corpuscular Hemoglobin 21.9 pg (26-34); Mean Corpuscular Volume 80.3 fl (80-100); Mean Platelet Volume 9.6 fl (7.4-10.4); Monocytes Absolute Auto 1.2 K/mm3 (0.1-0.6); Monocytes Percent Auto 8.4 % (2.6-8.5); Neutrophils Percent Auto 89.1 % (45.5-73.1); Platelet Count Result 402 k/mm3 (150-375); White Blood Count 14.6 K/mm3 (4.5-10.0)
[2022-09-03 05:16] LABS: Alanine Aminotransferase 48 U/L (6-35); Albumin Level 2.3 g/dL (3.5-5.1); Alkaline Phosphatase 120 U/L (38-126); Anion Gap 2 mmol/L (8-16); Aspartate Amino Transferase 67 U/L (14-36); Bilirubin,Total 0.2 mg/dL (0.2-1.3); Blood Urea Nitrogen 20 mg/dL (7-17); Calcium 8.2 mg/dL (8.4-10.2); Carbon Dioxide 38 mmol/L (22-30); Chloride 98 mmol/L (98-107); Estimated CRCL calculation 71 ml/min; Estimated Glomerular Filt Rate > 60; Glucose 112 mg/dL (65-110); Potassium 4.1 mmol/L (3.4-5.0); Sodium 138 mmol/L (137-145)
[2022-09-03 06:52] LABS: Folic Acid 6.3 ng/mL (2.76->20)
[2022-09-03] MEDS: IPRATROPIUM BR 0.02% INH SOLN 0.5 MG/2.5 ML VIAL INHALATION ×4 (07:42→20:27)
[2022-09-03] MEDS: ALBUTEROL SULFATE NEB 2.5 MG/3 ML INH INHALATION ×4 (07:42→20:26)
--- NOTE | 2022-09-03 09:38 | PM.IMPN ---
Progress Note: A&P Assessment and Plan (1) Sepsis: Qualifiers: Acute respiratory failure type: with hypercapnia Sepsis acute organ dysfunction status: with acute organ dysfunction Sepsis type: sepsis due to unspecified organism Severe sepsis acute organ dysfunction type: acute respiratory failure Severe sepsis shock status: without septic shock Qualified Code(s): A41.9 - Sepsis, unspecified organism; R65.20 - Severe sepsis without septic shock; J96.02 - Acute respiratory failure with hypercapnia Code(s): A41.9 - Sepsis, unspecified organism Status: Acute Assessment and Plan: As evidenced by heart rate 114, respiration 30, BP 97/44, WBC 15.[address] shows lower lobe pneumonia. Lactic acid 1.0, procalcitonin 0.2. Antibiotic day 3 Cefepime 2 mg Q8 hours and Azithromycin 500 mg IV q24 hours, started 09/01/22 BP and HR stable. Stop IV fluids. (2) Acute on chronic respiratory failure with hypoxia and hypercapnia: Code(s): J96.21 - Acute and chronic respiratory failure with hypoxia; J96.22 - Acute and chronic respiratory failure with hypercapnia Status: Acute Assessment and Plan: ABG showing respiratory acidosis with pCO2 79.9; pH 7.2 09/01/22 ABG - pH 7.33, pCO2 80, PO2 74.6, and bicarb 41.6 on bipap, repeat pH 7.316, pCO2 82.3, pO2 86.5, HCO3 41.1 Pulmonology following and appreciate recommendations. AVAPS NIPPV initiated?rate of 20, tidal volume 450, EPAP 4, minimal inspiratory pressure 5, maximal inspiratory pressure 25, inspiratory time 1.2, rise of 5 which is are slow ST and 32% FiO2 09/02/22 pH 7.397, pCO2 68, pO2 61, HCO3 40.9. Continue management for COPD acute exacerbation and empiric antibiotic CTA chest with severe emphysema. Apnea monitor overnight 09/02/22 overnight oximetry on 40% FiO2 with a baseline saturation of 97%, lowest saturation 90%, time with saturation less than or equal to 88% was 0 minutes. Home Trilogy to be arranged. Continue current management. (3) Emphysema/COPD: Qualifiers: Emphysema type: panlobular Qualified Code(s): J43.1 - Panlobular emphysema Code(s): J43.9 - Emphysema, unspecified Status: Acute Assessment and Plan: Chest x-ray and CTA chest noted severe emphysema. Physical exam notes diminished lung sounds throughout with faint end-expiratory wheezing. Patient has longstanding history of smoking and quit approximately 3 years ago. She does report smoking approximately 1 pack per day and it is unknown time frame. 09/01/22 Give Solu-Medrol 125 mg IV x1 and start Solu-Medrol 40 mg IV q.8 hours scheduled. Continue ipratropium and albuterol DuoNebs q.4 hours scheduled. Start budesonide nebs b.i.d. 09/02/22 Improving. Minimal wheezing. Changed to prednisone 40 mg PO daily by Pulmonology. continue ipratropium and albuterol nebs Q4 hours. 09/03/22 Per pulmonology: stop prednisone, add budesonide nebs bid, and continue short-acting bronchodilators. NIPPV overnight at current settings. (4) PNA (pneumonia): Qualifiers: Pneumonia type: due to unspecified organism Laterality: bilateral Lung location: lower lobe of lung Qualified Code(s): J18.9 - Pneumonia, unspecified organism Code(s): J18.9 - Pneumonia, unspecified organism Status: Acute Assessment and Plan: CTA chest concerning for lower lobe pneumonia, WBC 15 with left shift, and sputum changes with worsening dyspnea. Last hospitalization >3 months ago and patient lives at home. Unlikely MRSA, but will nasal swab to ensure coverage is not necessary. Continue Cefepime and Azithromycin IV as above. (started 09/01/22) day 3 antibiotics. pneumococcal and legionella urine pending (5) Diastolic CHF: Code(s): I50.30 - Unspecified diastolic (congestive) heart failure Status: Acute Assessment and Plan: Chronic, not in acute exacerbation, BNP 6790. Chest x-ray showed pulmonary opacities and right radiolo
[2022-09-03] MEDS: polyethylene glycoL 3350 17 GM POWD.PACK PO (10:48)
[2022-09-03] MEDS: CHOLECALCIFEROL 1,000 UNITS TABLET 1000 UNITS PO (10:49)
[2022-09-03] MEDS: FERROUS SULFATE DRIED 142 MG TABCR PO (10:49)
[2022-09-03] MEDS: PANTOPRAZOLE 40 MG TABLET PO (10:49)
[2022-09-03] MEDS: ALPRAZolam (*CRX) 0.25 MG TABLET PO ×2 (10:49→20:46)
[2022-09-03] MEDS: AMIODARONE HCL 200 MG TABLET 400 MG PO (10:49)
[2022-09-03] MEDS: predniSONE 20 MG TABLET 40 MG PO (10:50)
[2022-09-03] MEDS: DICLOFENAC SODIUM 1% 100 GM GEL (*BKC) 1 APPLIC TOPICAL ×3 (10:51→20:46)
--- NOTE | 2022-09-03 11:20 | PM.PNPUL ---
Progress Note: A&P Assessment and Plan (1) PNA (pneumonia): Qualifiers: Pneumonia type: due to unspecified organism Code(s): J18.9 - Pneumonia, unspecified organism Status: Acute Assessment and Plan: Patient presents with leukocytosis, shortness of breath, and a CT scan with new right lower lobe > left lower lobe infiltrate. It appears patient has not been hospitalized recently. CT scan of the chest 09/01 COVID RT PCR negative influenza negative. One blood pending. Urine Legionella and pneumococcal antigen studies pending. I agree with cefepime and azithromycin for CAP and additional GNB coverage (both started 09/01). 09/02 patient is afebrile, white blood cell count is 11.0, blood cultures negative, continue cefepime and azithromycin, day 2. on continuous BiPAP. 09/03 patient is now tolerating off the BiPAP. Patient remains afebrile, white blood cell count is 14.6, blood cultures negative, continue cefepime and azithromycin, day 3 (2) Emphysema/COPD: Qualifiers: Emphysema type: panlobular Qualified Code(s): J43.1 - Panlobular emphysema Code(s): J43.9 - Emphysema, unspecified Status: Acute Assessment and Plan: COPD (chart states former smoker) on 3 L home O2, PFTs 03/13/2019 with pre bronchodilator FVC 1.84 L, 63% predicted. Pre bronchodilator FEV1 1.21 L, 54% predicted. Ratio 66% predicted, says post intubation on 02/01/2021 for influenza a pneumonia, CT angiogram of the chest on 09/01/2022 with severe apical predominant panlobular emphysema. 09/01 patient presents with 1-2 weeks worsening shortness of breath, cough, increased phlegm production and wheezes were noted by the admitting physician. I will treat patient for COPD exacerbation. Solu-Medrol 40 mg IV q.6, albuterol 2.5 mg nebulized q.4 hours, ipratropium 0.5 mg nebulized q.4 hours. Will discontinue inhaled corticosteroids while the patient is on systemic steroids. 09/02 patient with no wheezing today. Patient has focal infiltrates on her chest x-ray. Will change her to prednisone 40 mg p.o. q.day today (day 2 steroids). Will continue albuterol and ipratropium nebulizers q.4 hours. 09/03 She has no wheezing on exam. She has received prednisone 40 mg p.o. today, day 3 steroids, and given that this is likely a pneumonia I will discontinue systemic steroids today and start her on nebulized budesonide. Will continue albuterol and ipratropium nebulizers q.4 hours. Her saturations currently are 97% on her pre-admission level of home oxygen of 3 L. (3) Respiratory failure with hypoxia and hypercapnia: Code(s): J96.91 - Respiratory failure, unspecified with hypoxia; J96.92 - Respiratory failure, unspecified with hypercapnia Status: Acute Assessment and Plan: The patient has chronic hypercarbic respiratory failure from COPD and would benefit from noninvasive ventilation to prevent further deterioration and subsequent hospitalizations. patient has an admit blood gas of 7.26// with a serum bicarb of 37. Patient has had a serum bicarb level greater than 01/2022. 09/01 The patient could not tolerate BiPAP and her blood gas remained 7.32/82/86. I changed the patient to a noninvasive ventilator with the AVAPS mode and adjusted her settings to comfort which resulted in a rate of 20, tidal volume 450, EPAP 4, minimal inspiratory pressure 5, maximal inspiratory pressure 25, inspiratory time 1.2, rise of 5 which is are slow ST and 32% FiO2. I will order an ABG in the morning prior to removal and an overnight oximetry on these settings. The patient tells me she has improved right now and we will attempt to take her off of the noninvasive ventilator but she should wear this tonight when she goes to sleep. Patient took the BiPAP off to eat dinner. 09/02 Patient use the noninvasive ventilator with the AVAPS mode last night. She was on AVAPS this morning when I spoke to her. She th
[2022-09-03] MEDS: BUDESONIDE RESPULE NEB 0.5 MG/2 ML AMP INHALATION ×2 (12:02→20:27)
[2022-09-03] MEDS: RIVAROXABAN 20 MG TABLET PO (17:48)
[2022-09-03 20:04] LABS: Legionella pneumophila Ag Ur Not Detected (Not Detected)
[2022-09-04] VITALS (27 sets, daily range): BP systolic 101–144; BP diastolic 41–50; PULSE 66–85; RESP 16–35; TEMP 36.3–36.9; O2SAT 91–100
--- NOTE | 2022-09-04 | ECG_ITS ---
Measurements Intervals [place] Rate: 67 P: 94 NM: 178 QRS: 89 QRSD: 130 T: 60 QT: 443 QTc: 469 Interpretive Statements SINUS RHYTHM LEFT VENTRICULAR HYPERTROPHY WITH SECONDARY REPOLARIZATION ABNORMALITIES AND QRS WIDENING ABNORMAL ECG COMPARED TO ECG 09/01/2022 12:52:17 COMPARED WITH 09/01/2022 PRECORDIAL T-WAVES ARE NO LONGER BIPHASIC Electronically Signed On 09-04-2022 15:34:24 CDT by Chris Adler M.D.
[2022-09-04 05:32] LABS: Basophils Percent Auto 0.1 % (0.2-1.2); Hematocrit 28.5 % (37.0-47.0); Hemoglobin 7.6 g/dL (12.0-15.0); Immature Granulocyte Percent A 0.7 % (0-0.5); Lymphocytes Absolute Auto 0.38 K/mm3 (0.9-3.2); Lymphocytes Percent Auto 2.6 % (18.3-44.2); Mean Corpuscular HGB Conc 26.7 g/dl (32-36); Mean Corpuscular Hemoglobin 21.2 pg (26-34); Mean Corpuscular Volume 79.4 fl (80-100); Mean Platelet Volume 9.3 fl (7.4-10.4); Monocytes Absolute Auto 1.5 K/mm3 (0.1-0.6); Monocytes Percent Auto 10.3 % (2.6-8.5); Neutrophils Absolute Auto 12.6 K/mm3 (1.3-6.7); Neutrophils Percent Auto 86.3 % (45.5-73.1); Platelet Count Result 369 k/mm3 (150-375); Red Blood Count 3.59 M/mm3 (4.2-5.4); Red Cell Distribution Width 17.9 % (11.5-14.5); White Blood Count 14.6 K/mm3 (4.5-10.0)
[2022-09-04 05:48] LABS: Alanine Aminotransferase 75 U/L (6-35); Albumin Level 2.5 g/dL (3.5-5.1); Alkaline Phosphatase 126 U/L (38-126); Aspartate Amino Transferase 93 U/L (14-36); Bilirubin,Total 0.2 mg/dL (0.2-1.3); Blood Urea Nitrogen 18 mg/dL (7-17); Calcium 8.3 mg/dL (8.4-10.2); Carbon Dioxide > 40 mmol/L (22-30); Chloride 95 mmol/L (98-107); Estimated CRCL calculation 63 ml/min; Estimated Glomerular Filt Rate > 60; Glucose 98 mg/dL (65-110); Potassium 4.6 mmol/L (3.4-5.0); Sodium 137 mmol/L (137-145)
--- NOTE | 2022-09-04 08:05 | PM.IMPN ---
Progress Note: A&P Assessment and Plan (1) Sepsis: Qualifiers: Acute respiratory failure type: with hypercapnia Sepsis acute organ dysfunction status: with acute organ dysfunction Sepsis type: sepsis due to unspecified organism Severe sepsis acute organ dysfunction type: acute respiratory failure Severe sepsis shock status: without septic shock Qualified Code(s): A41.9 - Sepsis, unspecified organism; R65.20 - Severe sepsis without septic shock; J96.02 - Acute respiratory failure with hypercapnia Code(s): A41.9 - Sepsis, unspecified organism Status: Acute Assessment and Plan: As evidenced by heart rate 114, respiration 30, BP 97/44, WBC 15.[address] shows lower lobe pneumonia. Lactic acid 1.0, procalcitonin 0.2. Antibiotic day 4: Cefepime 2 mg Q8 hours and Azithromycin 500 mg IV q24 hours started 09/01/22. Cefepime changed to Zosyn 4.5 mg IV Q 6 hours for possible aspiration pneumonia on 09/04/22. WBC 14. No fevers. BP and HR stable. (2) Acute on chronic respiratory failure with hypoxia and hypercapnia: Code(s): J96.21 - Acute and chronic respiratory failure with hypoxia; J96.22 - Acute and chronic respiratory failure with hypercapnia Status: Acute Assessment and Plan: ABG showing respiratory acidosis with pCO2 79.9; pH 7.2 09/01/22 ABG - pH 7.33, pCO2 80, PO2 74.6, and bicarb 41.6 on bipap, repeat pH 7.316, pCO2 82.3, pO2 86.5, HCO3 41.1 Pulmonology following and appreciate recommendations. AVAPS NIPPV initiated?rate of 20, tidal volume 450, EPAP 4, minimal inspiratory pressure 5, maximal inspiratory pressure 25, inspiratory time 1.2, rise of 5 which is are slow ST and 32% FiO2 09/02/22 pH 7.397, pCO2 68, pO2 61, HCO3 40.9. Continue management for COPD acute exacerbation and empiric antibiotic CTA chest with severe emphysema. Apnea monitor overnight 09/02/22 overnight oximetry on 40% FiO2 with a baseline saturation of 97%, lowest saturation 90%, time with saturation less than or equal to 88% was 0 minutes. Home Trilogy to be arranged. Continue current management. 09/04/22 TCO2>40, Check ABG and repeat chest x-ray. Appreciate Pulmonology recommendations. Encourage bipap use overnight. (3) Emphysema/COPD: Qualifiers: Emphysema type: panlobular Qualified Code(s): J43.1 - Panlobular emphysema Code(s): J43.9 - Emphysema, unspecified Status: Acute Assessment and Plan: Chest x-ray and CTA chest noted severe emphysema. Physical exam notes diminished lung sounds throughout with faint end-expiratory wheezing. Patient has longstanding history of smoking and quit approximately 3 years ago. She does report smoking approximately 1 pack per day and it is unknown time frame. 09/01/22 Give Solu-Medrol 125 mg IV x1 and start Solu-Medrol 40 mg IV q.8 hours scheduled. Continue ipratropium and albuterol DuoNebs q.4 hours scheduled. Start budesonide nebs b.i.d. 09/02/22 Improving. Minimal wheezing. Changed to prednisone 40 mg PO daily by Pulmonology. continue ipratropium and albuterol nebs Q4 hours. 09/03/22 Per pulmonology: stop prednisone, add budesonide nebs bid, and continue short-acting bronchodilators. NIPPV overnight at current settings. 09/04/22 Per pulmonology recommendations. (4) PNA (pneumonia): Qualifiers: Laterality: bilateral Lung location: lower lobe of lung Pneumonia type: due to unspecified organism Qualified Code(s): J18.9 - Pneumonia, unspecified organism Code(s): J18.9 - Pneumonia, unspecified organism Status: Acute Assessment and Plan: CTA chest concerning for lower lobe pneumonia, WBC 15 with left shift, and sputum changes with worsening dyspnea. Last hospitalization >3 months ago and patient lives at home. Unlikely MRSA, but will nasal swab to ensure coverage is not necessary. Continue Cefepime and Azithromycin IV as above. (started 09/01/22) day 3 antibiotics. pneumococcal and legionella
[2022-09-04] MEDS: ALBUTEROL SULFATE NEB 2.5 MG/3 ML INH INHALATION ×4 (08:22→20:56)
[2022-09-04] MEDS: IPRATROPIUM BR 0.02% INH SOLN 0.5 MG/2.5 ML VIAL INHALATION ×4 (08:23→20:56)
[2022-09-04] MEDS: BUDESONIDE RESPULE NEB 0.5 MG/2 ML AMP INHALATION ×2 (08:23→20:56)
[2022-09-04 09:14] LABS: Alveolar/Arterial O2 Gradient 67.3 mmHg; Carboxyhemoglobin 1.6 % THb (0-2.0); Fractional Inspired Oxygen 32 %; HCO3 ABG 41.8 mEq/l (22.0-26.0); Methemoglobin ABG 0.3 %THb (0-1.5); Oxygen Content ABG 11.5 %vol (16.0-22.0); Oxygen Saturation ABG 92.3 % (95.0-100.0); Oxyhemoglobin 91.1 % THb (90.0-100.0); PO2 ABG 70.1 mmHg (80.0-100.0); PO2 FiO2 Ratio Arterial Blood 2.19 %; Total Hemoglobin 8.9 g/dL (12.0-18.0); pH ABG 7.349 (7.350-7.450)
[2022-09-04 09:15] LABS: Device NASAL CANNULA; Modified Allen's Test Pass; PCO2 ABG 77.6 mmHg (35.0-45.0); Site Drawn LEFT RADIAL
[2022-09-04] MEDS: polyethylene glycoL 3350 17 GM POWD.PACK PO (10:29)
[2022-09-04] MEDS: AMIODARONE HCL 200 MG TABLET 400 MG PO (10:30)
[2022-09-04] MEDS: FERROUS SULFATE DRIED 142 MG TABCR PO (10:30)
[2022-09-04] MEDS: PANTOPRAZOLE 40 MG TABLET PO (10:30)
[2022-09-04] MEDS: DICLOFENAC SODIUM 1% 100 GM GEL (*BKC) 1 APPLIC TOPICAL ×4 (10:30→20:30)
[2022-09-04] MEDS: CHOLECALCIFEROL 1,000 UNITS TABLET 1000 UNITS PO (10:30)
--- NOTE | 2022-09-04 11:20 | PM.PNPUL ---
Progress Note: A&P Assessment and Plan (1) PNA (pneumonia): Qualifiers: Laterality: bilateral Lung location: lower lobe of lung Pneumonia type: due to unspecified organism Qualified Code(s): J18.9 - Pneumonia, unspecified organism Code(s): J18.9 - Pneumonia, unspecified organism Status: Acute Assessment and Plan: Patient presents with leukocytosis, shortness of breath, and a CT scan with new right lower lobe > left lower lobe infiltrate. It appears patient has not been hospitalized recently. CT scan of the chest 09/01 COVID RT PCR negative influenza negative. One blood pending. Urine Legionella and pneumococcal antigen studies pending. I agree with cefepime and azithromycin for CAP and additional GNB coverage (both started 09/01). 09/02 patient is afebrile, white blood cell count is 11.0, blood cultures negative, continue cefepime and azithromycin, day 2. on continuous BiPAP. 09/03 patient is now tolerating off the BiPAP. Patient remains afebrile, white blood cell count is 14.6, blood cultures negative, continue cefepime and azithromycin, day 3 09/04 this morning patient had desats while drinking and a blood gas was obtained on 3 L nasal cannula the pH of 7.35/78/70. A chest x-ray was obtained that demonstrated a continued right lower lobe infiltrate and hyperinflation. Cefepime (09/01 through 09/04) was changed to Zosyn (start 09/04). azithromycin, day 3. Patient is NPO and will have a swallow. The patient is debilitated and I recommend aggressive physical therapy including out of bed to chair. (2) Emphysema/COPD: Qualifiers: Emphysema type: panlobular Qualified Code(s): J43.1 - Panlobular emphysema Code(s): J43.9 - Emphysema, unspecified Status: Acute Assessment and Plan: COPD (chart states former smoker) on 3 L home O2, PFTs 03/13/2019 with pre bronchodilator FVC 1.84 L, 63% predicted. Pre bronchodilator FEV1 1.21 L, 54% predicted. Ratio 66% predicted, says post intubation on 02/01/2021 for influenza a pneumonia, CT angiogram of the chest on 09/01/2022 with severe apical predominant panlobular emphysema. 09/01 patient presents with 1-2 weeks worsening shortness of breath, cough, increased phlegm production and wheezes were noted by the admitting physician. I will treat patient for COPD exacerbation. Solu-Medrol 40 mg IV q.6, albuterol 2.5 mg nebulized q.4 hours, ipratropium 0.5 mg nebulized q.4 hours. Will discontinue inhaled corticosteroids while the patient is on systemic steroids. 09/02 patient with no wheezing today. Patient has focal infiltrates on her chest x-ray. Will change her to prednisone 40 mg p.o. q.day today (day 2 steroids). Will continue albuterol and ipratropium nebulizers q.4 hours. 09/03 She has no wheezing on exam. She has received prednisone 40 mg p.o. today, day 3 steroids, and given that this is likely a pneumonia I will discontinue systemic steroids today and start her on nebulized budesonide. Will continue albuterol and ipratropium nebulizers q.4 hours. Her saturations currently are 97% on her pre-admission level of home oxygen of 3 L. 09/04 she has no wheezes on exam. Her breathing is unchanged off of the steroids for 24 hours. Will continue albuterol and ipratropium nebulizers q.4 hours and budesonide nebulizer 0.5 mg q.12 hours. (3) Respiratory failure with hypoxia and hypercapnia: Code(s): J96.91 - Respiratory failure, unspecified with hypoxia; J96.92 - Respiratory failure, unspecified with hypercapnia Status: Acute Assessment and Plan: The patient has chronic hypercarbic respiratory failure from COPD and would benefit from noninvasive ventilation to prevent further deterioration and subsequent hospitalizations. patient has an admit blood gas of 7.26/ with a serum bicarb of 37. Patient has had a serum bicarb level greater than 01/2022. 09/01 The patient could not tolerate
[2022-09-04] MEDS: PIPERACILLIN/TAZOBACTAM SOD 4.5 GM in SODIUM CHLORIDE 0.9% IV 100 ML 200 ML IVPB ×2 (12:23→17:22)
[2022-09-04] MEDS: RIVAROXABAN 20 MG TABLET PO (17:23)
[2022-09-05] VITALS (29 sets, daily range): BP systolic 85–149; BP diastolic 34–51; PULSE 63–83; RESP 16–32; TEMP 36.4–36.8; O2SAT 87–100
[2022-09-05] MEDS: PIPERACILLIN/TAZOBACTAM SOD 4.5 GM in SODIUM CHLORIDE 0.9% IV 100 ML 200 ML IVPB ×3 (00:02→16:37)
[2022-09-05] MEDS: IPRATROPIUM BR 0.02% INH SOLN 0.5 MG/2.5 ML VIAL INHALATION ×5 (00:53→20:25)
[2022-09-05] MEDS: ALBUTEROL SULFATE NEB 2.5 MG/3 ML INH INHALATION ×5 (00:53→20:25)
[2022-09-05 02:39] LABS: Pneumococcal Antigen Urine Not Detected (Not Detected)
[2022-09-05 05:30] LABS: Basophils Percent Auto 0.1 % (0.2-1.2); Eosinophils Percent Auto 0.4 % (0-4.4); Hematocrit 28.9 % (37.0-47.0); Hemoglobin 7.7 g/dL (12.0-15.0); Immature Granulocyte Absolute 0.07 K/mm3 (0.00-0.031); Immature Granulocyte Percent A 0.7 % (0-0.5); Lymphocytes Absolute Auto 0.26 K/mm3 (0.9-3.2); Lymphocytes Percent Auto 2.4 % (18.3-44.2); Mean Corpuscular HGB Conc 26.6 g/dl (32-36); Mean Corpuscular Hemoglobin 21.2 pg (26-34); Mean Corpuscular Volume 79.6 fl (80-100); Mean Platelet Volume 10.2 fl (7.4-10.4); Monocytes Absolute Auto 0.9 K/mm3 (0.1-0.6); Monocytes Percent Auto 8.7 % (2.6-8.5); Neutrophils Absolute Auto 9.4 K/mm3 (1.3-6.7); Neutrophils Percent Auto 87.7 % (45.5-73.1); Platelet Count Result 322 k/mm3 (150-375); Red Blood Count 3.63 M/mm3 (4.2-5.4); White Blood Count 10.7 K/mm3 (4.5-10.0)
[2022-09-05 05:48] LABS: Alanine Aminotransferase 92 U/L (6-35); Albumin Level 2.3 g/dL (3.5-5.1); Alkaline Phosphatase 116 U/L (38-126); Aspartate Amino Transferase 118 U/L (14-36); Bilirubin,Total 0.3 mg/dL (0.2-1.3); Blood Urea Nitrogen 15 mg/dL (7-17); Calcium 7.8 mg/dL (8.4-10.2); Carbon Dioxide > 40 mmol/L (22-30); Chloride 91 mmol/L (98-107); Estimated CRCL calculation 61 ml/min; Estimated Glomerular Filt Rate > 60; Glucose 78 mg/dL (65-110); Potassium 3.4 mmol/L (3.4-5.0); Sodium 139 mmol/L (137-145)
[2022-09-05 07:51] LABS: Hypochromasia 2+ (NORMAL); Ovalocytes 1+ (NORMAL); Schistocytes None Seen (NORMAL)
[2022-09-05] MEDS: BUDESONIDE RESPULE NEB 0.5 MG/2 ML AMP INHALATION ×2 (08:33→20:25)
--- NOTE | 2022-09-05 08:38 | PM.IMPN ---
Progress Note: A&P Assessment and Plan (1) Sepsis: Qualifiers: Acute respiratory failure type: with hypercapnia Sepsis acute organ dysfunction status: with acute organ dysfunction Sepsis type: sepsis due to unspecified organism Severe sepsis acute organ dysfunction type: acute respiratory failure Severe sepsis shock status: without septic shock Qualified Code(s): A41.9 - Sepsis, unspecified organism; R65.20 - Severe sepsis without septic shock; J96.02 - Acute respiratory failure with hypercapnia Code(s): A41.9 - Sepsis, unspecified organism Status: Acute Assessment and Plan: As evidenced by heart rate 114, respiration 30, BP 97/44, WBC 15.[address] shows lower lobe pneumonia. Lactic acid 1.0, procalcitonin 0.2. Antibiotic day 5: Cefepime 2 mg Q8 hours and Azithromycin 500 mg IV q24 hours started 09/01/22 (completed 5 day course). Cefepime changed to Zosyn 4.5 mg IV Q 6 hours for possible aspiration pneumonia on 09/04/22. WBC 10.7 and improving. No fevers. BP and HR stable. Blood cultures negative to date. (2) Acute on chronic respiratory failure with hypoxia and hypercapnia: Code(s): J96.21 - Acute and chronic respiratory failure with hypoxia; J96.22 - Acute and chronic respiratory failure with hypercapnia Status: Acute Assessment and Plan: ABG showing respiratory acidosis with pCO2 79.9; pH 7.2 09/01/22 ABG - pH 7.33, pCO2 80, PO2 74.6, and bicarb 41.6 on bipap, repeat pH 7.316, pCO2 82.3, pO2 86.5, HCO3 41.1 Pulmonology following and appreciate recommendations. AVAPS NIPPV initiated?rate of 20, tidal volume 450, EPAP 4, minimal inspiratory pressure 5, maximal inspiratory pressure 25, inspiratory time 1.2, rise of 5 which is are slow ST and 32% FiO2 09/02/22 pH 7.397, pCO2 68, pO2 61, HCO3 40.9. Continue management for COPD acute exacerbation and empiric antibiotic CTA chest with severe emphysema. Apnea monitor overnight 09/02/22 overnight oximetry on 40% FiO2 with a baseline saturation of 97%, lowest saturation 90%, time with saturation less than or equal to 88% was 0 minutes. Home Trilogy to be arranged. Continue current management. 09/04/22 TCO2>40, Check ABG and repeat chest x-ray. Appreciate Pulmonology recommendations. Encourage bipap use overnight. 09/05/22 patient was able to tolerate the bipap some last night on below the nose mask. She still has some difficulty sleeping due to the noise, but it was better than the previous evening. (3) Emphysema/COPD: Qualifiers: Emphysema type: panlobular Qualified Code(s): J43.1 - Panlobular emphysema Code(s): J43.9 - Emphysema, unspecified Status: Acute Assessment and Plan: Chest x-ray and CTA chest noted severe emphysema. Physical exam notes diminished lung sounds throughout with faint end-expiratory wheezing. Patient has longstanding history of smoking and quit approximately 3 years ago. She does report smoking approximately 1 pack per day and it is unknown time frame. 09/01/22 Give Solu-Medrol 125 mg IV x1 and start Solu-Medrol 40 mg IV q.8 hours scheduled. Continue ipratropium and albuterol DuoNebs q.4 hours scheduled. Start budesonide nebs b.i.d. 09/02/22 Improving. Minimal wheezing. Changed to prednisone 40 mg PO daily by Pulmonology. continue ipratropium and albuterol nebs Q4 hours. 09/03/22 Per pulmonology: stop prednisone, add budesonide nebs bid, and continue short-acting bronchodilators. NIPPV overnight at current settings. 09/04/22 Per pulmonology recommendations. 09/05/22 continue duonebs Q4 hours, budesonide BID and pneumonia treatment. (4) PNA (pneumonia): Qualifiers: Laterality: bilateral Lung location: lower lobe of lung Pneumonia type: due to unspecified organism Qualified Code(s): J18.9 - Pneumonia, unspecified organism Code(s): J18.9 - Pneumonia, unspecified organism Status: Acute Assessment and Plan: CTA chest concerning
--- NOTE | 2022-09-05 09:45 | PM.PNPUL ---
Progress Note: A&P Assessment and Plan (1) PNA (pneumonia): Qualifiers: Pneumonia type: due to unspecified organism Laterality: bilateral Lung location: lower lobe of lung Qualified Code(s): J18.9 - Pneumonia, unspecified organism Code(s): J18.9 - Pneumonia, unspecified organism Status: Acute Assessment and Plan: Patient presents with leukocytosis, shortness of breath, and a CT scan with new right lower lobe > left lower lobe infiltrate. It appears patient has not been hospitalized recently. CT scan of the chest 09/01 COVID RT PCR negative influenza negative. One blood pending. Urine Legionella and pneumococcal antigen studies pending. I agree with cefepime and azithromycin for CAP and additional GNB coverage (both started 09/01). 09/02 patient is afebrile, white blood cell count is 11.0, blood cultures negative, continue cefepime and azithromycin, day 2. on continuous BiPAP. 09/03 patient is now tolerating off the BiPAP. Patient remains afebrile, white blood cell count is 14.6, blood cultures negative, continue cefepime and azithromycin, day 3 09/04 this morning patient had desats while drinking and a blood gas was obtained on 3 L nasal cannula the pH of 7.35/78/70. A chest x-ray was obtained that demonstrated a continued right lower lobe infiltrate and hyperinflation. Cefepime (09/01 through 09/04) was changed to Zosyn (start 09/04). azithromycin, day 4. Patient is NPO and will have a swallow. Bedside swallow: No coughing or other evidence of penetration or aspiration was noted. Patient may benefit from a min stand moist diet, level 5. Patient should be encouraged to use had flexion when swallowing pills to prevent coughing. 09/05 Overall the patient states she is breathing back to normal. Her white blood cell count is 10.7 (slowly improving), creatinine is 0.4. Urine Legionella and urine pneumococcal antigens are negative. Patient did get out of bed to chair yesterday and had desats requiring 10 L nasal cannula she recovered when she was in the chair. Currently she is on 5 L nasal cannula saturation 96%. Patient is status post 5 days of Zithromax and cefepime from 09/01 through 09/04 and Zosyn from 09/04. today is day 5 of antibiotics. The patient is debilitated and I recommend aggressive physical therapy including out of bed to chair. (2) Emphysema/COPD: Qualifiers: Emphysema type: panlobular Qualified Code(s): J43.1 - Panlobular emphysema Code(s): J43.9 - Emphysema, unspecified Status: Acute Assessment and Plan: COPD (chart states former smoker) on 3 L home O2, PFTs 03/13/2019 with pre bronchodilator FVC 1.84 L, 63% predicted. Pre bronchodilator FEV1 1.21 L, 54% predicted. Ratio 66% predicted, says post intubation on 02/01/2021 for influenza a pneumonia, CT angiogram of the chest on 09/01/2022 with severe apical predominant panlobular emphysema. 09/01 patient presents with 1-2 weeks worsening shortness of breath, cough, increased phlegm production and wheezes were noted by the admitting physician. I will treat patient for COPD exacerbation. Solu-Medrol 40 mg IV q.6, albuterol 2.5 mg nebulized q.4 hours, ipratropium 0.5 mg nebulized q.4 hours. Will discontinue inhaled corticosteroids while the patient is on systemic steroids. 09/02 patient with no wheezing today. Patient has focal infiltrates on her chest x-ray. Will change her to prednisone 40 mg p.o. q.day today (day 2 steroids). Will continue albuterol and ipratropium nebulizers q.4 hours. 09/03 She has no wheezing on exam. She has received prednisone 40 mg p.o. today, day 3 steroids, and given that this is likely a pneumonia I will discontinue systemic steroids today and start her on nebulized budesonide. Will continue albuterol and ipratropium nebulizers q.4 hours. Her saturations currently are 97% on her pre-admission level of home oxygen of 3 L. 09/04 she has no wh
[2022-09-05] MEDS: polyethylene glycoL 3350 17 GM POWD.PACK PO (09:46)
[2022-09-05] MEDS: PANTOPRAZOLE 40 MG TABLET PO (09:46)
[2022-09-05] MEDS: BISACODYL 10 MG SUPPOSITORY RECTAL (09:46)
[2022-09-05] MEDS: NEOMYCIN/POLYMYXIN/BACITRACIN OINTMENT 15 GM TUBE 1 APPLIC TOPICAL (09:46)
[2022-09-05] MEDS: ACETAMINOPHEN 325 MG TABLET 650 MG PO (09:47)
[2022-09-05] MEDS: FERROUS SULFATE DRIED 142 MG TABCR PO (09:47)
[2022-09-05] MEDS: DICLOFENAC SODIUM 1% 100 GM GEL (*BKC) 1 APPLIC TOPICAL ×4 (09:47→21:50)
[2022-09-05] MEDS: ALPRAZolam (*CRX) 0.25 MG TABLET PO ×2 (09:47→21:52)
[2022-09-05] MEDS: IRON SUCROSE COMPLEX 200 MG in SODIUM CHLORIDE 0.9% IV 50 ML 120 MG IVPB (11:24)
[2022-09-05] MEDS: CHOLECALCIFEROL 1,000 UNITS TABLET 2000 UNITS PO (11:25)
[2022-09-05] MEDS: SENNA/DOCUSATE SODIUM TABLET 2 TAB PO ×2 (11:25→16:36)
--- NOTE | 2022-09-05 13:33 | PCOTNOTE ---
Attempted to see patient. Patient is currently eating lunch.
--- NOTE | 2022-09-05 14:05 | PC.NURSE ---
notified Shey MILAN of not being able to obtain IV access. Telephone orders received and put in for [employer] insert.
[2022-09-05] MEDS: RIVAROXABAN 20 MG TABLET PO (16:36)
--- NOTE | 2022-09-05 19:02 | PC.NURSE ---
On 09/05/22, the student, Yvonne goldstein, provided care and completed [employer] documentation on this patient. I have reviewed the student's documentation and agree with the findings.
[2022-09-05] MEDS: guaiFENesin 12 HR 600 MG TABCR PO (21:51)
[2022-09-05] MEDS: MELATONIN 5 MG TABLET PO (21:51)
[2022-09-05] MEDS: SALINE LOCK FLUSH 10 ML IV PUSH (21:52)
[2022-09-06] VITALS (26 sets, daily range): BP systolic 90–108; BP diastolic 30–49; PULSE 68–85; RESP 14–29; TEMP 36.3–36.9; O2SAT 89–100
[2022-09-06] MEDS: PIPERACILLIN/TAZOBACTAM SOD 4.5 GM in SODIUM CHLORIDE 0.9% IV 100 ML 200 ML IVPB ×4 (00:26→20:47)
[2022-09-06] MEDS: ALBUTEROL SULFATE NEB 2.5 MG/3 ML INH INHALATION ×5 (01:57→20:31)
[2022-09-06] MEDS: IPRATROPIUM BR 0.02% INH SOLN 0.5 MG/2.5 ML VIAL INHALATION ×5 (01:57→20:31)
--- NOTE | 2022-09-06 02:25 | PCRCNOTE ---
Pt is alert x4, oxygen 6L NC sp02 97% , RR-16, NO sob OR increased WOB present. Bipap is on standby, pt refusing.
[2022-09-06] MEDS: SALINE LOCK FLUSH 10 ML IV PUSH ×3 (05:41→22:51)
--- NOTE | 2022-09-06 07:47 | PM.PNPUL ---
Progress Note: A&P Assessment and Plan (1) PNA (pneumonia): Qualifiers: Pneumonia type: due to unspecified organism Laterality: bilateral Lung location: lower lobe of lung Qualified Code(s): J18.9 - Pneumonia, unspecified organism Code(s): J18.9 - Pneumonia, unspecified organism Status: Acute Assessment and Plan: Patient presents with leukocytosis, shortness of breath, and a CT scan with new right lower lobe > left lower lobe infiltrate. It appears patient has not been hospitalized recently. CT scan of the chest 09/01 COVID RT PCR negative influenza negative. One blood pending. Urine Legionella and pneumococcal antigen studies pending. I agree with cefepime and azithromycin for CAP and additional GNB coverage (both started 09/01). 09/02 patient is afebrile, white blood cell count is 11.0, blood cultures negative, continue cefepime and azithromycin, day 2. on continuous BiPAP. 09/03 patient is now tolerating off the BiPAP. Patient remains afebrile, white blood cell count is 14.6, blood cultures negative, continue cefepime and azithromycin, day 3 09/04 this morning patient had desats while drinking and a blood gas was obtained on 3 L nasal cannula the pH of 7.35/78/70. A chest x-ray was obtained that demonstrated a continued right lower lobe infiltrate and hyperinflation. Cefepime (09/01 through 09/04) was changed to Zosyn (start 09/04). azithromycin, day 4. Patient is NPO and will have a swallow. Bedside swallow: No coughing or other evidence of penetration or aspiration was noted. Patient may benefit from a min stand moist diet, level 5. Patient should be encouraged to use had flexion when swallowing pills to prevent coughing. 09/05 Overall the patient states she is breathing back to normal. Her white blood cell count is 10.7 (slowly improving), creatinine is 0.4. Urine Legionella and urine pneumococcal antigens are negative. Patient did get out of bed to chair yesterday and had desats requiring 10 L nasal cannula she recovered when she was in the chair. Currently she is on 5 L nasal cannula saturation 96%. Patient is status post 5 days of Zithromax and cefepime from 09/01 through 09/04 and Zosyn from 09/04. today is day 5 of antibiotics. 09/06 slowly improving. She is out of bed and have encouraged her to do some walking today. Currently on 5 L with saturation 91%. Patient is status post 5 days of Zithromax (completed 09/05) and cefepime from 09/01 through 09/04 and Zosyn from 09/04. today is day 6 of antibiotics. I will repeat a chest x-ray in the morning. The patient is debilitated and I recommend aggressive physical therapy including out of bed to chair and ambulation. She wants to go home. (2) Emphysema/COPD: Qualifiers: Emphysema type: panlobular Qualified Code(s): J43.1 - Panlobular emphysema Code(s): J43.9 - Emphysema, unspecified Status: Acute Assessment and Plan: COPD (chart states former smoker) on 3 L home O2, PFTs 03/13/2019 with pre bronchodilator FVC 1.84 L, 63% predicted. Pre bronchodilator FEV1 1.21 L, 54% predicted. Ratio 66% predicted, says post intubation on 02/01/2021 for influenza a pneumonia, CT angiogram of the chest on 09/01/2022 with severe apical predominant panlobular emphysema. 09/01 patient presents with 1-2 weeks worsening shortness of breath, cough, increased phlegm production and wheezes were noted by the admitting physician. I will treat patient for COPD exacerbation. Solu-Medrol 40 mg IV q.6, albuterol 2.5 mg nebulized q.4 hours, ipratropium 0.5 mg nebulized q.4 hours. Will discontinue inhaled corticosteroids while the patient is on systemic steroids. 09/02 patient with no wheezing today. Patient has focal infiltrates on her chest x-ray. Will change her to prednisone 40 mg p.o. q.day today (day 2 steroids). Will continue albuterol and ipratropium nebulizers q.4 hours. 09/03 She has no wheezing
--- NOTE | 2022-09-06 07:52 | PM.IMPN ---
Progress Note: A&P Assessment and Plan (1) Sepsis: Qualifiers: Acute respiratory failure type: with hypercapnia Sepsis acute organ dysfunction status: with acute organ dysfunction Sepsis type: sepsis due to unspecified organism Severe sepsis acute organ dysfunction type: acute respiratory failure Severe sepsis shock status: without septic shock Qualified Code(s): A41.9 - Sepsis, unspecified organism; R65.20 - Severe sepsis without septic shock; J96.02 - Acute respiratory failure with hypercapnia Code(s): A41.9 - Sepsis, unspecified organism Status: Acute Assessment and Plan: As evidenced by heart rate 114, respiration 30, BP 97/44, WBC 15.[address] shows lower lobe pneumonia. Lactic acid 1.0, procalcitonin 0.2. Antibiotic day 5: Cefepime 2 mg Q8 hours and Azithromycin 500 mg IV q24 hours started 09/01/22 (completed 5 day course). Cefepime changed to Zosyn 4.5 mg IV Q 6 hours for possible aspiration pneumonia on 09/04/22. BP and HR stable. Blood cultures negative to date. Stable. (2) Acute on chronic respiratory failure with hypoxia and hypercapnia: Code(s): J96.21 - Acute and chronic respiratory failure with hypoxia; J96.22 - Acute and chronic respiratory failure with hypercapnia Status: Acute Assessment and Plan: ABG showing respiratory acidosis with pCO2 79.9; pH 7.2 09/01/22 ABG - pH 7.33, pCO2 80, PO2 74.6, and bicarb 41.6 on bipap, repeat pH 7.316, pCO2 82.3, pO2 86.5, HCO3 41.1 Pulmonology following and appreciate recommendations. AVAPS NIPPV initiated?rate of 20, tidal volume 450, EPAP 4, minimal inspiratory pressure 5, maximal inspiratory pressure 25, inspiratory time 1.2, rise of 5 which is are slow ST and 32% FiO2 09/02/22 pH 7.397, pCO2 68, pO2 61, HCO3 40.9. Continue management for COPD acute exacerbation and empiric antibiotic CTA chest with severe emphysema. Apnea monitor overnight 09/02/22 overnight oximetry on 40% FiO2 with a baseline saturation of 97%, lowest saturation 90%, time with saturation less than or equal to 88% was 0 minutes. Home Trilogy to be arranged. Continue current management. 09/04/22 TCO2>40, Check ABG and repeat chest x-ray. Appreciate Pulmonology recommendations. Encourage bipap use overnight. 09/05/22 patient was able to tolerate the bipap some last night on below the nose mask. She still has some difficulty sleeping due to the noise, but it was better than the previous evening. 09/06/22 Continue current therapy and bipap settings with below the nose mask. (3) Emphysema/COPD: Qualifiers: Emphysema type: panlobular Qualified Code(s): J43.1 - Panlobular emphysema Code(s): J43.9 - Emphysema, unspecified Status: Acute Assessment and Plan: Chest x-ray and CTA chest noted severe emphysema. Physical exam notes diminished lung sounds throughout with faint end-expiratory wheezing. Patient has longstanding history of smoking and quit approximately 3 years ago. She does report smoking approximately 1 pack per day and it is unknown time frame. 09/01/22 Give Solu-Medrol 125 mg IV x1 and start Solu-Medrol 40 mg IV q.8 hours scheduled. Continue ipratropium and albuterol DuoNebs q.4 hours scheduled. Start budesonide nebs b.i.d. 09/02/22 Improving. Minimal wheezing. Changed to prednisone 40 mg PO daily by Pulmonology. continue ipratropium and albuterol nebs Q4 hours. 09/03/22 Per pulmonology: stop prednisone, add budesonide nebs bid, and continue short-acting bronchodilators. NIPPV overnight at current settings. 09/04/22 Per pulmonology recommendations. 09/05/22 continue duonebs Q4 hours, budesonide BID and pneumonia treatment. (4) PNA (pneumonia): Qualifiers: Laterality: bilateral Lung location: lower lobe of lung Pneumonia type: due to unspecified organism Qualified Code(s): J18.9 - Pneumonia, unspecified organism Code(s): J18.9 - Pneumonia, unspecified organism Status:
[2022-09-06] MEDS: BUDESONIDE RESPULE NEB 0.5 MG/2 ML AMP INHALATION ×2 (08:16→20:31)
--- NOTE | 2022-09-06 08:26 | PCOTNOTE ---
Attempted to see patient. Patient is currently with respiratory therapist completing treatment.
[2022-09-06] MEDS: IRON SUCROSE COMPLEX 200 MG in SODIUM CHLORIDE 0.9% IV 50 ML 120 MG IVPB (09:09)
[2022-09-06] MEDS: polyethylene glycoL 3350 17 GM POWD.PACK PO (09:09)
[2022-09-06] MEDS: PANTOPRAZOLE 40 MG TABLET PO (09:09)
[2022-09-06] MEDS: NEOMYCIN/POLYMYXIN/BACITRACIN OINTMENT 15 GM TUBE 1 APPLIC TOPICAL (09:09)
[2022-09-06] MEDS: DICLOFENAC SODIUM 1% 100 GM GEL (*BKC) 1 APPLIC TOPICAL ×4 (09:10→20:48)
[2022-09-06] MEDS: SENNA/DOCUSATE SODIUM TABLET 2 TAB PO ×2 (09:10→16:53)
[2022-09-06] MEDS: FERROUS SULFATE DRIED 142 MG TABCR PO (09:10)
[2022-09-06] MEDS: CHOLECALCIFEROL 1,000 UNITS TABLET 2000 UNITS PO (09:10)
[2022-09-06] MEDS: guaiFENesin 12 HR 600 MG TABCR PO ×2 (09:10→20:50)
--- NOTE | 2022-09-06 09:45 | PCOTNOTE ---
Attempted to see patient for OT evaluation. Patient is eating breakfast and refuses therapy right now.
[2022-09-06] MEDS: SODIUM CHLORIDE 0.9% IV 500 ML 50 ML IV CONT (11:54)
[2022-09-06 12:05] LABS: Eosinophils Absolute Auto 0.1 K/mm3 (0-0.3); Eosinophils Percent Auto 0.4 % (0-4.4); Hematocrit 27.9 % (37.0-47.0); Hemoglobin 7.2 g/dL (12.0-15.0); Immature Granulocyte Percent A 0.8 % (0-0.5); Lymphocytes Absolute Auto 0.33 K/mm3 (0.9-3.2); Lymphocytes Percent Auto 2.5 % (18.3-44.2); Mean Corpuscular HGB Conc 25.8 g/dl (32-36); Mean Corpuscular Hemoglobin 21.6 pg (26-34); Mean Corpuscular Volume 83.5 fl (80-100); Mean Platelet Volume 10.4 fl (7.4-10.4); Monocytes Absolute Auto 0.9 K/mm3 (0.1-0.6); Neutrophils Absolute Auto 11.7 K/mm3 (1.3-6.7); Neutrophils Percent Auto 89.3 % (45.5-73.1); Platelet Count Result 300 k/mm3 (150-375); Red Blood Count 3.34 M/mm3 (4.2-5.4); White Blood Count 13.1 K/mm3 (4.5-10.0)
[2022-09-06 12:40] LABS: Alanine Aminotransferase 101 U/L (6-35); Albumin Level 2.3 g/dL (3.5-5.1); Alkaline Phosphatase 125 U/L (38-126); Aspartate Amino Transferase 117 U/L (14-36); Bilirubin,Total 0.3 mg/dL (0.2-1.3); Blood Urea Nitrogen 20 mg/dL (7-17); Calcium 7.6 mg/dL (8.4-10.2); Carbon Dioxide > 40 mmol/L (22-30); Chloride 93 mmol/L (98-107); Estimated CRCL calculation 63 ml/min; Estimated Glomerular Filt Rate > 60; Glucose 116 mg/dL (65-110); Potassium 3.5 mmol/L (3.4-5.0); Sodium 138 mmol/L (137-145)
[2022-09-06] MEDS: NYSTATIN 100,000 UNITS/ML SUSP 5 ML ORAL.SUSP PO ×3 (13:02→20:50)
[2022-09-06 14:35] LABS: Anisocytosis 2+ (NORMAL); Hypochromasia 1+ (NORMAL); Platelet Estimate Adequate (Adequate)
[2022-09-06 14:57] LABS: Schistocytes None Seen (NORMAL)
[2022-09-06] MEDS: RIVAROXABAN 20 MG TABLET PO (16:52)
--- NOTE | 2022-09-06 20:01 | PC.NURSE ---
On 09/06/22, the student, Yvonne Madrigal, provided care and completed [employer] documentation on this patient. I have reviewed the student's documentation and agree with the findings.
[2022-09-06] MEDS: MELATONIN 5 MG TABLET PO (20:50)
[2022-09-07] VITALS (36 sets, daily range): BP systolic 80–130; BP diastolic 32–85; PULSE 69–94; RESP 13–32; TEMP 35.7–37.2; O2SAT 88–100
[2022-09-07] MEDS: ALBUTEROL SULFATE NEB 2.5 MG/3 ML INH INHALATION ×6 (00:16→20:35)
[2022-09-07] MEDS: IPRATROPIUM BR 0.02% INH SOLN 0.5 MG/2.5 ML VIAL INHALATION ×6 (00:16→20:35)
[2022-09-07] MEDS: PIPERACILLIN/TAZOBACTAM SOD 4.5 GM in SODIUM CHLORIDE 0.9% IV 100 ML 200 ML IVPB ×4 (03:12→21:02)
[2022-09-07] MEDS: SALINE LOCK FLUSH 10 ML IV PUSH ×3 (05:22→21:03)
[2022-09-07] MEDS: SALINE LOCK FLUSH 20 ML IV PUSH (05:22)
[2022-09-07 05:34] LABS: Basophils Percent Auto 0.1 % (0.2-1.2); Eosinophils Percent Auto 0.2 % (0-4.4); Hematocrit 25.8 % (37.0-47.0); Immature Granulocyte Percent A 0.8 % (0-0.5); Lymphocytes Absolute Auto 0.25 K/mm3 (0.9-3.2); Mean Corpuscular Hemoglobin 21.8 pg (26-34); Mean Corpuscular Volume 83.8 fl (80-100); Mean Platelet Volume 10.5 fl (7.4-10.4); Monocytes Absolute Auto 0.9 K/mm3 (0.1-0.6); Monocytes Percent Auto 7.1 % (2.6-8.5); Neutrophils Percent Auto 89.8 % (45.5-73.1); Platelet Count Result 277 k/mm3 (150-375); Red Blood Count 3.08 M/mm3 (4.2-5.4); Red Cell Distribution Width 18.4 % (11.5-14.5); White Blood Count 12.2 K/mm3 (4.5-10.0)
[2022-09-07 05:44] LABS: INR 4.2; Prothrombin Time 39.3 Seconds (11.1-14.7)
[2022-09-07 05:57] LABS: Alanine Aminotransferase 84 U/L (6-35); Albumin Level 2.1 g/dL (3.5-5.1); Alkaline Phosphatase 91 U/L (38-126); Aspartate Amino Transferase 87 U/L (14-36); Bilirubin,Total 0.3 mg/dL (0.2-1.3); Blood Urea Nitrogen 16 mg/dL (7-17); Calcium 7.4 mg/dL (8.4-10.2); Carbon Dioxide > 40 mmol/L (22-30); Chloride 93 mmol/L (98-107); Estimated CRCL calculation 80 ml/min; Estimated Glomerular Filt Rate > 60; Glucose 87 mg/dL (65-110); Potassium 2.9 mmol/L (3.4-5.0); Sodium 143 mmol/L (137-145)
[2022-09-07 06:08] LABS: Hemoglobin 6.7 g/dL (12.0-15.0); Hypochromasia 2+ (NORMAL); Platelet Estimate Adequate (Adequate)
[2022-09-07 06:09] LABS: Anisocytosis 2+ (NORMAL)
[2022-09-07 07:31] LABS: Procalcitonin 0.2 ng/mL
[2022-09-07] MEDS: BUDESONIDE RESPULE NEB 0.5 MG/2 ML AMP INHALATION ×2 (07:47→20:35)
[2022-09-07] MEDS: CHOLECALCIFEROL 1,000 UNITS TABLET 2000 UNITS PO (08:09)
[2022-09-07] MEDS: DICLOFENAC SODIUM 1% 100 GM GEL (*BKC) 1 APPLIC TOPICAL ×4 (08:09→21:01)
[2022-09-07] MEDS: AMIODARONE HCL 200 MG TABLET 400 MG PO (08:10)
[2022-09-07] MEDS: SENNA/DOCUSATE SODIUM TABLET 2 TAB PO ×2 (08:11→17:49)
[2022-09-07] MEDS: FERROUS SULFATE DRIED 142 MG TABCR PO (08:11)
[2022-09-07] MEDS: guaiFENesin 12 HR 600 MG TABCR PO ×2 (08:11→21:02)
[2022-09-07] MEDS: NEOMYCIN/POLYMYXIN/BACITRACIN OINTMENT 15 GM TUBE 1 APPLIC TOPICAL (08:12)
[2022-09-07] MEDS: PANTOPRAZOLE 40 MG TABLET PO (08:12)
[2022-09-07] MEDS: polyethylene glycoL 3350 17 GM POWD.PACK PO (08:12)
[2022-09-07] MEDS: NYSTATIN 100,000 UNITS/ML SUSP 5 ML ORAL.SUSP PO ×4 (08:12→21:02)
--- NOTE | 2022-09-07 08:27 | PCOTNOTE ---
Attempted to see pt. for occupational therapy evaluation. Due to pt. elevated O2 needs and impending blood transfusion, nursing requested pt. be seen at later time. Following.
--- NOTE | 2022-09-07 08:54 | PM.IMPN ---
Progress Note: A&P Assessment and Plan (1) Sepsis: Qualifiers: Sepsis type: sepsis due to unspecified organism Sepsis acute organ dysfunction status: with acute organ dysfunction Severe sepsis acute organ dysfunction type: acute respiratory failure Acute respiratory failure type: with hypercapnia Severe sepsis shock status: without septic shock Qualified Code(s): A41.9 - Sepsis, unspecified organism; R65.20 - Severe sepsis without septic shock; J96.02 - Acute respiratory failure with hypercapnia Code(s): A41.9 - Sepsis, unspecified organism Status: Acute Assessment and Plan: As evidenced by heart rate 114, respiration 30, BP 97/44, WBC 15.[address] shows lower lobe pneumonia. Lactic acid 1.0, procalcitonin 0.2. Antibiotic day 5: Cefepime 2 mg Q8 hours and Azithromycin 500 mg IV q24 hours started 09/01/22 (completed 5 day course). Cefepime changed to Zosyn 4.5 mg IV Q 6 hours for possible aspiration pneumonia on 09/04/22. BP and HR stable. Blood cultures negative to date. Stable. (2) Acute on chronic respiratory failure with hypoxia and hypercapnia: Code(s): J96.21 - Acute and chronic respiratory failure with hypoxia; J96.22 - Acute and chronic respiratory failure with hypercapnia Status: Acute Assessment and Plan: ABG showing respiratory acidosis with pCO2 79.9; pH 7.2 09/01/22 ABG - pH 7.33, pCO2 80, PO2 74.6, and bicarb 41.6 on bipap, repeat pH 7.316, pCO2 82.3, pO2 86.5, HCO3 41.1 Pulmonology following and appreciate recommendations. AVAPS NIPPV initiated?rate of 20, tidal volume 450, EPAP 4, minimal inspiratory pressure 5, maximal inspiratory pressure 25, inspiratory time 1.2, rise of 5 which is are slow ST and 32% FiO2 09/02/22 pH 7.397, pCO2 68, pO2 61, HCO3 40.9. Continue management for COPD acute exacerbation and empiric antibiotic CTA chest with severe emphysema. Apnea monitor overnight 09/02/22 overnight oximetry on 40% FiO2 with a baseline saturation of 97%, lowest saturation 90%, time with saturation less than or equal to 88% was 0 minutes. Home Trilogy to be arranged. Continue current management. 09/04/22 TCO2>40, Check ABG and repeat chest x-ray. Appreciate Pulmonology recommendations. Encourage bipap use overnight. 09/05/22 patient was able to tolerate the bipap some last night on below the nose mask. She still has some difficulty sleeping due to the noise, but it was better than the previous evening. 09/06/22 Continue current therapy and bipap settings with below the nose mask. 09/07/22 Increased dyspnea at rest and FiO2 need. Patient desaturated when taken off the bipap this morning. Chest x-ray diffuse bilateral lung disease questionable pulmonary edema superimposed on chronic emphysema, small bilateral effusions. 1 unit of PRBC given for increased oxygen carrying capacity. Lasix 20 mg IV x1 now. Re-evaluate need for repeat after blood transfusion. (3) Emphysema/COPD: Qualifiers: Emphysema type: panlobular Qualified Code(s): J43.1 - Panlobular emphysema Code(s): J43.9 - Emphysema, unspecified Status: Acute Assessment and Plan: Chest x-ray and CTA chest noted severe emphysema. Physical exam notes diminished lung sounds throughout with faint end-expiratory wheezing. Patient has longstanding history of smoking and quit approximately 3 years ago. She does report smoking approximately 1 pack per day and it is unknown time frame. 09/01/22 Give Solu-Medrol 125 mg IV x1 and start Solu-Medrol 40 mg IV q.8 hours scheduled. Continue ipratropium and albuterol DuoNebs q.4 hours scheduled. Start budesonide nebs b.i.d. 09/02/22 Improving. Minimal wheezing. Changed to prednisone 40 mg PO daily by Pulmonology. continue ipratropium and albuterol nebs Q4 hours. 09/03/22 Per pulmonology: stop prednisone, add budesonide nebs bid, and continue short-acting bronchodilators. NIPPV overnight at current settings. 09/04/22 Per pulmonology rec
[2022-09-07] MEDS: FUROSEMIDE INJ 40 MG/4 ML VIAL 20 MG IV PUSH (09:24)
[2022-09-07] MEDS: IRON SUCROSE COMPLEX 200 MG in SODIUM CHLORIDE 0.9% IV 50 ML 120 MG IVPB (09:24)
[2022-09-07] MEDS: POTASSIUM CHLORIDE 20 MEQ PACKET (FOR LIQUID) 60 MEQ PO (09:24)
[2022-09-07 10:55] LABS: Add Urine Microscopic? NO; Appearance Urine Clear (Clear); Bilirubin Urine Negative (Negative); Blood Urine Negative (Negative); Color Urine Yellow (Yellow); Glucose Urine UA Negative (Negative); Ketones Urine Negative (Negative); Leukocyte Esterase Ur Negative LEU/UL (Negative); Nitrate Urine Negative (Negative); Protein Urine Negative (Negative); Specific Grav Ur 1.011 (1.001-1.035); Urobilinogen Urine Negative mg/dL (<2.0)
[2022-09-07 11:09] LABS: Schistocytes None Seen (NORMAL)
[2022-09-07] MEDS: SODIUM CHLORIDE 0.9% IV 250 ML 30 ML IV CONT (11:19)
[2022-09-07] MEDS: TUBING, BLOOD PLUM PUMP TUBING 1 EACH XX (11:19)
--- NOTE | 2022-09-07 13:24 | PCNFU ---
Nutrition Follow-Up Complete: Severe malnutrition related to chronic COPD, loss of appetite as evidenced by weight loss -28%/7 months, intake <75% needs at least 6 months, severe muscle wasting and fat loss. Adequate intake at least 75% meals Goal: goal not met. continue goal when diet advances and medically appropriate. Pt current nutrition is NPO except w/sips diet Last recorded weight is 38.7 kg. Bowel Motility: last BM 09/07/2022 Labs Reviewed: Hgb: 6.7, Alb: 25.8, K: 2.9, Cr: 0.3 Meds Noted: Vitamin D, Xarelto, miralax, protonix, melatonin Skin: deep tissue wound: coccyx and left heel Additional Notes: Pt is dependent on bipap per nurse. Once diet advances and nutritional supplements are appropriate: add Emilio BID in addition to original intervention Monitoring weights, intakes, supplement tolerance, labs, discharge plan. Follow up in 5 days
--- NOTE | 2022-09-07 14:54 | PCNFU ---
Nutrition Follow-Up Complete: Severe malnutrition related to chronic COPD, loss of appetite as evidenced by weight loss -28%/7 months, intake <75% needs at least 6 months, severe muscle wasting and fat loss. Adequate intake at least 75% meals Goal: goal not met. continue original goal once diet advances and medically appropriate. Pt current nutrition is NPO except meds w/sips diet. Last recorded weight is 38.7 kg. Bowel Motility:last BM 09/07/2022 Labs Reviewed:Hgb: 6.7, Hct: 25.8, Alb: 2.1, K: 2.9, Cr: 0.3 Meds Noted:Vit D, xarelto, miralax, protonix, melatonin Skin:deep tissue wound coccyx and left heel Additional Notes: Per nurse pt is dependent on bipap. Once diet advances/medically appropriate pt may need to add francoise BID in addition to her nutritional supplements. Monitoring weights, intakes, supplement tolerance, labs, discharge plan. Follow up in 5 days
[2022-09-07 16:08] LABS: Hematocrit 32.5 % (37.0-47.0); Hemoglobin 9.2 g/dL (12.0-15.0)
[2022-09-07 16:21] LABS: Potassium 3.1 mmol/L (3.4-5.0)
[2022-09-07] MEDS: POTASSIUM CHLORIDE INJ 40 MEQ in SODIUM CHLORIDE 0.9% IV 500 ML 130 MEQ IVPB (17:46)
[2022-09-07] MEDS: POTASSIUM CHLORIDE 20 MEQ PACKET (FOR LIQUID) 40 MEQ PO (17:46)
[2022-09-07] MEDS: MELATONIN 5 MG TABLET PO (21:03)
--- NOTE | 2022-09-07 23:23 | PCRCNOTE ---
pt can not tolerate BIPAP any longer. RN placed on standby and placed pt on 5L NC. RT and RN agreed if she can not tolerate NC while sleeping and desats, RT will bring AIRVO to keep pt's sats up while she sleeps.
[2022-09-08] VITALS (30 sets, daily range): BP systolic 93–129; BP diastolic 30–77; PULSE 69–87; RESP 22–38; TEMP 36.5–36.7; O2SAT 80–100
[2022-09-08] MEDS: IPRATROPIUM BR 0.02% INH SOLN 0.5 MG/2.5 ML VIAL INHALATION ×6 (00:32→20:05)
[2022-09-08] MEDS: ALBUTEROL SULFATE NEB 2.5 MG/3 ML INH INHALATION ×6 (00:32→20:05)
--- NOTE | 2022-09-08 00:55 | PCRCNOTE ---
pt requested BIPAP be put back on. RN placed pt on BIPAP at 2325, RT checked at 0032. pt resting comfortably.
[2022-09-08] MEDS: PIPERACILLIN/TAZOBACTAM SOD 4.5 GM in SODIUM CHLORIDE 0.9% IV 100 ML 200 ML IVPB ×2 (03:18→09:32)
[2022-09-08 04:53] LABS: Basophils Percent Auto 0.1 % (0.2-1.2); Eosinophils Percent Auto 0.3 % (0-4.4); Hematocrit 34.4 % (37.0-47.0); Hemoglobin 9.8 g/dL (12.0-15.0); Immature Granulocyte Absolute 0.12 K/mm3 (0.00-0.031); Immature Granulocyte Percent A 0.8 % (0-0.5); Lymphocytes Absolute Auto 0.28 K/mm3 (0.9-3.2); Lymphocytes Percent Auto 1.8 % (18.3-44.2); Mean Corpuscular HGB Conc 28.5 g/dl (32-36); Mean Corpuscular Hemoglobin 23.6 pg (26-34); Mean Corpuscular Volume 82.9 fl (80-100); Mean Platelet Volume 10.5 fl (7.4-10.4); Monocytes Absolute Auto 1.3 K/mm3 (0.1-0.6); Monocytes Percent Auto 8.2 % (2.6-8.5); Neutrophils Absolute Auto 13.9 K/mm3 (1.3-6.7); Neutrophils Percent Auto 88.8 % (45.5-73.1); Platelet Count Result 299 k/mm3 (150-375); Red Blood Count 4.15 M/mm3 (4.2-5.4); Red Cell Distribution Width 18.8 % (11.5-14.5); White Blood Count 15.6 K/mm3 (4.5-10.0)
[2022-09-08 05:03] LABS: INR 1.6; Prothrombin Time 18.6 Seconds (11.1-14.7)
[2022-09-08 05:23] LABS: Alanine Aminotransferase 91 U/L (6-35); Albumin Level 2.5 g/dL (3.5-5.1); Alkaline Phosphatase 132 U/L (38-126); Aspartate Amino Transferase 89 U/L (14-36); Bilirubin,Total 0.7 mg/dL (0.2-1.3); Blood Urea Nitrogen 11 mg/dL (7-17); Calcium 7.9 mg/dL (8.4-10.2); Carbon Dioxide > 40 mmol/L (22-30); Chloride 97 mmol/L (98-107); Estimated CRCL calculation 63 ml/min; Estimated Glomerular Filt Rate > 60; Glucose 77 mg/dL (65-110); Potassium 4.2 mmol/L (3.4-5.0); Sodium 145 mmol/L (137-145)
[2022-09-08] MEDS: SALINE LOCK FLUSH 10 ML IV PUSH ×3 (06:03→21:58)
[2022-09-08] MEDS: BUDESONIDE RESPULE NEB 0.5 MG/2 ML AMP INHALATION ×2 (07:47→20:05)
[2022-09-08] MEDS: NYSTATIN 100,000 UNITS/ML SUSP 5 ML ORAL.SUSP PO ×3 (08:47→21:58)
[2022-09-08] MEDS: CHOLECALCIFEROL 1,000 UNITS TABLET 2000 UNITS PO (08:47)
[2022-09-08] MEDS: NEOMYCIN/POLYMYXIN/BACITRACIN OINTMENT 15 GM TUBE 1 APPLIC TOPICAL (08:47)
[2022-09-08] MEDS: SENNA/DOCUSATE SODIUM TABLET 2 TAB PO (08:47)
[2022-09-08] MEDS: guaiFENesin 12 HR 600 MG TABCR PO ×2 (08:47→21:58)
[2022-09-08] MEDS: PANTOPRAZOLE 40 MG TABLET PO (08:47)
[2022-09-08] MEDS: FERROUS SULFATE DRIED 142 MG TABCR PO (08:47)
[2022-09-08] MEDS: IRON SUCROSE COMPLEX 200 MG in SODIUM CHLORIDE 0.9% IV 50 ML 120 MG IVPB (08:49)
[2022-09-08] MEDS: DICLOFENAC SODIUM 1% 100 GM GEL (*BKC) 1 APPLIC TOPICAL ×4 (08:57→21:58)
[2022-09-08] MEDS: AMIODARONE HCL 200 MG TABLET PO (09:34)
--- NOTE | 2022-09-08 09:44 | PM.IMPN ---
Progress Note: A&P Assessment and Plan (1) Sepsis: Qualifiers: Acute respiratory failure type: with hypercapnia Sepsis acute organ dysfunction status: with acute organ dysfunction Sepsis type: sepsis due to unspecified organism Severe sepsis acute organ dysfunction type: acute respiratory failure Severe sepsis shock status: without septic shock Qualified Code(s): A41.9 - Sepsis, unspecified organism; R65.20 - Severe sepsis without septic shock; J96.02 - Acute respiratory failure with hypercapnia Code(s): A41.9 - Sepsis, unspecified organism Status: Acute Assessment and Plan: As evidenced by heart rate 114, respiration 30, BP 97/44, WBC 15.[address] shows lower lobe pneumonia. Lactic acid 1.0, procalcitonin 0.2. Antibiotic day 5: Cefepime 2 mg Q8 hours and Azithromycin 500 mg IV q24 hours started 09/01/22 (completed 5 day course). Cefepime changed to Zosyn 4.5 mg IV Q 6 hours for possible aspiration pneumonia on 09/04/22. BP and HR stable. Blood cultures negative to date. WBC 15, pt afebrile, no significant clinical change. Monitor. (2) Acute on chronic respiratory failure with hypoxia and hypercapnia: Code(s): J96.21 - Acute and chronic respiratory failure with hypoxia; J96.22 - Acute and chronic respiratory failure with hypercapnia Status: Acute Assessment and Plan: ABG showing respiratory acidosis with pCO2 79.9; pH 7.2 09/01/22 ABG - pH 7.33, pCO2 80, PO2 74.6, and bicarb 41.6 on bipap, repeat pH 7.316, pCO2 82.3, pO2 86.5, HCO3 41.1 Pulmonology following and appreciate recommendations. AVAPS NIPPV initiated?rate of 20, tidal volume 450, EPAP 4, minimal inspiratory pressure 5, maximal inspiratory pressure 25, inspiratory time 1.2, rise of 5 which is are slow ST and 32% FiO2 09/02/22 pH 7.397, pCO2 68, pO2 61, HCO3 40.9. Continue management for COPD acute exacerbation and empiric antibiotic CTA chest with severe emphysema. Apnea monitor overnight 09/02/22 overnight oximetry on 40% FiO2 with a baseline saturation of 97%, lowest saturation 90%, time with saturation less than or equal to 88% was 0 minutes. Home Trilogy to be arranged. Continue current management. 09/04/22 TCO2>40, Check ABG and repeat chest x-ray. Appreciate Pulmonology recommendations. Encourage bipap use overnight. 09/05/22 patient was able to tolerate the bipap some last night on below the nose mask. She still has some difficulty sleeping due to the noise, but it was better than the previous evening. 09/06/22 Continue current therapy and bipap settings with below the nose mask. 09/07/22 Increased dyspnea at rest and FiO2 need. Patient desaturated when taken off the bipap this morning. Chest x-ray diffuse bilateral lung disease questionable pulmonary edema superimposed on chronic emphysema, small bilateral effusions. 1 unit of PRBC given for increased oxygen carrying capacity. Lasix 20 mg IV x1 now. Re-evaluate need for repeat after blood transfusion. 09/08/22 still with diminished LS with expiratory wheezing left side Lasix 20 mg IV x1. Monitor volume and respiratory status. (3) Emphysema/COPD: Qualifiers: Emphysema type: panlobular Qualified Code(s): J43.1 - Panlobular emphysema Code(s): J43.9 - Emphysema, unspecified Status: Acute Assessment and Plan: Chest x-ray and CTA chest noted severe emphysema. Physical exam notes diminished lung sounds throughout with faint end-expiratory wheezing. Patient has longstanding history of smoking and quit approximately 3 years ago. She does report smoking approximately 1 pack per day and it is unknown time frame. 09/01/22 Give Solu-Medrol 125 mg IV x1 and start Solu-Medrol 40 mg IV q.8 hours scheduled. Continue ipratropium and albuterol DuoNebs q.4 hours scheduled. Start budesonide nebs b.i.d. 09/02/22 Improving. Minimal wheezing. Changed to prednisone 40 mg PO daily by Pulmonology. continue ipratropium and albuterol nebs Q4 hour
[2022-09-08] MEDS: FUROSEMIDE INJ 40 MG/4 ML VIAL 20 MG IV PUSH (10:15)
[2022-09-08] MEDS: POTASSIUM CHLORIDE 20 MEQ TABLET PO (10:15)
--- NOTE | 2022-09-08 11:29 | PCPTNOTE ---
The patient treatment was not able to be completed due to patient receiving RT treatment. Will plan to continue treatment per plan of care.
[2022-09-08] MEDS: RIVAROXABAN 20 MG TABLET PO (16:38)
[2022-09-08] MEDS: MELATONIN 5 MG TABLET PO (21:58)
[2022-09-09] VITALS (33 sets, daily range): BP systolic 89–134; BP diastolic 32–52; PULSE 66–80; RESP 14–32; TEMP 36.2–36.9; O2SAT 90–100
[2022-09-09] MEDS: IPRATROPIUM BR 0.02% INH SOLN 0.5 MG/2.5 ML VIAL INHALATION ×6 (00:48→20:38)
[2022-09-09] MEDS: ALBUTEROL SULFATE NEB 2.5 MG/3 ML INH INHALATION ×6 (00:48→20:38)
[2022-09-09 05:48] LABS: Basophils Percent Auto 0.1 % (0.2-1.2); Eosinophils Percent Auto 0.1 % (0-4.4); Hematocrit 33.9 % (37.0-47.0); Hemoglobin 9.4 g/dL (12.0-15.0); Immature Granulocyte Absolute 0.13 K/mm3 (0.00-0.031); Immature Granulocyte Percent A 0.8 % (0-0.5); Lymphocytes Absolute Auto 0.46 K/mm3 (0.9-3.2); Lymphocytes Percent Auto 2.9 % (18.3-44.2); Mean Corpuscular HGB Conc 27.7 g/dl (32-36); Mean Corpuscular Hemoglobin 24.2 pg (26-34); Mean Corpuscular Volume 87.4 fl (80-100); Mean Platelet Volume 10.9 fl (7.4-10.4); Monocytes Absolute Auto 1.5 K/mm3 (0.1-0.6); Monocytes Percent Auto 9.7 % (2.6-8.5); Neutrophils Absolute Auto 13.7 K/mm3 (1.3-6.7); Neutrophils Percent Auto 86.4 % (45.5-73.1); Platelet Count Result 308 k/mm3 (150-375); Red Blood Count 3.88 M/mm3 (4.2-5.4); Red Cell Distribution Width 20.2 % (11.5-14.5); White Blood Count 15.8 K/mm3 (4.5-10.0)
[2022-09-09] MEDS: FUROSEMIDE INJ 40 MG/4 ML VIAL IV PUSH (05:56)
[2022-09-09] MEDS: SALINE LOCK FLUSH 10 ML IV PUSH ×3 (05:57→22:21)
[2022-09-09 06:02] LABS: Alanine Aminotransferase 90 U/L (6-35); Albumin Level 2.4 g/dL (3.5-5.1); Alkaline Phosphatase 139 U/L (38-126); Aspartate Amino Transferase 87 U/L (14-36); Bilirubin,Total 0.5 mg/dL (0.2-1.3); Blood Urea Nitrogen 14 mg/dL (7-17); Calcium 7.9 mg/dL (8.4-10.2); Carbon Dioxide > 40 mmol/L (22-30); Chloride 95 mmol/L (98-107); Estimated CRCL calculation 82 ml/min; Estimated Glomerular Filt Rate > 60; Glucose 57 mg/dL (65-110); Potassium 3.3 mmol/L (3.4-5.0); Sodium 141 mmol/L (137-145)
[2022-09-09] MEDS: DEXTROSE 50% 25 GM/50 ML SYRINGE IV PUSH (06:08)
[2022-09-09 06:31] LABS: Glucose Point of Care 218 mg/dl (65-105)
[2022-09-09 07:08] LABS: Hypochromasia 2+ (NORMAL); Ovalocytes 1+ (NORMAL); Platelet Estimate Adequate (Adequate); Schistocytes 1+ (NORMAL); Target Cells 1+ (NORMAL)
[2022-09-09 07:09] LABS: Anisocytosis 2+ (NORMAL); Poikilocytosis 2+ (NORMAL)
[2022-09-09] MEDS: BUDESONIDE RESPULE NEB 0.5 MG/2 ML AMP INHALATION ×2 (08:30→20:38)
[2022-09-09] MEDS: PANTOPRAZOLE 40 MG TABLET PO (09:00)
--- NOTE | 2022-09-09 09:30 | P.PNIM_ITS ---
Progress Note: A&P Assessment and Plan (1) Sepsis: Qualifiers: Sepsis type: sepsis due to unspecified organism Sepsis acute organ dysfunction status: with acute organ dysfunction Severe sepsis acute organ dysfunction type: acute respiratory failure Acute respiratory failure type: with hypercapnia Severe sepsis shock status: without septic shock Qualified Code(s): A41.9 - Sepsis, unspecified organism; R65.20 - Severe sepsis without septic shock; J96.02 - Acute respiratory failure with hypercapnia Code(s): A41.9 - Sepsis, unspecified organism Status: Acute Assessment and Plan: As evidenced by heart rate 114, respiration 30, BP 97/44, WBC 15.[address] shows lower lobe pneumonia. Lactic acid 1.0, procalcitonin 0.2. Antibiotic day 5: Cefepime 2 mg Q8 hours and Azithromycin 500 mg IV q24 hours started 09/01/22 (completed 5 day course). Cefepime changed to Zosyn 4.5 mg IV Q 6 hours for possible aspiration pneumonia on 09/04/22. BP and HR stable. Blood cultures negative to date. WBC 15, pt afebrile, no significant clinical change. Monitor. (2) Acute on chronic respiratory failure with hypoxia and hypercapnia: Code(s): J96.21 - Acute and chronic respiratory failure with hypoxia; J96.22 - Acute and chronic respiratory failure with hypercapnia Status: Acute Assessment and Plan: ABG showing respiratory acidosis with pCO2 79.9; pH 7.2 * 09/01/22 ABG - pH 7.33, pCO2 80, PO2 74.6, and bicarb 41.6 on bipap, repeat pH 7.316, pCO2 82.3, pO2 86.5, HCO3 41.1 * Pulmonology following and appreciate recommendations. * AVAPS NIPPV initiated?rate of 20, tidal volume 450, EPAP 4, minimal inspiratory pressure 5, maximal inspiratory pressure 25, inspiratory time 1.2, rise of 5 which is are slow ST and 32% FiO2 * 09/02/22 pH 7.397, pCO2 68, pO2 61, HCO3 40.9. Continue management for COPD acute exacerbation and empiric antibiotic * CTA chest with severe emphysema. * Apnea monitor overnight 09/02/22 overnight oximetry on 40% FiO2 with a baseline saturation of 97%, lowest saturation 90%, time with saturation less than or equal to 88% was 0 minutes. Home Trilogy to be arranged. * Continue current management. * 09/04/22 TCO2>40, Check ABG and repeat chest x-ray. Appreciate Pulmonology recommendations. Encourage bipap use overnight. * 09/05/22 patient was able to tolerate the bipap some last night on below the nose mask. She still has some difficulty sleeping due to the noise, but it was better than the previous evening. * 09/06/22 Continue current therapy and bipap settings with below the nose mask. * 09/07/22 Increased dyspnea at rest and FiO2 need. Patient desaturated when taken off the bipap this morning. Chest x-ray diffuse bilateral lung disease questionable pulmonary edema superimposed on chronic emphysema, small bilateral effusions. 1 unit of PRBC given for increased oxygen carrying capacity. Lasix 20 mg IV x1 now. Re-evaluate need for repeat after blood transfusion. * 09/08/22 still with diminished LS with expiratory wheezing left side Lasix 20 mg IV x1. Monitor volume and respiratory status. * worsening respiratory status despite treatment for pneumonia with AM CXR showing worsening infiltrates. Zosyn stopped 09/08. Previously treated with azithromycin & ceftriaxone, cefepime and azithromycin on 09/01/22. No significant improvement with two doses of furosemide given on 09/07 and 09/08. Steroids completed 09/03/22, but no significant decrease in leukocytes. Urine legionella and pneumococcal negative. -Repeat CT chest without contrast -Echo -BNP -Will need and greatly appreciate assistance from
--- NOTE | 2022-09-09 09:51 | PCOTNOTE ---
Attempted to see patient this AM, however patient refused. Pt stated, I'm miserable. I feel like I'm breathing water. There's a gurgle. I can't eat, because I can't smell it. Pt reported already completing ADLs yesterday and declined sitting up in chair at this time due to difficulty breathing. RN present and stated she will notify doctor of patient complaints.
[2022-09-09] MEDS: IRON SUCROSE COMPLEX 200 MG in SODIUM CHLORIDE 0.9% IV 50 ML 120 MG IVPB (10:16)
[2022-09-09] MEDS: NEOMYCIN/POLYMYXIN/BACITRACIN OINTMENT 15 GM TUBE 1 APPLIC TOPICAL (10:16)
[2022-09-09] MEDS: NYSTATIN 100,000 UNITS/ML SUSP 5 ML ORAL.SUSP PO ×4 (10:20→21:31)
[2022-09-09] MEDS: AMIODARONE HCL 200 MG TABLET PO (10:22)
[2022-09-09] MEDS: DICLOFENAC SODIUM 1% 100 GM GEL (*BKC) 1 APPLIC TOPICAL ×4 (10:23→21:31)
--- NOTE | 2022-09-09 13:58 | PC.NURSE ---
Patient refusing most of her PO medications. Patient states she feels to fatigued to swallow and that it makes her nervous. MD Lindsey updated and made aware. Patient educated of benefits and risks of not taking prescribed medications. Patient alert and oriented at this time.
--- NOTE | 2022-09-09 14:37 | PCPTNOTE ---
Patient refused treatment this session due to patient not feeling well.
[2022-09-09] MEDS: RIVAROXABAN 20 MG TABLET PO (17:24)
[2022-09-09 17:47] LABS: NT Pro B Type Natriuretic Pept 6720 pg/mL (5-100)
[2022-09-09] MEDS: MELATONIN 5 MG TABLET PO (21:32)
[2022-09-10] VITALS (30 sets, daily range): BP systolic 95–111; BP diastolic 44–56; PULSE 67–78; RESP 18–40; TEMP 36.3–36.6; O2SAT 90–99
--- NOTE | 2022-09-10 | ECHO_ITS ---
Patient Info Name: Meme Almanzar Age: 72 years : 1950 Gender: Female Ht: 65 in Wt: 86 lbs BSA: 1.32 m2 HR: 74 bpm BP: 107 / 47 mmHg Heart Rhythm: Sinus Rhythm Exam Date: 09/10/2022 2:00 PM Exam Location: [facility] Patient Status: Inpatient Admit Date: 09/02/2022 Staff Ordering Physician: Ashley Silva MD Cloth Shader: Ignacio Quinteros RDCS, RT Attending Provider: Ruchi Thompson MD Referring Physician: Shira PAYNE; Exam Type: CA echo doppler color flow Study Info Indications R06.02 - Shortness of breath Complete two-dimensional, color flow and Doppler transthoracic echocardiogram is performed. Strain analysis performed. Summary 1. Complete two-dimensional, color flow and Doppler transthoracic echocardiogram is performed. 2. 'D-Shaped' septum seen in systole consistent right ventricular pressure overload. Left Ventricle 'D-Shaped' septum seen in systole consistent right ventricular pressure overload. Left ventricular chamber dimension is normal. Left ventricular systolic function is normal, estimated at 65-70%. There is mildly increased left ventricular wall thickness. The left ventricular diastolic function is abnormal. Global longitudinal strain is normal at -22 %. Right Ventricle Right ventricular chamber dimension is severely enlarged. Right ventricular systolic function is reduced. Left Atria Left atrial chamber dimension is mildly enlarged. Right Atria Right atrial chamber dimension is severely enlarged. Atrial Septum Intact interatrial septum visualized by color flow imaging. Aortic Valve The aortic valve is trileaflet. There is mild aortic valve sclerosis. There is no aortic valve stenosis. There is trace aortic valve regurgitation. Pulmonic Valve The pulmonic valve is normal. There is no pulmonic valve stenosis. There is trace pulmonic regurgitation. Mitral Valve The mitral valve has normal leaflets. There is no mitral valve stenosis. There is mild mitral valve regurgitation. Tricuspid Valve The tricuspid valve leaflets are normal. There is no significant tricuspid valve stenosis. There is mild tricuspid valve regurgitation. Severe pulmonary hypertension, estimated pulmonary arterial systolic pressure is 110 mmHg. Pericardium/Pleural The pericardium appears normal. There is no pericardial effusion. Inferior Vena Cava Normal inferior vena cava with >50% collapse upon inspiration consistent with elevated right atrial pressure, 10 mmHg. Aorta The aortic root size at the sinus of Valsalva is normal. Left Ventricular Outflow Tract Name Value Normal LVOT 2D LVOT Diameter 2.0 cm LVOT Doppler LVOT Peak Gradient 5 mmHg LVOT Mean Gradient 2 mmHg LVOT VTI 21 cm LVOT VTI/AV VTI Ratio 0.6 LVOT Stroke Volume 68 ml LVOT CO 4.9 l/min LVOT CI 3.7 l/min/m2 Mitral Valve
[2022-09-10] MEDS: POTASSIUM CHLORIDE 20 MEQ PACKET (FOR LIQUID) 40 MEQ PO (00:52)
[2022-09-10] MEDS: POTASSIUM CHLORIDE INJ 40 MEQ in SODIUM CHLORIDE 0.9% IV 500 ML 130 MEQ IVPB (00:53)
[2022-09-10] MEDS: IPRATROPIUM BR 0.02% INH SOLN 0.5 MG/2.5 ML VIAL INHALATION ×6 (04:15→21:09)
[2022-09-10] MEDS: ALBUTEROL SULFATE NEB 2.5 MG/3 ML INH INHALATION ×6 (04:15→21:09)
[2022-09-10] MEDS: VANCOMYCIN HCL 500 MG in DEXTROSE 5% 100 ML IVPB ×2 (04:25→15:37)
[2022-09-10] MEDS: SALINE LOCK FLUSH 10 ML IV PUSH ×3 (05:20→21:32)
[2022-09-10 06:45] LABS: Basophils Percent Auto 0.1 % (0.2-1.2); Eosinophils Percent Auto 0.1 % (0-4.4); Hematocrit 35.2 % (37.0-47.0); Immature Granulocyte Absolute 0.15 K/mm3 (0.00-0.031); Lymphocytes Percent Auto 2.6 % (18.3-44.2); Mean Corpuscular HGB Conc 28.4 g/dl (32-36); Mean Corpuscular Hemoglobin 23.9 pg (26-34); Mean Corpuscular Volume 84.2 fl (80-100); Mean Platelet Volume 9.9 fl (7.4-10.4); Monocytes Absolute Auto 1.5 K/mm3 (0.1-0.6); Monocytes Percent Auto 9.8 % (2.6-8.5); Neutrophils Percent Auto 86.4 % (45.5-73.1); Platelet Count Result 250 k/mm3 (150-375); Red Blood Count 4.18 M/mm3 (4.2-5.4); Red Cell Distribution Width 20.8 % (11.5-14.5); White Blood Count 15.1 K/mm3 (4.5-10.0)
[2022-09-10 06:56] LABS: Partial Thromboplastin Time 37.5 SECONDS (22.3-36.8)
[2022-09-10 07:01] LABS: Lactic Acid Reflex 0.8 mmol/L (0.7-2.0)
[2022-09-10 07:09] LABS: Alanine Aminotransferase 74 U/L (6-35); Albumin Level 2.3 g/dL (3.5-5.1); Alkaline Phosphatase 119 U/L (38-126); Aspartate Amino Transferase 56 U/L (14-36); Bilirubin,Total 0.5 mg/dL (0.2-1.3); Blood Urea Nitrogen 13 mg/dL (7-17); Calcium 7.7 mg/dL (8.4-10.2); Carbon Dioxide > 40 mmol/L (22-30); Chloride 94 mmol/L (98-107); Estimated CRCL calculation 82 ml/min; Estimated Glomerular Filt Rate > 60; Glucose 91 mg/dL (65-110); Magnesium 1.8 mg/dL (1.6-2.3); Phosphorus 2.6 mg/dL (2.5-4.5); Potassium 3.8 mmol/L (3.4-5.0); Sodium 140 mmol/L (137-145)
[2022-09-10 07:39] LABS: Anisocytosis 1+ (NORMAL); Hypochromasia 1+ (NORMAL); Ovalocytes 1+ (NORMAL); Platelet Estimate Adequate (Adequate)
[2022-09-10 07:40] LABS: Schistocytes None Seen (NORMAL)
[2022-09-10] MEDS: guaiFENesin 12 HR 600 MG TABCR PO ×2 (08:15→21:31)
[2022-09-10] MEDS: NEOMYCIN/POLYMYXIN/BACITRACIN OINTMENT 15 GM TUBE 1 APPLIC TOPICAL (08:15)
[2022-09-10] MEDS: PANTOPRAZOLE 40 MG TABLET PO (08:15)
[2022-09-10] MEDS: NYSTATIN 100,000 UNITS/ML SUSP 5 ML ORAL.SUSP PO ×4 (08:15→21:31)
[2022-09-10] MEDS: FERROUS SULFATE DRIED 142 MG TABCR PO (08:16)
[2022-09-10] MEDS: DICLOFENAC SODIUM 1% 100 GM GEL (*BKC) 1 APPLIC TOPICAL ×4 (08:16→21:31)
[2022-09-10] MEDS: CHOLECALCIFEROL 1,000 UNITS TABLET 2000 UNITS PO (08:16)
[2022-09-10] MEDS: SENNA/DOCUSATE SODIUM TABLET 2 TAB PO ×2 (08:16→16:44)
[2022-09-10] MEDS: AMIODARONE HCL 200 MG TABLET PO (08:17)
[2022-09-10] MEDS: BUDESONIDE RESPULE NEB 0.5 MG/2 ML AMP INHALATION ×2 (09:01→21:09)
--- NOTE | 2022-09-10 09:11 | PM.IMPN ---
Progress Note: A&P Assessment and Plan (1) Sepsis: Qualifiers: Sepsis type: sepsis due to unspecified organism Sepsis acute organ dysfunction status: with acute organ dysfunction Severe sepsis acute organ dysfunction type: acute respiratory failure Acute respiratory failure type: with hypercapnia Severe sepsis shock status: without septic shock Qualified Code(s): A41.9 - Sepsis, unspecified organism; R65.20 - Severe sepsis without septic shock; J96.02 - Acute respiratory failure with hypercapnia Code(s): A41.9 - Sepsis, unspecified organism Status: Acute Assessment and Plan: As evidenced by heart rate 114, respiration 30, BP 97/44, WBC 15.[address] shows lower lobe pneumonia. Lactic acid 1.0, procalcitonin 0.2. Antibiotic day 5: Cefepime 2 mg Q8 hours and Azithromycin 500 mg IV q24 hours started 09/01/22 (completed 5 day course). Cefepime changed to Zosyn 4.5 mg IV Q 6 hours for possible aspiration pneumonia on 09/04/22. BP and HR stable. Blood cultures negative to date. WBC 15, pt afebrile, no significant clinical change. Monitor. (2) Acute on chronic respiratory failure with hypoxia and hypercapnia: Code(s): J96.21 - Acute and chronic respiratory failure with hypoxia; J96.22 - Acute and chronic respiratory failure with hypercapnia Status: Acute Assessment and Plan: ABG showing respiratory acidosis with pCO2 79.9; pH 7.2 09/01/22 ABG - pH 7.33, pCO2 80, PO2 74.6, and bicarb 41.6 on bipap, repeat pH 7.316, pCO2 82.3, pO2 86.5, HCO3 41.1 Pulmonology following and appreciate recommendations. AVAPS NIPPV initiated?rate of 20, tidal volume 450, EPAP 4, minimal inspiratory pressure 5, maximal inspiratory pressure 25, inspiratory time 1.2, rise of 5 which is are slow ST and 32% FiO2 09/02/22 pH 7.397, pCO2 68, pO2 61, HCO3 40.9. Continue management for COPD acute exacerbation and empiric antibiotic CTA chest with severe emphysema. Apnea monitor overnight 09/02/22 overnight oximetry on 40% FiO2 with a baseline saturation of 97%, lowest saturation 90%, time with saturation less than or equal to 88% was 0 minutes. Home Trilogy to be arranged. Continue current management. 09/04/22 TCO2>40, Check ABG and repeat chest x-ray. Appreciate Pulmonology recommendations. Encourage bipap use overnight. 09/05/22 patient was able to tolerate the bipap some last night on below the nose mask. She still has some difficulty sleeping due to the noise, but it was better than the previous evening. 09/06/22 Continue current therapy and bipap settings with below the nose mask. 09/07/22 Increased dyspnea at rest and FiO2 need. Patient desaturated when taken off the bipap this morning. Chest x-ray diffuse bilateral lung disease questionable pulmonary edema superimposed on chronic emphysema, small bilateral effusions. 1 unit of PRBC given for increased oxygen carrying capacity. Lasix 20 mg IV x1 now. Re-evaluate need for repeat after blood transfusion. 09/08/22 still with diminished LS with expiratory wheezing left side Lasix 20 mg IV x1. Monitor volume and respiratory status. worsening respiratory status despite treatment for pneumonia with AM CXR showing worsening infiltrates. Zosyn stopped 09/08. Previously treated with azithromycin & ceftriaxone, cefepime and azithromycin on 09/01/22. No significant improvement with two doses of furosemide given on 09/07 and 09/08. Steroids completed 09/03/22, but no significant decrease in leukocytes. Urine legionella and pneumococcal negative. -Repeat CT chest without contrast -Echo -BNP -Will need and greatly appreciate assistance from Pulmonology -Discussed with patient her condition and that if unable to find a reversible cause to her current worsening shortness of breath, would recommend hospice. 09/10/22 CT chest with worsening pneumonia. Imipenem and vancomycin started overnight. Patient discussed with Pulmonology who will see the patient and
--- NOTE | 2022-09-10 12:03 | PM.PNPUL ---
Progress Note: A&P Assessment and Plan (1) PNA (pneumonia): Qualifiers: Laterality: bilateral Lung location: lower lobe of lung Pneumonia type: due to unspecified organism Qualified Code(s): J18.9 - Pneumonia, unspecified organism Code(s): J18.9 - Pneumonia, unspecified organism Status: Acute Assessment and Plan: 09/01 : RLL > L pneumonia on Chest CT, leukocytosis, shortness of breath (-) COVID, (-) influenza negative. (-) Urine Legionella and pneumococcal antigen. Rx: cefepime and azithromycin for CAP and additional GNB coverage 09/02 patient is afebrile, white blood cell count is 11.0, blood cultures negative, continue cefepime and azithromycin, day 2. on continuous BiPAP. 09/03 patient is now tolerating off the BiPAP. Patient remains afebrile, white blood cell count is 14.6, blood cultures negative, continue cefepime and azithromycin, day 3 09/04 this morning patient had desats while drinking and a blood gas was obtained on 3 L nasal cannula the pH of 7.35/78/70. A chest x-ray was obtained that demonstrated a continued right lower lobe infiltrate and hyperinflation. Cefepime (09/01 through 09/04) was changed to Zosyn (start 09/04). azithromycin, day 4. Patient is NPO and will have a swallow. Bedside swallow: No coughing or other evidence of penetration or aspiration was noted. Patient may benefit from a min stand moist diet, level 5. Patient should be encouraged to use had flexion when swallowing pills to prevent coughing. 09/05 Overall the patient states she is breathing back to normal. Her white blood cell count is 10.7 (slowly improving), creatinine is 0.4. Urine Legionella and urine pneumococcal antigens are negative. Patient did get out of bed to chair yesterday and had desats requiring 10 L nasal cannula she recovered when she was in the chair. Currently she is on 5 L nasal cannula saturation 96%. Patient is status post 5 days of Zithromax and cefepime from 09/01 through 09/04 and Zosyn from 09/04. today is day 5 of antibiotics. 09/06 Slowly improving. She is out of bed and have encouraged her to do some walking today. Currently on 5 L with saturation 91%Patient is status post 5 days of Zithromax (completed 09/05) and cefepime from 09/01 through 09/04 and Zosyn from 09/04. today is day 6 of antibiotics. 09/10/2022 : Not better. Progressing infiltrates on chest CT. WBC staying about the same 15.1 K. O2 need is higher. Was admitted with WBC 15.3 went down to 10 and now is 15.1. She is on 6 L O2. plan: Sputum for AFB; this could be MAC, and regular antibiotics are not going to help. ABG on current O2. She was intubated in January but the ABGs were much worse with pCO2 higher and more acidosis. Intubating her brings risk of not being able to extubate. Hospice may be appropriate. I left a message with her daughter, Renny, to call back. d/w Dr Silva. Will continue to follow with you closely. (2) Emphysema/COPD: Qualifiers: Emphysema type: panlobular Qualified Code(s): J43.1 - Panlobular emphysema Code(s): J43.9 - Emphysema, unspecified Status: Acute Assessment and Plan: COPD (chart states former smoker) on 3 L home O2, PFTs 03/13/2019 with pre bronchodilator FVC 1.84 L, 63% predicted. Pre bronchodilator FEV1 1.21 L, 54% predicted. Ratio 66% predicted, says post intubation on 02/01/2021 for influenza a pneumonia, CT angiogram of the chest on 09/01/2022 with severe apical predominant panlobular emphysema. 09/01 patient presents with 1-2 weeks worsening shortness of breath, cough, increased phlegm production and wheezes were noted by the admitting physician. I will treat patient for COPD exacerbation. Solu-Medrol 40 mg IV q.6, albuterol 2.5 mg nebulized q.4 hours, ipratropium 0.5 mg nebulized q.4 hours. Will discontinue inhaled corticosteroids while the patient is on systemic steroids. 09/02 patient with no w
--- NOTE | 2022-09-10 15:23 | PCPTNOTE ---
Attempted to see patient for PT, however patient refused, even with RN in room to encourage patient to participate in therapy. Patient reported not today. Prior to PT checking on patient, nursing reported patient is okay to try for therapy to get some mobility, will just have to watch O2 SATs.
[2022-09-10] MEDS: RIVAROXABAN 20 MG TABLET PO (16:44)
[2022-09-10 17:23] LABS: Alveolar/Arterial O2 Gradient 242.5 mmHg; Base Excess ABG 14.8 mEq/l (+/-2.0); Fractional Inspired Oxygen 60 %; HCO3 ABG 44.7 mEq/l (22.0-26.0); Oxygen Content ABG 14.1 %vol (16.0-22.0); Oxygen Saturation ABG 94.1 % (95.0-100.0); Oxyhemoglobin 93.3 % THb (90.0-100.0); PO2 ABG 82.2 mmHg (80.0-100.0); PO2 FiO2 Ratio Arterial Blood 1.37 %; Total Hemoglobin 10.7 g/dL (12.0-18.0)
[2022-09-10 17:28] LABS: PCO2 ABG 93.7 mmHg (35.0-45.0); Site Drawn RIGHT RADIAL; pH ABG 7.296 (7.350-7.450)
[2022-09-10 17:29] LABS: Device HIGH FLOW NASAL CANN; Modified Allen's Test Pass
--- NOTE | 2022-09-10 21:13 | PCRCNOTE ---
per pt she does not want to wear bipap at the moment. pt on 15Liters sp02 98%
[2022-09-10] MEDS: MELATONIN 5 MG TABLET PO (21:31)
[2022-09-11] VITALS (11 sets, daily range): BP systolic 51–109; BP diastolic 24–52; PULSE 48–770; RESP 18–23; TEMP 35.2–36.5; O2SAT 86–99
[2022-09-11] MEDS: ALBUTEROL SULFATE NEB 2.5 MG/3 ML INH INHALATION ×2 (00:43→07:55)
[2022-09-11] MEDS: IPRATROPIUM BR 0.02% INH SOLN 0.5 MG/2.5 ML VIAL INHALATION ×2 (00:43→07:55)
[2022-09-11] MEDS: VANCOMYCIN HCL 500 MG in DEXTROSE 5% 100 ML IVPB (03:00)
[2022-09-11 05:13] LABS: Basophils Percent Auto 0.1 % (0.2-1.2); Eosinophils Percent Auto 0.1 % (0-4.4); Hematocrit 39.8 % (37.0-47.0); Hemoglobin 10.5 g/dL (12.0-15.0); Immature Granulocyte Absolute 0.69 K/mm3 (0.00-0.031); Lymphocytes Absolute Auto 0.65 K/mm3 (0.9-3.2); Lymphocytes Percent Auto 2.8 % (18.3-44.2); Mean Corpuscular HGB Conc 26.4 g/dl (32-36); Mean Corpuscular Hemoglobin 24.3 pg (26-34); Mean Corpuscular Volume 92.1 fl (80-100); Mean Platelet Volume 10.8 fl (7.4-10.4); Monocytes Absolute Auto 1.7 K/mm3 (0.1-0.6); Monocytes Percent Auto 7.1 % (2.6-8.5); Neutrophils Absolute Auto 20.3 K/mm3 (1.3-6.7); Neutrophils Percent Auto 86.9 % (45.5-73.1); Platelet Count Result 318 k/mm3 (150-375); Red Blood Count 4.32 M/mm3 (4.2-5.4); Red Cell Distribution Width 20.8 % (11.5-14.5); White Blood Count 23.3 K/mm3 (4.5-10.0)
[2022-09-11 05:30] LABS: Alanine Aminotransferase 74 U/L (6-35); Albumin Level 2.6 g/dL (3.5-5.1); Alkaline Phosphatase 136 U/L (38-126); Aspartate Amino Transferase 76 U/L (14-36); Bilirubin,Total 0.7 mg/dL (0.2-1.3); Blood Urea Nitrogen 19 mg/dL (7-17); Calcium 7.9 mg/dL (8.4-10.2); Carbon Dioxide > 40 mmol/L (22-30); Chloride 92 mmol/L (98-107); Estimated CRCL calculation 80 ml/min; Estimated Glomerular Filt Rate > 60; Glucose 72 mg/dL (65-110); Sodium 142 mmol/L (137-145)
[2022-09-11] MEDS: SALINE LOCK FLUSH 10 ML IV PUSH (05:37)
[2022-09-11 06:00] LABS: Platelet Estimate Adequate (Adequate)
[2022-09-11 06:01] LABS: Anisocytosis 2+ (NORMAL); Hypochromasia 1+ (NORMAL); Schistocytes None Seen (NORMAL)
--- NOTE | 2022-09-11 07:51 | PCOTNOTE ---
Patient unresponsive per RN, not appropriate for OT. Will continue plan of care if appropriate.
[2022-09-11] MEDS: BUDESONIDE RESPULE NEB 0.5 MG/2 ML AMP INHALATION (07:55)
--- NOTE | 2022-09-11 07:57 | P.PNCROSS_ITS ---
Event Note Event Note Event Note: Number for Rohith Almanzar listed as person to notify is not work. Patient has be come unresponsive. Called and spoke with Aide Almanzar, who the patient told me helped take care of her and make medical decisions, who states that overnight the patient decided she would like to go home with hopsice and no longer wants to be intubated or have any additional interventions. At this point, due to the patient's deterioration due to her end stage lung disease with superimposed wors ening pneumonia, we will proceed with comfort care. A hospice consult has been placed.
--- NOTE | 2022-09-11 10:50 | PCNSR ---
On 09/11/22, the student, Antonio Ford, provided care and completed [facility] documentation on this patient. I have reviewed the student's documentation and agree with the findings.
--- NOTE | 2022-09-11 10:59 | PCNFU ---
Nutrition Follow-Up Complete: Severe malnutrition related to chronic COPD, loss of appetite as evidenced by weight loss -28%/7 months, intake <75% needs at least 6 months, severe muscle wasting and fat loss. Goal: Adequate intake at least 75% meals - Unable to meet goal due to respiratory status. Intakes have been minimal, 0-15% with 60 ml Ensure Compact charted Pt current nutrition is Regular, level 5. Nutrition recommendation: PO intake as tolerated. Last recorded weight is 38.6 kg. Bowel Motility: Last BM 09/08/22 Labs Reviewed: Alb 2.6, BUN 19, Creat 0.3 Meds Noted: Amiodarone, solumedrol, protonix, Xarelto Skin: DTI to coccyx, L heel Additional Notes: Pt has become comfort care with hospice consult pending. No aggressive nutrition interventions warranted. PO intake as tolerated. Monitoring intakes, code status. Follow up PRN
--- NOTE | 2022-09-11 14:37 | PM.DDS ---
Discharge Summary Date and Time Date of : 09/11/22 Time of : 11:40 Provider Pronounced By: Aide Dawson RN and Trinh Aguilar RN Probable Cause of Probable Cause of : Acute on chronic hypercapnic repiratory failure due to superimposed pneumonia Summary Hospital Course: 72F with a past medical history of ?chronic hyper hypoxic respiratory failure on 3 L home oxygen, emphysema, chronic atrial fibrillation, hyperthyroidism, CHF EF 40-45% (echo 02/02/2022), and pulmonary hypertension who presented to the emergency department with progressively worsening shortness of breath over the past one to two weeks with increased sputum production. Home oxygen requirement was increased from baseline 3L. Patient was admitted and treated for pneumonia. Pulmonology was consulted and recommended continuation of treatment of pneumonia with cefepime and azithromycin. Pulmonology also recommended BIPAP but could not tolerate this so Pulmonology changed to noninvasive ventilator with the a VATS mode. Patient was also treated for a COPD exacerbation with steroids, albuterol and ipratropium scheduled. Patient appeared to be euvolemic with compensated heart failure. Antibiotics were changed to imipenem and vancomycin as the patient did not seem to be improving. Patient also had repeat CT of the chest, which did not demonstrate parapneumonic effusion or empyema. Despite treatment for pneumonia, the patient still struggled with breathing and recovery. Patient reported her grand-daughter was the person she wanted to make decisions about her health should she be unable to make decisions. Patient daughter discussed the situation with family members and the patient was made comfort care with the plan for hospice. The patient passed in the hospital. Additional Data Confirmation of as documented by pronouncing clinician: Pupillary Reflex, Palpable Pulses, Response to Stimuli, Heart Tones and Breath Sounds Name of Provider Notified: Dr. Silva Time Provider Notified: 11:45 Provider Requests Autopsy: No Family Requests Autopsy: No Mobile Crane Operator Notified: Yes Date [facility] Notified of : 09/11/22 Time [facility] Notified of : 11:51
== END 2022-09-11 11:40 | disposition expired | DRG 193 ==
LOC: ANHED 21:39 → ANHIMU 09-01 02:14
PROVIDERS: Internal Medicine Critical Care Medicine; Internal Medicine Pulmonary Disease; Nurse Practitioner Family; Admitting Provider Internal Medicine; Emergency Provider Preventive Medicine Aerospace Medicine; PCP Physician Assistant; Visit Provider Family Medicine
DX: J18.9 Pneumonia, unspecified organism (principal); J96.21 Acute and chronic respiratory failure with hypoxia; J96.22 Acute and chronic respiratory failure with hypercapnia; I50.32 Chronic diastolic (congestive) heart failure; I27.20 Pulmonary hypertension, unspecified; J43.1 Panlobular emphysema; Z20.822 Contact with and (suspected) exposure to COVID-19; R40.4 Transient alteration of awareness; Z51.5 Encounter for palliative care; T14.8XXA Other injury of unspecified body region, initial encounter; R79.89 Other specified abnormal findings of blood chemistry; I48.0 Paroxysmal atrial fibrillation; I73.9 Peripheral vascular disease, unspecified; R63.4 Abnormal weight loss; R53.1 Weakness; D50.9 Iron deficiency anemia, unspecified; R33.9 Retention of urine, unspecified; Z79.01 Long term (current) use of anticoagulants; Z79.899 Other long term (current) drug therapy; Z87.891 Personal history of nicotine dependence; Z99.81 Dependence on supplemental oxygen
CPT/HCPCS: 36415; 36430; 36569; 36600; 71045; 71250; 71275; 74177; 76705; 80053; 80074; 81003; 82274; 82306; 82375; 82607; 82728; 82746; 82805; 82948; 83050; 83540; 83550; 83605; 83615; 83735; 83880; 84100; 84132; 84145; 84466; 84484; 85014; 85018; 85025; 85610; 85730; 86140; 86850; 86900; 86901; 86920; 87015; 87040; 87070; 87081; 87116; 87205; 87206; 87449; 87502; 87899; 92610; 93005; 93306; 94002; 94003; 94640; 94667; 94668; 94762; 96361; 96365; 96366; 96367; 96375; 96376; 97110; 97161; 97166; 97530; 99285; A9270; C1751; C9803; G0378; J0456; J0692; J0696; J0743; J1756; J1940; J2543; J2920; J2930; J3370; J3480; J7030; J7040; J7050; J7512; P9016; Q9967; U0003; U0005